=== PATIENT | female | born 1945 | race Caucasian/White ===

== ENCOUNTER → 2017-09-09 09:14 | Outpatient (CLI) | payer MEDICARE, SELFPAY ==
[2017-09-09 10:50] LABS: Anion Gap 8 (5-15); BUN 13 mg/dL (7-18); BUN/Creat Ratio 17.2 RATIO (10-20); Calcium,Total 8.7 mg/dL (8.5-10.1); Chloride 99 mmol/L (98-107); Cholesterol 142 mg/dL (200); Creatinine, Serum 0.76 mg/dL (0.55-1.02); EST Glomerular Filtration Rate 80 mL/min (>60); Est Glom Filt Rate - Afr Amer 97 mL/min (>60); Glucose 97 mg/dL (74-106); High Density Lipoprotein 44 mg/dL; Potassium 4.1 mmol/L (3.5-5.1); Sodium Level 132 mmol/L (136-145); Triglycerides 171 mg/dL; Very Low Density Lipoprotein 34 mg/dL (5-40)
== END ==
PROVIDERS: Family Provider Family Medicine; PCP Family Medicine; Visit Provider Family Medicine
DX: I10 Essential (primary) hypertension (principal)
CPT/HCPCS: 36415; 80048; 80061

== ENCOUNTER → 2018-03-09 11:55 | Outpatient (CLI) | payer MEDICARE, SELFPAY ==
[2018-03-09 14:07] LABS: Anion Gap 10 (5-15); BUN 9 mg/dL (7-18); BUN/Creat Ratio 12.8 RATIO (10-20); Chloride 101 mmol/L (98-107); EST Glomerular Filtration Rate 87 mL/min (>60); Est Glom Filt Rate - Afr Amer 105 mL/min (>60); Glucose 72 mg/dL (74-106); Potassium 3.7 mmol/L (3.5-5.1); Sodium Level 138 mmol/L (136-145)
== END ==
PROVIDERS: Family Provider Family Medicine; PCP Family Medicine; Visit Provider Family Medicine
DX: I10 Essential (primary) hypertension (principal)
CPT/HCPCS: 36415; 80048

== ENCOUNTER 2018-09-12 19:26 | Inpatient (IN) | payer MEDICARE, SELFPAY ==
[2018-09-12 19:28] VITALS: BP 129/47; PULSE 91; RESP 19; TEMP 36.8; O2SAT 92; BMI 31.8
--- NOTE | 2018-09-12 19:37 | CT_ITS ---
STUDY: CT BRAIN WITHOUT CONTRAST REASON FOR EXAM: Female, 72 years old. Fall, hit head RADIATION DOSAGE (If Supplied By Facility): CTDIvol = ( 44.99 ) mGy, DLP = ( 779.24 ) mGycm TECHNIQUE: Transaxial CT imaging of the brain was performed without administration of intravenous contrast material. Individualized dose optimization techniques were used for this CT. COMPARISON: CT brain 10/26/2013. FINDINGS: Normal soft tissue structures. Normal calvarium. There is mild cerebral atrophy with widening of the extra-axial spaces and ventricular dilatation. Normal white matter tracts of the cerebral hemispheres. Normal basal ganglia and thalami. Normal brainstem. Normal cerebellum. There is no intracranial hemorrhage. There are no findings of an acute ischemic infarction. There is mild mucosal thickening in the ethmoid and sphenoid sinuses bilaterally. CT/Brain/Head without Contrast IMPRESSION: 1. No acute findings. 2. Mild involutional changes of the brain. 3. Trace chronic sinusitis. Electronically Signed: Rosalina Huang MD at 22:11 EDT Tel , Service support ,
--- NOTE | 2018-09-12 19:37 | RAD_ITS ---
STUDY: X-RAY CHEST REASON FOR EXAM: Female, 72 years old. Fall. TECHNIQUE: Portable chest. COMPARISON: 02/12/2017. FINDINGS: There is a mild hazy opacity in the right upper lobe partially superimposed over the right posterior sixth rib. The lung morris are otherwise clear. There is no demonstrated pleural abnormality. Normal size heart. Normal mediastinum and erwin. Normal visualized pulmonary arteries. Normal visualized aortic arch and descending thoracic aorta. Normal visualized thoracic spine. Normal visualized ribs, clavicles, and shoulders. There is no demonstrated abnormality of the visualized soft tissue structures of the upper abdomen. RAD/Chest 1 View (Portable) IMPRESSION: Right upper lobe opacity, suspicious for pneumonia. Follow-up to resolution is advised to exclude underlying malignancy. Electronically Signed: Rosalina Huang MD at 22:04 EDT Tel , Service support ,
--- NOTE | 2018-09-12 19:38 | RAD_ITS ---
STUDY: X-RAY - RIGHT KNEE REASON FOR EXAM: Female, 72 years old. Trauma TECHNIQUE: 3 view(s) of the knee. COMPARISON: None. FINDINGS: Normal visualized distal femur. Normal visualized proximal tibia and fibula. Normal proximal tibiofibular articulation. Normal medial femorotibial compartment. Normal lateral femorotibial compartment. Normal patellofemoral articulation. The soft tissue structures are unremarkable. RAD/Knee 3 Views IMPRESSION: Normal x-ray examination of the knee. Electronically Signed: Owen Marrero MD at 22:13 EDT , Service support ,
--- NOTE | 2018-09-12 19:38 | RAD_ITS ---
STUDY: X-RAY - LEFT TIBIA AND FIBULA REASON FOR EXAM: Female, 72 years old. Trauma TECHNIQUE: 3 view(s) of the tibia and fibula were obtained. COMPARISON: None. FINDINGS: Normal visualized tibia. There is a comminuted fracture of the proximal left fibular shaft with fracture apex directed laterally. The soft tissue structures are unremarkable. RAD/Tibia & Fibula 2 Views IMPRESSION: Comminuted fracture the proximal left fibular shaft with fracture apex directed laterally. Electronically Signed: Owen Marrero MD at 22:15 EDT , Service support ,
--- NOTE | 2018-09-12 19:38 | CT_ITS ---
STUDY: CT CERVICAL SPINE WITHOUT CONTRAST REASON FOR EXAM: Female, 72 years old. Trauma RADIATION DOSAGE (If Supplied By Facility): CTDIvol = ( 31.74 ) mGy, DLP = ( 612.34 ) mGycm TECHNIQUE: High resolution transaxial imaging was performed without contrast material. Sagittal and coronal images were reconstructed. Individualized dose optimization techniques were used for this CT. COMPARISON: Report of prior study of 05/20/2011 FINDINGS: Normal craniovertebral junction. Normal anterior atlantoaxial articulation. Normal odontoid process. There is reversal of the normal cervical lordosis. There is diffuse endplate spondylosis. C2-3: There are bilateral hypertrophic degenerative facet changes. There is no central canal stenosis or foraminal narrowing. Disc spacing is preserved. C3-4: There is moderately severe disc space narrowing. There are bilateral degenerative facet changes. There is mild foraminal narrowing on the left. There is no central canal stenosis. C4-5: There is a 2 mm anterior subluxation of C4 relative to C5. There are bilateral degenerative facet changes left side more severely affected than right. There is severe foraminal narrowing on the left. There is no central canal stenosis. C5-6: There are mild bilateral degenerative facet changes. There is no central canal stenosis or foraminal narrowing. Disc spacing is preserved. C6-7: Normal endplates. Normal disc height and morphology. Normal central canal and intervertebral neuroforamina. C7-T1: Normal endplates. Normal disc height and morphology. Normal central canal and intervertebral neuroforamina. There are bilateral emphysematous changes of the lung apices. There is probable left apical scarring. CT/Spine Cervical without Contras IMPRESSION: Cervical degenerative changes as detailed above. Emphysematous changes of the lung apices. Probable left apical scarring. Nonemergent CT of the chest without contrast is recommended. Electronically Signed: Owen Marrero MD at 22:22 EDT , Service support ,
[2018-09-12] MEDS: 0.9% Normal Saline 1,000 ML 150 ML IV (20:36)
[2018-09-12 20:38] LABS: Absolute Lymphocyte Count 0.97 X10^3/ul (0.83-4.51); Absolute Neutrophil Count 4.9 X10^3/uL (2.0-7.7); Basophil# 0.03 X10^3/uL; Basophil% 0.4 % (0-1); Hemoglobin 12.9 g/dl (12.0-15.0); Lymphocyte # 0.97 X10^3/ul (4.0); Lymphocyte % 14.5 % (19-41); Mean Corp Hgb Conc 34.9 g/gl (32-36); Mean Corpuscular Hgb 30.8 pg (27.0-32.0); Mean Corpuscular Volume 88.3 fL (81-99); Mean Platelet Vol. 10.1 fl (6.2-12.0); Monocyte# 0.77 X10^3/uL; Monocyte% 11.5 % (0-10); Neutrophil # 4.91 X10^3/uL (2.7-7.7); Neutrophil % 73.2 % (47-70); POSITIVE COUNT NO; POSITIVE DIFFERENTIAL NO; POSITIVE MORPHOLOGY NO; Platelet Count 178 K/mm3 (150-450); RBC Distribution Width CV 12.5 % (11.6-14.6); RBC Distribution Width SD 39.7 fl (35.1-43.9); Red Blood Count 4.19 M/mm3 (4.2-5.4); White Blood Count 6.7 K/mm3 (4.4-11.0)
[2018-09-12 20:51] LABS: Mucous, Urine 0 SEEN /hpf (<or=2+)
[2018-09-12 20:55] LABS: Color, Urine Yellow (Yellow); Glucose, Dipstick Normal (Normal); Ketone-Dipstick Negative (Negative); Leukocyte Esterase-Dipstick 500 /ul (Negative); Nitrite-Dipstick Positive (Negative); Occult Blood-Urine 50 /ul (Negative); Protein-Dipstick 30 mg/dl (Negative); Specific Gravity, Urine 1.015 (1.002-1.030); Urine Bilirubin Dipstick Negative (Negative); Urine Clarity Sl. Cloudy (Clear); Urine Urobilinogen Normal (Normal)
[2018-09-12 21:02] LABS: Anion Gap 8 (5-15); BUN 31 mg/dL (7-18); BUN/Creat Ratio 24.4 RATIO (10-20); Calcium,Total 8.4 mg/dL (8.5-10.1); Chloride 92 mmol/L (98-107); Creatinine, Serum 1.27 mg/dL (0.55-1.02); EST Glomerular Filtration Rate 44 mL/min (>60); Est Glom Filt Rate - Afr Amer 53 mL/min (>60); Estimated Creatinine Clearance 33.12 ml/min; Glucose 108 mg/dL (74-106); Potassium 3.1 mmol/L (3.5-5.1); Sodium Level 127 mmol/L (136-145)
[2018-09-12 21:03] LABS: CPK Total, Creatine Kinase 634 U/L (26-192)
[2018-09-12 21:08] LABS: White Blood Cells 10-25 SEEN /hpf (0-5)
[2018-09-12 21:09] LABS: Bacteria 3+ /hpf (None Seen); Red Blood Cells-Urine 0-5 SEEN /hpf (0-5); Squamous Epithelial Cells - UA 0-5 SEEN /hpf (5-10)
[2018-09-12 21:11] LABS: Lactic Acid 3.4 mmol/L (0.4-2.0)
[2018-09-12 21:27] VITALS: BP 133/76; PULSE 78; RESP 18; RESP 22; TEMP 36.8; O2SAT 92; O2SAT 93
--- NOTE | 2018-09-12 21:30 | ED.VISSUMM ---
- ER Visit Summary Date of Service: 09/12/18 Chief Complaint: [Fall] History of Present Illness: The patient is a 72 F [presents to the emergency department with several falls in the last 24 hours. Patient fell about 11:30 PM last night while going to the kitchen. Patient is unsure if she is lost her balance. She did hit her head and is not sure if she lost consciousness but she thinks she may have. Patient eventually was able to get up and sit in a chair. Patient apparently had a second fall this evening. The daughter states that the patient seems somewhat confused yesterday and would not answer her phone for 6 hours which is unusual. The daughter sent someone to do a welfare check on her mother and found the mother had fallen and was on the floor. Patient does have a history of hypertension, COPD, frequent falls, hypothyroidism, and bipolar disorder. Patient complains of pain in both knees and states she can bear weight on her left leg. She complains of a headache and some neck pain. She denies any chest pain. Patient has had a cough for several days and thought maybe she had the flu. She has had a fever at home up to 102. Patient has had some sweats.] Physical Examination: [HEENT-PERRLA, EOMI. Cranial nerves II through XII grossly intact. TMs clear. Mucous membranes moist. No adenopathy. Cardiovascular-regular rate and rhythm without murmur or ectopy Lungs-clear to auscultation, chest wall stable without crepitus or subcu emphysema Abdomen-normoactive bowel sounds, soft, nontender, no rebound or rigidity, no peritoneal signs. Extremities-intact ?4, normal range of motion, normal pulses. Right knee-patient has some superficial abrasions to the anterior aspect of the knee with some mild diffuse bony tenderness. There is no acute deformity. She has normal range of motion in flexion of the knee. Ligamentously stable. Left knee-patient has again superficial abrasion noted and tenderness over the proximal fibula. Neurovascular intact distally. Test Results: [CT scan of the brain without contrast was obtained on my interpretation I do not appreciate any hemorrhage. CT of the C-spine also on my interpretation I do not appreciate any fractures only degenerative changes. CBC with differential showed a white count 6.7, hemoglobin 12.4, hematocrit 37, platelets 178. Chemistry showed a sodium of 127, potassium 3.1, chloride 92, CO2 27, glucose 108, BUN 31 and creatinine 1.27. Urinalysis was positive for nitrites as well as 10-25 WBCs and +3 bacteria. CPK was 634. Lactate was elevated 3.4. X-rays of the left tib-fib obtained showed a proximal fibula fracture. X-rays of the right knee showed no fractures. Chest x-ray showed chronic changes.] Emergency Department Course and Treatment: [Patient was placed in a knee immobilizer. Patient had blood cultures and urine cultures ordered. Patient was started on Rocephin 1 g IV. She refused pain medication.] Treatment Plan: [Admit] Disposition: [Admit] Impression: [Falls Left fibula fracture UTI Rhabdomyolysis] This note was generated with [employer] dictation software. It may contain incorrect words, spelling, and punctuation that were not noted in review of the chart prior to signing ED Disposition - Plan for ED Patient: Referrals: Florecita Lange MD [Primary Care Provider] -
--- NOTE | 2018-09-12 21:34 | ED.DCSUM_ITS ---
- ER Visit Summary Date of Service: 09/12/18 Chief Complaint: [Fall] History of Present Illness: The patient is a 72 F [presents to the emergency department with several falls in the last 24 hours. Patient fell about 11:30 PM last night while going to the kitchen. Patient is unsure if she is lost her balance. She did hit her head and is not sure if she lost consciousness but she thinks she may have. Patient eventually was able to get up and sit in a chair. Patient apparently had a second fall this evening. The daughter states that the patient seems somewhat confused yesterday and would not answer her phone for 6 hours which is unusual. The daughter sent someone to do a welfare check on her mother and found the mother had fallen and was on the floor. Patient does have a history of hypertension, COPD, frequent falls, hypothyroidism, and bipolar disorder. Patient complains of pain in both knees and states she can bear weight on her left leg. She complains of a headache and some neck pain. She denies any chest pain. Patient has had a cough for several days and thought maybe she had the flu. She has had a fever at home up to 102. Patient has had some sweats.] Physical Examination: [HEENT-PERRLA, EOMI. Cranial nerves II through XII grossly intact. TMs clear. Mucous membranes moist. No adenopathy. Cardiovascular-regular rate and rhythm without murmur or ectopy Lungs-clear to auscultation, chest wall stable without crepitus or subcu emphysema Abdomen-normoactive bowel sounds, soft, nontender, no rebound or rigidity, no peritoneal signs. Extremities-intact ?4, normal range of motion, normal pulses. Right knee- patient has some superficial abrasions to the anterior aspect of the knee with some mild diffuse bony tenderness. There is no acute deformity. She has normal range of motion in flexion of the knee. Ligamentously stable. Left knee-p atient has again superficial abrasion noted and tenderness over the proximal fibula. Neurovascular intact distally. Test Results: [CT scan of the brain without contrast was obtained on my interpretation I do not appreciate any hemorrhage. CT of the C-spine also on my interpretation I do not appreciate any fractures only degenerative changes. CBC with differential showed a white count 6.7, hemoglobin 12.4, hematocrit 37, platelets 178. Chemistry showed a sodium of 127, potassium 3.1, chloride 92, CO2 27, glucose 108, BUN 31 and creatinine 1.27. Urinalysis was positive for nitrites as well as 10-25 WBCs and +3 bacteria. CPK was 634. Lactate was elevated 3.4. X-rays of the left tib-fib obtained showed a proximal fibula fracture. X-rays of the right knee showed no fractures. Chest x-ray showed chronic changes.] Emergency Department Course and Treatment: [Patient was placed in a knee immobilizer. Patient had blood cultures and urine cultures ordered. Patient was started on Rocephin 1 g IV. She refused pain medication.] Treatment Plan: [Admit] Disposition: [Admit] Impression: [Falls Left fibula fracture UTI Rhabdomyolysis] This note was generated with [employer] dictation software. It may contain incorrect words, spelling, and punctuation that were not noted in review of the chart prior to signing ED Disposition - Plan for ED Patient: Referrals: Florecita Lange MD [Primary Care Provider] -
[2018-09-12] MEDS: 0.9% Normal Saline 1,000 ML 999 ML IV (21:36)
[2018-09-12] MEDS: Ceftriaxone 1 GM/50 ML BAG IV (21:54)
[2018-09-12 22:00] VITALS: BP 158/76; PULSE 76; TEMP 36.7; O2SAT 93
--- NOTE | 2018-09-12 22:25 | HP.PCM_ITS ---
Problem List (1) Pneumonia Status: Acute Qualifiers: Pneumonia type: due to unspecified organism Laterality: right Lung location: upper lobe of lung Qualified Code(s): J18.1 - Lobar pneumonia, unspecified organism (2) COPD exacerbation Status: Acute (3) UTI (urinary tract infection) Status: Acute Qualifiers: Urinary tract infection type: acute cystitis Hematuria presence: without hematuria Qualified Code(s): N30.00 - Acute cystitis without hematuria (4) Rhabdomyolysis Status: Acute Qualifiers: Rhabdomyolysis type: traumatic Encounter type: initial encounter Qualified Code(s): T79.6XXA - Traumatic ischemia of muscle, initial encounter (5) Closed left fibular fracture Status: Acute Qualifiers: Encounter type: initial encounter Fibula location: proximal Fracture morphology: unspecified fracture morphology Qualified Code(s): S82.832A - Other fracture of upper and lower end of left fibula, initial encounter for closed fracture (6) Hypokalemia Status: Acute (7) Falls frequently Status: Acute (8) Bipolar disorder Status: Chronic Qualifiers: Active/Remission status: remission status unspecified Qualified Code(s): F31.9 - Bipolar disorder, unspecified (9) Hypertension Status: Chronic Qualifiers: Hypertension type: essential hypertension Qualified Code(s): I10 - Essential (primary) hypertension (10) Hypothyroidism Status: Chronic Qualifiers: Hypothyroidism type: unspecified Qualified Code(s): E03.9 - Hypothyroidism, unspecified (11) Tobacco use disorder Status: Chronic (12) HLD (hyperlipidemia) Status: Chronic Qualifiers: Hyperlipidemia type: pure hypercholesterolemia Qualified Code(s): E78.00 - Pure hypercholesterolemia, unspecified; E78.0 - Pure hypercholesterolemia (13) Obesity (BMI 30.0-34.9) Status: Chronic (14) CVA (cerebral vascular accident) Status: Chronic Qualifiers: CVA mechanism: unspecified Qualified Code(s): I63.9 - Cerebral infarction, unspecified (15) COPD (chronic obstructive pulmonary disease) Status: Chronic Qualifiers: COPD type: unspecified COPD Qualified Code(s): J44.9 - Chronic obstructive pulmonary disease, unspecified History of Present Illness Date of Admission: 09/12/18 Chief Complaint: Fall, LLE pain, Cough, Dysuria, Dyspnea, Wheezing The patient is a 72 y/o F w/ PMHx: Bipolar Disorder/Anxiety and Depression, obesity, HTN, HLD, Former Tobacco use, Hypothyroidism, Hx Hypercoagulable state w/ Hx Recurrent CVA on coumadin, History of Frequent falls, Chronic COPD who presents to the [facility] ED on 09/12/18 with history of inability per family to reach her the day prior, she notes having felt confused with foul smelling urine recently in addition to several day history of increased productive cough, dyspnea worse with any exertional attempts as well as wheezing, fatigue and malaise with fevers, fell 09/11/18 evening at ~ 11:30 pm, eventually was able to reach her chair, dragging herself with abrasions to her toes secondary to being in plastic shoes with no socks; ever, when attempting to get up from her chair the following day she fell again, injuring her LLE on the fall while attempting to get up from her chair, laid on the ground for unclear amount of time until family found her prior to ED presentation (~ 7:30 pm). Work-up in the ED included T 98.3, heart rate 91, BP 129/47, respiratory rate 19, 92% on room air, CBC with WBC 6.7, hemoglobin 12.9, platelet 178 with mild left shift, BMP with sodium 127, potassium 3.1, chloride 92, BUN/creatinine 31/1.27 (baseline Cr 0.7- 8), glucose 108, lactic acid 3.4, calcium 8.4, total creatinine kinase is 634, carbamazepine level 11, urinalysis concerning for acute urinary tract infection, urine culture pending per ED, blood culture x2 pending per ED, rapid influenza negative, chest x-ray with right upper lobe opacity suspicious for pneumonia, CT brain pending, CT cervical spine pending, Plain film knee RLE unremarkable, Plain film tibia/fibula w/ proximal fibula fracture. ED placed patient in knee immobilizer LLE. In the ED patient administered potassium 40 mg p.o. x1, IV Rocephin, normal saline 2 L x1. Past Medical History Past Medical History (Chronic Problems): Chronic Problems HLD (hyperlipidemia) (Chronic) CVA (cerebral vascular accident) (Chronic) Obesity (BMI 30.0-34.9) (Chronic) COPD (chronic obstructive pulmonary disease) (Chronic) Hypothyroidism (Chronic) Bipolar disorder (Chronic) Tobacco use disorder (Chronic) Hypertension (Chronic) Allergies aspirin Allergy (Verified 09/12/18 19:27) Hives diphenhydramine HCl [From Benadryl] Allergy (Verified 09/12/18 19:27) Anaphylaxis latex Allergy (Verified 09/12/18 19:27) Rash meperidine [From Demerol] Allergy (Verified 09/12/18 19:27) Swelling Penicillins Allergy (Verified 09/12/18 19:27) Anaphylaxis Sulfa (Sulfonamide Antibiotics) Allergy (Verified 09/12/18 19:27) Unknown codeine Adverse Reaction (Verified 09/12/18 19:27) Vomiting haloperidol [From Haldol] Adverse Reaction (Verified 09/12/18 19:) HALLUCINATIONS promethazine HCl [From Phenergan] Adverse Reaction (Verified 09/12/18 19:27) Other Home Medications: Ambulatory Orders Medication Instructions Recorded Amlodipine [Norvasc] 10 mg PO DAILY 10/26/13 Baclofen [Lioresal] 10 mg PO BID 10/26/13 Bisoprolol Fumarate/Hctz [ZIAC 1 each PO DAILY 10/26/13 2.5-6.25 mg (Beta Jc)] Carbamazepine [Tegretol] 100 mg PO DAILY 10/26/13 Carbamazepine [Tegretol] 200 mg PO QHS 10/26/13 Duloxetine Hcl [Cymbalta] 60 mg PO DAILY 10/26/13 Lisinopril [Zestril] 20 mg PO BID 10/26/13 Quetiapine Fumarate [Seroquel] 200 mg PO QHS 10/26/13 Rosuvastatin Calcium [Crestor] 10 mg PO QHS 10/26/13 Warfarin [Coumadin] 5 mg PO DAILY@1700 #30 tablet 10/28/13 Pregabalin [Lyrica] 50 mg PO BID 10/06/16 Albuterol Inhaler [Ventolin Hfa] 2 puff INHALATION TID 02/12/17 Duloxetine Hcl [Cymbalta] 30 mg PO BID 02/12/17 Oxybutynin Chloride [Ditropan Xl] 30 mg PO DAILY 02/12/17 Enoxaparin [Lovenox] 40 mg SC DAILY@0600 #2 syringe 02/24/17 Hydrocodone Bitart/Apap 5-325 1 - 2 tablet PO Q6H PRN PRN #60 02/24/17 [[place] 5/325] tablet Oxycodone CR [Oxycontin] 10 mg PO BID #30 tablet 02/24/17 Senna/Docusate Sodium [Senokot-S] 2 tablet PO BID #30 tablet 02/24/17 Surgical History: - - Appendectomy, cholecystectomy, hysterectomy with bilateral salpingo-oophorectomy, left total hip replacement. Psychiatric History: Anxiety, Bipolar, Depression DISC RECORDIST History: spontaneous , - - She had DEREJE with BSO for dysfunctional uterine bleeding Lives: Alone Smoking Status: Former smoker - Patient quit approximately 4 weeks prior to cu rrent ED presentation, cigarette tobacco usage. Tobacco Use: Non-smoker Alcohol: None Drugs: None - *Family History Maternal History Items: Heart Disease Paternal History Items: Heart Disease Review of Systems Constitutional: Reports: Anorexia, Fever, Malaise, Weakness, Fatigue. Denies: Chills, Weight Change HEENT: Denies: Head Aches, Sinus Congestion, Sinus Drainage Cardiovascular: Denies: Chest Pain, Palpitations Respiratory: Reports: Cough, Shortness of Breath, Shortness of breath at rest, Shortness of breath upon exertion, Sputum production, Wheezing Gastrointestinal: Denies: Abdominal Pain, Nausea, Vomiting Genitourinary: Reports: Dysuria Musculoskeletal: Reports: Joint Pain, Joint stiffness, Joint swelling, Joint Tenderness, Leg Pain Skin: Reports: Skin Changes. Denies: Rash, Wounds Neurological: Denies: Numbness, Tingling, Focal weakness Psychiatric: Reports: Anxiety, Depression. Denies: Homicidal Ideations, Suicidal Ideations Hematologic/ Lymphatic: Denies: Easy Bruising, Easy Bleeding VTE Information - Inpt Only VTE Present on Admission: No VTE Mechan Device Prophylaxis: SCD's VTE Pharm Prophylaxis ordered?: Yes Patient Problems: Active and Suspected Problems COPD exacerbation (Acute) Pneumonia (Acute) UTI (urinary tract infection) (Acute) Rhabdomyolysis (Acute) Hypokalemia (Acute) Closed left fibular fracture (Acute) Subjective: Seated upright in ED bed, mildly anxious, pursed lip breathing, audible wheeze noted, notes ongoing discomfort to the left lower extremity. Objective: Physical Examination: General: awake, alert, oriented x 3 and cooperative, seated upright in the ED bed, fatigued, mildly anxious and notes ongoing discomfort. Skin: normal color, turgor, no icterus, cyanosis except abrasions to the feet suspected from dragging herself on the floor and plastic shoes with no socks as well as abrasions to bilateral knees following a fall. HEENT: AT/NC, EOMI, PERRLA, dry MM, no carotid bruits or JVD noted. Lungs: Diminished breath sounds throughout, mildly rhonchorous, coarse, productive cough notable during examination, audible expiratory wheezing, purse lipped breathing. Heart: Regular rate and rhythm; no gallop, rub audible. Abdomen: soft, obese, suprapubic discomfort with palpation otherwise NTTP, ND, normal BS, no HSM. Extremities: no cyanosis, clubbing, status post fall with left lower extremity fibula fracture proximally, see skin. Neurological: patient awake, alert, oriented x 3; cognitive function intact; pupils equally reactive to light and accomodation; cranial nerves II-XII grossly normal, moving all 4 extremities however limited left lower extremity movement secondary to fall with fibula fracture, strength accordingly severely globally decreased. Psychiatric: affect appears mildly anxious, fatigued, no acute evidence of depressive feelings. - Physical Exam Vital Signs Temp Pulse Resp BP Pulse Ox 98.3 F 78 18 133/76 H 92 09/12/18 21:27 09/12/18 21:27 09/12/18 21:27 09/12/18 21:27 09/12/18 21:27 Oxygen Flow Rate (L/min) 3 Oxygen Delivery Method Nasal Cannula Weight: 180 lb Body Mass Index (BMI) 31.8 Microbiology Past 72 Hours 09/12/18 20:05 Influenza Types A,B Direct FA ([id number]) - Final Mucosa - Nasopharyngeal Laboratory Tests Past 24 Hrs 09/12/18 09/12/18 09/12/18 20:00 20:00 20:00 WBC 6.7 RBC 4.19 L Hgb 12.9 Hct 37.0 MCV 88.3 MCH 30.8 MCHC 34.9 RDW 12.5 RDW Differential 39.7 Plt Count 178 MPV 10.1 Immature Gran % (Auto) 0.400 Neut % (Auto) 73.2 H Lymph % (Auto) 14.5 L [place] % (Auto) 11.5 H Eos % (Auto) 0.0 Baso % (Auto) 0.4 Absolute Neuts (auto) 4.9 Absolute Lymphs (auto) 0.97 Total Counted Not Reportable Sodium 127 L Potassium 3.1 L Chloride 92 L Carbon Dioxide 27.0 Anion Gap 8 BUN 31 H Creatinine 1.27 H Estim Creat Clear Calc 33.12 Est GFR (MDRD) Af Amer 53 L Est GFR (MDRD) Non-Af 44 L BUN/Creatinine Ratio 24.4 H Glucose 108 H Lactic Acid 3.4 H Calcium 8.4 L Total Creatine Kinase Urine Color Urine Clarity Urine pH Ur Specific [place] Urine Protein Urine Glucose (UA) Urine Ketones Urine Occult Blood Urine Nitrite Urine Bilirubin Urine Urobilinogen Ur Leukocyte Esterase Urine RBC Urine WBC Ur Squamous Epith Cells Urine Bacteria Urine Mucus Carbamazepine 09/12/18 09/12/18 09/12/18 20:00 20:00 20:45 WBC RBC Hgb Hct MCV MCH MCHC RDW RDW Differential Plt Count MPV Immature Gran % (Auto) Neut % (Auto) Lymph % (Auto) [place] % (Auto) Eos % (Auto) Baso % (Auto) Absolute Neuts (auto) Absolute Lymphs (auto) Total Counted Sodium Potassium Chloride Carbon Dioxide Anion Gap BUN Creatinine Estim Creat Clear Calc Est GFR (MDRD) Af Amer Est GFR (MDRD) Non-Af BUN/Creatinine Ratio Glucose Lactic Acid Calcium Total Creatine Kinase 634 H Urine Color Yellow Urine Clarity Sl. Cloudy Urine pH 6.0 Ur Specific [place] 1.015 Urine Protein 30 H Urine Glucose (UA) Normal Urine Ketones Negative Urine Occult Blood 50 H Urine Nitrite Positive H Urine Bilirubin Negative Urine Urobilinogen Normal Ur Leukocyte Esterase 500 H Urine RBC 0-5 SEEN Urine WBC 10-25 SEEN Ur Squamous Epith Cells 0-5 SEEN Urine Bacteria 3+ Urine Mucus 0 SEEN Carbamazepine 11.0 Assessment/Plan All Active Problems COPD exacerbation (Acute) Pneumonia (Acute) UTI (urinary tract infection) (Acute) Rhabdomyolysis (Acute) Hypokalemia (Acute) Closed left fibular fracture (Acute) Falls frequently (Acute) Monoplegia (Acute) Acute facial pain (Acute) Subtherapeutic international normalized ratio (INR) (Acute) Pulmonary emboli (Resolved) The patient is a 72 y/o F w/ PMHx: Bipolar Disorder/Anxiety and Depression, obesity, HTN, HLD, Former Tobacco use, Hypothyroidism, Hx Hypercoagulable state w/ Hx Recurrent CVA on coumadin, History of Frequent falls, Chronic COPD who presents to the [facility] ED on 09/12/18 with history of inability per family to reach her the day prior, she notes having felt confused with foul smelling urine recently in addition to several day history of increased productive cough, dyspnea worse with any exertional attempts as well as wheezing, fatigue and malaise with fevers, fell 09/11/18 evening at ~ 11:30 pm, eventually was able to reach her chair, dragging herself with abrasions to her toes secondary to being in plastic shoes with no socks; ever, when attempting to get up from her chair the following day she fell again, injuring her LLE on the fall while attempting to get up from her chair, laid on the ground for unclear amount of time until family found her prior to ED presentation (~ 7:30 pm). (1) Community Acquired Pneumonia: Work-up in the ED included T 98.3, heart rate 91, BP 129/47, respiratory rate 19, 92% on room air, CBC with WBC 6.7, hemoglobin 12.9, platelet 178 with mild left shift, BMP with sodium 127, potassium 3.1, chloride 92, BUN/creatinine 31/1.27 (baseline Cr 0.7-8), glucose 108, lactic acid 3.4, calcium 8.4, total creatinine kinase is 634, carbamazepine level 11, urinalysis concerning for acute urinary tract infection, urine culture pending per ED, blood culture x2 pending per ED, rapid influenza negative, chest x-ray with right upper lobe opacity suspicious for pneumonia. Will admit to [facility] w/ telemetry, maintain on oxygen with wean as tolerated to room air, continue ATC duonebs, PRN albuterol, maintain on solumedrol, maintain on IV Rocephin and Azithromycin, HOB, IS parameters w/ pending sputum cultures, respiratory viral panel and urine antigens. Bld cx x 2 obtained in the ED. Will obtain AM oxygenation trial for discharge planning daily. (1) Acute Urinary Tract Infection: UA upon ED evaluation remarkable, pending UCx, continue IVFs, monitor I/Os, continue IV Rocephin w/ transition as able pending sensitivities and speciation. Bld cx x 2 obtained in the ED. (2) Mild rhabdomyolysis with recent fall, immobility, dehydration w/ mild hyponatremia, mild renal insufficiency with lactic acidosis: Work-up in the ED included BMP with sodium 127, chloride 92, BUN/creatinine 31/1.27 (baseline Cr 0.7-8), lactic acid 3.4, total creatinine kinase is 634, continue aggressive hydration, repeat BMP and TCK in AM. (3) Fall w/ Left Fibula Fracture: CT brain pending, CT cervical spine pending, Plain film knee RLE unremarkable, Plain film tibia/fibula w/ proximal fibula fracture. Likely non-operative, immobilizer placed in the ED, NWB status, pain regimen, fall precautions, PT, OT, CM consultations for discharge planning. Request Orthopedic input to assure non-operative option. (4) Hypokalemia: Admission K+ 3.1, supplementation given, repeat level in AM. (5) ? Hx Hypercoagulable state: History of spontaneous abortions, DVT and PEs, has been maintained on Coumadin since the ; her, she notes unremarkable workup outpatient and that she was discontinued on chronic anticoagulation approximate 2 years ago. (6) ? Hypothyroidism: Noted in prior history, not on supplementation, TSH pending. (7) Bipolar disorder: Continue home Tegretol, Cymbalta, Seroquel regimen, Carbamazepine level 11. (8) Hypertension: Continue home regimen including Norvasc, lisinopril, bisoprolol, hydrochlorothiazide however will begin doses the following day given mild dehydration with need for aggressive hydration with #3, PRN hydralazine. (9) Hyperlipidemia: Continue home statin regimen. (10) History CVA: Maintain on addition of plavix given ASA reaction hives as long as no operative intent, hypertensive regimen, statin therapy. (11) Chronic COPD: ATC duonebs, PRN albuterol, HOB, IS parameters. (12) History of Tobacco Abuse: She only quit approximately 4 weeks prior to current presentation. Encouraged to need cessation, inpatient consultation per RT, declined NR. (13) DVT Prophylaxis: SCDs, lovenox. (14) CODE status: Patient's daughter present is her healthcare power of immigration attorney, living will is in place. Discussed CODE status at length including difference between FULL code, DNR-CCA and DNR-CC status. Following discussions about the differences in these status patient is unsure which status she prefers. Discussed options and at this time will maintain full CODE STATUS and recommended that she and her daughter discussed these items. Advanced Care Planning Face to Face Time: 16 minutes. Code Visit Inpatient E&M: 71419 Init Hosp L3 Procedures: 66038 Advncd Care Plan 30 Min
[2018-09-12] MEDS: MethylPREDNISolone 125 MG/2 ML Vial IV (23:18)
[2018-09-12 23:46] LABS: International Normalized Ratio 1.2; Prothrombin Time (Protime)PT. 14.8 SECONDS (11.7-14.9)
[2018-09-12 23:57] LABS: Magnesium 1.8 mg/dL (1.6-2.6); T4 Free Direct 0.73 ng/dL (0.76-1.46)
[2018-09-13] VITALS (15 sets, daily range): BP systolic 91–155; BP diastolic 42–70; PULSE 63–91; RESP 16–24; TEMP 36.2–36.6; O2SAT 96–100; BMI 31.8; BMI 31.9
[2018-09-13 00:11] LABS: Reflex Lactate? Y
[2018-09-13] MEDS: Enoxaparin 40 MG/0.4 ML Syringe SC (01:11)
[2018-09-13] MEDS: DULoxetine Hcl 30 MG Capsule PO (01:12)
[2018-09-13] MEDS: Pregabalin 50 MG Capsule PO (01:12)
[2018-09-13] MEDS: 0.9% Normal Saline 1,000 ML 999 ML IV ×2 (01:12→05:40)
[2018-09-13] MEDS: Baclofen 10 MG Tablet PO (01:14)
[2018-09-13] MEDS: Lisinopril 20 MG Tablet PO (01:14)
[2018-09-13] MEDS: carBAMazepine 200 MG Tablet PO ×2 (01:15→21:02)
[2018-09-13] MEDS: QUEtiapine 100 MG Tablet 200 MG PO (01:30)
[2018-09-13] MEDS: Atorvastatin Calcium 20 MG Tablet PO ×2 (01:30→21:01)
[2018-09-13] MEDS: Ipratropium/Albuterol Sulfate 3 ML AMPUL.NEB INHALATION ×3 (01:37→14:39)
[2018-09-13] MEDS: 0.9% Normal Saline 1,000 ML 150 ML IV (02:26)
[2018-09-13 06:14] LABS: Absolute Lymphocyte Count 0.78 X10^3/ul (0.83-4.51); Absolute Neutrophil Count 3.7 X10^3/uL (2.0-7.7); Basophil# 0.02 X10^3/uL; Basophil% 0.4 % (0-1); Hematocrit 31.9 % (37-47); Lymphocyte # 0.78 X10^3/ul (4.0); Lymphocyte % 16.4 % (19-41); Mean Corp Hgb Conc 34.5 g/gl (32-36); Mean Corpuscular Hgb 30.8 pg (27.0-32.0); Mean Corpuscular Volume 89.4 fL (81-99); Monocyte# 0.26 X10^3/uL; Monocyte% 5.5 % (0-10); Neutrophil # 3.67 X10^3/uL (2.7-7.7); Neutrophil % 77.3 % (47-70); Platelet Count 158 K/mm3 (150-450); RBC Distribution Width CV 12.5 % (11.6-14.6); RBC Distribution Width SD 39.6 fl (35.1-43.9); Red Blood Count 3.57 M/mm3 (4.2-5.4); White Blood Count 4.8 K/mm3 (4.4-11.0)
[2018-09-13 06:15] LABS: International Normalized Ratio 1.2; Prothrombin Time (Protime)PT. 15.2 SECONDS (11.7-14.9)
[2018-09-13 06:27] LABS: POSITIVE COUNT NO; POSITIVE DIFFERENTIAL NO; POSITIVE MORPHOLOGY NO
[2018-09-13 06:38] LABS: Anion Gap 7 (5-15); BUN 19 mg/dL (7-18); BUN/Creat Ratio 19.9 RATIO (10-20); CPK Total, Creatine Kinase 517 U/L (26-192); Calcium,Total 7.6 mg/dL (8.5-10.1); Chloride 103 mmol/L (98-107); Creatinine, Serum 0.96 mg/dL (0.55-1.02); EST Glomerular Filtration Rate 61 mL/min (>60); Est Glom Filt Rate - Afr Amer 74 mL/min (>60); Estimated Creatinine Clearance 43.82 ml/min; Glucose 165 mg/dL (74-106); Potassium 3.3 mmol/L (3.5-5.1); Sodium Level 135 mmol/L (136-145)
--- NOTE | 2018-09-13 09:28 | CASEMGMT ---
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 RAFAEL Gutiérrez, RN NAVIGATOR
--- NOTE | 2018-09-13 09:44 | PCM.PN.HOSP ---
Patient Problems: Active and Suspected Problems COPD exacerbation (Acute) Pneumonia (Acute) UTI (urinary tract infection) (Acute) Rhabdomyolysis (Acute) Hypokalemia (Acute) Closed left fibular fracture (Acute) Subjective: Tremulous since yesterday. Never had this before. Per her daughter, was very somnolent this AM. Vitals/I&O's: Vital Signs Temp Pulse Resp BP Pulse Ox 36.6 C 72 20 H 109/52 L 96 09/13/18 07:53 09/13/18 07:53 09/13/18 07:53 09/13/18 07:53 09/13/18 07:53 Oxygen Flow Rate (L/min) 2 Oxygen Delivery Method Nasal Cannula Weight: 81.647 kg Body Mass Index (BMI) 31.8 Intake and Output for Last 24 Hours 09/11/18 09/12/18 09/13/18 23:59 23:59 23:59 Intake Total 4053 / 4053 Output Total 750 / 750 Balance 3303 / 3303 General: Alert, No apparent distress, - - eating breakfast. HEENT: Atraumatic, Normocephalic Oral: Moist Mucosa, No Gingival or Mucosal Lesions/ Ulcerations Neck: No Nodes, Thyroid Normal Size and Texture Lungs: Diminished, - - crackles Cardiovascular: Regular rate, Regular Rhythm, Normal S1, Normal S2 Abdomen: Bowel Sounds Present, Soft, Non Tender, Non-Distended, No Hepato-splenomegaly Extremities: No edema, No Calf Tenderness Skin: No rashes, No breakdown Musculoskeletal: No Tenderness to Palpation of Joints or Extremities, No Muscle Wasting Psych/Mental Status: Normal Affect, Appropriate Microbiology Past 72 Hours 09/12/18 20:45 Urine, Clean Catch Streptococcus pneumoniae Antigen (M - Final Streptococcus pneumonia Ag 09/12/18 20:45 Urine, Clean Catch Legionella Antigen - Final 09/12/18 20:05 Mucosa - Nasopharyngeal Influenza Types A,B Direct FA (KWABENA) - Final Laboratory Results 09/12/18 11:30: PT 14.8, INR 1.2 09/12/18 20:00: WBC 6.7, RBC 4.19 L, Hgb 12.9, Hct 37.0, MCV 88.3, MCH 30.8, MCHC 34.9, RDW 12.5, RDW Differential 39.7, Plt Count 178, MPV 10.1, Immature Gran % (Auto) 0.400, Neut % (Auto) 73.2 H, Lymph % (Auto) 14.5 L, [place] % (Auto) 11.5 H, Eos % (Auto) 0.0, Baso % (Auto) 0.4, Absolute Neuts (auto) 4.9, Absolute Lymphs (auto) 0.97, Total Counted Not Reportable 09/12/18 20:00: Sodium 127 L, Potassium 3.1 L, Chloride 92 L, Carbon Dioxide 27.0, Anion Gap 8, BUN 31 H, Creatinine 1.27 H, Estim Creat Clear Calc 33.12, Est GFR (MDRD) Af Amer 53 L, Est GFR (MDRD) Non-Af 44 L, BUN/Creatinine Ratio 24.4 H, Glucose 108 H, Calcium 8.4 L 09/12/18 20:00: Lactic Acid 3.4 H 09/12/18 20:00: Carbamazepine 11.0 09/12/18 20:00: Total Creatine Kinase 634 H 09/12/18 20:00: Magnesium 1.8, TSH 0.70, Free T4 0.73 L 09/12/18 20:45: Urine Color Yellow, Urine Clarity Sl. Cloudy, Urine pH 6.0, Ur Specific [place] 1.015, Urine Protein 30 H, Urine Glucose (UA) Normal, Urine Ketones Negative, Urine Occult Blood 50 H, Urine Nitrite Positive H, Urine Bilirubin Negative, Urine Urobilinogen Normal, Ur Leukocyte Esterase 500 H, Urine RBC 0-5 SEEN, Urine WBC 10-25 SEEN, Ur Squamous Epith Cells 0-5 SEEN, Urine Bacteria 3+, Urine Mucus 0 SEEN 09/13/18 00:26: Lactic Acid 2.0 09/13/18 05:30: WBC 4.8, RBC 3.57 L, Hgb 11.0 L, Hct 31.9 L, MCV 89.4, MCH 30.8, MCHC 34.5, RDW 12.5, RDW Differential 39.6, Plt Count 158, MPV 10.0, Immature Gran % (Auto) 0.400, Neut % (Auto) 77.3 H, Lymph % (Auto) 16.4 L, [place] % (Auto) 5.5, Eos % (Auto) 0.0, Baso % (Auto) 0.4, Absolute Neuts (auto) 3.7, Absolute Lymphs (auto) 0.78 L, Total Counted Not Reportable 09/13/18 05:30: PT 15.2 H, INR 1.2 09/13/18 05:30: Sodium 135 L, Potassium 3.3 L, Chloride 103, Carbon Dioxide 25.0, Anion Gap 7, BUN 19 H, Creatinine 0.96, Estim Creat Clear Calc 43.82, Est GFR (MDRD) Af Amer 74, Est GFR (MDRD) Non-Af 61, BUN/Creatinine Ratio 19.9, Glucose 165 H, Calcium 7.6 L, Total Creatine Kinase 517 H Current Medications Acetaminophen (Tylenol) 650 mg PO Q4H PRN PRN PRN Reason: FEVER Acetaminophen (Tylenol) 650 mg PO Q6H PRN PRN PRN Reason: Mild Pain (scale 0-3)/T>100.7 Al Hydroxide/Mg Hydroxide (Mylanta Ii) 30 ml PO Q6H PRN PRN PRN Reason: Gastric burning Albuterol Sulfate (Ventolin Aerosols) 2.5 mg INHALATION Q2H PRN PRN PRN Reason: SHORTNESS OF BREATH Albuterol/Ipratropium (Duoneb) 3 ml INHALATION Q4HWA.RT [facility] Last Admin: 09/13/18 07:52 Dose: 3 ml Amlodipine Besylate (Norvasc) 10 mg PO DAILY [facility] Atorvastatin Calcium (Lipitor) 20 mg PO QHS [facility] Last Admin: 09/13/18 01:30 Dose: 20 mg Bisoprolol Fumarate (Zebeta) 2.5 mg PO DAILY [facility] Carbamazepine (Tegretol) 100 mg PO DAILY [facility] Carbamazepine (Tegretol) 200 mg PO QHS [facility] Last Admin: 09/13/18 01:15 Dose: 200 mg Clopidogrel Bisulfate (Plavix) 75 mg PO DAILY [facility] Duloxetine HCl (Cymbalta) 60 mg PO DAILY [facility] Enoxaparin Sodium (Lovenox) 40 mg SC DAILY@0600 [facility] Last Admin: 09/13/18 05:24 Dose: Not Given Guaifenesin (Mucinex) 1,200 mg PO BID [facility] Hydrochlorothiazide (Hctz) 6.25 mg PO DAILY [facility] Azithromycin 500 mg/ Dextrose 255 mls @ 250 mls/hr IV Q24 [facility] Stop: 03/20/19 11:02 Ceftriaxone Sodium (Rocephin) 1 gm in 50 mls @ 100 mls/hr IV Q24H [facility] Lisinopril (Zestril) 10 mg PO DAILY [facility] Magnesium Hydroxide (Milk Of Magnesia) 30 ml PO DAILY PRN PRN PRN Reason: Constipation Methylprednisolone (Solu-Medrol) 40 mg IV Q8 [facility] Last Admin: 09/13/18 05:23 Dose: 40 mg Morphine Sulfate () 2 - 4 mg IV Q3H PRN PRN PRN Reason: Severe Pain (pain scale 6-10) Morphine Sulfate () 1 - 2 mg IV Q4H PRN PRN PRN Reason: Moderate Pain (pain scale 4-5) Ondansetron HCl (Zofran) 4 mg IV Q8H PRN PRN PRN Reason: NAUSEA Promethazine HCl (Phenergan) 6.25 mg IV Q4H PRN PRN PRN Reason: NAUSEA/VOMITING Quetiapine Fumarate (Seroquel) 300 mg PO QHS [facility] Sodium Chloride () 5 - 15 ml IV UD PRN PRN Reason: SALINE FLUSH Tolterodine Tartrate (Detrol La) 2 mg PO DAILY [facility] Medical Necessity - Tobacco Use Smoking Status: Former smoker Tobacco Use: Non-smoker Assessment/Plan All Active Problems COPD exacerbation (Acute) Pneumonia (Acute) UTI (urinary tract infection) (Acute) Rhabdomyolysis (Acute) Hypokalemia (Acute) Closed left fibular fracture (Acute) Falls frequently (Acute) Monoplegia (Acute) Acute facial pain (Acute) Subtherapeutic international normalized ratio (INR) (Acute) Pulmonary emboli (Resolved) 1. Pneumococcal pneumonia: Urinary antigen. Continue with ceftriaxone and azithromycin for now. Continue pulmonary toilet. 2. Pyuria: Positive leuk esterase but only 10-25 white blood cells. 3+ bacteria but not really convinced that this is an actual urinary tract infection. Await final urine culture results and patient is on Rocephin anyways for the pneumonia. 3. Mild rhabdomyolysis: Secondary to being down for period of time. Improving with IV fluids. 4. Left fibular shaft fracture: Continue with the conservative management for now. Orthopedics on consultation for further recommendations. Nonweightbearing left lower extremity until further instructions by orthopedics. 5. Tremulousness: Patient's daughter was concerned about tardive dyskinesia. Reviewed medications with him, patient is not on any order anti-X nor is she on Reglan or Phenergan. I think is prime more metabolic and but did make recommendations to discontinue baclofen, Lyrica and oxycodone, the latter which she has not received. And just monitor for now. I do not feel that this is tardive dyskinesia. 6. Hyponatremia: Improved. Monitor. 7. hyPokalemia: Improved but still low. Continue to replace. 8. DVT prophylaxis with Lovenox: 9. Debility: Physical and occupational therapy evaluate and treat. Patient may require custodial facility upon discharge. Code Visit Inpatient E&M: 81005 Subs Hosp L2
--- NOTE | 2018-09-13 09:49 | PN_ITS ---
Patient Problems: Active and Suspected Problems COPD exacerbation (Acute) Pneumonia (Acute) UTI (urinary tract infection) (Acute) Rhabdomyolysis (Acute) Hypokalemia (Acute) Closed left fibular fracture (Acute) Subjective: Tremulous since yesterday. Never had this before. Per her daughter, was very somnolent this AM. Vitals/I&O's: Vital Signs Temp Pulse Resp BP Pulse Ox 36.6 C 72 20 H 109/52 L 96 09/13/18 07:53 09/13/18 07:53 09/13/18 07:53 09/13/18 07:53 09/13/18 07:53 Oxygen Flow Rate (L/min) 2 Oxygen Delivery Method Nasal Cannula Weight: 81.647 kg Body Mass Index (BMI) 31.8 Intake and Output for Last 24 Hours 09/11/18 09/12/18 09/13/18 23:59 23:59 23:59 Intake Total 4053 / 4053 Output Total 750 / 750 Balance 3303 / 3303 General: Alert, No apparent distress, - - eating breakfast. HEENT: Atraumatic, Normocephalic Oral: Moist Mucosa, No Gingival or Mucosal Lesions/ Ulcerations Neck: No Nodes, Thyroid Normal Size and Texture Lungs: Diminished, - - crackles Cardiovascular: Regular rate, Regular Rhythm, Normal S1, Normal S2 Abdomen: Bowel Sounds Present, Soft, Non Tender, Non-Distended, No Hepato- splenomegaly Extremities: No edema, No Calf Tenderness Skin: No rashes, No breakdown Musculoskeletal: No Tenderness to Palpation of Joints or Extremities, No Muscle Wasting Psych/Mental Status: Normal Affect, Appropriate Microbiology Past 72 Hours 09/12/18 20:45 Urine, Clean Catch Streptococcus pneumoniae Antigen (M - Final Streptococcus pneumonia Ag 09/12/18 20:45 Urine, Clean Catch Legionella Antigen - Final 09/12/18 20:05 Mucosa - Nasopharyngeal Influenza Types A,B Direct FA (KWABENA) - Final Laboratory Results 09/12/18 11:30: PT 14.8, INR 1.2 09/12/18 20:00: WBC 6.7, RBC 4.19 L, Hgb 12.9, Hct 37.0, MCV 88.3, MCH 30.8, MCHC 34.9, RDW 12.5, RDW Differential 39.7, Plt Count 178, MPV 10.1, Immature Gran % (Auto) 0.400, Neut % (Auto) 73.2 H, Lymph % (Auto) 14.5 L, [place] % (Auto) 11.5 H, Eos % (Auto) 0.0, Baso % (Auto) 0.4, Absolute Neuts (auto) 4.9, Absolute Lymphs (auto) 0.97, Total Counted Not Reportable 09/12/18 20:00: Sodium 127 L, Potassium 3.1 L, Chloride 92 L, Carbon Dioxide 27.0, Anion Gap 8, BUN 31 H, Creatinine 1.27 H, Estim Creat Clear Calc 33.12, Est GFR (MDRD) Af Amer 53 L, Est GFR (MDRD) Non-Af 44 L, BUN/Creatinine Ratio 24.4 H, Glucose 108 H, Calcium 8.4 L 09/12/18 20:00: Lactic Acid 3.4 H 09/12/18 20:00: Carbamazepine 11.0 09/12/18 20:00: Total Creatine Kinase 634 H 09/12/18 20:00: Magnesium 1.8, TSH 0.70, Free T4 0.73 L 09/12/18 20:45: Urine Color Yellow, Urine Clarity Sl. Cloudy, Urine pH 6.0, Ur Specific [place] 1.015, Urine Protein 30 H, Urine Glucose (UA) Normal, Urine Ket ones Negative, Urine Occult Blood 50 H, Urine Nitrite Positive H, Urine Bilirubin Negative, Urine Urobilinogen Normal, Ur Leukocyte Esterase 500 H, Urine RBC 0-5 SEEN, Urine WBC 10-25 SEEN, Ur Squamous Epith Cells 0-5 SEEN, Urine Bacteria 3+, Urine Mucus 0 SEEN 09/13/18 00:26: Lactic Acid 2.0 09/13/18 05:30: WBC 4.8, RBC 3.57 L, Hgb 11.0 L, Hct 31.9 L, MCV 89.4, MCH 30.8, MCHC 34.5, RDW 12.5, RDW Differential 39.6, Plt Count 158, MPV 10.0, Immature Gran % (Auto) 0.400, Neut % (Auto) 77.3 H, Lymph % (Auto) 16.4 L, [place] % (Auto) 5.5, Eos % (Auto) 0.0, Baso % (Auto) 0.4, Absolute Neuts (auto) 3.7, Absolute Lymphs (auto) 0.78 L, Total Counted Not Reportable 09/13/18 05:30: PT 15.2 H, INR 1.2 09/13/18 05:30: Sodium 135 L, Potassium 3.3 L, Chloride 103, Carbon Dioxide 25.0, Anion Gap 7, BUN 19 H, Creatinine 0.96, Estim Creat Clear Calc 43.82, Est GFR (MDRD) Af Amer 74, Est GFR (MDRD) Non-Af 61, BUN/Creatinine Ratio 19.9, Glucose 165 H, Calcium 7.6 L, Total Creatine Kinase 517 H Current Medications Acetaminophen (Tylenol) 650 mg PO Q4H PRN PRN PRN Reason: FEVER Acetaminophen (Tylenol) 650 mg PO Q6H PRN PRN PRN Reason: Mild Pain (scale 0-3)/T>100.7 Al Hydroxide/Mg Hydroxide (Mylanta Ii) 30 ml PO Q6H PRN PRN PRN Reason: Gastric burning Albuterol Sulfate (Ventolin Aerosols) 2.5 mg INHALATION Q2H PRN PRN PRN Reason: SHORTNESS OF BREATH Albuterol/Ipratropium (Duoneb) 3 ml INHALATION Q4HWA.RT [facility] Last Admin: 09/13/18 07:52 Dose: 3 ml Amlodipine Besylate (Norvasc) 10 mg PO DAILY [facility] Atorvastatin Calcium (Lipitor) 20 mg PO QHS [facility] Last Admin: 09/13/18 01:30 Dose: 20 mg Bisoprolol Fumarate (Zebeta) 2.5 mg PO DAILY [facility] Carbamazepine (Tegretol) 100 mg PO DAILY [facility] Carbamazepine (Tegretol) 200 mg PO QHS [facility] Last Admin: 09/13/18 01:15 Dose: 200 mg Clopidogrel Bisulfate (Plavix) 75 mg PO DAILY [facility] Duloxetine HCl (Cymbalta) 60 mg PO DAILY [facility] Enoxaparin Sodium (Lovenox) 40 mg SC DAILY@0600 [facility] Last Admin: 09/13/18 05:24 Dose: Not Given Guaifenesin (Mucinex) 1,200 mg PO BID [facility] Hydrochlorothiazide (Hctz) 6.25 mg PO DAILY [facility] Azithromycin 500 mg/ Dextrose 255 mls @ 250 mls/hr IV Q24 [facility] Stop: 03/20/19 11:02 Ceftriaxone Sodium (Rocephin) 1 gm in 50 mls @ 100 mls/hr IV Q24H [facility] Lisinopril (Zestril) 10 mg PO DAILY [facility] Magnesium Hydroxide (Milk Of Magnesia) 30 ml PO DAILY PRN PRN PRN Reason: Constipation Methylprednisolone (Solu-Medrol) 40 mg IV Q8 [facility] Last Admin: 09/13/18 05:23 Dose: 40 mg Morphine Sulfate () 2 - 4 mg IV Q3H PRN PRN PRN Reason: Severe Pain (pain scale 6-10) Morphine Sulfate () 1 - 2 mg IV Q4H PRN PRN PRN Reason: Moderate Pain (pain scale 4-5) Ondansetron HCl (Zofran) 4 mg IV Q8H PRN PRN PRN Reason: NAUSEA Promethazine HCl (Phenergan) 6.25 mg IV Q4H PRN PRN PRN Reason: NAUSEA/VOMITING Quetiapine Fumarate (Seroquel) 300 mg PO QHS [facility] Sodium Chloride () 5 - 15 ml IV UD PRN PRN Reason: SALINE FLUSH Tolterodine Tartrate (Detrol La) 2 mg PO DAILY [facility] Medical Necessity - Tobacco Use Smoking Status: Former smoker Tobacco Use: Non-smoker Assessment/Plan All Active Problems COPD exacerbation (Acute) Pneumonia (Acute) UTI (urinary tract infection) (Acute) Rhabdomyolysis (Acute) Hypokalemia (Acute) Closed left fibular fracture (Acute) Falls frequently (Acute) Monoplegia (Acute) Acute facial pain (Acute) Subtherapeutic international normalized ratio (INR) (Acute) Pulmonary emboli (Resolved) 1. Pneumococcal pneumonia: Urinary antigen. Continue with ceftriaxone and azithromycin for now. Continue pulmonary toilet. 2. Pyuria: Positive leuk esterase but only 10-25 white blood cells. 3+ bacteria but not really convinced that this is an actual urinary tract infection. Await final urine culture results and patient is on Rocephin anyways for the pneumonia. 3. Mild rhabdomyolysis: Secondary to being down for period of time. Improving with IV fluids. 4. Left fibular shaft fracture: Continue with the conservative management for now. Orthopedics on consultation for further recommendations. Nonweightbearing left lower extremity until further instructions by orthopedics. 5. Tremulousness: Patient's daughter was concerned about tardive dyskinesia. Reviewed medications with him, patient is not on any order anti-X nor is she on Reglan or Phenergan. I think is prime more metabolic and but did make recommendations to discontinue baclofen, Lyrica and oxycodone, the latter which she has not received. And just monitor for now. I do not feel that this is tardive dyskinesia. 6. Hyponatremia: Improved. Monitor. 7. hyPokalemia: Improved but still low. Continue to replace. 8. DVT prophylaxis with Lovenox: 9. Debility: Physical and occupational therapy evaluate and treat. Patient may require penitentiary facility upon discharge. Code Visit Inpatient E&M: 75265 Subs Hosp L2
--- NOTE | 2018-09-13 10:16 | CASEMGMT ---
Addendum entered by Barbara García 09/13/18 10:42: SW called [facility], spoke w/pt's dependency case manager Marlena Valdes. SW did tell Marlena about the pull cord not working in pt's apartment. Marlena confirms pt has aide services daily, Thursday through Thursday. Marlena states that the aide helps pt around the house and occasionally into the shower, but otherwise pt is normally fairly independent with personal ADL's. SW will let Marlena know where pt goes for rehab. RAFAEL Gutiérrez, ONLINE EDUCATION MANAGER Original Note: SW met w/pt and daughter Cary in room, spoke about prior level of care and discharge plan. Pt alert, slightly confused. Daughter assisted pt in answering questions. PCP: Dr. Florecita Lange Specialists: Sees Dr. Higuera for psychiatry at [facility] and a grief counselor, Emperatriz, every Thursday. Pt sees no other specialists. Preferred Pharmacy: Prepackaged through [facility] Insurance/Prescription Benefit: [facility] Living Will/POA: Daughter is POA, asked her to bring in papers if she has them. LNOK: Pt has a daughter, grandson. Daughter in [place], grandson in [place]. Living arrangements: Pt lives home alone in a one story apartment. DME/HHC: Pt has a cane, walker and shower chair but states is not currently using these. Daughter states had a hip replacement last year and used these. Pt has a Life Alert button but does not wear it. Pt also has pull cords, though pt and daughter state pt pulled it when fell and no one responded. HHC: Pt has [employer] services, had an aide from [facility] coming daily, but states her aide's last day was Thursday and they had not found a replacement. Pt does not remember the name of her dependency case manager at [facility]. SW called [facility] but the nobody is answering, will try again shortly. After pt's hip replacement, daughter reports pt went home and not to a prison. SW discussed w/pt and daughter discharge plan from here. Both in agreement for SNF at discharge. Daughter asked about [facility] in [place] as this is close to her home. SW explained will call to see if in network. SW called, [facility] in [place] is not in network w/pt's insurance. SW printed lists for both the [place] and [place] area of facilities that take pt's insurance. SW explained to pt and daughter that [facility] in [place] is not in network, gave daughter the lists of facilities that are in network and asked her to let SW know what facilities they would like to consider. Plan: senior care at discharge, pt and daughter to let SW know where they would like referral sent. RAFAEL Gutiérrez, ONLINE EDUCATION MANAGER
[2018-09-13] MEDS: Lisinopril 10 MG Tablet PO (10:45)
[2018-09-13] MEDS: Tolterodine Tartrate 2 MG CAP.SA PO (10:46)
[2018-09-13] MEDS: DULoxetine Hcl 60 MG Capsule PO (10:46)
[2018-09-13] MEDS: amLODIPine 10 MG Tablet PO (10:46)
[2018-09-13] MEDS: Ceftriaxone 1 GM/50 ML BAG IV (10:46)
[2018-09-13] MEDS: guaiFENesin 1,200 MG Tablet 1200 MG PO ×2 (10:46→21:01)
[2018-09-13] MEDS: hydroCHLOROthiazide 25 MG Tablet 6.25 MG PO (10:48)
[2018-09-13] MEDS: Bisoprolol Fumarate 5 MG Tablet 2.5 MG PO (10:48)
[2018-09-13] MEDS: predniSONE 20 MG Tablet 40 MG PO (10:52)
[2018-09-13] MEDS: carBAMazepine 200 MG Tablet 100 MG PO (10:58)
--- NOTE | 2018-09-13 11:37 | CASEMGMT ---
Addendum entered by Barbara García 09/13/18 14:59: SW called [facility], Geeta in admissions is still not available. SW spoke w/daughter, she asked about [facility]. SW looked at the website, it does not appear they are in network. SW called [facility] and left a message. SW spoke w/daughter and pt, let them know that SW left a message for both [facility] and [facility], but SW is concerned that neither is in network. SW advised daughter to review lists SW gave her, and can go online to the Medicare website to see how the nursing homes did when the WENDIE visited. SW encouraged daughter to come up with a couple of other options. Daughter asked about taking FMLA and caring for pt, if that would be an option. SW explained it may be better for pt to have at least a couple of weeks in a rehab facility before going home. Daughter states understanding. SW explained will let her know if we hear back from [facility] or [facility]. Otherwise, SW will follow up tomorrow. RAFAEL Gutiérrez, BREASTFEEDING PEER COUNSELOR Original Note: SW spoke w/daughter [place], offered support as she spoke about pt having a decline recently. She explained they lost pt's son(her brother) in March, and daughter is wondering if pt overmedicated. She explained w/pt's bipolar, pt gets scared if daughter is not there. She also states pt is so confused, and she is normally not so. Daughter asked about [facility]. SW explained is not certain about if they take pt's insurance, will find out. SW called [facility], message left for Geeta in admissions. SW will continue to follow. RAFAEL Gutiérrez, BREASTFEEDING PEER COUNSELOR
[2018-09-13] MEDS: Acetaminophen 325 MG Tablet 650 MG PO ×2 (12:28→19:56)
--- NOTE | 2018-09-13 16:30 | NURSING ---
called [facility] office to verify that consult was passed on. office verbalized that Dr Barriga discussed case with Dr Cr and if she does not come in to see pt this evening, she will be in tomorrow morning. primary RN aware
--- NOTE | 2018-09-13 18:32 | CON.PCM_ITS ---
Problem List (1) Closed left fibular fracture Status: Acute Qualifiers: Encounter type: initial encounter Fibula location: proximal Fracture morphology: unspecified fracture morphology Qualified Code(s): S82.832A - Other fracture of upper and lower end of left fibula, initial encounter for closed fracture (2) Sprain of left distal tibiofibular ligament Status: Acute Qualifiers: Encounter type: initial encounter Qualified Code(s): S93.432A - Sprain of tibiofibular ligament of left ankle, initial encounter Reason for Consult Date of Consultation: 09/13/18 Reason for Consultation: L proximal fibular fracture History of Present Illness: The patient is a 72 year old F who fell in her home over the weekend, was admitted for UTI and PNA. L tib fib radiographs revealed an oblique, comminuted, displaced fracture of the proximal fibula. No ankle films or stress films obtained. Pt was placed in a knee immobilizer. [] Past Medical History Past Medical History (Chronic Problems): Chronic Problems HLD (hyperlipidemia) (Chronic) CVA (cerebral vascular accident) (Chronic) Obesity (BMI 30.0-34.9) (Chronic) COPD (chronic obstructive pulmonary disease) (Chronic) Hypothyroidism (Chronic) Bipolar disorder (Chronic) Tobacco use disorder (Chronic) Hypertension (Chronic) Allergies aspirin Allergy (Verified 09/12/18 19:27) Hives diphenhydramine HCl [From Benadryl] Allergy (Verified 09/12/18 19:27) Anaphylaxis latex Allergy (Verified 09/12/18 19:27) Rash meperidine [From Demerol] Allergy (Verified 09/12/18 19:27) Swelling Penicillins Allergy (Verified 09/12/18 19:27) Anaphylaxis Sulfa (Sulfonamide Antibiotics) Allergy (Verified 09/12/18 19:27) Unknown codeine Adverse Reaction (Verified 09/12/18 19:27) Vomiting haloperidol [From Haldol] Adverse Reaction (Verified 09/12/18 19:27) HALLUCINATIONS promethazine HCl [From Phenergan] Adverse Reaction (Verified 09/12/18 19:27) Other Home Medications: Ambulatory Orders Medication Instructions Recorded Amlodipine [Norvasc] 10 mg PO DAILY 10/26/13 Baclofen [Lioresal] 10 mg PO BID 10/26/13 Bisoprolol Fumarate/Hctz [ZIAC 1 each PO DAILY 10/26/13 2.5-6.25 mg (Beta Jc)] Carbamazepine [Tegretol] 100 mg PO DAILY 10/26/13 Carbamazepine [Tegretol] 200 mg PO QHS 10/26/13 Duloxetine Hcl [Cymbalta] 60 mg PO DAILY 10/26/13 Lisinopril [Zestril] 10 mg PO BID 10/26/13 Quetiapine Fumarate [Seroquel] 300 mg PO QHS 10/26/13 Rosuvastatin Calcium [Crestor] 10 mg PO QHS 10/26/13 Pregabalin [Lyrica] 50 mg PO BID 10/06/16 Albuterol Inhaler [Ventolin Hfa] 2 puff INHALATION TID 02/12/17 Oxybutynin Chloride [Ditropan Xl] 10 mg PO DAILY 02/12/17 Surgical History: - - Appendectomy, cholecystectomy, hysterectomy with bilateral salpingo-oophorectomy, left total hip replacement. Psychiatric History: Anxiety, Bipolar, Depression [employer]TER History: spontaneous , - - She had DEREJE with BSO for dysfunctional uterine bleeding Lives: Alone Smoking Status: Former smoker Tobacco Use: Non-smoker Alcohol: None Drugs: None - *Family History Maternal History Items: Heart Disease Paternal History Items: Heart Disease Review of Systems Comment: per Medicine note Patient Problems: Active and Suspected Problems COPD exacerbation (Acute) Pneumonia (Acute) UTI (urinary tract infection) (Acute) Rhabdomyolysis (Acute) Hypokalemia (Acute) Closed left fibular fracture (Acute) Sprain of left distal tibiofibular ligament (Acute) Subjective: Pt resting comfortably in bed, eating dinner. Knee immbolizer in place to the LLE Objective: LLE: Vasc: warm to warm, crf < 3 seconds, mild edema to the left ankle Derm: no lacerations noted, no ecchymosis about the ankle MS: nontender to the medial gutter and deltoid, pain with midcalf compression and DF of the ankle Neuro: light touch sensation intact Rads: 3 views of the left ankle obtained: tibiotalar joint appear even, on MO there is reduced tibiofibular overlap and increased syndesmotic gapping, no new fractures seen, patient unable to tolerate stress gravity; L tib fib views obtained: displaced, comminuted, oblique fracture of the proximal fibula - Physical Exam General: Alert, Cooperative Vital Signs Temp Pulse Resp BP Pulse Ox 97.8 F 90 20 H 137/62 H 96 09/13/18 14:22 09/13/18 14:22 09/13/18 14:22 09/13/18 14:22 09/13/18 14:22 Oxygen Flow Rate (L/min) 2 Oxygen Delivery Method Nasal Cannula Weight: 180 lb Body Mass Index (BMI) 31.8 Intake and Output for Last 24 Hours 09/11/18 09/12/18 09/13/18 23:59 23:59 23:59 Intake Total 5173 / 5173 Output Total 2250 / 2250 Balance 2923 / 2923 Microbiology Past 72 Hours 09/12/18 23:31 Respiratory Panel (PCR) - Final Mucosa - Nasopharyngeal 09/12/18 20:45 Urine Culture - Preliminary Urine, Midstream Presumptive E. coli 09/12/18 20:45 Streptococcus pneumoniae Antigen (M - Final Urine, Clean Catch Streptococcus pneumonia Ag 09/12/18 20:45 Legionella Antigen - Final Urine, Clean Catch 09/12/18 20:05 Influenza Types A,B Direct FA (KWABENA) - Final Mucosa - Nasopharyngeal Laboratory Tests Past 24 Hrs 09/12/18 09/12/18 09/12/18 11:30 20:00 20:00 WBC 6.7 RBC 4.19 L Hgb 12.9 Hct 37.0 MCV 88.3 MCH 30.8 MCHC 34.9 RDW 12.5 RDW Differential 39.7 Plt Count 178 MPV 10.1 Immature Gran % (Auto) 0.400 Neut % (Auto) 73.2 H Lymph % (Auto) 14.5 L [place] % (Auto) 11.5 H Eos % (Auto) 0.0 Baso % (Auto) 0.4 Absolute Neuts (auto) 4.9 Absolute Lymphs (auto) 0.97 Total Counted Not Reportable PT 14.8 INR 1.2 Sodium 127 L Potassium 3.1 L Chloride 92 L Carbon Dioxide 27.0 Anion Gap 8 BUN 31 H Creatinine 1.27 H Estim Creat Clear Calc 33.12 Est GFR (MDRD) Af Amer 53 L Est GFR (MDRD) Non-Af 44 L BUN/Creatinine Ratio 24.4 H Glucose 108 H Lactic Acid Calcium 8.4 L Magnesium Total Creatine Kinase TSH Free T4 Urine Color Urine Clarity Urine pH Ur Specific [place] Urine Protein Urine Glucose (UA) Urine Ketones Urine Occult Blood Urine Nitrite Urine Bilirubin Urine Urobilinogen Ur Leukocyte Esterase Urine RBC Urine WBC Ur Squamous Epith Cells Urine Bacteria Urine Mucus Carbamazepine 09/12/18 09/12/18 09/12/18 20:00 20:00 20:00 WBC RBC Hgb Hct MCV MCH MCHC RDW RDW Differential Plt Count MPV Immature Gran % (Auto) Neut % (Auto) Lymph % (Auto) [place] % (Auto) Eos % (Auto) Baso % (Auto) Absolute Neuts (auto) Absolute Lymphs (auto) Total Counted PT INR Sodium Potassium Chloride Carbon Dioxide Anion Gap BUN Creatinine Estim Creat Clear Calc Est GFR (MDRD) Af Amer Est GFR (MDRD) Non-Af BUN/Creatinine Ratio Glucose Lactic Acid 3.4 H Calcium Magnesium Total Creatine Kinase 634 H TSH Free T4 Urine Color Urine Clarity Urine pH Ur Specific [place] Urine Protein Urine Glucose (UA) Urine Ketones Urine Occult Blood Urine Nitrite Urine Bilirubin Urine Urobilinogen Ur Leukocyte Esterase Urine RBC Urine WBC Ur Squamous Epith Cells Urine Bacteria Urine Mucus Carbamazepine 11.0 09/12/18 09/12/18 09/13/18 20:00 20:45 00:26 WBC RBC Hgb Hct MCV MCH MCHC RDW RDW Differential Plt Count MPV Immature Gran % (Auto) Neut % (Auto) Lymph % (Auto) [place] % (Auto) Eos % (Auto) Baso % (Auto) Absolute Neuts (auto) Absolute Lymphs (auto) Total Counted PT INR Sodium Potassium Chloride Carbon Dioxide Anion Gap BUN Creatinine Estim Creat Clear Calc Est GFR (MDRD) Af Amer Est GFR (MDRD) Non-Af BUN/Creatinine Ratio Glucose Lactic Acid 2.0 Calcium Magnesium 1.8 Total Creatine Kinase TSH 0.70 Free T4 0.73 L Urine Color Yellow Urine Clarity Sl. Cloudy Urine pH 6.0 Ur Specific [place] 1.015 Urine Protein 30 H Urine Glucose (UA) Normal Urine Ketones Negative Urine Occult Blood 50 H Urine Nitrite Positive H Urine Bilirubin Negative Urine Urobilinogen Normal Ur Leukocyte Esterase 500 H Urine RBC 0-5 SEEN Urine WBC 10-25 SEEN Ur Squamous Epith Cells 0-5 SEEN Urine Bacteria 3+ Urine Mucus 0 SEEN Carbamazepine 09/13/18 09/13/18 09/13/18 05:30 05:30 05:30 WBC 4.8 RBC 3.57 L Hgb 11.0 L Hct 31.9 L MCV 89.4 MCH 30.8 MCHC 34.5 RDW 12.5 RDW Differential 39.6 Plt Count 158 MPV 10.0 Immature Gran % (Auto) 0.400 Neut % (Auto) 77.3 H Lymph % (Auto) 16.4 L [place] % (Auto) 5.5 Eos % (Auto) 0.0 Baso % (Auto) 0.4 Absolute Neuts (auto) 3.7 Absolute Lymphs (auto) 0.78 L Total Counted Not Reportable PT 15.2 H INR 1.2 Sodium 135 L Potassium 3.3 L Chloride 103 Carbon Dioxide 25.0 Anion Gap 7 BUN 19 H Creatinine 0.96 Estim Creat Clear Calc 43.82 Est GFR (MDRD) Af Amer 74 Est GFR (MDRD) Non-Af 61 BUN/Creatinine Ratio 19.9 Glucose 165 H Lactic Acid Calcium 7.6 L Magnesium Total Creatine Kinase 517 H TSH Free T4 Urine Color Urine Clarity Urine pH Ur Specific [place] Urine Protein Urine Glucose (UA) Urine Ketones Urine Occult Blood Urine Nitrite Urine Bilirubin Urine Urobilinogen Ur Leukocyte Esterase Urine RBC Urine WBC Ur Squamous Epith Cells Urine Bacteria Urine Mucus Carbamazepine Assessment/Plan All Active Problems COPD exacerbation (Acute) Pneumonia (Acute) UTI (urinary tract infection) (Acute) Rhabdomyolysis (Acute) Hypokalemia (Acute) Closed left fibular fracture (Acute) Sprain of left distal tibiofibular ligament (Acute) Falls frequently (Acute) Monoplegia (Acute) Acute facial pain (Acute) Subtherapeutic international normalized ratio (INR) (Acute) Pulmonary emboli (Resolved) 72 yo F w L proximal fibular fx, unclear etiology of direct impact vs pronation- external rotation of the ankle with possible syndesmotic and/or deltoid injury. -Pt evaluated at bedside -Notes, labs and studies reviewed -RICE therapy, PT/OT for NWB LLE -Will obtain L ankle films, if possible L ankle gravity stress films out of knee immobilizer, to determine etiology of proximal fibular fx. I suspect PER3 Lauge Baxter fracture. If unstable fracture, will need surgery once medically cleared and optimized. Will also need tall pneumatic cam walker instead of knee immobilizer. -home medications, pain medications, dvt prophylaxis per medicine. -Pt unable to tolerate gravity stress view of the L ankle, however, given the increased syndesmotic gapping on the MO and reduced tibiofibular overlap, will treat as Maissonueve fracture of PER 3 ankle fracture. Will need pneumatic cam walker and dc knee immobilizer. -Please call with questions or concerns. Will need follow up at [facility] 7- 10 days from day of discharge.
--- NOTE | 2018-09-13 19:10 | RAD_ITS ---
STUDY: X-RAY - LEFT ANKLE REASON FOR EXAM: Female, 72 years old. Left ankle pain. TECHNIQUE: 3 view(s) of the ankle. COMPARISON: Left tibia and fibula, September 12, 2018. FINDINGS: Normal visualized distal tibia and fibula. Normal medial and lateral malleoli. Normal tibiotalar articulation and ankle mortise. Normal visualized talus and calcaneus. The visualized subtalar, talonavicular, calcaneocuboid and tarsal articulations are normal. There is generalized soft tissues wire about the ankle most marked medially. RAD/Ankle min 3 Views IMPRESSION: Soft tissues lying above the ankle without visualized fracture or dislocation. Electronically Signed: Harris Roa DO at 19:40 EDT Tel [phone], Service support ,
[2018-09-14] VITALS (17 sets, daily range): BP systolic 151–176; BP diastolic 56–85; PULSE 79–107; RESP 18–20; TEMP 36.6–37.2; O2SAT 91–97
[2018-09-14] MEDS: Enoxaparin 40 MG/0.4 ML Syringe SC (05:06)
[2018-09-14 06:50] LABS: Absolute Lymphocyte Count 2.75 X10^3/ul (0.83-4.51); Absolute Neutrophil Count 5.5 X10^3/uL (2.0-7.7); Basophil# 0.06 X10^3/uL; Basophil% 0.7 % (0-1); Eosinophil# 0.01 X10^3/uL; Eosinophils% 0.1 % (0-5); Hematocrit 34.7 % (37-47); Hemoglobin 11.6 g/dl (12.0-15.0); Lymphocyte # 2.75 X10^3/ul (4.0); Lymphocyte % 30.4 % (19-41); Mean Corp Hgb Conc 33.4 g/gl (32-36); Mean Corpuscular Hgb 29.9 pg (27.0-32.0); Mean Corpuscular Volume 89.4 fL (81-99); Mean Platelet Vol. 9.8 fl (6.2-12.0); Monocyte# 0.69 X10^3/uL; Monocyte% 7.6 % (0-10); Neutrophil # 5.51 X10^3/uL (2.7-7.7); Neutrophil % 60.9 % (47-70); Platelet Count 199 K/mm3 (150-450); RBC Distribution Width CV 12.8 % (11.6-14.6); RBC Distribution Width SD 41.2 fl (35.1-43.9); Red Blood Count 3.88 M/mm3 (4.2-5.4); White Blood Count 9.1 K/mm3 (4.4-11.0)
[2018-09-14 07:00] LABS: Anion Gap 9 (5-15); BUN 14 mg/dL (7-18); CPK Total, Creatine Kinase 176 U/L (26-192); Calcium,Total 8.2 mg/dL (8.5-10.1); Chloride 107 mmol/L (98-107); Creatinine, Serum 0.74 mg/dL (0.55-1.02); EST Glomerular Filtration Rate 82 mL/min (>60); Est Glom Filt Rate - Afr Amer 100 mL/min (>60); Estimated Creatinine Clearance 42.07 ml/min; Glucose 100 mg/dL (74-106); Potassium 3.5 mmol/L (3.5-5.1); Sodium Level 137 mmol/L (136-145)
[2018-09-14 07:04] LABS: Differential Indicated SCAN CRITERIA MET; POSITIVE COUNT NO; POSITIVE DIFFERENTIAL NO; POSITIVE MORPHOLOGY YES
[2018-09-14] MEDS: Ipratropium/Albuterol Sulfate 3 ML AMPUL.NEB INHALATION ×5 (07:56→22:40)
--- NOTE | 2018-09-14 09:14 | PCM.PN.HOSP ---
Patient Problems: Active and Suspected Problems COPD exacerbation (Acute) Pneumonia (Acute) UTI (urinary tract infection) (Acute) Rhabdomyolysis (Acute) Hypokalemia (Acute) Closed left fibular fracture (Acute) Sprain of left distal tibiofibular ligament (Acute) Subjective: Feeling much better. Breathing well without oxygen. Vitals/I&O's: Vital Signs Temp Pulse Resp BP Pulse Ox 36.6 C 88 20 H 151/56 H 91 09/14/18 03:23 09/14/18 07:56 09/14/18 07:56 09/14/18 03:23 09/14/18 07:56 Oxygen Flow Rate (L/min) 2 Oxygen Delivery Method Nasal Cannula Weight: 81.647 kg Body Mass Index (BMI) 31.8 Intake and Output for Last 24 Hours 09/12/18 09/13/18 09/14/18 23:59 23:59 23:59 Intake Total 5173 / 5173 300 / 300 Output Total 2250 / 2250 400 / 400 Balance 2923 / 2923 -100 / -100 General: Alert, Cooperative, No apparent distress HEENT: Atraumatic, Normocephalic Oral: Moist Mucosa, No Gingival or Mucosal Lesions/ Ulcerations Neck: No Nodes, Thyroid Normal Size and Texture Lungs: Diminished, - - few scattered crackles. Cardiovascular: Regular rate, Regular Rhythm, Normal S1, Normal S2, No murmurs Abdomen: Bowel Sounds Present, Soft, Non Tender, Non-Distended, No Hepato-splenomegaly Extremities: - - LLE in walking boot. Skin: No rashes, No breakdown Psych/Mental Status: Normal Affect, Appropriate Microbiology Past 72 Hours 09/12/18 20:45 Urine, Midstream Urine Culture - Final Presumptive E. coli 09/12/18 23:31 Mucosa - Nasopharyngeal Respiratory Panel (PCR) - Final 09/12/18 20:45 Urine, Clean Catch Streptococcus pneumoniae Antigen (M - Final Streptococcus pneumonia Ag 09/12/18 20:45 Urine, Clean Catch Legionella Antigen - Final 09/12/18 20:05 Mucosa - Nasopharyngeal Influenza Types A,B Direct FA (KWABENA) - Final Laboratory Results 09/14/18 06:04: WBC 9.1, RBC 3.88 L, Hgb 11.6 L, Hct 34.7 L, MCV 89.4, MCH 29.9, MCHC 33.4, RDW 12.8, RDW Differential 41.2, Plt Count 199, MPV 9.8, Immature Gran % (Auto) 0.300, Neut % (Auto) 60.9, Lymph % (Auto) 30.4, [place] % (Auto) 7.6, Eos % (Auto) 0.1, Baso % (Auto) 0.7, Absolute Neuts (auto) 5.5, Absolute Lymphs (auto) 2.75, Total Counted Not Reportable, Diff Path Review October09/14/18 06:04: Sodium 137, Potassium 3.5, Chloride 107, Carbon Dioxide 21.0, Anion Gap 9, BUN 14, Creatinine 0.74, Estim Creat Clear Calc 42.07, Est GFR (MDRD) Af Amer 100, Est GFR (MDRD) Non-Af 82, BUN/Creatinine Ratio 19.0, Glucose 100, Calcium 8.2 L, Total Creatine Kinase 176 Current Medications Acetaminophen (Tylenol) 650 mg PO Q4H PRN PRN PRN Reason: FEVER Last Admin: 09/13/18 19:56 Dose: 650 mg Acetaminophen (Tylenol) 650 mg PO Q6H PRN PRN PRN Reason: Mild Pain (scale 0-3)/T>100.7 Al Hydroxide/Mg Hydroxide (Mylanta Ii) 30 ml PO Q6H PRN PRN PRN Reason: Gastric burning Albuterol Sulfate (Ventolin Aerosols) 2.5 mg INHALATION Q2H PRN PRN PRN Reason: SHORTNESS OF BREATH Albuterol/Ipratropium (Duoneb) 3 ml INHALATION Q4HWA.RT [facility] Last Admin: 09/14/18 07:56 Dose: 3 ml Amlodipine Besylate (Norvasc) 10 mg PO DAILY [facility] Last Admin: 09/13/18 10:46 Dose: 10 mg Atorvastatin Calcium (Lipitor) 20 mg PO QHS [facility] Last Admin: 09/13/18 21:01 Dose: 20 mg Bisoprolol Fumarate (Zebeta) 2.5 mg PO DAILY [facility] Last Admin: 09/13/18 10:48 Dose: 2.5 mg Carbamazepine (Tegretol) 100 mg PO DAILY [facility] Last Admin: 09/13/18 10:58 Dose: 100 mg Carbamazepine (Tegretol) 200 mg PO QHS [facility] Last Admin: 09/13/18 21:02 Dose: 200 mg Clopidogrel Bisulfate (Plavix) 75 mg PO DAILY [facility] Last Admin: 09/13/18 17:11 Dose: Not Given Duloxetine HCl (Cymbalta) 60 mg PO DAILY [facility] Last Admin: 09/13/18 10:46 Dose: 60 mg Enoxaparin Sodium (Lovenox) 40 mg SC DAILY@0600 [facility] Last Admin: 09/14/18 05:06 Dose: 40 mg Guaifenesin (Mucinex) 1,200 mg PO BID [facility] Last Admin: 09/13/18 21:01 Dose: 1,200 mg Hydrochlorothiazide (Hctz) 6.25 mg PO DAILY [facility] Last Admin: 09/13/18 10:48 Dose: 6.25 mg Azithromycin 500 mg/ Dextrose 255 mls @ 250 mls/hr IV Q24 [facility] Stop: 09/15/18 11:02 Last Admin: 09/13/18 12:29 Dose: 250 mls/hr Ceftriaxone Sodium (Rocephin) 1 gm in 50 mls @ 100 mls/hr IV Q24H [facility] Last Admin: 09/13/18 10:46 Dose: 100 mls/hr Lisinopril (Zestril) 10 mg PO DAILY [facility] Last Admin: 09/13/18 10:45 Dose: 10 mg Magnesium Hydroxide (Milk Of Magnesia) 30 ml PO DAILY PRN PRN PRN Reason: Constipation Ondansetron HCl (Zofran) 4 mg IV Q8H PRN PRN PRN Reason: NAUSEA Promethazine HCl (Phenergan) 6.25 mg IV Q4H PRN PRN PRN Reason: NAUSEA/VOMITING Quetiapine Fumarate (Seroquel) 300 mg PO QHS [facility] Last Admin: 09/13/18 21:02 Dose: Not Given Sodium Chloride () 5 - 15 ml IV UD PRN PRN Reason: SALINE FLUSH Tolterodine Tartrate (Detrol La) 2 mg PO DAILY [facility] Last Admin: 09/13/18 10:46 Dose: 2 mg Medical Necessity - Tobacco Use Smoking Status: Former smoker Tobacco Use: Non-smoker Assessment/Plan All Active Problems COPD exacerbation (Acute) Pneumonia (Acute) UTI (urinary tract infection) (Acute) Rhabdomyolysis (Acute) Hypokalemia (Acute) Closed left fibular fracture (Acute) Sprain of left distal tibiofibular ligament (Acute) Falls frequently (Acute) Monoplegia (Acute) Acute facial pain (Acute) Subtherapeutic international normalized ratio (INR) (Acute) Pulmonary emboli (Resolved) 1. Pneumococcal pneumonia: Improving. + Urinary antigen. On ceftriaxone and azithromycin. Change to Levaquin to cover both PNA and UTI. Continue pulmonary toilet. 2. Pyuria: Positive leuk esterase but only 10-25 white blood cells. 3+ bacteria but not really convinced that this is an actual urinary tract infection. UCx + for E. coli. 3. Mild rhabdomyolysis: Resolved. Secondary to being down for period of time. Improving with IV fluids. 4. Left fibular shaft fracture: Continue with the conservative management for now. Walking boot. Nonweightbearing left lower extremity until further instructions by orthopedics. Follow up with orthopaedics. 5. Tremulousness: Resolved. Patient's daughter was concerned about tardive dyskinesia. Reviewed medications with him, patient is not on any order anti-X nor is she on Reglan or Phenergan. I think is prime more metabolic and but did make recommendations to discontinue baclofen, Lyrica and oxycodone, the latter which she has not received. And just monitor for now. I do not feel that this is tardive dyskinesia. 6. Hyponatremia: Resolved. Monitor. 7. hyPokalemia: Improved but still low. Continue to replace. 8. DVT prophylaxis with Lovenox 9. Debility: Physical and occupational therapy evaluate and treat. Patient may require halfway facility upon discharge. Code Visit Inpatient E&M: 04040 Subs Hosp L2
--- NOTE | 2018-09-14 09:20 | PN_ITS ---
Patient Problems: Active and Suspected Problems COPD exacerbation (Acute) Pneumonia (Acute) UTI (urinary tract infection) (Acute) Rhabdomyolysis (Acute) Hypokalemia (Acute) Closed left fibular fracture (Acute) Sprain of left distal tibiofibular ligament (Acute) Subjective: Feeling much better. Breathing well without oxygen. Vitals/I&O's: Vital Signs Temp Pulse Resp BP Pulse Ox 36.6 C 88 20 H 151/56 H 91 09/14/18 03:23 09/14/18 07:56 09/14/18 07:56 09/14/18 03:23 09/14/18 07:56 Oxygen Flow Rate (L/min) 2 Oxygen Delivery Method Nasal Cannula Weight: 81.647 kg Body Mass Index (BMI) 31.8 Intake and Output for Last 24 Hours 09/12/18 09/13/18 09/14/18 23:59 23:59 23:59 Intake Total 5173 / 5173 300 / 300 Output Total 2250 / 2250 400 / 400 Balance 2923 / 2923 -100 / -100 General: Alert, Cooperative, No apparent distress HEENT: Atraumatic, Normocephalic Oral: Moist Mucosa, No Gingival or Mucosal Lesions/ Ulcerations Neck: No Nodes, Thyroid Normal Size and Texture Lungs: Diminished, - - few scattered crackles. Cardiovascular: Regular rate, Regular Rhythm, Normal S1, Normal S2, No murmurs Abdomen: Bowel Sounds Present, Soft, Non Tender, Non-Distended, No Hepato- splenomegaly Extremities: - - LLE in walking boot. Skin: No rashes, No breakdown Psych/Mental Status: Normal Affect, Appropriate Microbiology Past 72 Hours 09/12/18 20:45 Urine, Midstream Urine Culture - Final Presumptive E. coli 09/12/18 23:31 Mucosa - Nasopharyngeal Respiratory Panel (PCR) - Final 09/12/18 20:45 Urine, Clean Catch Streptococcus pneumoniae Antigen (M - Final Streptococcus pneumonia Ag 09/12/18 20:45 Urine, Clean Catch Legionella Antigen - Final 09/12/18 20:05 Mucosa - Nasopharyngeal Influenza Types A,B Direct FA (KWABENA) - Final Laboratory Results 09/14/18 06:04: WBC 9.1, RBC 3.88 L, Hgb 11.6 L, Hct 34.7 L, MCV 89.4, MCH 29.9, MCHC 33.4, RDW 12.8, RDW Differential 41.2, Plt Count 199, MPV 9.8, Immature Gran % (Auto) 0.300, Neut % (Auto) 60.9, Lymph % (Auto) 30.4, [place] % (Auto) 7.6, Eos % (Auto) 0.1, Baso % (Auto) 0.7, Absolute Neuts (auto) 5.5, Absolute Lymphs (auto) 2.75, Total Counted Not Reportable, Diff Path Review October09/14/18 06:04: Sodium 137, Potassium 3.5, Chloride 107, Carbon Dioxide 21.0, Anion Gap 9, BUN 14, Creatinine 0.74, Estim Creat Clear Calc 42.07, Est GFR (MDRD) Af Amer 100, Est GFR (MDRD) Non-Af 82, BUN/Creatinine Ratio 19.0, Glucose 100, Calcium 8.2 L, Total Creatine Kinase 176 Current Medications Acetaminophen (Tylenol) 650 mg PO Q4H PRN PRN PRN Reason: FEVER Last Admin: 09/13/18 19:56 Dose: 650 mg Acetaminophen (Tylenol) 650 mg PO Q6H PRN PRN PRN Reason: Mild Pain (scale 0-3)/T>100.7 Al Hydroxide/Mg Hydroxide (Mylanta Ii) 30 ml PO Q6H PRN PRN PRN Reason: Gastric burning Albuterol Sulfate (Ventolin Aerosols) 2.5 mg INHALATION Q2H PRN PRN PRN Reason: SHORTNESS OF BREATH Albuterol/Ipratropium (Duoneb) 3 ml INHALATION Q4HWA.RT [facility] Last Admin: 09/14/18 07:56 Dose: 3 ml Amlodipine Besylate (Norvasc) 10 mg PO DAILY [facility] Last Admin: 09/13/18 10:46 Dose: 10 mg Atorvastatin Calcium (Lipitor) 20 mg PO QHS [facility] Last Admin: 09/13/18 21:01 Dose: 20 mg Bisoprolol Fumarate (Zebeta) 2.5 mg PO DAILY [facility] Last Admin: 09/13/18 10:48 Dose: 2.5 mg Carbamazepine (Tegretol) 100 mg PO DAILY [facility] Last Admin: 09/13/18 10:58 Dose: 100 mg Carbamazepine (Tegretol) 200 mg PO QHS [facility] Last Admin: 09/13/18 21:02 Dose: 200 mg Clopidogrel Bisulfate (Plavix) 75 mg PO DAILY [facility] Last Admin: 09/13/18 17:11 Dose: Not Given Duloxetine HCl (Cymbalta) 60 mg PO DAILY [facility] Last Admin: 09/13/18 10:46 Dose: 60 mg Enoxaparin Sodium (Lovenox) 40 mg SC DAILY@0600 [facility] Last Admin: 09/14/18 05:06 Dose: 40 mg Guaifenesin (Mucinex) 1,200 mg PO BID [facility] Last Admin: 09/13/18 21:01 Dose: 1,200 mg Hydrochlorothiazide (Hctz) 6.25 mg PO DAILY [facility] Last Admin: 09/13/18 10:48 Dose: 6.25 mg Azithromycin 500 mg/ Dextrose 255 mls @ 250 mls/hr IV Q24 [facility] Stop: 09/15/18 11:02 Last Admin: 09/13/18 12:29 Dose: 250 mls/hr Ceftriaxone Sodium (Rocephin) 1 gm in 50 mls @ 100 mls/hr IV Q24H [facility] Last Admin: 09/13/18 10:46 Dose: 100 mls/hr Lisinopril (Zestril) 10 mg PO DAILY [facility] Last Admin: 09/13/18 10:45 Dose: 10 mg Magnesium Hydroxide (Milk Of Magnesia) 30 ml PO DAILY PRN PRN PRN Reason: Constipation Ondansetron HCl (Zofran) 4 mg IV Q8H PRN PRN PRN Reason: NAUSEA Promethazine HCl (Phenergan) 6.25 mg IV Q4H PRN PRN PRN Reason: NAUSEA/VOMITING Quetiapine Fumarate (Seroquel) 300 mg PO QHS [facility] Last Admin: 09/13/18 21:02 Dose: Not Given Sodium Chloride () 5 - 15 ml IV UD PRN PRN Reason: SALINE FLUSH Tolterodine Tartrate (Detrol La) 2 mg PO DAILY [facility] Last Admin: 09/13/18 10:46 Dose: 2 mg Medical Necessity - Tobacco Use Smoking Status: Former smoker Tobacco Use: Non-smoker Assessment/Plan All Active Problems COPD exacerbation (Acute) Pneumonia (Acute) UTI (urinary tract infection) (Acute) Rhabdomyolysis (Acute) Hypokalemia (Acute) Closed left fibular fracture (Acute) Sprain of left distal tibiofibular ligament (Acute) Falls frequently (Acute) Monoplegia (Acute) Acute facial pain (Acute) Subtherapeutic international normalized ratio (INR) (Acute) Pulmonary emboli (Resolved) 1. Pneumococcal pneumonia: Improving. + Urinary antigen. On ceftriaxone and azithromycin. Change to Levaquin to cover both PNA and UTI. Continue pulmonary toilet. 2. Pyuria: Positive leuk esterase but only 10-25 white blood cells. 3+ b acteria but not really convinced that this is an actual urinary tract infection. UCx + for E. coli. 3. Mild rhabdomyolysis: Resolved. Secondary to being down for period of time. Improving with IV fluids. 4. Left fibular shaft fracture: Continue with the conservative management for now. Walking boot. Nonweightbearing left lower extremity until further instructions by orthopedics. Follow up with orthopaedics. 5. Tremulousness: Resolved. Patient's daughter was concerned about tardive dyskinesia. Reviewed medications with him, patient is not on any order anti-X nor is she on Reglan or Phenergan. I think is prime more metabolic and but did make recommendations to discontinue baclofen, Lyrica and oxycodone, the latter which she has not received. And just monitor for now. I do not feel that this is tardive dyskinesia. 6. Hyponatremia: Resolved. Monitor. 7. hyPokalemia: Improved but still low. Continue to replace. 8. DVT prophylaxis with Lovenox 9. Debility: Physical and occupational therapy evaluate and treat. Patient may require alf facility upon discharge. Code Visit Inpatient E&M: 44848 Subs Hosp L2
[2018-09-14] MEDS: levoFLOXacin 500 MG Tablet PO (11:01)
[2018-09-14] MEDS: hydroCHLOROthiazide 25 MG Tablet 6.25 MG PO (11:01)
[2018-09-14] MEDS: guaiFENesin 1,200 MG Tablet 1200 MG PO ×2 (11:02→21:30)
[2018-09-14] MEDS: Lisinopril 10 MG Tablet PO (11:02)
[2018-09-14] MEDS: Clopidogrel Bisulfate 75 MG Tablet PO (11:02)
[2018-09-14] MEDS: Tolterodine Tartrate 2 MG CAP.SA PO (11:03)
[2018-09-14] MEDS: DULoxetine Hcl 60 MG Capsule PO (11:03)
[2018-09-14] MEDS: Bisoprolol Fumarate 5 MG Tablet 2.5 MG PO (11:03)
[2018-09-14] MEDS: amLODIPine 10 MG Tablet PO (11:03)
[2018-09-14] MEDS: carBAMazepine 200 MG Tablet 100 MG PO (11:04)
[2018-09-14] MEDS: Acetaminophen 325 MG Tablet 650 MG PO (11:09)
--- NOTE | 2018-09-14 11:40 | CASEMGMT ---
Social Work Note LILIANE placed a call to pt's daughter Cary. Cary asked this worker about phone calls that were made yesterday to [facility] and [facility]. LILIANE informed Cary that this worker will follow up with [facility] and [facility] to confirm if they accept pt's insurance. Cary states understanding and that she will be at [facility] soon to visit pt. LILIANE placed a call to Larissa Salas's in admissions at [facility] who confirms they are in network with pt's insurance. LILIANE received call from Geeta at [facility] who confirms they are in network with pt's insurance. LILIANE informed Larissa and Geeta that this worker will be meeting with pt's daughter this afternoon and a potential referral may be coming. Both Larissa and Geeta state understanding. SW to meet with pt's daughter Cary once she arrives at [facility]. 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
[2018-09-14 14:05] LABS: Pathologist Review Reviewed
--- NOTE | 2018-09-14 14:37 | CASEMGMT ---
Social Work Note LILIANE met with pt and pt's daughter Cary present in room. Cary asked this worker about taking pt home with DME and HHC. 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 Cary asked for HHC to be arranged through and agency in [facility] [place] as [place] Cary lives and also asked DME to be arranged through an agency in [facility] [place] too. LILIANE explained that this worker will make referral to RN SUSAN in regards to HHC and DME who will follow up with pt and Cary. Cary asked this worker about FMLA paperwork. SW informed Cary that this worker will ask about FMLA paperwork but that she may need to have pt's PCP complete FMLA paperwork. Pt states that she would prefer to go home with daughter. LILIANE updated GRACE Lim on referral for HHC and DME. 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
--- NOTE | 2018-09-14 14:57 | CASEMGMT ---
GRACE DAVIS Note. Per SW: pt's daughter is now requesting to take pt home. GRACE DAVIS intro role of CM to patient and her daughter. Daughter is concerned that she is unfamiliar with [facility] facilities in [place] (closer to her home). GRACE DAVIS suggested she visit when she goes home today and evaluate the SNF. Daughter states that she can't tell by walking in whether it is good or not, and I want her to come home. Daughter states she would like to have a hospital bed. GRACE DAVIS let her know we can call DME and ask requirements for the hospital bed to be covered under insurance or what rental cost would be. GRACE DAVIS let daughter know that hospital bed may not be delivered immediately on discharge. -Referral was faxed by Mike EDWARDS CM to [facility] and we are awaiting acceptance. - Will need script for BSC and Hospital bed. Mike EDWARDS CM working on this. Kalpesh KAISERN [facility]
--- NOTE | 2018-09-14 14:58 | CASEMGMT ---
Addendum entered by Chaparro Lim 09/14/18 16:10: RN SUSAN Note: Called received from [facility] and they can review referral and do take [facility]. Referral faxed to [facility] @ . They will review and contact CM re: acceptance. Anticipate dc 09/15/18. Kalpesh GARCIA RN [facility] Original Note: Addendum entered by Chaparro Lim 09/14/18 15:51: Call received from [facility] and was now informed that they are unable to take [facility]. Call placed to [facility] and spoke with Rainacarolina Robin @ . Awaiting return call re: if they are able to take pt with [facility]. Original Note: RN SUSAN NOTE: Call placed to [facility] by GRACE Delvalle CM, and they are in-network with [facility]. Referral faxed to them for snf, PT/OT. Awaiting acceptance. They were made aware anticipated discharge tomorrow 09/15/18. [facility]: PH: Fax: . Cherelle GARCIA RN, CM
[2018-09-14] MEDS: Atorvastatin Calcium 20 MG Tablet PO (21:30)
[2018-09-14] MEDS: carBAMazepine 200 MG Tablet PO (21:31)
[2018-09-14] MEDS: QUEtiapine 100 MG Tablet 300 MG PO (21:31)
[2018-09-15] VITALS (11 sets, daily range): BP systolic 147–167; BP diastolic 76–77; PULSE 96–108; RESP 18; TEMP 36.7–37.6; O2SAT 92–95
[2018-09-15] MEDS: Ketorolac 15 MG/ML Vial IV (00:31)
[2018-09-15] MEDS: Enoxaparin 40 MG/0.4 ML Syringe SC (05:35)
[2018-09-15] MEDS: levoFLOXacin 500 MG Tablet PO (05:38)
[2018-09-15 06:36] LABS: Anion Gap 8 (5-15); BUN 8 mg/dL (7-18); BUN/Creat Ratio 10.6 RATIO (10-20); Calcium,Total 8.1 mg/dL (8.5-10.1); Chloride 98 mmol/L (98-107); Creatinine, Serum 0.75 mg/dL (0.55-1.02); EST Glomerular Filtration Rate 80 mL/min (>60); Est Glom Filt Rate - Afr Amer 97 mL/min (>60); Estimated Creatinine Clearance 42.07 ml/min; Glucose 111 mg/dL (74-106); Magnesium 1.7 mg/dL (1.6-2.6); Potassium 3.5 mmol/L (3.5-5.1); Sodium Level 134 mmol/L (136-145)
[2018-09-15] MEDS: Ipratropium/Albuterol Sulfate 3 ML AMPUL.NEB INHALATION ×3 (07:08→15:51)
--- NOTE | 2018-09-15 08:44 | PCM.PN.HOSP ---
Patient Problems: Active and Suspected Problems COPD exacerbation (Acute) Pneumonia (Acute) UTI (urinary tract infection) (Acute) Rhabdomyolysis (Acute) Hypokalemia (Acute) Closed left fibular fracture (Acute) Sprain of left distal tibiofibular ligament (Acute) Subjective: Breathing well. Confused overnight. Was awoken frequently through the night. Vitals/I&O's: Vital Signs Temp Pulse Resp BP Pulse Ox 37.6 C H 108 H 18 158/76 H 92 09/15/18 08:24 09/15/18 08:24 09/15/18 08:24 09/15/18 08:24 09/15/18 08:24 Oxygen Flow Rate (L/min) 1 Oxygen Delivery Method Nasal Cannula Weight: 81.647 kg Body Mass Index (BMI) 31.8 Intake and Output for Last 24 Hours 09/13/18 09/14/18 09/15/18 23:59 23:59 23:59 Intake Total 5173 / 5173 1550 / 1550 240 / 240 Output Total 2250 / 2250 400 / 400 300 / 300 Balance 2923 / 2923 1150 / 1150 -60 / -60 General: Alert, No apparent distress HEENT: Atraumatic, Normocephalic Oral: Moist Mucosa, No Gingival or Mucosal Lesions/ Ulcerations Neck: No Nodes, Thyroid Normal Size and Texture Lungs: Diminished, - - coarse breath sounds bilaterally. Cardiovascular: Regular rate, Regular Rhythm, Normal S1, Normal S2, No murmurs Abdomen: Bowel Sounds Present, Soft, Non Tender, Non-Distended, No Hepato-splenomegaly Extremities: No edema, - - left leg in boot--did not remove. Psych/Mental Status: Normal Affect, Appropriate Microbiology Past 72 Hours 09/12/18 20:45 Urine, Midstream Urine Culture - Final Presumptive E. coli 09/12/18 23:31 Mucosa - Nasopharyngeal Respiratory Panel (PCR) - Final 09/12/18 20:45 Urine, Clean Catch Streptococcus pneumoniae Antigen (M - Final Streptococcus pneumonia Ag 09/12/18 20:45 Urine, Clean Catch Legionella Antigen - Final 09/12/18 20:05 Mucosa - Nasopharyngeal Influenza Types A,B Direct FA (KWABENA) - Final Laboratory Results 09/14/18 06:04: Diff Path Review Reviewed 09/15/18 05:20: Sodium 134 L, Potassium 3.5, Chloride 98, Carbon Dioxide 28.0, Anion Gap 8, BUN 8, Creatinine 0.75, Estim Creat Clear Calc 42.07, Est GFR (MDRD) Af Amer 97, Est GFR (MDRD) Non-Af 80, BUN/Creatinine Ratio 10.6, Glucose 111 H, Calcium 8.1 L, Magnesium 1.7 Current Medications Acetaminophen (Tylenol) 650 mg PO Q4H PRN PRN PRN Reason: FEVER Last Admin: 09/14/18 11:09 Dose: 650 mg Acetaminophen (Tylenol) 650 mg PO Q6H PRN PRN PRN Reason: Mild Pain (scale 0-3)/T>100.7 Al Hydroxide/Mg Hydroxide (Mylanta Ii) 30 ml PO Q6H PRN PRN PRN Reason: Gastric burning Albuterol Sulfate (Ventolin Aerosols) 2.5 mg INHALATION Q2H PRN PRN PRN Reason: SHORTNESS OF BREATH Albuterol/Ipratropium (Duoneb) 3 ml INHALATION Q4HWA.RT [facility] Last Admin: 09/15/18 07:08 Dose: 3 ml Amlodipine Besylate (Norvasc) 10 mg PO DAILY [facility] Last Admin: 09/14/18 11:03 Dose: 10 mg Atorvastatin Calcium (Lipitor) 20 mg PO QHS [facility] Last Admin: 09/14/18 21:30 Dose: 20 mg Bisoprolol Fumarate (Zebeta) 2.5 mg PO DAILY [facility] Last Admin: 09/14/18 11:03 Dose: 2.5 mg Carbamazepine (Tegretol) 100 mg PO DAILY [facility] Last Admin: 09/14/18 11:04 Dose: 100 mg Carbamazepine (Tegretol) 200 mg PO QHS [facility] Last Admin: 09/14/18 21:31 Dose: 200 mg Clopidogrel Bisulfate (Plavix) 75 mg PO DAILY [facility] Last Admin: 09/14/18 11:02 Dose: 75 mg Duloxetine HCl (Cymbalta) 60 mg PO DAILY [facility] Last Admin: 09/14/18 11:03 Dose: 60 mg Enoxaparin Sodium (Lovenox) 40 mg SC DAILY@0600 [facility] Last Admin: 09/15/18 05:35 Dose: 40 mg Guaifenesin (Mucinex) 1,200 mg PO BID [facility] Last Admin: 09/14/18 21:30 Dose: 1,200 mg Hydrochlorothiazide (Hctz) 6.25 mg PO DAILY [facility] Last Admin: 09/14/18 11:01 Dose: 6.25 mg Ketorolac Tromethamine (Toradol) 15 mg IV Q6H PRN PRN PRN Reason: pain Stop: 09/20/18 00:11 Last Admin: 09/15/18 00:31 Dose: 15 mg Levofloxacin (Levaquin Tablet) 500 mg PO DAILY@0600 [facility] Last Admin: 09/15/18 05:38 Dose: 500 mg Lisinopril (Zestril) 10 mg PO DAILY [facility] Last Admin: 09/14/18 11:02 Dose: 10 mg Magnesium Hydroxide (Milk Of Magnesia) 30 ml PO DAILY PRN PRN PRN Reason: Constipation Ondansetron HCl (Zofran) 4 mg IV Q8H PRN PRN PRN Reason: NAUSEA Promethazine HCl (Phenergan) 6.25 mg IV Q4H PRN PRN PRN Reason: NAUSEA/VOMITING Quetiapine Fumarate (Seroquel) 300 mg PO QHS [facility] Last Admin: 09/14/18 21:31 Dose: 300 mg Sodium Chloride () 5 - 15 ml IV UD PRN PRN Reason: SALINE FLUSH Tolterodine Tartrate (Detrol La) 2 mg PO DAILY [facility] Last Admin: 09/14/18 11:03 Dose: 2 mg Medical Necessity - Tobacco Use Smoking Status: Former smoker Tobacco Use: Non-smoker Assessment/Plan All Active Problems COPD exacerbation (Acute) Pneumonia (Acute) UTI (urinary tract infection) (Acute) Rhabdomyolysis (Acute) Hypokalemia (Acute) Closed left fibular fracture (Acute) Sprain of left distal tibiofibular ligament (Acute) Falls frequently (Acute) Monoplegia (Acute) Acute facial pain (Acute) Subtherapeutic international normalized ratio (INR) (Acute) Pulmonary emboli (Resolved) 1. Pneumococcal pneumonia: Improving. + Urinary antigen. On ceftriaxone and azithromycin. Change to Levaquin to cover both PNA and UTI. Continue pulmonary toilet. 2. Pyuria: Positive leuk esterase but only 10-25 white blood cells. 3+ bacteria but not really convinced that this is an actual urinary tract infection. UCx + for E. coli. 3. Mild rhabdomyolysis: Resolved. Secondary to being down for period of time. Resolved. 4. Left fibular shaft fracture: Traumatic. Continue with the conservative management for now. Walking boot. Nonweightbearing left lower extremity until further instructions by orthopedics. Follow up with orthopaedics in 7-10 days. 5. Tremulousness: Resolved. Patient's daughter was concerned about tardive dyskinesia. Reviewed medications with him, patient is not on any order anti-X nor is she on Reglan or Phenergan. I think is prime more metabolic and but did make recommendations to discontinue baclofen, Lyrica and oxycodone, the latter which she has not received. And just monitor for now. I do not feel that this is tardive dyskinesia. 6. Hyponatremia: Resolved. Monitor. 7. hyPokalemia: Improved but still low. Replace again plus replace magnesium. 8. DVT prophylaxis with Lovenox 9. Debility: Physical and occupational therapy evaluate and treat. [facility]. Patient to go to [facility]. Patient in need of hospital bed with ability to raise head of bed. 4 history of COPD and a closed left fibular fracture. Patient required bedside commode as patient is nonweightbearing in the left lower extremity due to a left fibular fracture. Patient will need a walker as well as bearing in the left lower extremity and has overall debility. 10. COPD: not in exacerbation. PRN albuterol. Follow up with pulm as outpt in the coming months for PFTs to grade the severity of her COPD. Code Visit Inpatient E&M: 89656 Subs Hosp L2 - If discharged today, then use the discharge code instead.
--- NOTE | 2018-09-15 08:50 | PN_ITS ---
Patient Problems: Active and Suspected Problems COPD exacerbation (Acute) Pneumonia (Acute) UTI (urinary tract infection) (Acute) Rhabdomyolysis (Acute) Hypokalemia (Acute) Closed left fibular fracture (Acute) Sprain of left distal tibiofibular ligament (Acute) Subjective: Breathing well. Confused overnight. Was awoken frequently through the night. Vitals/I&O's: Vital Signs Temp Pulse Resp BP Pulse Ox 37.6 C H 108 H 18 158/76 H 92 09/15/18 08:24 09/15/18 08:24 09/15/18 08:24 09/15/18 08:24 09/15/18 08:24 Oxygen Flow Rate (L/min) 1 Oxygen Delivery Method Nasal Cannula Weight: 81.647 kg Body Mass Index (BMI) 31.8 Intake and Output for Last 24 Hours 09/13/18 09/14/18 09/15/18 23:59 23:59 23:59 Intake Total 5173 / 5173 1550 / 1550 240 / 240 Output Total 2250 / 2250 400 / 400 300 / 300 Balance 2923 / 2923 1150 / 1150 -60 / -60 General: Alert, No apparent distress HEENT: Atraumatic, Normocephalic Oral: Moist Mucosa, No Gingival or Mucosal Lesions/ Ulcerations Neck: No Nodes, Thyroid Normal Size and Texture Lungs: Diminished, - - coarse breath sounds bilaterally. Cardiovascular: Regular rate, Regular Rhythm, Normal S1, Normal S2, No murmurs Abdomen: Bowel Sounds Present, Soft, Non Tender, Non-Distended, No Hepato- splenomegaly Extremities: No edema, - - left leg in boot--did not remove. Psych/Mental Status: Normal Affect, Appropriate Microbiology Past 72 Hours 09/12/18 20:45 Urine, Midstream Urine Culture - Final Presumptive E. coli 09/12/18 23:31 Mucosa - Nasopharyngeal Respiratory Panel (PCR) - Final 09/12/18 20:45 Urine, Clean Catch Streptococcus pneumoniae Antigen (M - Final Streptococcus pneumonia Ag 09/12/18 20:45 Urine, Clean Catch Legionella Antigen - Final 09/12/18 20:05 Mucosa - Nasopharyngeal Influenza Types A,B Direct FA (KWABENA) - Final Laboratory Results 09/14/18 06:04: Diff Path Review Reviewed 09/15/18 05:20: Sodium 134 L, Potassium 3.5, Chloride 98, Carbon Dioxide 28.0, Anion Gap 8, BUN 8, Creatinine 0.75, Estim Creat Clear Calc 42.07, Est GFR (MDRD) Af Amer 97, Est GFR (MDRD) Non-Af 80, BUN/Creatinine Ratio 10.6, Glucose 111 H, Calcium 8.1 L, Magnesium 1.7 Current Medications Acetaminophen (Tylenol) 650 mg PO Q4H PRN PRN PRN Reason: FEVER Last Admin: 09/14/18 11:09 Dose: 650 mg Acetaminophen (Tylenol) 650 mg PO Q6H PRN PRN PRN Reason: Mild Pain (scale 0-3)/T>100.7 Al Hydroxide/Mg Hydroxide (Mylanta Ii) 30 ml PO Q6H PRN PRN PRN Reason: Gastric burning Albuterol Sulfate (Ventolin Aerosols) 2.5 mg INHALATION Q2H PRN PRN PRN Reason: SHORTNESS OF BREATH Albuterol/Ipratropium (Duoneb) 3 ml INHALATION Q4HWA.RT [facility] Last Admin: 09/15/18 07:08 Dose: 3 ml Amlodipine Besylate (Norvasc) 10 mg PO DAILY [facility] Last Admin: 09/14/18 11:03 Dose: 10 mg Atorvastatin Calcium (Lipitor) 20 mg PO QHS [facility] Last Admin: 09/14/18 21:30 Dose: 20 mg Bisoprolol Fumarate (Zebeta) 2.5 mg PO DAILY [facility] Last Admin: 09/14/18 11:03 Dose: 2.5 mg Carbamazepine (Tegretol) 100 mg PO DAILY [facility] Last Admin: 09/14/18 11:04 Dose: 100 mg Carbamazepine (Tegretol) 200 mg PO QHS [facility] Last Admin: 09/14/18 21:31 Dose: 200 mg Clopidogrel Bisulfate (Plavix) 75 mg PO DAILY [facility] Last Admin: 09/14/18 11:02 Dose: 75 mg Duloxetine HCl (Cymbalta) 60 mg PO DAILY [facility] Last Admin: 09/14/18 11:03 Dose: 60 mg Enoxaparin Sodium (Lovenox) 40 mg SC DAILY@0600 [facility] Last Admin: 09/15/18 05:35 Dose: 40 mg Guaifenesin (Mucinex) 1,200 mg PO BID [facility] Last Admin: 09/14/18 21:30 Dose: 1,200 mg Hydrochlorothiazide (Hctz) 6.25 mg PO DAILY [facility] Last Admin: 09/14/18 11:01 Dose: 6.25 mg Ketorolac Tromethamine (Toradol) 15 mg IV Q6H PRN PRN PRN Reason: pain Stop: 09/20/18 00:11 Last Admin: 09/15/18 00:31 Dose: 15 mg Levofloxacin (Levaquin Tablet) 500 mg PO DAILY@0600 [facility] Last Admin: 09/15/18 05:38 Dose: 500 mg Lisinopril (Zestril) 10 mg PO DAILY [facility] Last Admin: 09/14/18 11:02 Dose: 10 mg Magnesium Hydroxide (Milk Of Magnesia) 30 ml PO DAILY PRN PRN PRN Reason: Constipation Ondansetron HCl (Zofran) 4 mg IV Q8H PRN PRN PRN Reason: NAUSEA Promethazine HCl (Phenergan) 6.25 mg IV Q4H PRN PRN PRN Reason: NAUSEA/VOMITING Quetiapine Fumarate (Seroquel) 300 mg PO QHS [facility] Last Admin: 09/14/18 21:31 Dose: 300 mg Sodium Chloride () 5 - 15 ml IV UD PRN PRN Reason: SALINE FLUSH Tolterodine Tartrate (Detrol La) 2 mg PO DAILY [facility] Last Admin: 09/14/18 11:03 Dose: 2 mg Medical Necessity - Tobacco Use Smoking Status: Former smoker Tobacco Use: Non-smoker Assessment/Plan All Active Problems COPD exacerbation (Acute) Pneumonia (Acute) UTI (urinary tract infection) (Acute) Rhabdomyolysis (Acute) Hypokalemia (Acute) Closed left fibular fracture (Acute) Sprain of left distal tibiofibular ligament (Acute) Falls frequently (Acute) Monoplegia (Acute) Acute facial pain (Acute) Subtherapeutic international normalized ratio (INR) (Acute) Pulmonary emboli (Resolved) 1. Pneumococcal pneumonia: Improving. + Urinary antigen. On ceftriaxone and azithromycin. Change to Levaquin to cover both PNA and UTI. Continue pulmonary toilet. 2. Pyuria: Positive leuk esterase but only 10-25 white blood cells. 3+ bacteri a but not really convinced that this is an actual urinary tract infection. UCx + for E. coli. 3. Mild rhabdomyolysis: Resolved. Secondary to being down for period of time. Resolved. 4. Left fibular shaft fracture: Traumatic. Continue with the conservative management for now. Walking boot. Nonweightbearing left lower extremity until further instructions by orthopedics. Follow up with orthopaedics in 7-10 days. 5. Tremulousness: Resolved. Patient's daughter was concerned about tardive dyskinesia. Reviewed medications with him, patient is not on any order anti-X nor is she on Reglan or Phenergan. I think is prime more metabolic and but did make recommendations to discontinue baclofen, Lyrica and oxycodone, the latter which she has not received. And just monitor for now. I do not feel that this is tardive dyskinesia. 6. Hyponatremia: Resolved. Monitor. 7. hyPokalemia: Improved but still low. Replace again plus replace magnesium. 8. DVT prophylaxis with Lovenox 9. Debility: Physical and occupational therapy evaluate and treat. [facility]. Patient to go to [facility]. Patient in need of hospital bed with ability to raise head of bed. 4 history of COPD and a closed left fibular fracture. Patient required bedside commode as patient is nonweightbearing in the left lower extremity due to a left fibular fracture. Patient will need a walker as well as bearing in the left lower extremity and has overall debility. 10. COPD: not in exacerbation. PRN albuterol. Follow up with pulm as outpt in the coming months for PFTs to grade the severity of her COPD. Code Visit Inpatient E&M: 18947 Subs Hosp L2 - If discharged today, then use the discharge code instead.
--- NOTE | 2018-09-15 09:19 | DCINST_ITS ---
- Discharge Diagnoses Current Active Problems: Current Active and Chronic Problems HLD (hyperlipidemia) (Chronic) CVA (cerebral vascular accident) (Chronic) Obesity (BMI 30.0-34.9) (Chronic) COPD (chronic obstructive pulmonary disease) (Chronic) COPD exacerbation (Acute) Pneumonia (Acute) UTI (urinary tract infection) (Acute) Rhabdomyolysis (Acute) Hypokalemia (Acute) Closed left fibular fracture (Acute) Sprain of left distal tibiofibular ligament (Acute) You will use the following diet at home:: Cardiac Your food should be the consistency of: Regular Your liquids should be the consistency of: Regular/Thin Weight Bearing Status: No weight bearing Keep extremity elevated above heart level: Left Leg Additional Activity Instructions:: Walking boot. Call your doctor if your incision/area has: Increased Pain/ Swelling Call your doctor if you observe: Fever of 101 or Higher, Shortness of breath Allergies/Adverse Reactions: Allergies aspirin Allergy (Verified 09/12/18 19:27) Hives diphenhydramine HCl [From Benadryl] Allergy (Verified 09/12/18 19:27) Anaphylaxis latex Allergy (Verified 09/12/18 19:27) Rash meperidine [From Demerol] Allergy (Verified 09/12/18 19:27) Swelling Penicillins Allergy (Verified 09/12/18 19:27) Anaphylaxis Sulfa (Sulfonamide Antibiotics) Allergy (Verified 09/12/18 19:27) Unknown codeine Adverse Reaction (Verified 09/12/18 19:27) Vomiting haloperidol [From Haldol] Adverse Reaction (Verified 09/12/18 19:27) HALLUCINATIONS promethazine HCl [From Phenergan] Adverse Reaction (Verified 09/12/18 19:27) Other Medications to take at Discharge Amlodipine [Norvasc] 10 mg PO DAILY 10/26/13 Bisoprolol Fumarate/Hctz [ZIAC 2.5-6.25 mg (Beta Jc)] 1 each PO DAILY 10/26/13 Carbamazepine [Tegretol] 100 mg PO DAILY 10/26/13 Carbamazepine [Tegretol] 200 mg PO QHS 10/26/13 Duloxetine Hcl [Cymbalta] 60 mg PO DAILY 10/26/13 Lisinopril [Zestril] 10 mg PO BID 10/26/13 Quetiapine Fumarate [Seroquel] 300 mg PO QHS 10/26/13 Rosuvastatin Calcium [Crestor] 10 mg PO QHS 10/26/13 Albuterol Inhaler [Ventolin Hfa] 2 puff INHALATION TID 02/12/17 Oxybutynin Chloride [Ditropan Xl] 10 mg PO DAILY 02/12/17 Acetaminophen [Tylenol Tablet] 500 mg PO Q4H PRN PRN tablet 09/15/18 Albuterol Aerosols [Ventolin Aerosols] 2.5 mg INHALATION Q4H PRN #30 vial.neb. 09/15/18 Clopidogrel Bisulfate [Plavix] 75 mg PO DAILY #30 tablet 09/15/18 Guaifenesin [Mucinex] 1,200 mg PO BID #20 tablet 09/15/18 Hydrocodone Bitart/Apap 5-325 [Velarde 5MG-325MG] 1 tablet PO Q6H PRN PRN 3 Days #12 tablet 09/15/18 Ibuprofen 2 - 3 tab PO Q6H PRN #1 tablet 09/15/18 Nebulizer [Compact Compressor Nebulizer] 1 each MC Q4H PRN #1 each 09/15/18 levoFLOXacin tablet [Levaquin tablet] 500 mg PO DAILY@0600 #5 tablet 09/15/18 The following prescriptions were given: Hydrocodone Bitart/Apap 5-325 [Velarde 5MG-325MG] 1 tablet PO Q6H PRN PRN 3 Days #12 tablet PRN Reason: Severe Pain (6-10/10) Albuterol Aerosols [Ventolin Aerosols] 2.5 mg INHALATION Q4H PRN #30 vial.neb. PRN Reason: SHORTNESS OF BREATH Clopidogrel Bisulfate [Plavix] 75 mg PO DAILY #30 tablet levoFLOXacin tablet [Levaquin tablet] 500 mg PO DAILY@0600 #5 tablet Nebulizer [Compact Compressor Nebulizer] 1 each MC Q4H PRN #1 each PRN Reason: Shortness Of Breath Guaifenesin [Mucinex] 1,200 mg PO BID #20 tablet Ibuprofen 2 - 3 tab PO Q6H PRN #1 tablet PRN Reason: Pain Primary Care Physician: Florecita Lange MD [Primary Care Provider] - Within 2 Weeks Test Results: Test results from this visit will be discussed in further detail at your follow- up appointment, if applicable. Please Follow Up With: Yusef Thomas MD When: 7-10 days Please Follow Up With: Srinivasan Buckley MD - Pulmonology for COPD When: 6-8 weeks Proposed Discharge Date: 09/15/18
--- NOTE | 2018-09-15 09:19 | PCM.DC.SUM ---
Discharge Date and Diagnosis - Problem List Patient Problems: Active and Suspected Problems COPD exacerbation (Acute) Pneumonia (Acute) UTI (urinary tract infection) (Acute) Rhabdomyolysis (Acute) Hypokalemia (Acute) Closed left fibular fracture (Acute) Sprain of left distal tibiofibular ligament (Acute) Date of Admission: 09/12/18 Date of Discharge: 09/15/18 - Primary Discharge Diagnosis Active and Suspected Problems COPD exacerbation (Acute) Pneumonia (Acute) UTI (urinary tract infection) (Acute) Rhabdomyolysis (Acute) Hypokalemia (Acute) Closed left fibular fracture (Acute) Sprain of left distal tibiofibular ligament (Acute) 1. Pneumococcal pneumonia: Improving. + Urinary antigen. On ceftriaxone and azithromycin. Change to Levaquin to cover both PNA and UTI. Continue pulmonary toilet. 2. Pyuria: Positive leuk esterase but only 10-25 white blood cells. 3+ bacteria but not really convinced that this is an actual urinary tract infection. UCx + for E. coli. 3. Mild rhabdomyolysis: Resolved. Secondary to being down for period of time. Resolved. 4. Left fibular shaft fracture: Traumatic. Continue with the conservative management for now. Walking boot. Nonweightbearing left lower extremity until further instructions by orthopedics. Follow up with orthopaedics in 7-10 days. 5. Tremulousness: Resolved. Patient's daughter was concerned about tardive dyskinesia. Reviewed medications with him, patient is not on any order anti-X nor is she on Reglan or Phenergan. I think is prime more metabolic and but did make recommendations to discontinue baclofen, Lyrica and oxycodone, the latter which she has not received. And just monitor for now. I do not feel that this is tardive dyskinesia. 6. Hyponatremia: Resolved. Monitor. 7. hyPokalemia: Improved but still low. Replace again plus replace magnesium. 8. DVT prophylaxis none despite immobilization and non-weight bearing status. 9. Debility: Physical and occupational therapy evaluate and treat. [facility]. Patient to go to [facility]. Patient in need of hospital bed with ability to raise head of bed. 4 history of COPD and a closed left fibular fracture. Patient required bedside commode as patient is nonweightbearing in the left lower extremity due to a left fibular fracture. Patient will need a walker as well as bearing in the left lower extremity and has overall debility. 10. COPD: not in exacerbation. PRN albuterol. Follow up with pulm as outpt in the coming months for PFTs to grade the severity of her COPD. - Secondary Discharge Diagnosis Chronic Problems HLD (hyperlipidemia) (Chronic) CVA (cerebral vascular accident) (Chronic) Obesity (BMI 30.0-34.9) (Chronic) COPD (chronic obstructive pulmonary disease) (Chronic) Hypothyroidism (Chronic) Bipolar disorder (Chronic) Tobacco use disorder (Chronic) Hypertension (Chronic) Hospital Course and Treatment Imaging Results: Clinical Impression(s) from Imaging Studies Brain CT 09/12/18 19:37 IMPRESSION: 1. No acute findings. 2. Mild involutional changes of the brain. 3. Trace chronic sinusitis. Electronically Signed: Rosalina Huang MD at 22:11 EDT Tel , Service support , Chest X-Ray 09/12/18 19:37 IMPRESSION: Right upper lobe opacity, suspicious for pneumonia. Follow-up to resolution is advised to exclude underlying malignancy. Electronically Signed: Rosalina Huang MD at 22:04 EDT Tel , Service support , Cervical Spine CT 09/12/18 19:38 IMPRESSION: Cervical degenerative changes as detailed above. Emphysematous changes of the lung apices. Probable left apical scarring. Nonemergent CT of the chest without contrast is recommended. Electronically Signed: Owen Marrero MD at 22:22 EDT , Service support , Knee X-Ray 09/12/18 19:38 IMPRESSION: Normal x-ray examination of the knee. Electronically Signed: Owen Marrero MD at 22:13 EDT , Service support , Tibia/Fibula X-Ray 09/12/18 19:38 IMPRESSION: Comminuted fracture the proximal left fibular shaft with fracture apex directed laterally. Electronically Signed: Owen Marrero MD at 22:15 EDT , Service support , Ankle X-Ray 09/13/18 19:10 IMPRESSION: Soft tissues lying above the ankle without visualized fracture or dislocation. Electronically Signed: Harris Roa DO at 19:40 EDT Tel [phone], Service support , Chelly Cr: Podiatry. Operations: None Procedures: None Summary of Care Provided: The patient is a 72 year old F is with a fall. Patient was found to have a proximal left fibular fracture. Patient was seen in consultation by podiatry recommended a walking boot. Conservative management for now. Additionally, patient had pneumonia which was antigen positive for Streptococcus. Patient was on ceftriaxone and azithromycin. Changed over to Levaquin 500 mg on the . Has done well from that perspective and will continue with the Levaquin for 5 more days. Patient has some issues in regards to some tremulousness. Is my feeling is prime more metabolic from her illness but did stop her baclofen and Lyrica. Those medications could be resumed at a later point but would hold off for right now. Patient did have some confusion overnight but seems to be otherwise intact today. But that may be more metabolic as well. Plan is for the patient to go home with home care. Patient's daughter, whom she is can live with for now, has reservations about putting her into a nursing home facility given prior bad experiences. Patient will be nonweightbearing to the left lower extremity. DVT prophylaxis not indicated at home. Patient be discharged in stable condition. I completed FMLA forms for the daughter. [] Patient Problems: Active and Suspected Problems COPD exacerbation (Acute) Pneumonia (Acute) UTI (urinary tract infection) (Acute) Rhabdomyolysis (Acute) Hypokalemia (Acute) Closed left fibular fracture (Acute) Sprain of left distal tibiofibular ligament (Acute) - Physical Exam Vital Signs Temp Pulse Resp BP Pulse Ox 37.6 C H 108 H 18 158/76 H 92 09/15/18 08:24 09/15/18 08:24 09/15/18 08:24 09/15/18 08:24 09/15/18 08:24 Oxygen Flow Rate (L/min) 1 Oxygen Delivery Method Nasal Cannula Weight: 81.647 kg Body Mass Index (BMI) 31.8 Intake and Output for Last 24 Hours 09/13/18 09/14/18 09/15/18 23:59 23:59 23:59 Intake Total 5173 / 5173 1550 / 1550 240 / 240 Output Total 2250 / 2250 400 / 400 300 / 300 Balance 2923 / 2923 1150 / 1150 -60 / -60 Microbiology Past 72 Hours 09/12/18 20:45 Urine Culture - Final Urine, Midstream Presumptive E. coli 09/12/18 23:31 Respiratory Panel (PCR) - Final Mucosa - Nasopharyngeal 09/12/18 20:45 Streptococcus pneumoniae Antigen (M - Final Urine, Clean Catch Streptococcus pneumonia Ag 09/12/18 20:45 Legionella Antigen - Final Urine, Clean Catch 09/12/18 20:05 Influenza Types A,B Direct FA (KWABENA) - Final Mucosa - Nasopharyngeal Laboratory Tests Past 24 Hrs 09/14/18 09/15/18 06:04 05:20 Diff Path Review Reviewed Sodium 134 L Potassium 3.5 Chloride 98 Carbon Dioxide 28.0 Anion Gap 8 BUN 8 Creatinine 0.75 Estim Creat Clear Calc 42.07 Est GFR (MDRD) Af Amer 97 Est GFR (MDRD) Non-Af 80 BUN/Creatinine Ratio 10.6 Glucose 111 H Calcium 8.1 L Magnesium 1.7 Discharge Diet: Low fat/ Low Cholesterol Weight Bearing Status: No weight bearing Keep extremity elevated above heart level: Left Leg Additional Activity Instructions:: Walking boot. Call your doctor if your incision/area has: Increased Pain/ Swelling Call your doctor if you observe: Fever of 101 or Higher, Shortness of breath Home Medications: Medications to take at Discharge Amlodipine [Norvasc] 10 mg PO DAILY 10/26/13 Bisoprolol Fumarate/Hctz [ZIAC 2.5-6.25 mg (Beta Jc)] 1 each PO DAILY 10/26/13 Carbamazepine [Tegretol] 100 mg PO DAILY 10/26/13 Carbamazepine [Tegretol] 200 mg PO QHS 10/26/13 Duloxetine Hcl [Cymbalta] 60 mg PO DAILY 10/26/13 Lisinopril [Zestril] 10 mg PO BID 10/26/13 Quetiapine Fumarate [Seroquel] 300 mg PO QHS 10/26/13 Rosuvastatin Calcium [Crestor] 10 mg PO QHS 10/26/13 Albuterol Inhaler [Ventolin Hfa] 2 puff INHALATION TID 02/12/17 Oxybutynin Chloride [Ditropan Xl] 10 mg PO DAILY 02/12/17 Acetaminophen [Tylenol Tablet] 500 mg PO Q4H PRN PRN tablet 09/15/18 Albuterol Aerosols [Ventolin Aerosols] 2.5 mg INHALATION Q4H PRN #30 vial.neb. 09/15/18 Clopidogrel Bisulfate [Plavix] 75 mg PO DAILY #30 tablet 09/15/18 Guaifenesin [Mucinex] 1,200 mg PO BID #20 tablet 09/15/18 Hydrocodone Bitart/Apap 5-325 [Greer 5MG-325MG] 1 tablet PO Q6H PRN PRN 3 Days #12 tablet 09/15/18 Ibuprofen 2 - 3 tab PO Q6H PRN #1 tablet 09/15/18 Nebulizer [Compact Compressor Nebulizer] 1 each MC Q4H PRN #1 each 09/15/18 levoFLOXacin tablet [Levaquin tablet] 500 mg PO DAILY@0600 #5 tablet 09/15/18 Following Prescrptions Were Given to Patient: Hydrocodone Bitart/Apap 5-325 [Greer 5MG-325MG] 1 tablet PO Q6H PRN PRN 3 Days #12 tablet PRN Reason: Severe Pain (6-04/07) Albuterol Aerosols [Ventolin Aerosols] 2.5 mg INHALATION Q4H PRN #30 vial.neb. PRN Reason: SHORTNESS OF BREATH Clopidogrel Bisulfate [Plavix] 75 mg PO DAILY #30 tablet levoFLOXacin tablet [Levaquin tablet] 500 mg PO DAILY@0600 #5 tablet Nebulizer [Compact Compressor Nebulizer] 1 each MC Q4H PRN #1 each PRN Reason: Shortness Of Breath Guaifenesin [Mucinex] 1,200 mg PO BID #20 tablet Ibuprofen 2 - 3 tab PO Q6H PRN #1 tablet PRN Reason: Pain Primary Care Physician: Florecita Lange MD [Primary Care Provider] - Within 2 Weeks Please Follow Up With: Yusef Thomas MD When: 7-10 days Please Follow Up With: Srinivasan Buckley MD - Pulmonology for COPD When: 6-8 weeks Disposition: Home with Home Health Minutes spent on discharge:: 50 Patient Condition:: Fair Medical Necessity - Tobacco Use Smoking Status: Former smoker Tobacco Use: Non-smoker Meaningful Use Info Meaningful Use Diagnoses (Choose all that apply): None applicable Code Visit Inpatient E&M: 74006 Disch Hosp
--- NOTE | 2018-09-15 09:23 | DS.PCM_ITS ---
Discharge Date and Diagnosis - Problem List Patient Problems: Active and Suspected Problems COPD exacerbation (Acute) Pneumonia (Acute) UTI (urinary tract infection) (Acute) Rhabdomyolysis (Acute) Hypokalemia (Acute) Closed left fibular fracture (Acute) Sprain of left distal tibiofibular ligament (Acute) Date of Admission: 09/12/18 Date of Discharge: 09/15/18 - Primary Discharge Diagnosis Active and Suspected Problems COPD exacerbation (Acute) Pneumonia (Acute) UTI (urinary tract infection) (Acute) Rhabdomyolysis (Acute) Hypokalemia (Acute) Closed left fibular fracture (Acute) Sprain of left distal tibiofibular ligament (Acute) 1. Pneumococcal pneumonia: Improving. + Urinary antigen. On ceftriaxone and azithromycin. Change to Levaquin to cover both PNA and UTI. Continue pulmonary toilet. 2. Pyuria: Positive leuk esterase but only 10-25 white blood cells. 3+ bacteria but not really convinced that this is an actual urinary tract infection. UCx + for E. coli. 3. Mild rhabdomyolysis: Resolved. Secondary to being down for period of time. Resolved. 4. Left fibular shaft fracture: Traumatic. Continue with the conservative management for now. Walking boot. Nonweightbearing left lower extremity until further instructions by orthopedics. Follow up with orthopaedics in 7-10 days. 5. Tremulousness: Resolved. Patient's daughter was concerned about tardive dyskinesia. Reviewed medications with him, patient is not on any order anti-X nor is she on Reglan or Phenergan. I think is prime more metabolic and but did make recommendations to discontinue baclofen, Lyrica and oxycodone, the latter which she has not received. And just monitor for now. I do not feel that this is tardive dyskinesia. 6. Hyponatremia: Resolved. Monitor. 7. hyPokalemia: Improved but still low. Replace again plus replace magnesium. 8. DVT prophylaxis none despite immobilization and non-weight bearing status. 9. Debility: Physical and occupational therapy evaluate and treat. [facility]. Patient to go to [facility]. Patient in need of hospital bed with ability to raise head of bed. 4 history of COPD and a closed left fibular fracture. Patient required bedside commode as patient is nonweightbearing in the left lo wer extremity due to a left fibular fracture. Patient will need a walker as well as bearing in the left lower extremity and has overall debility. 10. COPD: not in exacerbation. PRN albuterol. Follow up with pulm as outpt in the coming months for PFTs to grade the severity of her COPD. - Secondary Discharge Diagnosis Chronic Problems HLD (hyperlipidemia) (Chronic) CVA (cerebral vascular accident) (Chronic) Obesity (BMI 30.0-34.9) (Chronic) COPD (chronic obstructive pulmonary disease) (Chronic) Hypothyroidism (Chronic) Bipolar disorder (Chronic) Tobacco use disorder (Chronic) Hypertension (Chronic) Hospital Course and Treatment Imaging Results: Clinical Impression(s) from Imaging Studies Brain CT 09/12/18 19:37 IMPRESSION: 1. No acute findings. 2. Mild involutional changes of the brain. 3. Trace chronic sinusitis. Electronically Signed: Rosalina Huang MD at 22:11 EDT Tel , Service support , Chest X-Ray 09/12/18 19:37 IMPRESSION: Right upper lobe opacity, suspicious for pneumonia. Follow-up to resolution is advised to exclude underlying malignancy. Electronically Signed: Rosalina Huang MD at 22:04 EDT Tel , Service support , Cervical Spine CT 09/12/18 19:38 IMPRESSION: Cervical degenerative changes as detailed above. Emphysematous changes of the lung apices. Probable left apical scarring. Nonemergent CT of the chest without contrast is recommended. Electronically Signed: Owen Marrero MD at 22:22 EDT , Service support , Knee X-Ray 09/12/18 19:38 IMPRESSION: Normal x-ray examination of the knee. Electronically Signed: Owen Marrero MD at 22:13 EDT , Service support , Tibia/Fibula X-Ray 09/12/18 19:38 IMPRESSION: Comminuted fracture the proximal left fibular shaft with fracture apex directed laterally. Electronically Signed: Owen Marrero MD at 22:15 EDT , Service support , Ankle X-Ray 09/13/18 19:10 IMPRESSION: Soft tissues lying above the ankle without visualized fracture or dislocation. Electronically Signed: Harris Roa DO at 19:40 EDT Tel [phone], Service support , Chelly Cr: Podiatry. Operations: None Procedures: None Summary of Care Provided: The patient is a 72 year old F is with a fall. Patient was found to have a proximal left fibular fracture. Patient was seen in consultation by podiatry recommended a walking boot. Conservative management for now. Additionally, patient had pneumonia which was antigen positive for Streptococcus. Patient was on ceftriaxone and azithromycin. Changed over to Levaquin 500 mg on the . Has done well from that perspective and will continue with the Levaquin for 5 more days. Patient has some issues in regards to some tremulousness. Is my feeling is prime more metabolic from her illness but did stop her baclofen and Lyrica. Those medications could be resumed at a later point but would hold off for right now. Patient did have some confusion overnight but seems to be otherwise intact today. But that may be more metabolic as well. Plan is for the patient to go home with home care. Patient's daughter, whom she is can live with for now, has reservations about putting her into a [facility] facility given prior bad experiences. Patient will be nonweightbearing to the left lower extremity. DVT prophylaxis not indicated at home. Patient be discharged in stable condition. I completed FMLA forms for the daughter. [] Patient Problems: Active and Suspected Problems COPD exacerbation (Acute) Pneumonia (Acute) UTI (urinary tract infection) (Acute) Rhabdomyolysis (Acute) Hypokalemia (Acute) Closed left fibular fracture (Acute) Sprain of left distal tibiofibular ligament (Acute) - Physical Exam Vital Signs Temp Pulse Resp BP Pulse Ox 37.6 C H 108 H 18 158/76 H 92 03/20/19 08:24 09/15/18 08:24 09/15/18 08:24 09/15/18 08:24 09/15/18 08:24 Oxygen Flow Rate (L/min) 1 Oxygen Delivery Method Nasal Cannula Weight: 81.647 kg Body Mass Index (BMI) 31.8 Intake and Output for Last 24 Hours 09/13/18 09/14/18 09/15/18 23:59 23:59 23:59 Intake Total 5173 / 5173 1550 / 1550 240 / 240 Output Total 2250 / 2250 400 / 400 300 / 300 Balance 2923 / 2923 1150 / 1150 -60 / -60 Microbiology Past 72 Hours 09/12/18 20:45 Urine Culture - Final Urine, Midstream Presumptive E. coli 09/12/18 23:31 Respiratory Panel (PCR) - Final Mucosa - Nasopharyngeal 09/12/18 20:45 Streptococcus pneumoniae Antigen (M - Final Urine, Clean Catch Streptococcus pneumonia Ag 09/12/18 20:45 Legionella Antigen - Final Urine, Clean Catch 09/12/18 20:05 Influenza Types A,B Direct FA (KWABENA) - Final Mucosa - Nasopharyngeal Laboratory Tests Past 24 Hrs 09/14/18 09/15/18 06:04 05:20 Diff Path Review Reviewed Sodium 134 L Potassium 3.5 Chloride 98 Carbon Dioxide 28.0 Anion Gap 8 BUN 8 Creatinine 0.75 Estim Creat Clear Calc 42.07 Est GFR (MDRD) Af Amer 97 Est GFR (MDRD) Non-Af 80 BUN/Creatinine Ratio 10.6 Glucose 111 H Calcium 8.1 L Magnesium 1.7 Discharge Diet: Low fat/ Low Cholesterol Weight Bearing Status: No weight bearing Keep extremity elevated above heart level: Left Leg Additional Activity Instructions:: Walking boot. Call your doctor if your incision/area has: Increased Pain/ Swelling Call your doctor if you observe: Fever of 101 or Higher, Shortness of breath Home Medications: Medications to take at Discharge Amlodipine [Norvasc] 10 mg PO DAILY 10/26/13 Bisoprolol Fumarate/Hctz [ZIAC 2.5-6.25 mg (Beta Jc)] 1 each PO DAILY 10/26/13 Carbamazepine [Tegretol] 100 mg PO DAILY 10/26/13 Carbamazepine [Tegretol] 200 mg PO QHS 10/26/13 Duloxetine Hcl [Cymbalta] 60 mg PO DAILY 10/26/13 Lisinopril [Zestril] 10 mg PO BID 10/26/13 Quetiapine Fumarate [Seroquel] 300 mg PO QHS 10/26/13 Rosuvastatin Calcium [Crestor] 10 mg PO QHS 10/26/13 Albuterol Inhaler [Ventolin Hfa] 2 puff INHALATION TID 02/12/17 Oxybutynin Chloride [Ditropan Xl] 10 mg PO DAILY 02/12/17 Acetaminophen [Tylenol Tablet] 500 mg PO Q4H PRN PRN tablet 09/15/18 Albuterol Aerosols [Ventolin Aerosols] 2.5 mg INHALATION Q4H PRN #30 vial.neb. 09/15/18 Clopidogrel Bisulfate [Plavix] 75 mg PO DAILY #30 tablet 09/15/18 Guaifenesin [Mucinex] 1,200 mg PO BID #20 tablet 09/15/18 Hydrocodone Bitart/Apap 5-325 [Morris 5MG-325MG] 1 tablet PO Q6H PRN PRN 3 Days #12 tablet 09/15/18 Ibuprofen 2 - 3 tab PO Q6H PRN #1 tablet 09/15/18 Nebulizer [Compact Compressor Nebulizer] 1 each MC Q4H PRN #1 each 09/15/18 levoFLOXacin tablet [Levaquin tablet] 500 mg PO DAILY@0600 #5 tablet 09/15/18 Following Prescrptions Were Given to Patient: Hydrocodone Bitart/Apap 5-325 [Morris 5MG-325MG] 1 tablet PO Q6H PRN PRN 3 Days #12 tablet PRN Reason: Severe Pain (6-04/07) Albuterol Aerosols [Ventolin Aerosols] 2.5 mg INHALATION Q4H PRN #30 vial.neb. PRN Reason: SHORTNESS OF BREATH Clopidogrel Bisulfate [Plavix] 75 mg PO DAILY #30 tablet levoFLOXacin tablet [Levaquin tablet] 500 mg PO DAILY@0600 #5 tablet Nebulizer [Compact Compressor Nebulizer] 1 each MC Q4H PRN #1 each PRN Reason: Shortness Of Breath Guaifenesin [Mucinex] 1,200 mg PO BID #20 tablet Ibuprofen 2 - 3 tab PO Q6H PRN #1 tablet PRN Reason: Pain Primary Care Physician: Florecita Lange MD [Primary Care Provider] - Within 2 Weeks Please Follow Up With: Yusef Thomas MD When: 7-10 days Please Follow Up With: Srinivasan Buckley MD - Pulmonology for COPD When: 6-8 weeks Disposition: Home with Home Health Minutes spent on discharge:: 50 Patient Condition:: Fair Medical Necessity - Tobacco Use Smoking Status: Former smoker Tobacco Use: Non-smoker Meaningful Use Info Meaningful Use Diagnoses (Choose all that apply): None applicable Code Visit Inpatient E&M: 40093 Disch Hosp
[2018-09-15] MEDS: Lisinopril 10 MG Tablet PO (10:06)
[2018-09-15] MEDS: Bisoprolol Fumarate 5 MG Tablet 2.5 MG PO (10:06)
[2018-09-15] MEDS: hydroCHLOROthiazide 25 MG Tablet 6.25 MG PO (10:07)
[2018-09-15] MEDS: carBAMazepine 200 MG Tablet 100 MG PO (10:08)
[2018-09-15] MEDS: amLODIPine 10 MG Tablet PO (10:09)
[2018-09-15] MEDS: guaiFENesin 1,200 MG Tablet 1200 MG PO (10:09)
[2018-09-15] MEDS: DULoxetine Hcl 60 MG Capsule PO (10:09)
[2018-09-15] MEDS: Clopidogrel Bisulfate 75 MG Tablet PO (10:09)
[2018-09-15] MEDS: Tolterodine Tartrate 2 MG CAP.SA PO (10:09)
--- NOTE | 2018-09-15 10:13 | CASEMGMT ---
Addendum entered by Gisela Hoskins 09/15/18 12:48: Daughter states pt does have a shower chair at home. Original Note: Addendum entered by Gisela Hoskins 09/15/18 12:44: RA pulse ox has been re-checked while pt OOB and up with PT. RA pulse ox 89%. Pt still does not qualify for home O2. Original Note: Addendum entered by Gisela Hoskins 09/15/18 11:45: Call placed to [employer] They confirmed that they received the Quick Script and all DME ordered has been approved by insurance. Cary and pt made aware and informed that [employer] would be in contact with them to make arrangements for delivery to Cary's home. Original Note: Addendum entered by Gisela Hoskins 09/15/18 11:38: [facility], Cary[facility]. They were also made aware cost for W/C if not covered by insurance is $23.11/month. Cary provided with tab [employer]ker phone number and [employer] phone number. Original Note: GRACE DAVIS NOTE: To room to talk with pt. Daughter present @ bedside. They are aware of discharge today. Discussed DME with pt and daughter. Daughter states that if insurance does not cover for cost of DME needed, that she will rent/pay [id number] and states the cost is not an issue. I just want to get what is needed for my mom. Daughter confirms pt will be discharging to her (daughters) home and she will be helping to take care of her mom. Daughter confirms pt will need BSC, Hospital bed, nebulizer. Also requesting W/C. Dr East made aware. Call placed to [employer] @ and spoke with Kenia. Kenia made aware of DME needs for pt and that pt is discharging today. [employer]ia states they would be able to deliver all the DME equipment needed today, including the hospital bed. Per Kenia, cost of W/C to rent if not approved/covered by insurance would be: $23.11/month for the 1st 12 months. Orders for hospital bed, bsc, W/C, and nebulizer obtained from Dr East. Quick Script faxed to [employer] @ for semi-electric hospital bed, BSC, nebulizer, and W/C w/elevating leg rests along with Discharge summary [id number] documentation for DME equipment. RA testing completed for pt and pt is 92% RA. Pt does not qualify for Home O2. Call placed to [facility] and message left on [facility]'s VM to inquire if pt has been accepted for [facility]. Return call from [facility] received and she confirms they are able to accept pt. She is aware pt is discharging today 09/15/18. Faxed discharge instructions and summary to [facility] @ . Confirmation received that fax was successfully delivered. Cherelle BSN RN CM
--- NOTE | 2018-09-15 10:19 | NURSING ---
NWB LLE, ROOM AIR PULSE OX CHECKED WHILE RESTING IN BED - 92%.
[2018-09-15] MEDS: Acetaminophen 325 MG Tablet 650 MG PO (10:24)
--- NOTE | 2018-09-15 11:51 | CASEMGMT ---
LILIANE faxed discharge instructions to Marlena Valdes with [facility] for this pt, left her a message letting her know pt is going home to her daughter's home and skilled home care was set up for [place], and that DME was also ordered for this pt. RAFAEL Gutiérrez, [employer]
--- NOTE | 2018-09-17 16:37 | CASEMGMT ---
GRACE DAVIS Discharge Follow-Up Phone Call. Lace: 11 Strata: 3 Discharge Date: 09/15/18 Adm Dx: PNA, UTI, Fall w/LLE Fib Fx, Rhabdo. Call to pt to inquire about how she has been doing since being discharged from the hospital. No answer. Message left on . Call placed to pt's daughter/POA, Cary. Cary states her mother has been doing pretty good, she's adjusting. She states [facility] was out to see pt today and also Karla DAVIS was there today. She states all of the medical equipment arrived as well. Pt has appt with her PCP on Thursday and Cary states will be making appt w/Dr Buckley once she starts feeling better. Cary states she was informed that Dr Yusef Thomas was not in network with [facility] and she was inquiring about him following up with pt. Advised Cary to call Dr Thomas's office on Thursday to discuss this with them. Cary voices understanding. Cary states she did picker / packer all of her mom's prescriptions except for the Mucinex d/t the cost was higher than she can get at another drug store. Informed Cary once she decides what drug store she wants to get it from, to have that pharmacy call [facility] Retail pharmacy to have prescription transferred to them. She voices understanding. Cary denies having any other questions or concerns. Cherelle GARCIA RN, CM
== END 2018-09-15 17:20 | disposition home or self-care (01) | DRG 194 ==
LOC: ED 19:44 → MS2 22:57
PROVIDERS: Admitting Provider Family Medicine; Emergency Provider Emergency Medicine; Family Provider Family Medicine; PCP Family Medicine; Referring Provider Family Medicine
DX: J13 Pneumonia due to Streptococcus pneumoniae (principal); N39.0 Urinary tract infection, site not specified; M62.82 Rhabdomyolysis; E87.1 Hypo-osmolality and hyponatremia; S82.402A Unspecified fracture of shaft of left fibula, initial encounter for closed fracture; W19.XXXA Unspecified fall, initial encounter; Y92.039 Unspecified place in apartment as the place of occurrence of the external cause; E86.0 Dehydration; E87.6 Hypokalemia; F31.9 Bipolar disorder, unspecified; I10 Essential (primary) hypertension; E78.5 Hyperlipidemia, unspecified; J44.9 Chronic obstructive pulmonary disease, unspecified; Z87.891 Personal history of nicotine dependence; Z86.73 Personal history of transient ischemic attack (TIA), and cerebral infarction without residual deficits; E66.9 Obesity, unspecified; Z68.31 Body mass index [BMI] 31.0-31.9, adult; E03.9 Hypothyroidism, unspecified; R53.81 Other malaise
CPT/HCPCS: 36415; 70450; 71045; 72125; 73562; 73590; 73610; 80048; 80156; 81001; 82550; 83605; 83735; 84439; 84443; 85025; 85610; 87040; 87086; 87088; 87186; 87449; 87633; 87804; 94640; 94667; 94668; 97110; 97162; 97166; 97530; 97535; 99285; 99406; J7030; A4216

== ENCOUNTER → 2018-09-21 14:42 | Outpatient (CLI) | payer MEDICARE, SELFPAY ==
[2018-09-13 00:26] VITALS: BMI 31.8
--- NOTE | 2018-09-21 14:43 | RAD_ITS ---
STUDY: X-RAY - LEFT TIBIA AND FIBULA REASON FOR EXAM: Pain, proximal fracture. TECHNIQUE: 2 view(s) of the tibia and fibula were obtained. COMPARISON: Radiographs 09/12/2018. FINDINGS: Normal visualized tibia. There is a mildly comminuted fracture of the proximal fibular diaphysis without interval change. There is mild soft tissue swelling. RAD/Tibia & Fibula 2 Views IMPRESSION: No interval change of the proximal fibular fracture. Electronically Signed: Agustín Harris MD at 15:18 EDT Tel , Service support ,
[2018-09-21 15:08] VITALS: BMI 31.8
== END ==
PROVIDERS: Family Provider Family Medicine; PCP Family Medicine; Referring Provider Physician Assistant; Visit Provider Physician Assistant
DX: M79.605 Pain in left leg (principal)
CPT/HCPCS: 73590; 73600

== ENCOUNTER → 2018-10-14 14:09 | Outpatient (CLI) | payer MEDICARE, SELFPAY ==
[2018-09-21 15:08] VITALS: BMI 31.8
--- NOTE | 2018-10-14 14:11 | RAD_ITS ---
STUDY: X-RAY - LEFT TIBIA AND FIBULA REASON FOR EXAM: Female, 72 years old. Left leg pain TECHNIQUE: 2 view(s) of the tibia and fibula were obtained. COMPARISON: 09/21/2018 FINDINGS: Normal visualized tibia. Redemonstration of proximal fibular fracture with interval development of moderate callus. The soft tissue structures are unremarkable. RAD/Tibia & Fibula 2 Views IMPRESSION: 1. Partial healing of proximal fibular fracture. Electronically Signed: Al Verma MD at 13:56 EDT , Service support ,
== END ==
PROVIDERS: Family Provider Family Medicine; PCP Family Medicine; Referring Provider Physician Assistant; Visit Provider Physician Assistant
DX: R52 Pain, unspecified (principal)
CPT/HCPCS: 73590

== ENCOUNTER → 2019-12-07 08:51 | Outpatient (CLI) | payer MEDICARE, MEDICAID, SELFPAY ==
[2018-10-14 14:17] VITALS: BMI 31.8
[2019-12-07 09:01] LABS: Mucous, Urine 0 SEEN /hpf (<or=2+); Red Blood Cells-Urine 0 SEEN /hpf (0-5)
[2019-12-07 10:25] LABS: Hematocrit 39.1 % (37-47); Hemoglobin 12.7 g/dL (12.0-15.0); Mean Corp Hgb Conc 32.5 g/dL (32-36); Mean Corpuscular Hgb 31.4 pg (27.0-32.0); Mean Corpuscular Volume 96.5 fL (81-99); Platelet Count 252 K/mm3 (150-450); RBC Distribution Width CV 12.3 % (11.6-14.6); RBC Distribution Width SD 43.2 fl (35.1-43.9); Red Blood Count 4.05 M/mm3 (4.2-5.4); White Blood Count 6.9 K/mm3 (4.4-11.0)
[2019-12-07 10:31] LABS: Color, Urine Yellow (Yellow); Glucose, Dipstick Normal (Normal); Ketone-Dipstick 5 mg/dl (Negative); Leukocyte Esterase-Dipstick 100 /ul (Negative); Nitrite-Dipstick Positive (Negative); Occult Blood-Urine 10 /ul (Negative); Protein-Dipstick 15 mg/dl (Negative); Specific Gravity, Urine 1.025 (1.002-1.030); Urine Bilirubin Dipstick Negative (Negative); Urine Clarity Sl. Cloudy (Clear); Urine Urobilinogen Normal (Normal)
[2019-12-07 10:43] LABS: Bacteria 4+ /hpf (None Seen); Squamous Epithelial Cells - UA 5-10 SEEN /hpf (5-10); White Blood Cells 25-50 SEEN /hpf (0-5)
[2019-12-07 10:44] LABS: Calcium Oxalate Crystals Ur 1+ /hpf (<or=2+)
[2019-12-07 11:04] LABS: ALB/GLOB Ratio 1.2 RATIO (0.9-2.4); AST(SGOT) 22 U/L (15-37); Alanine Aminotransfer ALT/SGPT 28 U/L (13-56); Albumin, Serum 3.6 g/dL (3.2-5.0); Alkaline Phosphatase 98 U/L (45-117); Anion Gap 6 (5-15); BUN 16 mg/dL (7-18); BUN/Creat Ratio 20.4 RATIO (10-20); Calcium,Total 9.1 mg/dL (8.5-10.1); Chloride 107 mmol/L (98-107); Creatinine, Serum 0.78 mg/dL (0.55-1.02); EST Glomerular Filtration Rate 76 mL/min (>60); Est Glom Filt Rate - Afr Amer 92 mL/min (>60); Globulin 3.1 g/dL (2.2-4.2); Glucose 116 mg/dL (74-106); Potassium 4.4 mmol/L (3.5-5.1); Protein, Total 6.7 g/dL (6.4-8.2); Sodium Level 141 mmol/L (136-145)
[2019-12-07 11:07] LABS: Carbamazepine (Tegretol) 9.6 ug/mL (4.0-12.0)
--- OUTSIDE RECORDS SUMMARY | 2020-04-15 10:49 | XMS RPT_ITS | CCD ---
:1945 External Reference #:[id number] Author Organization [facility] Care Team Providers Name Role Phone FLORECITA LANGE Attending Unavailable VIVIEN LANGE Primary Care Unavailable Cm Callaway Primary Care Provider Allergies Reported Allergen Reaction(s) Severity Date of Onset [id number]) Codeine 06-11-2009 - [facility] ([id number]) diphenhydrAMINE 06-11-2009 - [facility] (06590) Latex 06-11-2009 - [facility] (47911) meloxicam GI Upset 01-27-2014 - [facility] (30285) Meperidine 06-11-2009 - [facility] (13259) Penicillins Shortness [facility] Bre[facility] (28033) Pentazocine 06-11-2009 - [facility] (39384) Promethazine 06-11-2009 - [facility] (25276) Sal[facility]lic [facility] (49656[facility]95030[facility] Medications Medication Name Sig Date Prescriber Location Acetaminophen / oxyCODONE-acetaminop 12-26-2016 Rafy Callaway [facility] oxyCODONE hen (PERCOCET) 5-325 - Rafy Callaway ([id number] [phone]) mg tablet 03-08-2020 Indications: Unilateral primary osteoarthritis, left hip Take 1 tablet by mouth every 6 hours as needed for Pain (pain). 30 tablet 0 12/26/2016 03/08/2020 Discontinued Comment: Take 1 tablet by mouth every 6 hours as needed for Pain (pain). Albuterol VENTOLIN HFA 90 09-18-2017 Rafy beatty [facility] mcg/actuation inhaler Rafy Callaway ([id number]) INHALE 2 PUFFS EVERY FOUR HOURS NEEDED FOR WHEEZING AND SHORTNESS OF BREATH 54 g 0 09/18/2017 Active Comment: INHALE 2 PUFFS EVERY FOUR HO URS NEEDED FOR WHEEZING AND SHORTNESS OF BREATH amLODIPine amLODIPine (NORVASC) 10 09-11-2016 Rafy Callaway [facility] mg tablet TAKE 1 TABLET Rafy Callaway ([id number]) BY MOUTH ONCE DAILY. 90 tablet 3 09/11/2016 Active Comment: TAKE 1 TABLET BY MOUTH ONCE DAILY. Baclofen baclofen (LIORESAL) 10 02-03-2018 - Rafy Callaway [facility] mg tablet TAKE 1 03-08-2020 Rafy Callaway ([id number]) TABLET TWICE A DAY 56 tablet 2 02/03/2018 03/08/2020 Discontinued Comment: TAKE 1 TABLET TWICE A DAY Bisoprolol / bisoprolol-hydrochlorothiazide [facility]-08-[facility]CHL[facility] (ZIAC) 2.5-6.25 mg per tablet [facility] Take 1 tablet by mouth once (23878) daily. 0 03/08/2020 Active bisoprolol-hydrochlorothiazide (ZIAC) 03-05-2017 - [facility] 10-6.25 mg per tablet TAKE 1 TABLET 03-08-2020 [facility] (10857) DAILY 90 tablet 3 03/05/2017 03/08/2020 Discontinued Comment: Take 1 tablet by mouth once daily. TAKE 1 TABLET DAILY carBAMazepine [facility]-08-[facility] 200 mg (07622) tablet Take 1 tablet by mouth every evening. Dr. Diaz. 0 03/08/2020 Active carBAMazepine XR 08-31-2014 Rafy Callaway [facility] (TEGRETOL XR) 100 mg 12 (03008) hr tablet Take 1 tablet by mouth once daily. Dr. Diaz 0 08/31/2014 Active carBAMazepine (TEGRETOL) 08-31-2014 - Rafy Callaway [facility] 200 mg tablet Take 100 mg 03-08-2020 ([id number] ) by mouth daily at bedtime. Dr. Diaz 0 08/31/2014 03/08/2020 Discontinued (Duplicate Entry) Comment: Take 1 tablet by mouth once daily. Dr. Diaz Take 1 tablet by mouth every evening. Dr. Diaz. Take 100 mg by mouth daily a t bedtime. Dr. Diaz Diaper,Brief, Diaper,Brief, 2013 Rafy Pabon [place] Adult,Disposable Adult,Disposable [facility] ([id number]) (UNDERGARMENT SMALL) (UNDERGARMENT SMALL) Rafy Pabon [facility] Indications: Mixed [place] incontinence Use as directed 100 Each 11 2013 Active Comment: Use as directed DULoxetine DULoxetine (CYMBALTA) 60 09-15-2013 Rafy Callaway [facility] mg capsule Take 1 (88876) capsule by mouth once daily. 0 09/15/2013 Active DULoxetine (CYMBALTA) 30 mg capsule 03-08-2020 [facility] ([id number]) Take 30 mg by mouth twice daily. 0 03/08/2020 Discontinued Comment: Take 1 capsule by mouth once daily. Take 30 mg by mouth twice da javier. Lisinopril lisinopril (ZESTRIL, 03-08-2020 Wilver Barrios [facility] PRINIVIL) 10 mg tablet (4419 5) Take 1 tablet by mouth once daily. 0 03/08/2020 Active lisinopril (ZESTRIL, 12-16-2016 - Rafy Callaway [facility] PRINIVIL) 20 mg tablet 03-08-2020 (59775) Take 1 tablet by mouth once daily. 90 tablet 3 12/16/2016 03/08/2020 Discontinued Comment: Take 1 tablet by mouth once daily. oxybutynin oxybutynin ER (DITROPAN 12-26-2016 Rafy Callaway [facility] XL) 10 mg 24 hr tablet Rafy Callaway ( 21622) Take 1 tablet by mouth once daily. 30 tablet 11 12/26/2016 Active Comment: Take 1 tablet by mouth once daily. pregabalin pregabalin (LYRICA) 11-04-2016 - Rafy Callaway [facility] 50 mg capsule Take 1 03-08-2020 Rafy Callaway (44 [id number]) capsule by mouth twice daily. 60 capsule 2 11/04/2016 03/08/2020 Discontinued Comment: Take 1 capsule by mouth twic e daily. QUEtiapine QUEtiapine (SEROQUEL) 03-08-2020 Wilver Morillo Calvo [facility] 400 mg tablet Take 1 (82982) tablet by mouth daily at bedtime. Dr. Diaz 0 03/08/2020 Active quetiapine fumarate(SEROQUEL 06-11-2009 - Oni Brown (Hist) [facility] 100 MG TAB) two tablets at 03-08-2020 [facility] (4419 [id number]) bedtime 60 0 06/11/2009 03/08/2020 Discontinued Comment: Take 1 tablet by mouth daily at bedtime. Dr. Diaz two tablets at bedtime rosuvastatin rosuvastatin (CRESTOR) 10-23-2016 Rafy Barrios [facility] 10 mg tablet Take 1 Rafy Callaway ([id number]) tablet by mouth daily at bedtime. 90 tablet 3 10/23/2016 Active Comment: Take 1 tablet by mouth daily at bedtime. TENS Units TENS Units jamshid 1 04-22-2016 - Jose Antonio Ramos [facility] jamshid Device as needed. 1 03-08-2020 Jose Antonio Ramos ([id number]) Device 0 04/22/2016 03/08/2020 Discontinued Comment: 1 Device as needed. 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 Take 7.5 mg Thursday and , 5 mg remaining days. 40 tablet 2 12/26/2016 03/08/2020 Discontinued Comment: Take by mouth. Take 7.5 mg S and , 5 mg remaining days. Problems Active Problems Category Problem Name Status Date Location Acute cerebrovascular Cerebral infarction Active 07-19-2012 - [facility] disease (61235) Chronic obstructive Chronic obstructive Active [facility] pulmonary disease and lung disease (69449 ) bronchiectasis Disorders of lipid Mixed hyperlipidemia Active 07-19-2012 - [facility] metabolism (70133) Essential hypertension Essential hypertension Active [facility] (92562) Genitourinary symptoms Increased frequency of Active 01-04-20 14 - [facility] and ill-defined urination (68352) conditions Heart valve disorders Aortic valve sclerosis Active 6 - [facility] (57110) Mood disorders Bipolar I disorder Active [facility] (16822) Osteoarthritis Osteoarthritis of left Active 04-29-2016 - [facility] hip joint (94916) Other connective tissue Pain in left arm Active [facility] disease (73795) Other non-traumatic joint Arthropathy of multiple Active 12-0 - [facility] disorders joints (38006) Other skin disorders Swelling of left upper Active [facility] limb (76886) Phlebitis; Deep venous thrombosis Active [facility] thrombophlebitis and (10918) thromboembolism Spondylosis; Chronic low back pain Active 05-07-2012 - [facility] intervertebral disc (86512) disorders; other back problems Unclassified Polypharmacy Active 01-03-2014 - [facility] (12293) Urinary tract infections Urinary tract Active 09-26-2018 - [facility] infection, site not (89032) specified Past or Other Problems Category Problem Name Status Date Location Other connective Triggering of digit Completed 12-13-2015 - [facility] tissue disease (70493) Other injuries and Injury of shoulder Completed 02-06-2014 - [facility] conditions due to and upper arm (74429) external causes Other non-traumatic Hip pain Completed 04-22-2016 - [facility] joint disorders (95519) Other skin disorders Mass of upper limb Completed 05-19-2012 - [facility] (60835) Results Result Name Value Range Unit Interpretation Flag Date Location [facility]) Normal 03-30-2020 [facility] YUE REYNAGA ([id number]) 1945 [facility] Time Provider Department ([id number]) 03/30/20 RAFY CALLAWAY INTMWS During your visit today, we recorded the following informati on about you: Brooke Fink [facility] 03/30/2020 2:56 PM Signed ----- Message from Wilver Calvo sent at 03/30/2020 2:25 PM EDT ----- Negative for right arm phlebitis. Follow up with her PCP. Change PCP to Dr. Lange. Brooke Fink [facility] 03/30/2020 3:01 PM Signed Patient is notified of all information and verbalizes unders tanding Patient wants to transfer to [facility] I transferred to rehabilitation aide/scheduler to set up appointment to [facility]. Allergies As of Date: 03/30/2020 Noted Allergy Reaction ASA (SALICYLATES) 06/11/2009 BENADRYL (DIPHENHYDRAMINE HCL) 06/11/2009 CODEINE 06/11/2009 DEMEROL (MEPERIDINE (PF)) 06/11/2009 LATEX 06/11/2009 MELOXICAM 01/27/2014 8 - GI Upset Comments: abdominal cramping PENICILLINS 07/30/2011 12 - Shortness of Breath PHENERGAN (PROMETHAZINE HCL) 06/11/2009 SULFA (SULFONAMIDE ANTIBIOTICS) 06/11/2009 TALWIN (PENTAZOCINE LACTATE) 06/11/2009 THORAZINE (CHLORPROMAZINE) 06/11/2009 Date Reviewed: 03/08/2020 Reviewed by: Sammie Rivera LPN - Fully Assessed Reason for Visit: Results [95] Prescriptions as of 03/30/2020 Sig: BISOPROLOL 2.5 MG-HYDROCHLORO* Take 1 tablet by mouth once d * LISINOPRIL 10 MG TABLET Take 1 tablet by mouth once d* CARBAMAZEPINE 200 MG TABLET Take 1 tablet by mouth every * QUETIAPINE 400 MG TABLET Take 1 tablet by mouth daily * VENTOLIN HFA 90 MCG/ACTUATION* INHALE 2 PUFFS EVERY FOUR SANGEETA * OXYBUTYNIN CHLORIDE ER 10 MG * Take 1 tablet by mouth once d * ROSUVASTATIN 10 MG TABLET Take 1 tablet by mouth daily * AMLODIPINE 10 MG TABLET TAKE 1 TABLET BY MOUTH ONCE D* CARBAMAZEPINE ER 100 MG TABLE* Take 1 tablet by mouth once d * DIAPER,BRIEF,ADULT,DISPOSABLE Use as directed DULOXETINE 60 MG CAPSULE,MILI* Take 1 capsule by mouth once * Problem List As Of Date 03/30/2020 Noted Resolved Bipolar 1 disorder [F31.9] COPD (chronic obstructive pulmonary disease) (H* Essential hypertension [I10] DVT (deep venous thrombosis) [I82.409] More... DDD (degenerative disc disease), lumbar [M51.36]05/07/2012 Mass of arm [R22.30] 05/19/2012 Cerebral infarction, unspecified (HCC) [I63.9] 07/19/2012 More... 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 ([id number]) Author Type: Physician Type: Progress Notes Filed: 03/08/2020 3:38 PM Note Text: This note was created using NoteWriter. Subjective Patient presents with: ED Follow-up: PCP Dr. Florecita Lange Arm Pain: Left arm pain x 6 weeks. Yue Reynaga is a 74 year old female. She had blood draw from the left arm about 6 weeks ago. She developed pain, tenderness, and dysesthesias of the left arm and hand. It appears she went t o the ED 01/27 and had a negative LUE venous duplex. She returned to the ED 02/02 and was diagnosed with left hand spasm. Her PCP ordered an MRI but t his was not done. No xrays were ordered. Her symptoms continued. Her lef t arm, left hand were sore and stiff. There was no history of fall or tr auma. Review of Systems Constitutional: Negative. Respiratory: Negative. Cardiovascular: Negative. Musculoskeletal: See HPI. Neurological: Positive for weakness and numbness. ACTIVE PROBLEM LIST Bipolar 1 Disorder ([facility]) Copd (Chronic Obstructive Pulmonary Disease) ([facility]) Essential Hypertension Dvt (Deep Venous Thrombosis) ([facility]) Ddd (Degenerative Disc Disease), Lumbar Mass of Arm Cerebral Infarction, Unspecified ([facility]) Mixed Hyperlipidemia Urgency of Urination Frequency of Urination Nocturia Mixed Incontinence Polypharmacy Injury, Other and Unspecified, Shoulder and Upper Arm Arthritis, Multiple Joint Involvement Trigger Ring Finger of Right Hand Mild Aortic Sclerosis Pain in Left Hip 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 - rosuvastatin (CRESTOR) 10 mg tablet Take 1 tablet by mouth daily at bedtime. - amLODIPine (NORVASC) 10 mg tablet TAKE 1 TABLET BY MOUTH O NCE DAILY. - carBAMazepine XR (TEGRETOL XR) 100 mg 12 hr tablet Take 1 tablet by mouth once daily. Dr. Diaz - Diaper,Brief, Adult,Disposable (UNDERGARMENT SMALL) misc U se as directed - DULoxetine (CYMBALTA) 60 mg capsule Take 1 capsule by mout h once daily. - bisoprolol-hydrochlorothiazide (ZIAC) 2.5-6.25 mg per tabl et Take 1 tablet by mouth once daily. - lisinopril (ZESTRIL, PRINIVIL) 10 mg tablet Take 1 tablet by mouth once daily. - carBAMazepine (TEGRETOL) 200 mg tablet Take 1 tablet by mo uth every evening. Dr. Diaz. - QUEtiapine (SEROQUEL) 400 mg tablet Take 1 tablet by mouth daily at bedtime. Dr. Diaz No current facility-administered medications for this visit. Objective BP (P) 124/68 (BP Site: Right Arm, BP Position: Sitting, BP Cuff Size: Large Adult) Pulse (P) 80 Temp (!) (P) 35.7 ?C (96.3 ?F) (Temporal Artery) Resp (P) 20 Wt (P) 83.9 kg (185 lb) BMI (P) 33 .30 kg/m? Physical Exam Constitutional: General: She is not in acute distress. Appearance: She is not ill-appearing. Cardiovascular: Rate and Rhythm: Regular rhythm. Pulmonary: Breath sounds: Normal breath sounds. Musculoskeletal: Left shoulder: Normal. Left elbow: Normal. Left wrist: Normal. Left forearm: She exhibits tenderness and swelling. She exhi bits no deformity. Right lower leg: No edema. Left lower leg: No edema. Comments: Left forearm induration and tenderness. Induration of upper arm. Neurological: Mental Status: She is alert. Sensory: No sensory deficit. Motor: No weakness. Assessment and Plan ASSESSMENT/PLAN: 1. Left arm pain - ICD9: 729.5, ICD10: M79.602 (primary diag nosis) - US ARM VEIN DVT UNL VAS LAB 2. Left arm swelling - ICD9: 729.81, ICD10: M79.89 - US ARM VEIN DVT UNL VAS LAB Still concerning for DVT, phlebitis. Repeat US. Wilver Calvo MD cnov on 2020-03-08 CNOV Office Visit (INTMWS) Normal 03-08-[address] [place] [address] [facility] YUE REYNAGA ([id number]) 1945 [facility] Date Time Provider Department ([id number]) 03/08/20 1:20 PM WILVER CALVO INTMWS During your visit today, we recorded the following informati on about you: Wilver Calvo MD 03/08/2020 3:38 PM Signed This note was created using NoteWriter. Subjective Patient presents with: ED Follow-up: PCP Dr. Florecita Lange Arm Pain: Left arm pain x 6 weeks. Yue Reynaga is a 74 year old female . She had blood draw from the left arm about 6 weeks ago. She developed pain, tenderness, and dyses thesias of the left arm and hand. It appears she went to the ED 01/27 and h ad a negative LUE venous duplex. She returned to the ED 02/02 and was diagnosed with left hand spasm. Her PCP ordered an MRI but this was not done. No xr ays were ordered. Her symptoms continued. Her left arm, le ft hand were sore and stiff. There was no history of fall or trauma. Review of Systems Constitutional: Negative. Respiratory: Negative. Cardiovascular: Negative. Musculoskeletal: See HPI. Neurological: Positive for weakness and numbness. ACTIVE PROBLEM LIST Bipolar 1 Disorder ([facility]) Copd (Chronic Obstructive Pulmonary Disease) ([facility]) Essential Hypertension Dvt (Deep Venous Thrombosis) ([facility]) Ddd (Degenerative Disc Disease), Lumbar Mass of Arm Cerebral Infarction, Unspecified ([facility]) Mixed Hyperlipidemia Urgency of Urination Frequency of Urination Nocturia Mixed Incontinence Polypharmacy Injury, Other and Unspecified, Shoulder and Upper Arm Arthritis, Multiple Joint Involvement Trigger Ring Finger of Right Hand Mild Aortic Sclerosis Pain in Left Hip 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 - rosuvastatin (CRESTOR) 10 mg tablet Ta ke 1 tablet by mouth daily at bedtime. - amLODIPine (NORVASC) 10 mg tablet TAKE 1 TABLET BY MOUTH O NCE DAILY. - carBAMazepine XR (TEGRETOL XR) 100 mg 12 hr tablet Take 1 tablet by mouth once daily. Dr. Diaz - Diaper,Brief, Adult,Disposable (UNDERGARMENT SMALL) misc U se as directed - DULoxetine (CYMBALTA) 60 mg capsule Take 1 capsule by mout h once daily. - bisoprolol-hydrochlorothia zide (ZIAC) 2.5-6.25 mg per tablet Take 1 tablet by mouth once daily. - lisinopril (ZESTRIL, PRINIVIL) 10 mg tablet Take 1 tablet by mouth once daily. - carBAMazepine (TEGRETOL) 200 mg tablet Take 1 tablet by mouth every evening. Dr. Diaz. - QUEtiapine (SEROQUEL) 400 mg tablet Ta ke 1 tablet by mouth daily at bedtime. Dr. Diaz No current facility-administered medications for this visit. Objective BP (P) 124/68 (BP Site: Right Arm, BP Position: Sittin g, BP Cuff Size: Large Adult) Pulse (P) 80 Temp (!) (P) 35.7 ?C (96.3 ?F) (Temp oral Artery) Resp (P) 20 Wt (P) 83.9 kg (185 lb) BMI (P) 33.30 kg/m? Physical Exam Constitutional: General: She is not in acute distress. Appearance: She is not ill-appearing. Cardiovascular: Rate and Rhythm: Regular rhythm. Pulmonary: Breath sounds: Normal breath sounds. Musculoskeletal: Left shoulder: Normal. Left elbow: Normal. Left wrist: Normal. Left forearm: She exhibits tenderness and swelling. She exhi bits no deformity. Right lower leg: No edema. Left lower leg: No edema. Comments: Left forearm induration and tenderness. Induration of upper arm. Neurological: Mental Status: She is alert. Sensory: No sensory deficit. Motor: No weakness. Assessment and Plan ASSESSMENT/PLAN: 1. Left arm pain - ICD9: 729.5, ICD10: M79.602 (primary diag nosis) - US ARM VEIN DVT UNL VAS LAB 2. Left arm swelling - ICD9: 729.81, ICD10: M79.89 - US ARM VEIN DVT UNL VAS LAB Still concerning for DVT, phlebitis. Repeat US. Wilver Calvo MD Referring Provider: SELF [200] Allergies As of Date: 03/08/2020 Noted Allergy Reaction ASA (SALICYLATES) 06/11/2009 BENADRYL (DIPHENHYDRAMINE HCL) 06/11/2009 CODEINE 06/11/2009 DEMEROL (MEPERIDINE (PF)) 06/11/2009 LATEX 06/11/2009 MELOXICAM 01/27/2014 8 - GI Upset Comments: abdominal cramping PENICILLINS 07/30/2011 12 - Shortness of Breath PHENERGAN (PROMETHAZINE HCL) 06/11/2009 SULFA (SULFONAMIDE ANTIBIOTICS) 06/11/2009 TALWIN (PENTAZOCINE LACTATE) 06/11/2009 THORAZINE (CHLORPROMAZINE) 06/11/2009 Date Reviewed: 03/08/2020 Reviewed by: Sammie Rivera LPN - Fully Assessed Reason for Visit: ED Follow-up [821] Cmt: PCP Dr. Florecita Lange Arm Pain [137] Cmt: Left arm pain x 6 weeks. Reason For Visit History Recorded Primary Visit Diagnosis:Left arm pain [M79.602] Other Visit Diagnosis:Left arm swelling [M79.89] Order(s):US ARM VEIN DVT UNL VAS LAB [[id number]] Orde r #: [id number] FUTURE Prescriptions as of 03/08/2020 Sig: VENTOLIN HFA 90 MCG/ACTUATION* INHALE 2 PUFFS EVERY FOUR SANGEETA * OXYBUTYNIN CHLORIDE ER 10 MG * Take 1 tablet by mouth once d * ROSUVASTATIN 10 MG TABLET Take 1 tablet by mouth daily * AMLODIPINE 10 MG TABLET TAKE 1 TABLET BY MOUTH ONCE D* CARBAMAZEPINE ER 100 MG TABLE* Take 1 tablet by mouth once d * DIAPER,BRIEF,ADULT,DISPOSABLE Use as directed DULOXETINE 60 MG CAPSULE,MILI* Take 1 capsule by mouth once * BISOPROLOL 2.5 MG-HYDROCHLORO* Take 1 tablet by mouth once d * LISINOPRIL 10 MG TABLET Take 1 tablet by mouth once d* CARBAMAZEPINE 200 MG TABLET Take 1 tablet by mouth every * QUETIAPINE 400 MG TABLET Take 1 tablet by mouth daily * Problem List As Of Date 03/08/2020 Noted Resolved Bipolar 1 disorder [F31.9] COPD (chronic obstructive pulmonary disease) (H* Essential hypertension [I10] DVT (deep venous thrombosis) [I82.409] More... DDD (degenerative disc disease), lumbar [M51.36]05/07/2012 Mass of arm [R22.30] 05/19/2012 Cerebral infarction, unspecified (HCC) [I63.9] 07/19/2012 More... 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 - bisoprolol-hydrochlorothiazide (ZIAC) 10-6.25 mg per tablet (Discontinued) Patient taking 5-6.25mg once daily. - TENS Units jamshid (Discontinued) 1 Device as needed. - quetiapine fumarate(SEROQUEL 100 MG TAB) (Discontinued) Take 400 mg by mouth. - pregabalin (LYRICA) 50 mg capsule (Discontinued) Reported on 03/08/2020 - DULoxetine (CYMBALTA) 30 mg capsule (Discontinued) Take 30 mg by mouth twice daily. - carBAMazepine (TEGRETOL) 200 mg tablet (Discontinued) Take 100 mg by mouth daily at bedtime. Dr. Diaz Disposition: Return if symptoms worsen or fail to improve. Follow-up and Disposition History Recorded Encounter Status:Closed by WILVER CALVO MD on 03/08/20 Encounters Date Type Reason Provider Location 03-08-2020 - Patient encounter Pain in left arm Wilver Calvo [facility] 03-08-2020 procedure [place] Comment: Left arm pain (Primary Dx); Left arm swelling 09-26-2018 - Patient encounter Urinary tract FLORECITA [facility]IVIEN [facility] 09-26-2018 procedure infection, site JOLLCOLE RANDOLPH ([id number]) not specified VIVIEN LANGE Procedures Procedure Name Date Provider Location Mammography 12-21-2014 [facility] ([id number]) Colonoscopy 02-27-2009 [facility] ([id number]) Plan of Treatment Plan Description Date Location LIPID SCREEN LIPID SCREEN 09-25-2021 [facility] ([id number]) ANNUAL PCP TEAM CHRONIC ANNUAL PCP TEAM CHRONIC 03-08-2021 [facility] DISEASE VISIT DISEASE VISIT ([id number]) BP CONTROLLED (<130/80) BP CONTROLLED (<130/80) 03-08-2021 [facility] ([id number]) INFLUENZA (#1) INFLUENZA (#1) 2020 [facility] ([id number]) DIABETES SCREEN DIABETES SCREEN 09-26-2019 [facility] ([id number]) COLONOSCOPY COLONOSCOPY 02-27-2019 [facility] ([id number]) MAMMOGRAM MAMMOGRAM 12-22-2015 [facility] ([id number]) ADVANCE DIRECTIVE ADVANCE DIRECTIVE [address] [facility] inic DISCUSSION DISCUSSION ([id number]) SHINGRIX VACCINE (1 of 2) SHINGRIX VACCINE (1 of 2) 12-20-1995 [facility] ([id number]) DTAP,TDAP,TD (1 - Tdap) DTAP,TDAP,TD (1 - Tdap) 1964 [facility] ([id number]) SPIROMETRY SPIROMETRY 12-20-1963 [facility] ([id number]) US ARM VEIN DVT UNL VAS US ARM VEIN DVT UNL VAS 06-07-2020 [facility] LAB LAB Vascular Lab Routine ([id number]) Left arm pain Left arm swelling 1 Occurrences starting 03/08/2020 until 06/07/2020 Comment: 1 Occurrences starting 03/08 until 06/07/2020 no information [facility] ([id number]) no information [facility] (45432) Immunizations Vaccine Notes Status Date Location Pneumococcal-13 Vac pneumococcal conjugate (completed) 08-14-2016 [facility] Conjugate vaccine, 13 valent ([id number]) Payers Payer Name Policy Number Location [facility] MEDICAID [id number] [facility] ([id number]) [employer], [facility] MEDICAID [id number] [facility] ([id number]) [id number] [facility] ([id number] 00) The following information is from the original human readable contentNo Payer Records Found Social History Type Social History Date Location Description Tobacco smoking status Former smoker 03-08-2020 [facility] ([id number]) History of tobacco use Current smoker 07-13-2014 [facility] ([id number]) History of tobacco use Cigarette Smoker 07-13-2014 [facility] ([id number]) Cigarettes smoked 03-08-2020 - [facility] ic current (pack per day) 03-08-2020 (79203) - Reported Tobacco use and Never used 03-08-2020 [facility] exposure (45528) Alcohol intake Current non-drinker of 03-08-2020 [facility] alcohol (finding) (51894) Sex Assigned At Not on file [facility] (14577) Exposure to SARS-CoV-2 Not sure [facility] (event) (80585) The following information is from the original human readable contentNo Social History Records FoundNo Social History Records FoundNo Social History Records Found Summary Purpose Family History No Family History Records FoundNo Family History Records Found Advance Directives No Advanced Directives Records FoundNo Advanced Directives Records Found History of Present Illness Wilver Calvo - 03/08/2020 2:11 PM EDT This note was created using [employer]. Subjective Patient presents with: ED Follow-up: PCP Dr. Florecita Lange Arm Pain: Left arm pain x 6 weeks. Yue Reynaga is a 74 year old female. She had blood draw from the left arm about 6 weeks ago. She developed pain, tenderness, and dysesthesias of the left arm and hand. It appears she went to the ED 01/27 and had a negative LUE venous duplex. She returned to the ED 02/02 and was diagnosed with left hand spasm. Her PCP ordered an MRI but this was not done. No xrays were ordered. Her symptoms continued. Her left arm, left hand were sore and stiff. There was no history of fall or trauma. Review of Systems Constitutional: Negative. Respiratory: Negative. Cardiovascular: Negative. Musculoskeletal: See HPI. Neurological: Positive for weakness and numbness. 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 VENTOLIN HFA 90 mcg/actuation inhaler INHALE 2 PUFFS EVERY FOUR HOURS NEEDED FOR WHEEZING AND SHORTNESS OF BREATH ? oxybutynin ER (DITROPAN XL) 10 mg 24 hr tablet Take 1 tablet by mouth once daily. ? rosuvastatin (CRESTOR) 10 mg tablet Take 1 tablet by mouth daily at bedtime. ? amLODIPine (NORVASC) 10 mg tablet TAKE 1 TABLET BY MOUTH ONCE DAILY. ? carBAMazepine XR (TEGRETOL XR) 100 mg 12 hr tablet Take 1 tablet by mouth once daily. Dr. Diaz ? Diaper,Brief, Adult,Disposable (UNDERGARMENT SMALL) misc Use as directed ? DULoxetine (CYMBALTA) 60 mg capsule Take 1 capsule by mouth once daily. ? bisoprolol-hydrochlorothiazide (ZIAC) 2.5-6.25 mg per tablet Take 1 tablet by mouth once daily. ? lisinopril (ZESTRIL, PRINIVIL) 10 mg tablet Take 1 tablet by mouth once daily. ? carBAMazepine (TEGRETOL) 200 mg tablet Take 1 tablet by mouth every evening. Dr. Diaz. ? QUEtiapine (SEROQUEL) 400 mg tablet Take 1 tablet by mouth daily at bedtime. Dr. Diaz No current facility-administered medications for this visit. Objective BP (P) 124/68 (BP Site: Right Arm, BP Position: Sitting, BP Cuff Size: Large Adult) Pulse (P) 80 Temp (!) (P) 35.7 ?C (96.3 ?F) (Temporal Artery) Resp (P) 20 Wt (P) 83.9 kg (185 lb) BMI (P) 33.30 kg/m? Physical Exam Constitutional: General: She is not in acute distress. Appearance: She is not ill-appearing. Cardiovascular: Rate and Rhythm: Regular rhythm. Pulmonary: Breath sounds: Normal breath sounds. Musculoskeletal: Left shoulder: Normal. Left elbow: Normal. Left wrist: Normal. Left forearm: She exhibits tenderness and swelling. She exhibits no deformity. Right lower leg: No edema. Left lower leg: No edema. Comments: Left forearm induration and tenderness. Induration of upper arm. Neurological: Mental Status: She is alert. Sensory: No sensory deficit. Motor: No weakness. Assessment and Plan ASSESSMENT/PLAN: 1. Left arm pain - ICD9: 729.5, ICD10: M79.602 (primary diagnosis) - US ARM VEIN DVT UNL VAS LAB 2. Left arm swelling - ICD9: 729.81, ICD10: M79.89 - US ARM VEIN DVT UNL VAS LAB Still concerning for DVT, phlebitis. Repeat US. Wilver Calvo MD documented in this encounter Assessments Diagnosis Left arm pain - Primary Pain in limb Left arm swelling Swelling of limb Additional Source Comments FOR RECORDS PERTAINING TO PATIENTS WHO ARE OR HAVE BEEN ENROLLED IN A CHEMICAL DEPENDENCY/SUBSTANCE ABUSE PROGRAM, SOME INFORMATION MAY BE OMITTED. This clinical summary was aggregated from multiple sources. Caution should be exercised in using it in the provision of clinical care. This summary normalizes information from multiple sources, and as a consequence, information in this document may materially changethe coding, format and clinical context of patient data. In addition, data may be omittedin some cases. CLINICAL DECISIONS SHOULD BE BASED ON THE PRIMARY CLINICAL RECORDS. [facility] provides no warranty or guarantee of the accuracy or completeness of information in this document. UNRECOGNIZED CONTENT PROVIDED BELOW FOR UNRECOGNIZED SECTION INFORMATION SOURCE DATE CREATED AUTHOR AUTHOR'S ORGANIZATIO N 10/23/2018 [facility] DATE CREATED AUTHOR AUTHOR'S ORGANIZATIO N 03/31/2020 [facility] UNRECOGNIZED CONTENT PROVIDED BELOW FOR UNRECOGNIZED SECTION Source Comments In the event this information is protected by the Federal Confidentiality of Alcohol and Drug Abuse Patient Records regulations: The Federal rules restrict any use of the information to criminally investigate or prosecute any alcohol or drug abuse patient.[facility] UNRECOGNIZED CONTENT PROVIDED BELOW FOR UNRECOGNIZED SECTION Reason for Visit Reason Comments ED Follow-up PCP Dr. Florecita Lange Arm Pain Left arm pain x 6 weeks.
== END ==
PROVIDERS: PCP Family Medicine; Referring Provider Psychiatry & Neurology Psychiatry; Visit Provider Psychiatry & Neurology Psychiatry
DX: R82.90 Unspecified abnormal findings in urine (principal); F19.10 Other psychoactive substance abuse, uncomplicated; R53.83 Other fatigue; R44.3 Hallucinations, unspecified; Z79.899 Other long term (current) drug therapy
CPT/HCPCS: 36415; 80053; 80156; 81001; 82140; 85027; 87086; 87088; 87186

== ENCOUNTER 2020-01-27 18:16 | Emergency (ER) | payer MEDICARE, MEDICAID, SELFPAY ==
[2018-10-14 14:17] VITALS: BMI 31.8
[2020-01-27 18:18] VITALS: BP 158/74; PULSE 91; RESP 16; TEMP 36.4; O2SAT 97; BMI 31.4
--- NOTE | 2020-01-27 18:37 | ED.DCSUM_ITS ---
History of Present Illness Chief Complaint: Upper Extremity Injury Informant: Patient Onset: Weeks Context: Sudden Onset Timing: Continuous Quality: Pain Location: Anterior left arm Current Severity: Mild Maximum Severity: Moderate Worsened by: Flexion and extension elbow and palpation Relieved by: Nothing Associated Symptoms: Reluctant to move left upper extremity at the elbow and fever Narrative: Patient is a 74-year-old woman who presents with 2-week history of pain and now swelling left arm status post IV site. She was fearful of the COVID-19 infection and reason she did not present earlier. She has had temperature documented to 101.0 ?F over the past 4 days. She denies respiratory symptoms. She denies GI symptoms. She denies urologic symptoms. She does have a remote history of DVT left lower extremity. She denies history of PE. She denies headache, visual, ocular auditory symptoms. She denies neck pain or neck stiffness. She denies chest pain or shortness of breath. Prior similar symptoms: No Recent Illness/Hospitalization: No - Past Medical History (1) History of DVT of lower extremity Status: Acute (2) COPD exacerbation Status: Acute (3) Monoplegia Status: Acute (4) Pneumonia Status: Acute (5) Rhabdomyolysis Status: Acute (6) Bipolar disorder Status: Chronic (7) CVA (cerebral vascular accident) Status: Chronic (8) HLD (hyperlipidemia) Status: Chronic (9) Hypertension Status: Chronic (10) Hypothyroidism Status: Chronic (11) Obesity (BMI 30.0-34.9) Status: Chronic (12) Tobacco use disorder Status: Chronic (13) Hypercoagulable state Status: Suspected Past Medical History - Allergies and Home Meds Allergies/Adverse Reactions: Allergies aspirin Allergy (Verified 01/27/20 18:18) Hives diphenhydramine HCl [From Benadryl] Allergy (Verified 01/27/20 18:18) Anaphylaxis latex Allergy (Verified 01/27/20 18:18) Rash meperidine [From Demerol] Allergy (Verified 01/27/20 18:18) Swelling Penicillins Allergy (Verified 01/27/20 18:18) Anaphylaxis Sulfa (Sulfonamide Antibiotics) Allergy (Verified 01/27/20 18:18) Unknown codeine Adverse Reaction (Verified 01/27/20 18:18) Vomiting haloperidol [From Haldol] Adverse Reaction (Verified 01/27/20 18:18) HALLUCINATIONS promethazine HCl [From Phenergan] Adverse Reaction (Verified 01/27/20 18:18) Other Primary Care Physician: Florecita Lange MD [Primary Care Provider] - Prior records reviewed: Yes Surgical History: noncontributory, - - Appendectomy, cholecystectomy, hysterectomy with bilateral salpingo-oophorectomy, left total hip replacement. Lives: Alone Alcohol: None Drugs: None - Family History Maternal Family History: Family History (Last Reviewed 07/15/19 @ 15:48 by Joycelyn Hilliard) Mother CAD (coronary artery disease) Kidney disease Grandmother CAD (coronary artery disease) Liver disease Father CVA (cerebral vascular accident) Family History: Reports: COPD, - - Her mother of heart disease. Paternal Family History: Family History (Last Reviewed 07/15/19 @ 15:48 by Joycelyn Hilliard) Mother CAD (coronary artery disease) Kidney disease Grandmother CAD (coronary artery disease) Liver disease Father CVA (cerebral vascular accident) Family History: Reports: COPD, Heart Disease Review of Systems General: Reports: Chills, Fever. Denies: Malaise, Subjective, Sweats Eyes: Denies: Visual changes - bilaterally, Blurred Vision - bilaterally ENT: Denies: Rhinorrhea, Sore throat Cardiovascular: Denies: Chest pain, Palpitations Respiratory: Denies: Dyspnea, Cough, Dyspnea on exertion Gastrointestinal: Denies: Abdominal pain, Nausea, Vomiting, Diarrhea Genitourinary: Denies: Dysuria, Hematuria, Frequency Musculoskeletal: Reports: Swelling, Extremity Pain. Denies: Myalgias, Arthralgias, Neck pain, Back pain Skin: Denies: Rash, Wounds Neurological: Denies: Weakness, Parasthesia Endocrine: Denies: Polyuria, Polydipsia Hematologic: Denies: Easy bruising, Easy bleeding Physical Exam Vital Signs/Narrative: Vital Signs Temp Pulse Resp BP Pulse Ox 01/27/20 18:18 97.6 F L 91 16 158/74 H 97 General: Well nourished, Well developed, Obese, - - Patient appears uncomfortable. Head: Normocephalic, Atraumatic Eyes: Perrl, EOMI. Negative for: Pale conjunctiva, Scleral icterus ENT: Negative for: No rhinorrhea Neck: Supple, Nontender, No lymphadenopathy, No JVD Cardiovascular: Regular rate, Regular rhythm, No murmurs, Normal S1, Normal S2 Respiratory: No distress, CTA bilaterally Back: Nontender, Normal Inspection. Negative for: CVA tenderness Extremities: Tenderness, Edema, - - Tenderness with fullness and firmness distal anterior left arm. There is no obvious palpable cord. She complains of axillary tenderness. There is no appreciable axillary lymphadenopathy. There is no lymphangitis.. Negative for: Nontender, No edema Skin: Normal color, No rash Neurological: Alert, Oriented x3, Cranial nerves II-XII grossly intact, Normal Strength, Normal Sensation Psychological: Normal affect, Normal Mood Diagnostic/Tx/Re-eval Laboratory Results 01/27/20 01/27/20 01/27/20 18:55 18:55 18:55 WBC 7.6 RBC 3.90 L Hgb 12.4 Hct 36.9 L MCV 94.6 MCH 31.8 MCHC 33.6 RDW Std Deviation 42.0 RDW Coeff of Umair 12.1 Plt Count 260 MPV 9.8 Immature Gran % (Auto) 0.300 Neut % (Auto) 50.4 Lymph % (Auto) 36.2 Grundy % (Auto) 9.1 Eos % (Auto) 3.6 Baso % (Auto) 0.4 Absolute Neuts (auto) 3.8 Absolute Lymphs (auto) 2.75 Nucleated RBC % 0 Sodium 141 Potassium 4.2 Chloride 109 H Carbon Dioxide 28.0 Anion Gap 4 L BUN 18 Creatinine 0.97 Estim Creat Clear Calc 40.24 Est GFR (MDRD) Af Amer 72 Est GFR (MDRD) Non-Af 60 BUN/Creatinine Ratio 18.6 Glucose 120 H Lactic Acid 2.0 Calcium 9.2 Patient's white count is normal. Lactate is not elevated. Basic metabolic panel is unremarkable. Blood sugar is slightly about 120. Plan is outpatient venous duplex study through the vascular lab tomorrow morning and a dose of Eliquis tonight. - Medical Decision Making Differential diagnosis includes superficial versus deep thrombus that may be infected. Blood work was obtained. She was medicated with Zofran and morphine. She reports hives with aspirin and reason not given. She will require a venous duplex study. If there is no significant elevated white count will treat with d ose of Eliquis and set up outpatient venous duplex study of the left arm. If the white count is elevated will treat with IV antibiotics and have venous duplex study done as an inpatient. ED Disposition - Plan for ED Patient: Disposition: Home or Assisted Living Diagnosis: Arm pain, left, Venous thrombosis left arm Instructions: ED Acute Pain [facility], Understanding Deep Vein Thrombosis Referrals: Florecita Lange MD [Primary Care Provider] - 3-5 Days if not improving Additional Instructions: You will need to contact the vascular lab tomorrow morning for appointment time
[2020-01-27] MEDS: Ondansetron 4 MG/2 ML Vial IV (19:07)
[2020-01-27] MEDS: Morphine 4 MG/ML Syringe IV (19:07)
[2020-01-27 19:11] VITALS: BP 152/71; PULSE 88; RESP 15; O2SAT 97
[2020-01-27 19:13] LABS: Absolute Lymphocyte Count 2.75 X10^3/uL (0.83-4.51); Absolute Neutrophil Count 3.8 X10^3/uL (2.0-7.7); Basophil# 0.03 X10^3/uL; Basophil% 0.4 % (0-1); Eosinophil# 0.27 X10^3/uL; Eosinophils% 3.6 % (0-5); Hematocrit 36.9 % (37-47); Hemoglobin 12.4 g/dL (12.0-15.0); Lymphocyte # 2.75 X10^3/ul (4.0); Lymphocyte % 36.2 % (19-41); Mean Corp Hgb Conc 33.6 g/dL (32-36); Mean Corpuscular Hgb 31.8 pg (27.0-32.0); Mean Corpuscular Volume 94.6 fL (81-99); Mean Platelet Vol. 9.8 fl (6.2-12.0); Monocyte# 0.69 X10^3/uL; Monocyte% 9.1 % (0-10); NRBC Flagged by Analyzer 0 % (0-5); Neutrophil # 3.84 X10^3/uL (2.7-7.7); Neutrophil % 50.4 % (47-70); Platelet Count 260 K/mm3 (150-450); RBC Distribution Width CV 12.1 % (11.6-14.6); White Blood Count 7.6 K/mm3 (4.4-11.0)
[2020-01-27 19:26] LABS: Anion Gap 4 (5-15); BUN 18 mg/dL (7-18); BUN/Creat Ratio 18.6 RATIO (10-20); Calcium,Total 9.2 mg/dL (8.5-10.1); Chloride 109 mmol/L (98-107); Creatinine, Serum 0.97 mg/dL (0.55-1.02); EST Glomerular Filtration Rate 60 mL/min (>60); Est Glom Filt Rate - Afr Amer 72 mL/min (>60); Estimated Creatinine Clearance 40.24 ml/min; Glucose 120 mg/dL (74-106); Potassium 4.2 mmol/L (3.5-5.1); Sodium Level 141 mmol/L (136-145)
[2020-01-27 20:28] VITALS: BP 118/71; PULSE 78; RESP 16; O2SAT 96
[2020-01-27] MEDS: APIXABAN 5 MG TABLET 10 MG PO (20:36)
== END 2020-01-27 20:51 | disposition home or self-care (01) ==
PROVIDERS: Emergency Provider Emergency Medicine; PCP Family Medicine
DX: I82.602 Acute embolism and thrombosis of unspecified veins of left upper extremity (principal); M79.602 Pain in left arm; E03.9 Hypothyroidism, unspecified; E78.5 Hyperlipidemia, unspecified; I10 Essential (primary) hypertension; F31.9 Bipolar disorder, unspecified; Z82.3 Family history of stroke; Z82.49 Family history of ischemic heart disease and other diseases of the circulatory system; Z86.718 Personal history of other venous thrombosis and embolism; Z86.73 Personal history of transient ischemic attack (TIA), and cerebral infarction without residual deficits; Z88.0 Allergy status to penicillin; Z88.2 Allergy status to sulfonamides; Z88.5 Allergy status to narcotic agent; Z88.8 Allergy status to other drugs, medicaments and biological substances; Z90.710 Acquired absence of both cervix and uterus; Z91.040 Latex allergy status; E66.9 Obesity, unspecified; Z68.30 Body mass index [BMI] 30.0-30.9, adult
CPT/HCPCS: 80048; 83605; 85025; 96374; 96375; 99285; A4216; J2405

== ENCOUNTER → 2020-01-28 11:09 | Outpatient (CLI) | payer MEDICARE, MEDICAID, SELFPAY ==
[2020-01-27 18:18] VITALS: BMI 31.4
--- NOTE | 2020-01-28 11:21 | VDUE_ITS ---
Reason For Study: pain Left Proximal Left jugular vein is spontaneous, widely patent, phasic, with no intraluminal echogenicity noted. Left subclavian vein is spontaneous, widely patent, phasic, with no intraluminal echogenicity noted. Left Arm Left axillary vein is spontaneous, patent, phasic, competent, compressible and demonstrates augmentation. Left brachial vein is compressible. Left cephalic vein is compressible. Left basilic vein is compressible. Left Lower Arm Left radial vein is compressible. Left ulnar vein is compressible. Interpretation Summary Deep veins of the left upper extremity are patent and compressible segmentally. There is no evidence of deep vein thrombosis. The superficial veins of the left upper extremity, the basilic and cephalic veins, are patent and compressible. There is no evidence of left upper extremity superficial thrombophlebitis involving the veins imaged. Ordering Physician: Reddy Durbin Referring Physician: Florecita Lange M.D. Performed By: Real Mathew RVT ?
== END ==
PROVIDERS: PCP Family Medicine; Referring Provider Emergency Medicine; Visit Provider Emergency Medicine
DX: M79.89 Other specified soft tissue disorders (principal); M79.602 Pain in left arm
CPT/HCPCS: 93971

== ENCOUNTER 2020-02-03 17:01 | Emergency (ER) | payer MEDICARE, MEDICAID, SELFPAY ==
[2020-02-03 17:02] VITALS: BP 186/87; PULSE 87; RESP 20; TEMP 36.4; O2SAT 96; BMI 31.2
--- NOTE | 2020-02-03 17:52 | ED.DCSUM_ITS ---
- ER Visit Summary Date of Service: 02/03/20 Chief Complaint: Left hand pain and decreased range of motion History of Present Illness: The patient is a 74 F history of bipolar disorder, COPD and hypertension. Prior breast cancer with lobectomy. Patient states she had IV blood draw about 2 weeks ago since that time she had discomfort in her left forearm and states she had trouble moving her left ring long and small fingers that hand. She was seen in the emergency department about a week ago had rule out of an upper extremity DVT. States she still having pain in her hand went to see her primary care physician today who sent her in the emergency department. Physical Examination: Well-appearing older female no acute distress vital signs stable afebrile. H EENT exam unremarkable. Neck nontender. Lungs clear to auscultation bilaterally. Heart regular rhythm no murmur. Abdomen soft nontender. Extremities right upper and both lower extremities are unremarkable. Her left shoulder and upper arm are nontender. No swelling. She has normal range of motion to the elbow with no swelling or redness. Her forearm she complains of tenderness but there is no swelling, edema or hematoma. She has a normal radial pulse in her left forearm and wrist. She has normal flexion- extension of left wrist. She has her left ring small and long finger held in flexion. However if I forcibly open it up it is obvious that she is doing this on purpose or had a muscle spasm.. Once I pried her fingers back open to extended position she now has normal range of motion flexion-extension all digits of the left hand. Test Results: None Emergency Department Course and Treatment: Patient does not need any further testing. I think a lot of this is psychosomatic secondary to the IV blood draw. I do not think there is a hematoma at this time. I do not think there is a compressive lesion on her nerve or a flexor muscle. Treatment Plan: Tylenol for pain. Ice to reform as needed. Follow-up with primary care physician. Disposition: Discharge Impression: Left hand muscle spasm History of bipolar disorder This note was generated with [employer] dictation software. It may contain incorrect words, spelling, and punctuation that were not noted in review of the chart prior to signing ED Disposition - Plan for ED Patient: Referrals: Florecita Lange MD [Primary Care Provider] -
--- NOTE | 2020-02-03 17:57 | ED.DEP ---
ED Disposition - Plan for ED Patient: Disposition: Home or Assisted Living Instructions: Muscle Spasm Referrals: Florecita Lange MD [Primary Care Provider] - As Needed Additional Instructions: Elevate left forearm. Tylenol for pain.
[2020-02-03] MEDS: HYDROcodone Bitartrate/Apap 5/325 Tablet PO (18:02)
== END 2020-02-03 18:05 | disposition home or self-care (01) ==
PROVIDERS: Emergency Provider Emergency Medicine; PCP Family Medicine
DX: M62.838 Other muscle spasm (principal); F31.9 Bipolar disorder, unspecified; I10 Essential (primary) hypertension; J44.9 Chronic obstructive pulmonary disease, unspecified; Z85.3 Personal history of malignant neoplasm of breast; Z72.0 Tobacco use
CPT/HCPCS: 99283

== ENCOUNTER 2021-01-25 13:39 | Observation (INO) | payer MEDICARE, MEDICAID, SELFPAY ==
[2021-01-25] VITALS (16 sets, daily range): BP systolic 148–172; BP diastolic 66–90; PULSE 79–110; RESP 12–24; TEMP 36.6–37.3; O2SAT 91–100; BMI 35.0; BMI 32.7
--- NOTE | 2021-01-25 14:01 | EKG12_ITS ---
Test Reason : SOB Blood Pressure : / mmHG Vent. Rate : 080 BPM Atrial Rate : 080 BPM P-R Int : 170 ms QRS Dur : 074 ms QT Int : 370 ms P-R-T Axes : 062 029 061 degrees QTc Int : 426 ms Normal sinus rhythm Low voltage QRS Borderline ECG Confirmed by KAMALA FARLEY, ALESSANDRA ([id number]), school photograph editor JING CHAUHAN ([id number]) on 01/31/2021 1:10:48 PM Referred By: KATY Confirmed By:ALESSANDRA WRAY MD
--- NOTE | 2021-01-25 14:16 | RAD_ITS ---
STUDY: X-RAY CHEST REASON FOR EXAM: Female, 75 years old. Worsening shortness of breath TECHNIQUE: Single AP portable view of the chest. COMPARISON: 09/12/2018 FINDINGS: EKG leads overlie the chest The lungs are clear and expanded. There is no demonstrated pleural abnormality. Normal size heart. Normal mediastinum and erwin. Normal visualized pulmonary arteries. Normal visualized aortic arch and descending thoracic aorta. Normal visualized thoracic spine. Normal visualized ribs, clavicles, and shoulders. There is no demonstrated abnormality of the visualized soft tissue structures of the upper abdomen. RAD/Chest 1 View (Portable) IMPRESSION: Normal x-ray examination of the chest. Electronically Signed: Oneil Stoll MD at 14:40 EDT , Service support ,
[2021-01-25 14:23] LABS: Absolute Neutrophil Count 4.6 X10^3/uL (2.0-7.7); Basophil# 0.03 X10^3/uL; Basophil% 0.4 % (0-1); Eosinophil# 0.48 X10^3/uL; Eosinophils% 5.6 % (0-5); Hematocrit 38.7 % (37-47); Hemoglobin 12.9 g/dL (12.0-15.0); Lymphocyte % 32.9 % (19-41); Mean Corp Hgb Conc 33.3 g/dL (32-36); Mean Corpuscular Hgb 31.3 pg (27.0-32.0); Mean Corpuscular Volume 93.9 fL (81-99); Mean Platelet Vol. 9.4 fl (6.2-12.0); Monocyte# 0.61 X10^3/uL; Monocyte% 7.2 % (0-10); NRBC Flagged by Analyzer 0 % (0-5); Neutrophil # 4.56 X10^3/uL (2.7-7.7); Neutrophil % 53.5 % (47-70); Platelet Count 327 K/mm3 (150-450); RBC Distribution Width CV 12.4 % (11.6-14.6); RBC Distribution Width SD 42.5 fl (35.1-43.9); Red Blood Count 4.12 M/mm3 (4.2-5.4); White Blood Count 8.5 K/mm3 (4.4-11.0)
[2021-01-25] MEDS: Albuterol 2.5 MG/3 ML VIAL.NEB. INHALATION ×5 (14:23→16:30)
[2021-01-25] MEDS: Ipratropium/Albuterol Sulfate 3 ML AMPUL.NEB INHALATION ×4 (14:23→23:11)
[2021-01-25] MEDS: MethylPREDNISolone 125 MG/2 ML Vial IV (14:43)
[2021-01-25 14:56] LABS: Anion Gap 5 (5-15); BUN 20 mg/dL (7-18); BUN/Creat Ratio 27.8 RATIO (10-20); Calcium,Total 9.9 mg/dL (8.5-10.1); Chloride 107 mmol/L (98-107); Creatinine, Serum 0.72 mg/dL (0.55-1.02); EST Glomerular Filtration Rate 84 mL/min (>60); Est Glom Filt Rate - Afr Amer 102 mL/min (>60); Estimated Creatinine Clearance 38.44 ml/min; Glucose 117 mg/dL (74-106); Potassium 4.4 mmol/L (3.5-5.1); Sodium Level 138 mmol/L (136-145)
--- NOTE | 2021-01-25 16:19 | EX.ED.DYSGE1 ---
HPI History of Present Illness Chief Complaint: Shortness of Breath Informant: patient Onset/Context/Timing Onset: Yesterday Current Severity: Moderate Maximum Severity: Moderate Narrative Narrative: Patient presents secondary to shortness of breath. Patient noted symptom onset yesterday. She does report a rare cough and when she does bring sputum up it is yellow in color. She denies fever. She did not receive the Covid vaccine. She does have a history of COPD. She states when she uses her inhalers at home they do not seem to be helping. She has not been on steroids for his breathing in approximately 1 year. [facility] Medical History COPD (chronic obstructive pulmonary disease) DVT (deep venous thrombosis) HTN (hypertension) Leg fracture, left Home Medications amlodipine 10 mg PO DAILY 10/26/13 [History Last Taken 02/23/17 08:45] carbamazepine 100 mg PO DAILY 10/26/13 [History Last Taken 02/23/17 08:45] carbamazepine 200 mg PO QHS 10/26/13 [History Last Taken 10/25/13 21:00] duloxetine 60 mg PO BID 10/26/13 [History Last Taken 10/25/13 21:00] quetiapine [Seroquel] 400 mg PO QHS 10/26/13 [History Last Taken 10/25/13 21:00] rosuvastatin 10 mg PO QHS 10/26/13 [History Last Taken 10/25/13 20:00] oxybutynin chloride 10 mg PO DAILY 02/12/17 [History Last Taken Unknown] acetaminophen 500 mg PO Q4H PRN PRN tab 09/15/18 [Rx Last Taken Unknown] albuterol sulfate 2.5 mg INHALATION Q4H PRN #30 vial.neb. 09/15/18 [Rx Last Taken Unknown] ibuprofen 2 - 3 tab PO Q6H PRN #1 tab 09/15/18 [Rx Last Taken Unknown] albuterol sulfate 90 mcg/actuation aerosol inhaler 2 puff INHALATION .four times daily PRN g 07/15/19 [History Last Taken Unknown] lisinopril 20 mg tablet 10 mg PO DAILY tab 07/15/19 [History Last Taken Unknown] quetiapine 100 mg PO DAILY 01/27/20 [History Last Taken Unknown] Allergy/AdvReac Type Severity Reaction Status Date / Time aspirin Allergy Hives Verified 01/25/21 13:40 diphenhydramine HCl Allergy Anaphylaxis Verified 01/25/21 13:40 [From Benadryl] latex Allergy Rash Verified 01/25/21 13:40 meperidine [From Demerol] Allergy Swelling Verified 01/25/21 13:40 Penicillins Allergy Anaphylaxis Verified 01/25/21 13:40 Sulfa (Sulfonamide Allergy Unknown Verified 01/25/21 13:40 Antibiotics) codeine AdvReac Vomiting Verified 01/25/21 13:40 haloperidol [From Haldol] AdvReac HALLUCINATI Verified 01/25/21 13:40 ONS promethazine HCl AdvReac Other Verified 01/25/21 13:40 [From Phenergan] Family History Mother CAD (coronary artery disease) Kidney disease Grandmother CAD (coronary artery disease) Liver disease Father CVA (cerebral vascular accident) Surgical History History of hysterectomy Social History Smoking Status: Current some day smoker tobacco type: cigarettes ROS ROS ED Constitutional Constitutional ED: Denies chills or fever(s) Eyes Eyes: Denies change in vision ENT ENT ED: Denies sore throat Cardiovascular Cardiovascular: Denies chest pain Respiratory/Chest Respiratory/Chest: Reports cough, dyspnea and sputum Gastrointestinal Gastrointestinal: Denies abdominal pain, diarrhea, nausea or vomiting Genitourinary Genitourinary ED: Denies dysuria Musculoskeletal Musculoskeletal: Denies back pain Integumentary Denies rash Neurologic Neurologic: Denies headache(s) or weakness Psychiatric Psychiatric: Denies anxiety or depression Endocrine Endocrinology: Denies polydipsia or polyuria Allergic/Immunologic Allergic/Immunologic ED: Denies urticaria EXAM Physical Exam Const Vital Signs: 01/25/21 13:40 01/25/21 13:43 01/25/21 13:55 Temperature 98.3 F 98.3 F Temperature Source Oral Oral Pulse Rate 84 84 Respiratory Rate 24 H 20 H Respiratory Effort Short of Breath Labored Respiratory Depth Normal Respiratory Pattern Tachypnea Blood Pressure 163/72 H 163/72 H Blood Pressure Mean 102 102 Pulse Ox 96 94 Oxygen Delivery Method Room Air Room Air Room Air 01/25/21 14:17 01/25/21 14:25 01/25/21 16:19 Temperature Temperature Source Pulse Rate 79 87 Respiratory Rate 24 H 16 12 Respiratory Effort Respiratory Depth Respiratory Pattern Normal Normal Blood Pressure Blood Pressure Mean Pulse Ox 94 Oxygen Delivery Method Room Air 01/25/21 16:48 01/25/21 17:15 Temperature 97.8 F Temperature Source Temporal Pulse Rate 94 101 H Respiratory Rate 18 23 H Respiratory Effort Respiratory Depth Respiratory Pattern Blood Pressure 159/79 H 148/74 H Blood Pressure Mean 105 98 Pulse Ox 93 98 Oxygen Delivery Method Room Air Room Air Positive well nourished and well developed General Appearance ED: well developed HEENT Reports normocephalic and head/scalp atraumatic Eyes PERRL and EOMs intact bilaterally Neck supple Chest Wall inspection of chest normal and palpation of chest normal Resp Auscultation: rales and wheezes expiratory wheezes and throughout Cardio regular rate and regular rhythm GI normal to inspection, nondistended, normoactive bowel sounds Palpation: soft Extremity normal to inspection Neuro oriented x3 and no sensory deficits noted Sensorium / Orientation: alert Motor Exam: strength 5/5 throughout Psych mental status grossly normal Skin no rashes or lesions noted MDM MDM MDM Narrative Medical decision making narrative: Patient is given aerosol treatments and Solu-Medrol. Labs, chest x-ray, EKG, Covid test obtained. Lab Data Attestation: I reviewed the patient's lab results. Labs: Laboratory Results - last 24 hr 01/25/21 01/25/21 14:03 14:03 WBC 8.5 RBC 4.12 L Hgb 12.9 Hct 38.7 MCV 93.9 MCH 31.3 MCHC 33.3 RDW Std Deviation 42.5 RDW Coeff of Umair 12.4 Plt Count 327 MPV 9.4 Immature Gran % (Auto) 0.400 Neut % (Auto) 53.5 Lymph % (Auto) 32.9 Christian % (Auto) 7.2 Eos % (Auto) 5.6 H Baso % (Auto) 0.4 Absolute Neuts (auto) 4.6 Absolute Lymphs (auto) 2.80 Nucleated RBC % 0 Sodium 138 Potassium 4.4 Chloride 107 Carbon Dioxide 26.0 Anion Gap 5 BUN 20 H Creatinine 0.72 Estim Creat Clear Calc 38.44 Est GFR (MDRD) Af Amer 102 Est GFR (MDRD) Non-Af 84 BUN/Creatinine Ratio 27.8 H Glucose 117 H Calcium 9.9 Radiography Chest X-Ray - ED: 1 View, Read by ED Physician, Normal, Heart, Lungs and Mediastinum Diagnostic Testing: Radiology Impression Chest X-Ray 01/25/21 14:16 IMPRESSION: Normal x-ray examination of the chest. Electronically Signed: Oneil Stoll MD at 14:40 EDT , Service support , EKG Initial EKG: Attestation: I personally reviewed and interpreted this EKG as follows: Interpretation: Sinus Rhythm (Sinus at 80 with no acute ischemia.) Treatment and Re-Evaluation Comments:: On repeat evaluation patient continues to have significant wheezes bilaterally. She is given Tylenol for headache and repeat cycle of aerosols. Following this treatment patient is reevaluated. She had ambulated to the restroom and dropped her O2 sats to 87%. Patient is currently on oxygen. She continues to have wheezes on auscultation. I did recommend hospitalization for treatment of her COPD exacerbation. She will be given a dose of Zithromax at this time. Discharge Plan Triage Chief Complaint: Shortness of Breath ED Provider: Starr Hemphill Dx/Rx/DC Orders Clinical Impression: Acute exacerbation of chronic obstructive pulmonary disease Prescriptions: No Action quetiapine [Seroquel] 200 MG tablet 400 mg PO QHS RF: 0 carbamazepine 200 MG tablet 100 mg PO DAILY RF: 0 carbamazepine 200 MG tablet 200 mg PO QHS RF: 0 amlodipine 10 MG tablet 10 mg PO DAILY RF: 0 rosuvastatin 10 MG tablet 10 mg PO QHS RF: 0 duloxetine 60 MG capsule 60 mg PO BID RF: 0 lisinopril 20 mg tablet 10 mg PO DAILY RF: 0 oxybutynin chloride 15 MG tablet extended release 24hr 10 mg PO DAILY RF: 0 albuterol sulfate 90 mcg/actuation HFA aerosol inhaler 2 puff inhalation .four times daily PRN (Reason: COPD) RF: 0 acetaminophen 325 MG tablet 500 mg PO Q4H PRN PRN (Reason: Pain) RF: 0 albuterol sulfate 2.5 MG/3 ML solution for nebulization 2.5 mg inhalation Q4H PRN (Reason: SHORTNESS OF BREATH) Qty: 30 RF: 0 ibuprofen 200 MG tablet 2 - 3 tab PO Q6H PRN (Reason: Pain) Qty: 1 RF: 0 quetiapine 100 MG tablet 100 mg PO DAILY RF: 0 Primary Care Provider: Wilver Browning Referrals: Wilver Browning MD [Primary Care Provider] - Disposition Disposition: Acute Care Hospital [facility]
[2021-01-25] MEDS: Acetaminophen 325 MG Tablet 650 MG PO (16:53)
--- NOTE | 2021-01-25 17:33 | NURSING ---
MEDS SURG OBS KITTOE COPD EXAC
[2021-01-25] MEDS: Azithromycin 250 MG Tablet 500 MG PO (17:43)
--- NOTE | 2021-01-25 17:45 | HP.PCM.HOS_ITS ---
HPI - General General Date of Admission: 01/25/21 Date of Service: 01/25/21 Chief Complaint: Shortness of breath HPI Narrative DEON REYNAGA, is a 75 F who presents with multiple comorbidities including COPD, hypertension, bipolar disorder who presents with shortness of breath. Patient symptoms started 2 days prior to her admission. Shortness of breath is brought on with minimal activity.. Patient also reports persistent cough. She denied any subjective fever no chills. Patient denied being in contact with anyone diagnosed with Covid. She has had a minor receive the vaccination. Presented to the emergency department patient was given aerosol treatment and ambulated. Patient desaturated with oxygen saturation dropping to the 70s. Admitted to regular nursing floor for subsequent management [facility] Medical History COPD (chronic obstructive pulmonary disease) DVT (deep venous thrombosis) HTN (hypertension) Leg fracture, left Home Medications amlodipine 10 mg PO DAILY 10/26/13 [History Last Taken 02/23/17 08:45] carbamazepine 200 mg PO QHS 10/26/13 [History Last Taken 10/25/13 21:00] duloxetine 60 mg PO BID 10/26/13 [History Last Taken 10/25/13 21:00] quetiapine [Seroquel] 400 mg PO QHS 10/26/13 [History Last Taken 10/25/13 21:00] rosuvastatin 10 mg PO QHS 10/26/13 [History Last Taken 10/25/13 20:00] oxybutynin chloride 10 mg PO DAILY 02/12/17 [History Last Taken Unknown] albuterol sulfate 2.5 mg INHALATION Q4H PRN #30 vial.neb. 09/15/18 [Rx Last Taken Unknown] lisinopril 20 mg tablet 10 mg PO DAILY tab 07/15/19 [History Last Taken Unknown] quetiapine 100 mg PO DAILY 01/27/20 [History Last Taken Unknown] acetaminophen [Tylenol Arthritis] 650 mg PO Q8H PRN 01/25/21 [History Last Taken Unknown] bisoprolol-hydrochlorothiazide 1 tab PO DAILY 01/25/21 [History Last Taken Unknown] carbamazepine 100 mg PO DAILY 01/25/21 [History Last Taken 01/25/21] cholecalciferol (vitamin D3) [Vitamin D3] 50 mcg PO DAILY 01/25/21 [History Last Taken 01/25/21] ibuprofen 800 mg PO DAILY 01/25/21 [History Last Taken 01/25/21] multivitamin 1 tab PO DAILY 01/25/21 [History Last Taken 01/25/21] Allergy/AdvReac Type Severity Reaction Status Date / Time aspirin Allergy Hives Verified 01/25/21 13:40 diphenhydramine HCl Allergy Anaphylaxis Verified 01/25/21 13:40 [From Benadryl] latex Allergy Rash Verified 01/25/21 13:40 meperidine [From Demerol] Allergy Swelling Verified 01/25/21 17:42 facial Penicillins Allergy Anaphylaxis Verified 01/25/21 13:40 Sulfa (Sulfonamide Allergy Rash Verified 01/25/21 17:42 Antibiotics) chlorpromazine AdvReac mental Verified 01/25/21 17:48 status change codeine AdvReac Vomiting Verified 01/25/21 13:40 haloperidol [From Haldol] AdvReac HALLUCINATI Verified 01/25/21 13:40 ONS meloxicam AdvReac Upset Verified 01/25/21 17:48 Stomach pentazocine AdvReac Vomiting Verified 01/25/21 17:48 promethazine HCl AdvReac hallucinati Verified 01/25/21 17:42 [From Phenergan] ons Family History Mother CAD (coronary artery disease) Kidney disease Grandmother CAD (coronary artery disease) Liver disease Father CVA (cerebral vascular accident) Surgical History History of hysterectomy Social History Smoking Status: Current some day smoker tobacco type: cigarettes ROS ROS Narrative GENERAL: denies fever, chills, night sweats, HEENT: denies headache, sinus congestion, RESPIRATORY: shortness of breath, dyspnea on exertion CARDIAC: denies chest pain, palpitations, orthopnea, GASTROINTESTINAL: denies abdominal pain, nausea, GENITOURINARY: denies dysuria, urgency, frequency, EXTREMITY: denies swelling MUSCULOSKELETAL: denies current joint pain or tenderness NEUROLOGIC: denies focal numbness, weakness, tingling HEMATOLOGIC: denies easy bruising and/or hemorrhage INTEGUMENT: denies rashes PSYCHIATRIC: denies suicidal or homicidal ideation Vital Signs Vital Signs Vital Signs: 01/25/21 13:40 01/25/21 13:43 01/25/21 13:55 Temperature 98.3 F 98.3 F Temperature Source Oral Oral Pulse Rate 84 84 Respiratory Rate 24 H 20 H Respiratory Effort Short of Breath Labored Respiratory Depth Normal Respiratory Pattern Tachypnea Blood Pressure 163/72 H 163/72 H Blood Pressure Mean 102 102 Pulse Ox 96 94 Oxygen Delivery Method Room Air Room Air Room Air Oxygen Flow Rate (L/min) 01/25/21 14:17 01/25/21 14:25 01/25/21 16:19 Temperature Temperature Source Pulse Rate 79 87 Respiratory Rate 24 H 16 12 Respiratory Effort Respiratory Depth Respiratory Pattern Normal Normal Blood Pressure Blood Pressure Mean Pulse Ox 94 Oxygen Delivery Method Room Air Oxygen Flow Rate (L/min) 01/25/21 16:48 01/25/21 17:15 01/25/21 17:44 Temperature 97.8 F 97.8 F Temperature Source Temporal Temporal Pulse Rate 94 101 H 110 H Respiratory Rate 18 23 H 17 Respiratory Effort Respiratory Depth Respiratory Pattern Blood Pressure 159/79 H 148/74 H 148/74 H Blood Pressure Mean 105 98 98 Pulse Ox 93 98 97 Oxygen Delivery Method Room Air Room Air Nasal Cannula Oxygen Flow Rate (L/min) 2 Weight Weight: 87 kg Body Mass Index (BMI) 35.0 Physical Exam Narrative GENERAL: cooperative HEENT: Atraumatic; EYES; Anicteric, Normal Conjunctiva NECK; supple, normal thyroid, RESPIRATORY: Diminished to auscultation with bilateral wheezes CARDIOVASCULAR: Regular S1 S2, GI: soft, normoactive bowel sounds, : No Renal angle tenderness; EXTREMITIES: No edema, no clubbing, MUSCULOSKELETAL: no muscle waisting NEURO: Awake; no lateralizing signs. SKIN: No Rash PSYCH; Flat affect Results Lab / Micro Data Result Diagrams: 01/25/21 14:03 01/25/21 14:03 Labs: Laboratory Results - last 24 hr 01/25/21 14:03: WBC 8.5, RBC 4.12 L, Hgb 12.9, Hct 38.7, MCV 93.9, MCH 31.3, MCHC 33.3, RDW Std Deviation 42.5, RDW Coeff of Umair 12.4, Plt Count 327, MPV 9.4, Immature Gran % (Auto) 0.400, Neut % (Auto) 53.5, Lymph % (Auto) 32.9, [place] % (Auto) 7.2, Eos % (Auto) 5.6 H, Baso % (Auto) 0.4, Absolute Neuts (auto) 4.6, Absolute Lymphs (auto) 2.80, Nucleated RBC % 0 01/25/21 14:03: Sodium 138, Potassium 4.4, Chloride 107, Carbon Dioxide 26.0, Anion Gap 5, BUN 20 H, Creatinine 0.72, Estim Creat Clear Calc 38.44, Est GFR (MDRD) Af Amer 102, Est GFR (MDRD) Non-Af 84, BUN/Creatinine Ratio 27.8 H, Glucose 117 H, Calcium 9.9 Micro: Microbiology 01/25/21 14:00 Mucosa - Nose SARS-CoV-2 Antigen (Rapid) - Final Radiology Impression Chest X-Ray 01/25/21 14:16 IMPRESSION: Normal x-ray examination of the chest. Electronically Signed: Oneil Stoll MD at 14:40 EDT , Service support , Assessment & Plan Assessment/Plan (1) Hypertension: QUALIFIERS: Hypertension type: essential hypertension Qualified Code(s): I10 - Essential (primary) hypertension (2) COPD exacerbation: (3) Bipolar disorder: QUALIFIERS: Active/Remission status: remission status unspecified Qualified Code(s): F31.9 - Bipolar disorder, unspecified PLAN: Patient is a 75-year-old lady presented with progressive shortness of breath with dyspnea on exertion 1. Acute dyspnea ?Suspected to be secondary to infectious bronchitis. Patient has been admitted to regular nursing floor managed with aerosol treatment in addition to systemic steroids and antibiotics. Was placed on supplemental oxygen titrated to keep oxygen saturation greater than 90. As part of her evaluation requested for Covid assay as well as D-dimer. With patient also reporting dyspnea with minimal exertion 2D echo was ordered to assess for EF 2. Acute infectious bronchitis ?Management as discussed above 3. Essential hypertension ?Discontinue patient home meds with plans to adjust doses if blood pressure is not controlled 4. Bipolar disorder ?Discontinue patient home regimen 5. Previous history of lower extremity DVT ?Patient was treated with systemic anticoagulation currently of 6. DVT prophylaxis ?Lovenox SC Charges/Coding Visit Charges OBSV E&M: 57426 Initial observation care L3
[2021-01-25 21:01] LABS: Probe Check PASS; Specimen Processing Control PASS
[2021-01-25] MEDS: carBAMazepine 200 MG Tablet PO (21:36)
[2021-01-25] MEDS: Atorvastatin Calcium 20 MG Tablet PO (21:36)
[2021-01-25] MEDS: QUEtiapine 100 MG Tablet 400 MG PO (21:36)
[2021-01-25] MEDS: DULoxetine Hcl 60 MG Capsule PO (21:36)
[2021-01-25] MEDS: 0.9% Saline Lock 10 ML Syringe IV (21:37)
[2021-01-26] VITALS (13 sets, daily range): BP systolic 129–172; BP diastolic 65–94; PULSE 78–106; RESP 12–20; TEMP 35.9–36.7; O2SAT 90–98
[2021-01-26] MEDS: Ipratropium/Albuterol Sulfate 3 ML AMPUL.NEB INHALATION ×6 (02:33→22:38)
[2021-01-26] MEDS: 0.9% Saline Lock 10 ML Syringe IV ×3 (06:15→21:18)
[2021-01-26] MEDS: hydroCHLOROthiazide 6.25mg TAB 6.25 MG PO (07:38)
[2021-01-26] MEDS: Lisinopril 10 MG Tablet PO (07:38)
[2021-01-26] MEDS: QUEtiapine 100 MG Tablet PO (07:38)
[2021-01-26] MEDS: Bisoprolol Fumarate 5 MG Tablet 2.5 MG PO (07:39)
[2021-01-26] MEDS: DULoxetine Hcl 60 MG Capsule PO ×2 (07:39→21:17)
[2021-01-26] MEDS: amLODIPine 10 MG Tablet PO (07:39)
[2021-01-26] MEDS: Tolterodine Tartrate 4 MG CAP.SA PO (07:40)
[2021-01-26] MEDS: carBAMazepine 200 MG Tablet 100 MG PO (07:40)
[2021-01-26] MEDS: Enoxaparin 40 MG/0.4 ML Syringe SC (07:41)
[2021-01-26] MEDS: Azithromycin 250 MG Tablet 500 MG PO (07:44)
--- NOTE | 2021-01-26 07:45 | PN.HOSP_ITS ---
Subjective Subjective Patient reports significant shortness of breath with minimal activity. Also still has persistent cough. Objective Data Objective Data Vital Signs: Vital Signs Temp Pulse Resp BP Pulse Ox 97.7 F L 97 20 H 143/83 H 95 01/26/21 06:07 01/26/21 07:18 01/26/21 07:18 01/26/21 06:07 01/26/21 07:18 Oxygen Flow Rate (L/min) 2 Oxygen Delivery Method Nasal Cannula Weight: 83.3 kg Body Mass Index (BMI) 32.7 Intake & Output: Intake and Output for Last 24 Hours 01/24/21 01/25/21 01/26/21 23:59 23:59 23:59 Intake Total 200 / 200 Balance 200 / 200 Lab / Micro Data Result Diagrams: 01/26/21 07:52 01/26/21 07:52 Labs: Laboratory Results - last 24 hr 01/25/21 14:03: WBC 8.5, RBC 4.12 L, Hgb 12.9, Hct 38.7, MCV 93.9, MCH 31.3, MCHC 33.3, RDW Std Deviation 42.5, RDW Coeff of Umair 12.4, Plt Count 327, MPV 9.4, Immature Gran % (Auto) 0.400, Neut % (Auto) 53.5, Lymph % (Auto) 32.9, [place] % (Auto) 7.2, Eos % (Auto) 5.6 H, Baso % (Auto) 0.4, Absolute Neuts (auto) 4.6, Absolute Lymphs (auto) 2.80, Nucleated RBC % 0 01/25/21 14:03: Sodium 138, Potassium 4.4, Chloride 107, Carbon Dioxide 26.0, Anion Gap 5, BUN 20 H, Creatinine 0.72, Estim Creat Clear Calc 38.44, Est GFR (MDRD) Af Amer 102, Est GFR (MDRD) Non-Af 84, BUN/Creatinine Ratio 27.8 H, Glucose 117 H, Calcium 9.9 01/25/21 18:25: D-Dimer Quant (PE/DVT) 0.30 01/25/21 18:55: COVID-19 ([facility]ARAI) Negative Micro: Microbiology 01/25/21 14:00 Mucosa - Nose SARS-CoV-2 Antigen (Rapid) - Final Radiography Diagnostic Testing: Radiology Impression Chest X-Ray 01/25/21 14:16 IMPRESSION: Normal x-ray examination of the chest. Electronically Signed: Oneil Stoll MD at 14:40 EDT , Service support , Physical Exam Narrative GENERAL: cooperative HEENT: Atraumatic; EYES; Anicteric, Normal Conjunctiva NECK; supple, normal thyroid, RESPIRATORY: Diminished to auscultation with bilateral wheezes CARDIOVASCULAR: Regular S1 S2, GI: soft, normoactive bowel sounds, : No Renal angle tenderness; EXTREMITIES: No edema, no clubbing, MUSCULOSKELETAL: no muscle waisting NEURO: Awake; no lateralizing signs. SKIN: No Rash PSYCH; Flat affect Assessment & Plan Assessment/Plan (1) Hypertension: QUALIFIERS: Hypertension type: essential hypertension Qualified Code(s): I10 - Essential (primary) hypertension (2) COPD exacerbation: (3) Bipolar disorder: QUALIFIERS: Active/Remission status: remission status unspecified Qualified Code(s): F31.9 - Bipolar disorder, unspecified PLAN: Patient is a 75-year-old lady presented with progressive shortness of breath with dyspnea on exertion 1. Acute dyspnea ?Suspected to be secondary to infectious bronchitis. Patient has been admitted to regular nursing floor managed with aerosol treatment in addition to systemic steroids and antibiotics. Was placed on supplemental oxygen titrated to keep oxygen saturation greater than 90. As part of her evaluation requested for Covid assay as well as D-dimer. With patient also reporting dyspnea with minimal exertion 2D echo was ordered to assess for EF -01/26/2021; 2. Acute infectious bronchitis ?Management as discussed above 3. Essential hypertension ?Discontinue patient home meds with plans to adjust doses if blood pressure is not controlled -01/26/2021; patient blood pressure remains uncontrolled with systolic as high as 172 adjusted antihypertensive regimen 4. Bipolar disorder ?Discontinue patient home regimen 5. Previous history of lower extremity DVT ?Patient was treated with systemic anticoagulation previously 6. DVT prophylaxis ?Lovenox SC Charges/Coding Visit Charges OBSV E&M: 55425 Subsequent observation care L3
[2021-01-26 08:04] LABS: Absolute Lymphocyte Count 2.12 X10^3/uL (0.83-4.51); Basophil# 0.02 X10^3/uL; Basophil% 0.2 % (0-1); Hematocrit 36.3 % (37-47); Hemoglobin 12.1 g/dL (12.0-15.0); Lymphocyte # 2.12 X10^3/ul (0.83-4.51); Lymphocyte % 17.9 % (19-41); Mean Corp Hgb Conc 33.3 g/dL (32-36); Mean Corpuscular Hgb 31.2 pg (27.0-32.0); Mean Corpuscular Volume 93.6 fL (81-99); Mean Platelet Vol. 9.4 fl (6.2-12.0); Monocyte# 0.63 X10^3/uL; Monocyte% 5.3 % (0-10); NRBC Flagged by Analyzer 0 % (0-5); Neutrophil # 8.95 X10^3/uL (2.7-7.7); Neutrophil % 75.5 % (47-70); Platelet Count 303 K/mm3 (150-450); RBC Distribution Width CV 12.3 % (11.6-14.6); RBC Distribution Width SD 42.3 fl (35.1-43.9); Red Blood Count 3.88 M/mm3 (4.2-5.4); White Blood Count 11.9 K/mm3 (4.4-11.0)
[2021-01-26 08:16] LABS: Anion Gap 10 (5-15); BUN 27 mg/dL (7-18); BUN/Creat Ratio 27.9 RATIO (10-20); Calcium,Total 9.7 mg/dL (8.5-10.1); Chloride 104 mmol/L (98-107); Creatinine, Serum 0.97 mg/dL (0.55-1.02); EST Glomerular Filtration Rate 60 mL/min (>60); Est Glom Filt Rate - Afr Amer 72 mL/min (>60); Estimated Creatinine Clearance 39.63 ml/min; Glucose 153 mg/dL (74-106); Magnesium 1.8 mg/dL (1.6-2.6); Phosphorus 3.6 mg/dL (2.5-4.9); Sodium Level 137 mmol/L (136-145)
--- NOTE | 2021-01-26 12:15 | CASEMGMT ---
This RN SUSAN to room with HICKEY form, explanation done-pt voices understanding, and signs HICKEY form. Original to chart and copy to pt. Pt voices no further questions/concerns/needs. SStaten GRACE CM
[2021-01-26] MEDS: Acetaminophen 325 MG Tablet 650 MG PO (21:16)
[2021-01-26] MEDS: QUEtiapine 100 MG Tablet 400 MG PO (21:17)
[2021-01-26] MEDS: guaiFENesin 1,200 MG Tablet 1200 MG PO (21:17)
[2021-01-26] MEDS: Atorvastatin Calcium 20 MG Tablet PO (21:17)
[2021-01-26] MEDS: carBAMazepine 200 MG Tablet PO (21:17)
[2021-01-26] MEDS: MELATONIN 10 MG TABLET PO (22:39)
[2021-01-27] VITALS (15 sets, daily range): BP systolic 141–156; BP diastolic 59–75; PULSE 93–102; RESP 16–22; TEMP 36.5–36.7; O2SAT 89–97
[2021-01-27] MEDS: Albuterol 2.5 MG/3 ML VIAL.NEB. INHALATION (05:31)
[2021-01-27 06:48] LABS: Anion Gap 9 (5-15); BUN 27 mg/dL (7-18); BUN/Creat Ratio 29.6 RATIO (10-20); Calcium,Total 9.8 mg/dL (8.5-10.1); Chloride 105 mmol/L (98-107); Creatinine, Serum 0.91 mg/dL (0.55-1.02); EST Glomerular Filtration Rate 64 mL/min (>60); Est Glom Filt Rate - Afr Amer 77 mL/min (>60); Estimated Creatinine Clearance 42.25 ml/min; Glucose 155 mg/dL (74-106); Potassium 4.4 mmol/L (3.5-5.1); Sodium Level 137 mmol/L (136-145)
[2021-01-27 06:58] LABS: Absolute Lymphocyte Count 3.29 X10^3/uL (0.83-4.51); Absolute Neutrophil Count 10.4 X10^3/uL (2.0-7.7); Basophil# 0.04 X10^3/uL; Basophil% 0.3 % (0-1); Eosinophil# 0.01 X10^3/uL; Eosinophils% 0.1 % (0-5); Hematocrit 37.3 % (37-47); Hemoglobin 12.2 g/dL (12.0-15.0); Lymphocyte # 3.29 X10^3/ul (0.83-4.51); Lymphocyte % 22.3 % (19-41); Mean Corp Hgb Conc 32.7 g/dL (32-36); Mean Corpuscular Hgb 31.2 pg (27.0-32.0); Mean Corpuscular Volume 95.4 fL (81-99); Mean Platelet Vol. 9.7 fl (6.2-12.0); Monocyte# 0.72 X10^3/uL; Monocyte% 4.9 % (0-10); NRBC Flagged by Analyzer 0 % (0-5); Neutrophil # 10.44 X10^3/uL (2.7-7.7); Neutrophil % 70.7 % (47-70); Platelet Count 336 K/mm3 (150-450); RBC Distribution Width CV 12.5 % (11.6-14.6); RBC Distribution Width SD 43.6 fl (35.1-43.9); Red Blood Count 3.91 M/mm3 (4.2-5.4); White Blood Count 14.8 K/mm3 (4.4-11.0)
[2021-01-27] MEDS: Ipratropium/Albuterol Sulfate 3 ML AMPUL.NEB INHALATION ×5 (07:27→22:54)
[2021-01-27] MEDS: Acetaminophen 325 MG Tablet 650 MG PO ×2 (07:29→22:24)
[2021-01-27] MEDS: Tolterodine Tartrate 4 MG CAP.SA PO (07:29)
[2021-01-27] MEDS: Azithromycin 250 MG Tablet 500 MG PO (07:30)
[2021-01-27] MEDS: Lisinopril 10 MG Tablet PO (07:30)
[2021-01-27] MEDS: Bisoprolol Fumarate 5 MG Tablet 2.5 MG PO (07:30)
[2021-01-27] MEDS: amLODIPine 10 MG Tablet PO (07:32)
[2021-01-27] MEDS: Enoxaparin 40 MG/0.4 ML Syringe SC (07:32)
[2021-01-27] MEDS: QUEtiapine 100 MG Tablet PO (07:32)
[2021-01-27] MEDS: hydroCHLOROthiazide 6.25mg TAB 6.25 MG PO (07:32)
[2021-01-27] MEDS: guaiFENesin 1,200 MG Tablet 1200 MG PO ×2 (07:33→22:23)
[2021-01-27] MEDS: predniSONE 20 MG Tablet 40 MG PO (07:33)
[2021-01-27] MEDS: DULoxetine Hcl 60 MG Capsule PO ×2 (07:33→22:23)
[2021-01-27] MEDS: carBAMazepine 200 MG Tablet 100 MG PO (07:34)
--- NOTE | 2021-01-27 08:23 | PN.HOSP_ITS ---
Subjective Subjective Patient seen still complains of significant shortness of breath and cough which she is unable to get out. Requested for chest vest therapy patient respiratory viral assay came back positive for rhinovirus Objective Data Objective Data Vital Signs: Vital Signs Temp Pulse Resp BP Pulse Ox 98.1 F 98 16 152/72 H 95 01/27/21 05:23 01/27/21 07:27 01/27/21 07:27 01/27/21 05:23 01/27/21 07:27 Oxygen Flow Rate (L/min) 1 Oxygen Delivery Method Nasal Cannula Weight: 83.7 kg Body Mass Index (BMI) 32.7 Intake & Output: Intake and Output for Last 24 Hours 01/25/21 01/26/21 01/27/21 23:59 23:59 23:59 Intake Total 200 / 200 1200 / 1950 990 / 990 Balance 200 / 200 1200 / 1950 990 / 990 Lab / Micro Data Result Diagrams: 01/27/21 05:45 01/27/21 05:45 Labs: Laboratory Results - last 24 hr 01/27/21 05:45: WBC 14.8 H, RBC 3.91 L, Hgb 12.2, Hct 37.3, MCV 95.4, MCH 31.2, MCHC 32.7, RDW Std Deviation 43.6, RDW Coeff of Umair 12.5, Plt Count 336, MPV 9.7, Immature Gran % (Auto) 1.700 H, Neut % (Auto) 70.7 H, Lymph % (Auto) 22.3, [place] % (Auto) 4.9, Eos % (Auto) 0.1, Baso % (Auto) 0.3, Absolute Neuts (auto) 10.4 H, Absolute Lymphs (auto) 3.29, Nucleated RBC % 0 01/27/21 05:45: Sodium 137, Potassium 4.4, Chloride 105, Carbon Dioxide 23.0, Anion Gap 9, BUN 27 H, Creatinine 0.91, Estim Creat Clear Calc 42.25, Est GFR (MDRD) Af Amer 77, Est GFR (MDRD) Non-Af 64, BUN/Creatinine Ratio 29.6 H, Glucose 155 H, Calcium 9.8 Micro: Microbiology 01/25/21 14:00 Mucosa - Nose SARS-CoV-2 Antigen (Rapid) - Final Physical Exam Narrative GENERAL: cooperative HEENT: Atraumatic; EYES; Anicteric, Normal Conjunctiva NECK; supple, normal thyroid, RESPIRATORY: Diminished to auscultation with bilateral wheezes CARDIOVASCULAR: Regular S1 S2, GI: soft, normoactive bowel sounds, : No Renal angle tenderness; EXTREMITIES: No edema, no clubbing, MUSCULOSKELETAL: no muscle waisting NEURO: Awake; no lateralizing signs. SKIN: No Rash PSYCH; Flat affect Assessment & Plan Assessment/Plan (1) Hypertension: QUALIFIERS: Hypertension type: essential hypertension Qualified Code(s): I10 - Essential (primary) hypertension (2) COPD exacerbation: (3) Bipolar disorder: QUALIFIERS: Active/Remission status: remission status unspecified Qualified Code(s): F31.9 - Bipolar disorder, unspecified PLAN: Patient is a 75-year-old lady presented with progressive shortness of breath with dyspnea on exertion 1. Acute dyspnea ?Suspected to be secondary to infectious bronchitis. Patient has been admitted to regular nursing floor managed with aerosol treatment in addition to systemic steroids and antibiotics. Was placed on supplemental oxygen titrated to keep oxygen saturation greater than 90. As part of her evaluation requested for Covid assay as well as D-dimer. With patient also reporting dyspnea with minimal exertion 2D echo was ordered to assess for EF -01/26/2021. 2D echo obtained demonstrated EF of 60% with RVSP of 32 mmHg 01/27/2021; Patient seen still complains of significant shortness of breath and cough which she is unable to get out. Requested for chest vest therapy patient respiratory viral assay came back positive for rhinovirus 2. Acute infectious bronchitis secondary to rhinovirus infection ?Management as discussed above 3. Essential hypertension ?Discontinue patient home meds with plans to adjust doses if blood pressure is not controlled -01/26/2021; patient blood pressure remains uncontrolled with systolic as high as 172 adjusted antihypertensive regimen 4. Bipolar disorder ?Discontinue patient home regimen 5. Previous history of lower extremity DVT ?Patient was treated with systemic anticoagulation previously 6. DVT prophylaxis ?Lovenox SC Charges/Coding Visit Charges OBSV E&M: 79052 Initial observation care L2
[2021-01-27] MEDS: Atorvastatin Calcium 20 MG Tablet PO (22:22)
[2021-01-27] MEDS: QUEtiapine 100 MG Tablet 400 MG PO (22:22)
[2021-01-27] MEDS: carBAMazepine 200 MG Tablet PO (22:23)
[2021-01-27] MEDS: MELATONIN 10 MG TABLET PO (22:23)
[2021-01-27] MEDS: 0.9% Saline Lock 10 ML Syringe IV (22:27)
[2021-01-28] VITALS (13 sets, daily range): BP systolic 113–147; BP diastolic 47–68; PULSE 79–97; RESP 18–24; TEMP 36.4–36.9; O2SAT 80–96
[2021-01-28 06:34] LABS: Absolute Lymphocyte Count 4.78 X10^3/uL (0.83-4.51); Absolute Neutrophil Count 5.9 X10^3/uL (2.0-7.7); Basophil# 0.04 X10^3/uL; Basophil% 0.3 % (0-1); Eosinophil# 0.03 X10^3/uL; Eosinophils% 0.3 % (0-5); Hemoglobin 11.7 g/dL (12.0-15.0); Lymphocyte # 4.78 X10^3/ul (0.83-4.51); Lymphocyte % 40.8 % (19-41); Mean Corp Hgb Conc 32.5 g/dL (32-36); Mean Corpuscular Volume 95.5 fL (81-99); Mean Platelet Vol. 9.4 fl (6.2-12.0); Monocyte# 0.81 X10^3/uL; Monocyte% 6.9 % (0-10); NRBC Flagged by Analyzer 0 % (0-5); Neutrophil # 5.85 X10^3/uL (2.7-7.7); Platelet Count 286 K/mm3 (150-450); RBC Distribution Width CV 12.6 % (11.6-14.6); Red Blood Count 3.77 M/mm3 (4.2-5.4); White Blood Count 11.7 K/mm3 (4.4-11.0)
[2021-01-28 06:55] LABS: Anion Gap 5 (5-15); BUN 26 mg/dL (7-18); BUN/Creat Ratio 33.8 RATIO (10-20); Calcium,Total 9.4 mg/dL (8.5-10.1); Chloride 106 mmol/L (98-107); Creatinine, Serum 0.77 mg/dL (0.55-1.02); EST Glomerular Filtration Rate 78 mL/min (>60); Est Glom Filt Rate - Afr Amer 94 mL/min (>60); Estimated Creatinine Clearance 38.44 ml/min; Glucose 93 mg/dL (74-106); Potassium 3.9 mmol/L (3.5-5.1); Sodium Level 136 mmol/L (136-145)
[2021-01-28] MEDS: Ipratropium/Albuterol Sulfate 3 ML AMPUL.NEB INHALATION ×5 (07:05→23:12)
[2021-01-28] MEDS: predniSONE 20 MG Tablet 40 MG PO (08:37)
[2021-01-28] MEDS: Acetaminophen 325 MG Tablet 650 MG PO ×3 (08:37→22:41)
[2021-01-28] MEDS: Tolterodine Tartrate 4 MG CAP.SA PO (08:38)
[2021-01-28] MEDS: hydroCHLOROthiazide 6.25mg TAB 6.25 MG PO (08:38)
[2021-01-28] MEDS: amLODIPine 10 MG Tablet PO (08:38)
[2021-01-28] MEDS: DULoxetine Hcl 60 MG Capsule PO ×2 (08:38→20:22)
[2021-01-28] MEDS: guaiFENesin 1,200 MG Tablet 1200 MG PO ×2 (08:38→20:22)
[2021-01-28] MEDS: carBAMazepine 200 MG Tablet 100 MG PO (08:39)
[2021-01-28] MEDS: QUEtiapine 100 MG Tablet PO (08:39)
[2021-01-28] MEDS: Azithromycin 250 MG Tablet 500 MG PO (08:41)
[2021-01-28] MEDS: Bisoprolol Fumarate 5 MG Tablet 2.5 MG PO (08:41)
[2021-01-28] MEDS: Lisinopril 10 MG Tablet PO (08:41)
[2021-01-28] MEDS: Enoxaparin 40 MG/0.4 ML Syringe SC (09:34)
--- NOTE | 2021-01-28 10:30 | NURSING ---
80% ON 2L NC AFTER AMBULATING TO [facility] & THEN TO CHAIR @ [facility]
--- NOTE | 2021-01-28 11:47 | NURSING ---
PT C/O BACK PAIN, PRN TYLENOL INEFFECTIVE. DR RAMIREZ MADE AWARE, NO NEW ORDER @ THIS TIME.
--- NOTE | 2021-01-28 14:32 | CPS ---
Pt declined Vest Therapy @2434 and 6081 saying it makes her back hurt, so only Pep Therapy was done.
--- NOTE | 2021-01-28 14:44 | PN.HOSP_ITS ---
Subjective Subjective Still short of breath. Not coughing up phlegm. Objective Data Objective Data Vital Signs: Vital Signs Temp Pulse Resp BP Pulse Ox 36.7 C 90 20 H 147/68 H 94 01/28/21 07:59 01/28/21 14:29 01/28/21 14:29 01/28/21 07:59 01/28/21 14:29 Oxygen Flow Rate (L/min) 2 Oxygen Delivery Method Nasal Cannula Weight: 83.6 kg Body Mass Index (BMI) 32.7 Intake & Output: Intake and Output for Last 24 Hours 01/26/21 01/27/21 01/28/21 23:59 23:59 23:59 Intake Total 1200 / 1950 2290 / 2290 220 / 220 Balance 1200 / 1950 2290 / 2290 220 / 220 Lab / Micro Data Result Diagrams: 01/28/21 06:14 01/28/21 06:14 Labs: Laboratory Results - last 24 hr 01/28/21 06:14: WBC 11.7 H, RBC 3.77 L, Hgb 11.7 L, Hct 36.0 L, MCV 95.5, MCH 31.0, MCHC 32.5, RDW Std Deviation 44.0 H, RDW Coeff of Umair 12.6, Plt Count 286, MPV 9.4, Immature Gran % (Auto) 1.700 H, Neut % (Auto) 50.0, Lymph % (Auto) 40.8, [place] % (Auto) 6.9, Eos % (Auto) 0.3, Baso % (Auto) 0.3, Absolute Neuts (auto) 5.9, Absolute Lymphs (auto) 4.78 H, Nucleated RBC % 0 01/28/21 06:14: Sodium 136, Potassium 3.9, Chloride 106, Carbon Dioxide 25.0, Anion Gap 5, BUN 26 H, Creatinine 0.77, Estim Creat Clear Calc 38.44, Est GFR (MDRD) Af Amer 94, Est GFR (MDRD) Non-Af 78, BUN/Creatinine Ratio 33.8 H, Glucose 93, Calcium 9.4 Micro: Microbiology 01/27/21 05:50 Mucosa - Nasopharyngeal Respiratory Panel (PCR) - Final Rhinovirus 01/25/21 14:00 Mucosa - Nose SARS-CoV-2 Antigen (Rapid) - Final Physical Exam Const alert, oriented x3 and no apparent distress HEENT head/scalp atraumatic, moist oral mucous membranes and oropharynx normal Head and Scalp: normocephalic Eyes PERRL Resp normal respiratory effort, no retractions, no use of accessory muscles and clear to auscultation bilaterally Cardio regular rate, regular rhythm, S1 normal heart sound and S2 normal heart sound GI normal to inspection, nondistended, normoactive bowel sounds, non-tender and non-distended Extremity normal to inspection Assessment & Plan Assessment/Plan (1) Bronchitis: PLAN: 1. acute bronchitis 2/2 rhinovirus on prednisone wean oxygen as tolerated strongly advised COVID 19 vaccination upon discharge. Pt worried about being sick with the vaccine. Emphasized to patient that she is admitted with the common cold and she would likely fare worse if she were to contract COVID-19. 2. VTE prophylaxis: LMWH 3. Discharge in 1-2 days. Charges/Coding Visit Charges OBSV E&M: 54026 Subsequent observation care L2
[2021-01-28] MEDS: carBAMazepine 200 MG Tablet PO (20:20)
[2021-01-28] MEDS: QUEtiapine 100 MG Tablet 400 MG PO (20:21)
[2021-01-28] MEDS: Atorvastatin Calcium 20 MG Tablet PO (20:21)
[2021-01-28] MEDS: MELATONIN 10 MG TABLET PO (20:22)
[2021-01-28] MEDS: 0.9% Saline Lock 10 ML Syringe IV ×2 (20:23→22:42)
[2021-01-29] VITALS (8 sets, daily range): BP systolic 104–155; BP diastolic 64–67; PULSE 85–99; RESP 18–20; TEMP 36.3–36.6; O2SAT 91–99
[2021-01-29] MEDS: Ipratropium/Albuterol Sulfate 3 ML AMPUL.NEB INHALATION ×3 (07:24→15:13)
--- NOTE | 2021-01-29 09:07 | PCM.DC ---
Discharge Instructions Diet Discharge Diet: Low fat / Low cholesterol Activity Discharge Activity: Return to Normal Activity Dressing / Incision Call your doctor if you observe: Fever of 101 or Higher and Shortness of breath Follow Up Care Test Results: Test results from this visit will be discussed in further detail at your follow-up appointment, if applicable. Discharge Plan Admission Admit Date/Time: 01/25/21 17:36 Attending Provider: Kemal East Primary Care Provider: Wilver Browning Discharge Orders/Prescriptions Prescriptions: New Mucus Relief ER 1,200 mg Tablet Extended Release 12hr 1,200 mg PO BID Qty: 10 RF: 0 prednisone 20 mg Tablet 40 mg PO DAILY@0800 3 Days Qty: 6 RF: 0 Continued quetiapine [Seroquel] 200 MG tablet 400 mg PO QHS RF: 0 carbamazepine 200 MG tablet 200 mg PO QHS RF: 0 amlodipine 10 MG tablet 10 mg PO DAILY RF: 0 rosuvastatin 10 MG tablet 10 mg PO QHS RF: 0 duloxetine 60 MG capsule 60 mg PO BID RF: 0 lisinopril 20 mg tablet 10 mg PO DAILY RF: 0 oxybutynin chloride 15 MG tablet extended release 24hr 10 mg PO DAILY RF: 0 albuterol sulfate 2.5 MG/3 ML solution for nebulization 2.5 mg inhalation Q4H PRN (Reason: SHORTNESS OF BREATH) Qty: 30 RF: 0 bisoprolol-hydrochlorothiazide 2.5-6.25 mg tablet 1 tab PO DAILY RF: 0 ibuprofen 200 mg Tablet 800 mg PO DAILY RF: 0 multivitamin Tablet 1 tab PO DAILY RF: 0 acetaminophen 650 mg Tablet Extended Release 650 mg PO Q8H PRN (Reason: Pain) RF: 0 carbamazepine 100 mg tablet,chewable 100 mg PO DAILY RF: 0 cholecalciferol (vitamin D3) [Vitamin D3] 50 mcg (2,000 unit) Capsule 50 mcg PO DAILY RF: 0 Referrals / Follow Up: Wilver Browning MD [Primary Care Provider] - In 1 Week Disposition Disposition (needs filled in before D/C Order can be placed): Home, Self Care
--- NOTE | 2021-01-29 09:30 | DS.PCM_ITS ---
Providers Date of Admission: 01/25/21 Primary Care Physician: Dr. Wilver Browning MD Reason For Visit: BRONCHITIS Diagnosis Discharge Diagnosis (1) Bronchitis: Status: Acute Code(s): J40 - Bronchitis, not specified as acute or chronic Medications at Discharge Home Medications amlodipine 10 mg PO DAILY 10/26/13 carbamazepine 200 mg PO QHS 10/26/13 duloxetine 60 mg PO BID 10/26/13 quetiapine [Seroquel] 400 mg PO QHS 10/26/13 rosuvastatin 10 mg PO QHS 10/26/13 oxybutynin chloride 10 mg PO DAILY 02/12/17 albuterol sulfate 2.5 mg INHALATION Q4H PRN #30 vial.neb. 09/15/18 lisinopril 20 mg tablet 10 mg PO DAILY tab 07/15/19 acetaminophen 650 mg PO Q8H PRN 01/25/21 bisoprolol-hydrochlorothiazide 1 tab PO DAILY 01/25/21 carbamazepine 100 mg PO DAILY 01/25/21 cholecalciferol (vitamin D3) [Vitamin D3] 50 mcg PO DAILY 01/25/21 ibuprofen 800 mg PO DAILY 01/25/21 multivitamin 1 tab PO DAILY 01/25/21 guaifenesin [Mucus Relief ER] 1,200 mg PO BID #10 tab 01/29/21 prednisone 40 mg PO DAILY@0800 3 Days #6 tab 01/29/21 Hospital Course Operations None Procedures None Summary of Care Provided Minutes Spent on Discharge: 32 Hospital Course: 35-year-old female presents with shortness of breath. Patient was found to have an acute exacerbation of COPD due to bronchitis from rhinovirus. Patient was started on steroids as well as azithromycin. Patient has done well. Patient amatory pulse ox today states she will require oxygen upon discharge. Patient did not receive the vaccination for COVID-19. I strongly encourage patient to get it because she is admitted with the rhinovirus and if she were to contract Covid she can be far sicker. I did speak with pharmacy and they would be able to administer the [email or web address] had COVID-19 vaccine prior to her being discharged. Physical Exam Const alert General Appearance: cooperative HEENT normocephalic Resp normal respiratory effort, no use of accessory muscles and clear to auscultation bilaterally Cardio regular rate, regular rhythm, S1 normal heart sound and S2 normal heart sound GI normal to inspection, nondistended, normoactive bowel sounds, non-tender and non-distended Weight / BMI Weight Weight: 83.3 kg Body Mass Index (BMI) 32.7 ABG / Lab / Microbiology Data Result Diagrams: 01/28/21 06:14 01/28/21 06:14 Microbiology: Microbiology 01/27/21 05:50 Mucosa - Nasopharyngeal Respiratory Panel (PCR) - Final Rhinovirus 01/25/21 14:00 Mucosa - Nose SARS-CoV-2 Antigen (Rapid) - Final D/C Instructions Discharge Diet: Low fat / Low cholesterol Call your doctor if you observe: Fever of 101 or Higher and Shortness of breath Meaningful Use Info Meaningful Use Diagnoses (Choose all that apply): None applicable Discharge Plan Admission Admit Date/Time: 01/25/21 17:36 Attending Provider: Kemal East Primary Care Provider: Wilver Browning Discharge Orders/Prescriptions Prescriptions: New Mucus Relief ER 1,200 mg Tablet Extended Release 12hr 1,200 mg PO BID Qty: 10 RF: 0 prednisone 20 mg Tablet 40 mg PO DAILY@0800 3 Days Qty: 6 RF: 0 Continued quetiapine [Seroquel] 200 MG tablet 400 mg PO QHS RF: 0 carbamazepine 200 MG tablet 200 mg PO QHS RF: 0 amlodipine 10 MG tablet 10 mg PO DAILY RF: 0 rosuvastatin 10 MG tablet 10 mg PO QHS RF: 0 duloxetine 60 MG capsule 60 mg PO BID RF: 0 lisinopril 20 mg tablet 10 mg PO DAILY RF: 0 oxybutynin chloride 15 MG tablet extended release 24hr 10 mg PO DAILY RF: 0 albuterol sulfate 2.5 MG/3 ML solution for nebulization 2.5 mg inhalation Q4H PRN (Reason: SHORTNESS OF BREATH) Qty: 30 RF: 0 bisoprolol-hydrochlorothiazide 2.5-6.25 mg tablet 1 tab PO DAILY RF: 0 ibuprofen 200 mg Tablet 800 mg PO DAILY RF: 0 multivitamin Tablet 1 tab PO DAILY RF: 0 acetaminophen 650 mg Tablet Extended Release 650 mg PO Q8H PRN (Reason: Pain) RF: 0 carbamazepine 100 mg tablet,chewable 100 mg PO DAILY RF: 0 cholecalciferol (vitamin D3) [Vitamin D3] 50 mcg (2,000 unit) Capsule 50 mcg PO DAILY RF: 0 Referrals / Follow Up: Wilver Browning MD [Primary Care Provider] - In 1 Week Disposition Disposition (needs filled in before D/C Order can be placed): Home, Self Care Charges/Coding Visit Charges Inpatient E&M: 34190 Disch Hosp
[2021-01-29] MEDS: predniSONE 20 MG Tablet 40 MG PO (09:46)
[2021-01-29] MEDS: amLODIPine 10 MG Tablet PO (09:47)
[2021-01-29] MEDS: Enoxaparin 40 MG/0.4 ML Syringe SC (09:47)
[2021-01-29] MEDS: Tolterodine Tartrate 4 MG CAP.SA PO (09:47)
[2021-01-29] MEDS: DULoxetine Hcl 60 MG Capsule PO (09:47)
[2021-01-29] MEDS: guaiFENesin 1,200 MG Tablet 1200 MG PO (09:47)
[2021-01-29] MEDS: hydroCHLOROthiazide 6.25mg TAB 6.25 MG PO (09:47)
[2021-01-29] MEDS: QUEtiapine 100 MG Tablet PO (09:48)
[2021-01-29] MEDS: carBAMazepine 200 MG Tablet 100 MG PO (09:48)
[2021-01-29] MEDS: Bisoprolol Fumarate 5 MG Tablet 2.5 MG PO (09:49)
[2021-01-29] MEDS: Azithromycin 250 MG Tablet 500 MG PO (09:50)
[2021-01-29] MEDS: Lisinopril 10 MG Tablet PO (09:50)
--- NOTE | 2021-01-29 11:47 | PHA.DC.MC ---
Pharmacy Service has performed discharge medication reconciliation and counseling for this patient. 1. GUAIFENESIN 1200MG PO BID X 5 DAYS 2. PREDNISONE 40MG PO DAILY X 3 DAYS The patient's discharge medication list was reviewed for discrepancies and discrepancies were resolved. Home Medications amlodipine 10 mg PO DAILY 10/26/13 carbamazepine 200 mg PO QHS 10/26/13 duloxetine 60 mg PO BID 10/26/13 quetiapine [Seroquel] 400 mg PO QHS 10/26/13 rosuvastatin 10 mg PO QHS 10/26/13 oxybutynin chloride 10 mg PO DAILY 02/12/17 albuterol sulfate 2.5 mg INHALATION Q4H PRN #30 vial.neb. 09/15/18 lisinopril 20 mg tablet 10 mg PO DAILY tab 07/15/19 acetaminophen 650 mg PO Q8H PRN 01/25/21 bisoprolol-hydrochlorothiazide 1 tab PO DAILY 01/25/21 carbamazepine 100 mg PO DAILY 01/25/21 cholecalciferol (vitamin D3) [Vitamin D3] 50 mcg PO DAILY 01/25/21 ibuprofen 800 mg PO DAILY 01/25/21 multivitamin 1 tab PO DAILY 01/25/21 guaifenesin [Mucus Relief ER] 1,200 mg PO BID #10 tab 01/29/21 prednisone 40 mg PO DAILY@0800 3 Days #6 tab 01/29/21 The patient was counseled on the following discharge medications and changes in medications for homegoing were reviewed. The Reason for Use, instructions for use, and potential side effects were reviewed for all new medications. The patient's questions regarding all of their medications were answered. The patient was able to verbally demonstrate an understanding of their discharge medications.
[2021-01-29] MEDS: Acetaminophen 325 MG Tablet 650 MG PO (13:18)
== END 2021-01-29 17:33 | disposition home or self-care (01) ==
LOC: ED 17:30 → MS3 17:47
PROVIDERS: Admitting Provider Internal Medicine; Emergency Provider Emergency Medicine; PCP Internal Medicine
DX: J44.1 Chronic obstructive pulmonary disease with (acute) exacerbation (principal); J44.0 Chronic obstructive pulmonary disease with (acute) lower respiratory infection; I10 Essential (primary) hypertension; F17.210 Nicotine dependence, cigarettes, uncomplicated; F31.9 Bipolar disorder, unspecified; Z86.718 Personal history of other venous thrombosis and embolism; Z79.899 Other long term (current) drug therapy; J20.6 Acute bronchitis due to rhinovirus
CPT/HCPCS: 36415; 71045; 80048; 83735; 84100; 85025; 85379; 87070; 87205; 87426; 87633; 87635; 93005; 94640; 94667; 94668; 94760; 94762; 96372; 96374; 96376; 99218; 99251; 99285; 99406; U0005; A4216; G0378; G0463; U0003

== ENCOUNTER 2022-06-19 15:52 | Emergency (ER) | payer MEDICARE, MEDICAID, SELFPAY ==
[2022-06-19 15:54] VITALS: BP 125/82; PULSE 82; RESP 18; TEMP 36.7; O2SAT 97; BMI 32.3
--- NOTE | 2022-06-19 17:12 | EDS_ITS ---
HPI History of Present Illness Chief Complaint: Chest Pain Informant: patient Onset/Context/Timing Onset: Days (3) Activity at onset: gradual and onset Timing: Continuous Quality: Positive for Aching Location: Right Chest (Radiating around toward the back on the right) Current Severity: Moderate Maximum Severity: Moderate Worsened By: Breathing Relieved By: Nothing Associated Symptoms: Positive for Dyspnea (Because it hurts); Negative for Nausea, Vomiting, Diaphoresis, Cough, Fever, Lightheadedness or Palpitations Narrative Narrative: Patient with gradual onset of progressively worsening pleuritic pain in her right hemithorax. She has a history of a DVT but it was a long time ago and she has been off of blood thinners for 1-2 years. No recent long travel, immobilization, hospitalization, surgery. No recent fall or injury. No history of heart attack or other cardiac abnormalities that she knows of. This being the case, she has congestive heart failure in her EMR, but her last ec hocardiogram did not appear to show congestive heart failure, this was in 2013. She does have COPD and has not felt flared up lately. She denies any recent illness. Does not feel like she has a cold or pneumonia. PE Risk Factors: Positive for Prior DVT or PE; Negative for Recent Travel/Surgery, Recent Immobilization, Cancer or OCP + Smoking + >/=35 PFSH PFSH Medical History Bipolar disorder Congestive heart failure (CHF) COPD (chronic obstructive pulmonary disease) DVT (deep venous thrombosis) Former smoker HTN (hypertension) Hypertension Kidney stones Leg fracture, left Rheumatoid arthritis Stroke/cerebrovascular accident Home Medications amlodipine 10 mg tablet 10 mg PO DAILY Hypertension 10/26/13 [History Last Taken 01/25/21] carbamazepine 200 mg tablet 200 mg PO QHS depression 10/26/13 [History Last Taken 01/24/21] duloxetine 60 mg capsule,delayed release 60 mg PO BID depression 10/26/13 [History Last Taken 01/25/21] quetiapine 200 mg tablet (Seroquel) 400 mg PO QHS sleep 10/26/13 [History Last Taken 01/24/21] rosuvastatin 10 mg tablet 10 mg PO QHS cholesterol 10/26/13 [History Last Taken 01/24/21] oxybutynin chloride 15 mg tablet,extended release 24 hr 10 mg PO DAILY Over active bladder 02/12/17 [History Last Taken 01/25/21] albuterol sulfate 2.5 mg/3 mL (0.083 %) solution for nebulization 2.5 mg (3 mL) inhalation Q4H PRN SHORTNESS OF BREATH ##30 09/15/18 [Rx Last Taken Unknown] lisinopril 20 mg tablet 10 mg PO DAILY hypertension 07/15/19 [History Last Taken 01/25/21] acetaminophen 650 mg tablet,extended release 650 mg PO Q8H PRN Pain 01/25/21 [History Last Taken Unknown] bisoprolol 2.5 mg-hydrochlorothiazide 6.25 mg tablet 1 tab PO DAILY 01/25/21 [History Last Taken Unknown] carbamazepine 100 mg chewable tablet 100 mg PO DAILY mental health 01/25/21 [H istory Last Taken 01/25/21] cholecalciferol (vitamin D3) 50 mcg (2,000 unit) capsule (Vitamin D3) 50 mcg PO DAILY supplement 01/25/21 [History Last Taken 01/25/21] ibuprofen 200 mg tablet 800 mg PO DAILY pain 01/25/21 [History Last Taken 01/25/21] multivitamin 1 tab PO DAILY supplement 01/25/21 [History Last Taken 01/25/21] guaifenesin 1,200 mg tablet, extended release 12 hr (Mucus Relief ER) 1,200 mg PO BID #10 tabs 01/29/21 [Rx Last Taken Unknown] prednisone 20 mg tablet 40 mg PO DAILY@0800 3 days #6 tabs 01/29/21 [Rx Last Taken Unknown] tramadol 50 mg tablet 50 mg PO Q6H PRN pain 3 days #12 tabs 06/19/22 [Rx Last Taken Unknown] Allergy/AdvReac Type Severity Reaction Status Date / Time aspirin Allergy Hives Verified 01/25/21 13:40 diphenhydramine HCl Allergy Anaphylaxis Verified 01/25/21 13:40 [From Benadryl] latex Allergy Rash Verified 01/25/21 13:40 meperidine [From Demerol] Allergy Swelling Verified 01/25/21 17:42 facial Penicillins Allergy Anaphylaxis Verified 01/25/21 13:40 Sulfa (Sulfonamide Allergy Rash Verified 01/25/21 17:42 Antibiotics) chlorpromazine AdvReac mental Verified 01/25/21 17:48 status change codeine AdvReac Vomiting Verified 01/25/21 13:40 haloperidol [From Haldol] AdvReac HALLUCINATI Verified 01/25/21 13:40 ONS meloxicam AdvReac Upset Verified 01/25/21 17:48 Stomach pentazocine AdvReac Vomiting Verified 01/25/21 17:48 promethazine HCl AdvReac hallucinati Verified 01/25/21 17:42 [From Phenergan] ons Family History Mother CAD (coronary artery disease) Kidney disease Grandmother CAD (coronary artery disease) Liver disease Father CVA (cerebral vascular accident) Surgical History History of cholecystectomy History of hysterectomy Social History Smoking Status: Current some day smoker tobacco type: cigarettes ROS ROS ED Constitutional Constitutional ED: Denies chills or fever(s) Eyes Eyes: Denies change in vision or diplopia ENT ENT ED: Denies rhinorrhea or sore throat Cardiovascular Cardiovascular: Reports chest pain; Denies palpitations Respiratory/Chest Respiratory/Chest: Reports dyspnea; Denies cough Gastrointestinal Gastrointestinal: Denies abdominal pain, diarrhea, nausea or vomiting Genitourinary Genitourinary ED: Denies dysuria or hematuria Musculoskeletal Musculoskeletal: Denies back pain or neck pain Integumentary Denies abscess or rash Neurologic Neurologic: Denies headache(s), paresthesias or weakness Psychiatric Psychiatric: Denies anxiety or suicidal thoughts EXAM Physical Exam Const Vital Signs: 06/19/22 15:54 06/19/22 16:01 06/19/22 18:07 Temperature 98.1 F Temperature Source Oral Pulse Rate 82 75 Respiratory Rate 18 16 Respiratory Effort Normal Blood Pressure 125/82 H 147/62 H Blood Pressure Mean 96 90 Pulse Ox 97 96 Oxygen Delivery Method Room Air Positive well nourished and well developed General Appearance ED: well developed and NAD HEENT Reports moist mucous membranes normocephalic and atraumatic Eyes PERRL and EOMs intact bilaterally Neck full ROM and supple Resp normal respiratory effort and clear to auscultation bilaterally Cardio regular rate, regular rhythm and no murmurs Rate: Negative for tachycardic GI non-tender and non-distended Auscultation: normoactive bowel sounds Palpation: soft Back/Spine no CVA tenderness General Back: other FROM Extremity normal to inspection Extremity Narrative: No calf tenderness. No palpable cords. General Extremety ED: Negative for edema, pulses abnormal or tenderness General Extremity: Negative for edema or pulses abnormal Neuro oriented x3, CN's II-XII intact bilaterally and no sensory deficits noted Sensorium / Orientation: awake and alert Motor Exam: strength 5/5 throughout Psych mental status grossly normal Skin no rashes or lesions noted and no wounds Heart Score History: Slightly/Non-Suspicious ECG: Normal Age: >/= 65 years Risk Factors: 1 or 2 Risk Factors Troponin: </= Normal Limit Score: 3 MDM MDM MDM Narrative Medical decision making narrative: This pain is very atypical for cardiac, but I did work her up for that in addition to pulmonary embolus since she has a history of a DVT and has not been anticoagulated for some time, and an x-ray 2 views were obtained and considering infectious etiologies, pneumothorax, other unanticipated abnormality such as mass or unusual infection. Her x-ray my interpretation is normal 2 views. Her EKG is normal. Her troponin is normal, her D-dimer is normal and the rest of her labs are unremarkable I gave her a small dose of Toradol she says it did not help a lot may be a little. She is comfortable and hemodynamically stable with unremarkable vital signs and no hypoxemia. My suspicion is this is pleurisy which I discussed with her. If it does not self-resolve or significantly improve within the next 5 days or so, I recommend close outpatient follow-up. She is comfortable with that plan, and states she has done well with tramadol in the past and has not been confused so she was given a dose of that here after we discussed options and she chose it, as well as a prescription. Lab Data Attestation: I reviewed the patient's lab results. Labs: Laboratory Results - last 24 hr 06/19/22 06/19/22 06/19/22 16:35 16:35 16:35 WBC 7.1 RBC 3.76 L Hgb 11.9 L Hct 36.0 L MCV 95.7 MCH 31.6 MCHC 33.1 RDW Std Deviation 41.3 RDW Coeff of Umair 11.8 Plt Count 298 MPV 10.1 Immature Gran % (Auto) 0.400 Neut % (Auto) 45.9 L Lymph % (Auto) 38.7 [place] % (Auto) 7.6 Eos % (Auto) 6.8 H Baso % (Auto) 0.6 Absolute Neuts (auto) 3.3 Absolute Lymphs (auto) 2.75 Nucleated RBC % 0 D-Dimer Quant (PE/DVT) Cancelled Sodium 140 Potassium 4.1 Chloride 108 H Carbon Dioxide 29.0 Anion Gap 3 L BUN 20 H Creatinine 0.87 Estim Creat Clear Calc 45.51 Est GFR (MDRD) Af Amer 82 Est GFR (MDRD) Non-Af 68 BUN/Creatinine Ratio 23.1 H Glucose 121 H Calcium 9.1 Troponin I High Sens 06/19/22 06/19/22 16:35 17:55 WBC RBC Hgb Hct MCV MCH MCHC RDW Std Deviation RDW Coeff of Umair Plt Count MPV Immature Gran % (Auto) Neut % (Auto) Lymph % (Auto) [place] % (Auto) Eos % (Auto) Baso % (Auto) Absolute Neuts (auto) Absolute Lymphs (auto) Nucleated RBC % D-Dimer Quant (PE/DVT) < 0.27 L Sodium Potassium Chloride Carbon Dioxide Anion Gap BUN Creatinine Estim Creat Clear Calc Est GFR (MDRD) Af Amer Est GFR (MDRD) Non-Af BUN/Creatinine Ratio Glucose Calcium Troponin I High Sens 5 Radiography Diagnostic Testing: Clinical Impression(s) from Imaging Studies Chest X-Ray 06/19/22 17:15 IMPRESSION: Normal x-ray examination of the chest. Electronically Signed: Silverio Santana MD at 17:29 EST , Rhythm Strip Rhythm Strip: Sinus Rhythm Rate: 75 Ectopy: None EKG Initial EKG: Attestation: I personally reviewed and interpreted this EKG as follows: Interpretation: Sinus Rhythm and No Acute Injury Pattern Comments: Normal EKG Prior EKG tracings: available for review Prior: Unchanged Discharge Plan Triage Chief Complaint: Chest Pain ED Provider: Sung Colmenares Dx/Rx/DC Orders Clinical Impression: Pleurisy, Painful respiration, Right-sided chest pain Instructions: ED Pleurisy Prescriptions: New tramadol 50 mg tablet 50 mg PO Q6H PRN (Reason: pain) 3 Days Qty: 12 0RF No Action quetiapine [Seroquel] 200 MG tablet 400 mg PO QHS Label Comments: MENTAL HEALTH carbamazepine 200 MG tablet 200 mg PO QHS Label Comments: MENTAL HEALTH amlodipine 10 MG tablet 10 mg PO DAILY Label Comments: BP rosuvastatin 10 MG tablet 10 mg PO QHS Label Comments: CHOLESTEROL duloxetine 60 MG capsule 60 mg PO BID Label Comments: MENTAL HEALTH lisinopril 20 mg tablet 10 mg PO DAILY Label Comments: BP oxybutynin chloride 15 MG tablet extended release 24hr 10 mg PO DAILY Label Comments: BLADDER albuterol sulfate 2.5 MG/3 ML solution for nebulization 2.5 mg inhalation Q4H PRN (Reason: SHORTNESS OF BREATH) Qty: 30 0RF bisoprolol-hydrochlorothiazide 2.5-6.25 mg tablet 1 tab PO DAILY ibuprofen 200 mg Tablet 800 mg PO DAILY multivitamin Tablet 1 tab PO DAILY acetaminophen 650 mg Tablet Extended Release 650 mg PO Q8H PRN (Reason: Pain) carbamazepine 100 mg tablet,chewable 100 mg PO DAILY cholecalciferol (vitamin D3) [Vitamin D3] 50 mcg (2,000 unit) Capsule 50 mcg PO DAILY Mucus Relief ER 1,200 mg Tablet Extended Release 12hr 1,200 mg PO BID Qty: 10 0RF prednisone 20 mg Tablet 40 mg PO DAILY@0800 3 Days Qty: 6 0RF Primary Care Provider: Wilver Browning Referrals: Wilver Browning MD [Primary Care Provider] - 1 Week if not improving Disposition Disposition: Home, Self Care
--- NOTE | 2022-06-19 17:15 | RAD_ITS ---
STUDY: X-RAY CHEST REASON FOR EXAM: Female, 76 years old. chest pain TECHNIQUE: Single AP portable view of the chest. COMPARISON: 01/25/2021 FINDINGS: The lungs are clear and expanded. There is no demonstrated pleural abnormality. Normal size heart. Normal mediastinum and erwin. Normal visualized pulmonary arteries. Normal visualized aortic arch and descending thoracic aorta. Normal visualized thoracic spine. Normal visualized ribs, clavicles, and shoulders. There is no demonstrated abnormality of the visualized soft tissue structures of the upper abdomen. RAD/Chest 1 View (Portable) IMPRESSION: Normal x-ray examination of the chest. Electronically Signed: Silverio Santana MD at 17:29 EST ,
[2022-06-19 17:46] LABS: Absolute Lymphocyte Count 2.75 X10^3/uL (0.83-4.51); Absolute Neutrophil Count 3.3 X10^3/uL (2.0-7.7); Basophil# 0.04 X10^3/uL; Basophil% 0.6 % (0-1); Eosinophil# 0.48 X10^3/uL; Eosinophils% 6.8 % (0-5); Hemoglobin 11.9 g/dL (12.0-15.0); Lymphocyte # 2.75 X10^3/ul (0.83-4.51); Lymphocyte % 38.7 % (19-41); Mean Corp Hgb Conc 33.1 g/dL (32-36); Mean Corpuscular Hgb 31.6 pg (27.0-32.0); Mean Corpuscular Volume 95.7 fL (81-99); Mean Platelet Vol. 10.1 fl (6.2-12.0); Monocyte# 0.54 X10^3/uL; Monocyte% 7.6 % (0-10); NRBC Flagged by Analyzer 0 % (0-5); Neutrophil # 3.27 X10^3/uL (2.7-7.7); Neutrophil % 45.9 % (47-70); Platelet Count 298 K/mm3 (150-450); RBC Distribution Width CV 11.8 % (11.6-14.6); RBC Distribution Width SD 41.3 fl (35.1-43.9); Red Blood Count 3.76 M/mm3 (4.2-5.4); White Blood Count 7.1 K/mm3 (4.4-11.0)
[2022-06-19] MEDS: Ketorolac 15 MG/ML Vial IV (17:48)
[2022-06-19 17:59] LABS: BUN 20 mg/dL (7-18); Creatinine, Serum 0.87 mg/dL (0.55-1.02); Estimated Creatinine Clearance 45.51 ml/min; Glucose 121 mg/dL (74-106)
[2022-06-19 18:00] LABS: Anion Gap 3 (5-15); BUN/Creat Ratio 23.1 RATIO (10-20); Calcium,Total 9.1 mg/dL (8.5-10.1); Chloride 108 mmol/L (98-107); EST Glomerular Filtration Rate 68 mL/min (>60); Est Glom Filt Rate - Afr Amer 82 mL/min (>60); Potassium 4.1 mmol/L (3.5-5.1); Sodium Level 140 mmol/L (136-145)
[2022-06-19 18:07] VITALS: BP 147/62; PULSE 75; RESP 16; O2SAT 96
[2022-06-19 18:34] LABS: D-Dimer Quantitative (DVT/PE) < 0.27 FEU/ug/m (0.27-0.49)
[2022-06-19 18:35] LABS: Troponin-I HS 5 pg/mL (3.0-54.0)
[2022-06-19] MEDS: traMADol 50 MG Tablet PO (19:55)
[2022-06-19 19:56] VITALS: BP 137/59; PULSE 75; RESP 18; O2SAT 98
== END 2022-06-19 20:12 | disposition home or self-care (01) ==
PROVIDERS: Emergency Provider Emergency Medicine; PCP Internal Medicine; Visit Provider Emergency Medicine
DX: R09.1 Pleurisy (principal); J44.9 Chronic obstructive pulmonary disease, unspecified; I11.0 Hypertensive heart disease with heart failure; I50.9 Heart failure, unspecified; F31.9 Bipolar disorder, unspecified; R07.81 Pleurodynia; F17.200 Nicotine dependence, unspecified, uncomplicated; Z86.73 Personal history of transient ischemic attack (TIA), and cerebral infarction without residual deficits; Z86.718 Personal history of other venous thrombosis and embolism
CPT/HCPCS: 71045; 80048; 84484; 85025; 85379; 93005; 96374; 99285; A4216

== ENCOUNTER 2022-09-22 17:39 | Emergency (ER) | payer MEDICARE, MEDICAID, SELFPAY ==
[2022-09-22 17:40] VITALS: BP 187/73; PULSE 92; RESP 18; TEMP 36.4; O2SAT 95; BMI 33.8
--- NOTE | 2022-09-22 18:22 | ED.VIS.LOWEX ---
HPI History of Present Illness HPI Narrative: Patient presents with right hip pain that began 1 week ago. Patient states that she fell at that time. Patient states she has been taking Tylenol and ibuprofen for the pain. Patient states her pain is worse with any ambulation or weightbearing. Patient describes the pain as sharp, aching, and stabbing. Patient admits to some tingling in her right hip. Patient denies any weakness. Patient denies any recent fevers or chills. Patient denies any head injury or loss of consciousness. Patient denies any other injuries. Chief Complaint: Lower Extremity Injury Informant: patient Occured/Mechanism Mechanism/Context: Yes fall Onset/Context/Timing Onset: Weeks (1) Context: Sudden Onset Timing: Continuous Quality of Pain: Sharp, Aching and Stabbing Location: Right hip Worsened by: Weightbearing and movement Relieved by: Nothing Associated Symptoms Associated Symptoms: Positive for Parasthesia (Tingling in right hip); Negative for Weakness or Loss of Funtion [facility] Medical History (Updated 09/22/22 @ 21:[address] Kemal Schwarz, ) Bipolar disorder Congestive heart failure (CHF) COPD (chronic obstructive pulmonary disease) DVT (deep venous thrombosis) Former smoker HTN (hypertension) Hypertension Kidney stones Leg fracture, left Rheumatoid arthritis Stroke/cerebrovascular accident Home Medications amlodipine 10 mg tablet 10 mg PO DAILY Hypertension 10/26/13 [History Last Taken 01/25/21] carbamazepine 200 mg tablet 200 mg PO QHS depression 10/26/13 [History Last Taken 01/24/21] duloxetine 60 mg capsule,delayed release 60 mg PO BID depression 10/26/13 [History Last Taken 01/25/21] quetiapine 200 mg tablet (Seroquel) 400 mg PO QHS sleep 10/26/13 [History Last Taken 01/24/21] rosuvastatin 10 mg tablet 10 mg PO QHS cholesterol 10/26/13 [History Last Taken 01/24/21] oxybutynin chloride 15 mg tablet,extended release 24 hr 10 mg PO DAILY Over active bladder 02/12/17 [History Last Taken 01/25/21] albuterol sulfate 2.5 mg/3 mL (0.083 %) solution for nebulization 2.5 mg (3 mL) inhalation Q4H PRN SHORTNESS OF BREATH ##30 09/15/18 [Rx Last Taken Unknown] lisinopril 20 mg tablet 10 mg PO DAILY hypertension 07/15/19 [History Last Taken 01/25/21] acetaminophen 650 mg tablet,extended release 650 mg PO Q8H PRN Pain 01/25/21 [History Last Taken Unknown] bisoprolol 2.5 mg-hydrochlorothiazide 6.25 mg tablet 1 tab PO DAILY 01/25/21 [History Last Taken Unknown] carbamazepine 100 mg chewable tablet 100 mg PO DAILY mental health 01/25/21 [History Last Taken 01/25/21] cholecalciferol (vitamin D3) 50 mcg (2,000 unit) capsule (Vitamin D3) 50 mcg PO DAILY supplement 01/25/21 [History Last Taken 01/25/21] ibuprofen 200 mg tablet 800 mg PO DAILY pain 01/25/21 [History Last Taken 01/25/21] multivitamin 1 tab PO DAILY supplement 01/25/21 [History Last Taken 01/25/21] guaifenesin 1,200 mg tablet, extended release 12 hr (Mucus Relief ER) 1,200 mg PO BID #10 tabs 01/29/21 [Rx Last Taken Unknown] prednisone 20 mg tablet 40 mg PO DAILY@0800 3 days #6 tabs 01/29/21 [Rx Last Taken Unknown] tramadol 50 mg tablet 50 mg PO Q6H PRN pain 3 days #12 tabs 06/19/22 [Rx Last Taken Unknown] tramadol 50 mg tablet 50 mg PO Q4H PRN PRN Pain 3 days #20 tabs 09/22/22 [Rx Last Taken Unknown] Allergy/AdvReac Type Severity Reaction Status Date / Time aspirin Allergy Hives Verified 09/22/22 17:44 diphenhydramine HCl Allergy Anaphylaxis Verified 09/22/22 17:44 [From Benadryl] latex Allergy Rash Verified 09/22/22 17:44 meperidine [From Demerol] Allergy Swelling Verified 09/22/22 17:44 facial Penicillins Allergy Anaphylaxis Verified 09/22/22 17:44 Sulfa (Sulfonamide Allergy Rash Verified 09/22/22 17:44 Antibiotics) chlorpromazine AdvReac mental Verified 09/22/22 17:44 status change codeine AdvReac Vomiting Verified 09/22/22 17:44 haloperidol [From Haldol] AdvReac HALLUCINATI Verified 09/22/22 17:44 ONS meloxicam AdvReac Upset Verified 09/22/22 17:44 Stomach pentazocine AdvReac Vomiting Verified 09/22/22 17:44 promethazine HCl AdvReac hallucinati Verified 09/22/22 17:44 [From Phenergan] ons Family History Mother CAD (coronary artery disease) Kidney disease Grandmother CAD (coronary artery disease) Liver disease Father CVA (cerebral vascular accident) Surgical History (Updated 09/22/22 @ 18:[address] Kemal Schwarz DO) History of cholecystectomy History of hysterectomy History of total left hip replacement Social History Smoking Status: Former smoker ROS ROS ED Constitutional Constitutional ED: Denies chills or fever(s) Eyes Eyes: Denies blurry vision or change in vision ENT ENT ED: Denies rhinorrhea or sore throat Cardiovascular Cardiovascular: Denies chest pain or palpitations Respiratory/Chest Respiratory/Chest: Denies cough or dyspnea Gastrointestinal Gastrointestinal: Denies nausea or vomiting Genitourinary Genitourinary ED: Denies dysuria or hematuria Musculoskeletal Musculoskeletal: Reports back pain; Denies neck pain Integumentary Denies abscess or rash Neurologic Neurologic: Denies headache(s) or weakness Allergic/Immunologic Allergic/Immunologic ED: Denies mouth swelling or urticaria EXAM Physical Exam Const Vital Signs: 09/22/22 17:40 Temperature 97.6 F L Temperature Source Temporal Pulse Rate 92 Respiratory Rate 18 Blood Pressure 187/73 H Blood Pressure Mean 111 Pulse Ox 95 Oxygen Delivery Method Room Air Positive well nourished and well developed General Appearance ED: well developed and NAD HEENT Reports moist mucous membranes Neck supple and no JVD Resp normal respiratory effort and clear to auscultation bilaterally Cardio regular rate, regular rhythm and no murmurs GI normal to inspection, nondistended, normoactive bowel sounds and non-tender Palpation: soft Extremity normal to inspection Extremity Narrative: There is tenderness over the right hip. There is some mild shortening of the right lower extremity. There is pain with internal and external rotation of the right lower extremity. Pedal pulses are equal bilaterally. Sensation was intact to light touch in all digits. Capillary refill was less than 2 seconds in all digits. General Extremety ED: Negative for edema or tenderness General Extremity: Negative for edema Neuro oriented x3, CN's II-XII intact bilaterally and no sensory deficits noted Sensorium / Orientation: alert Motor Exam: strength 5/5 throughout Psych mental status grossly normal Skin no rashes or lesions noted MDM MDM MDM Narrative Medical decision making narrative: Differential diagnosis includes hip fracture, pelvic fracture, contusion, and bursitis. X-rays of the right hip will be obtained to assess for fracture. Radiography Diagnostic Testing: Clinical Impression(s) from Imaging Studies Hip/Pelvis X-Ray 09/22/22 18:52 IMPRESSION: Degenerative findings of the right hip. Electronically Signed: Jose Griffith MD at 19:19 EDT , X-rays of the right hip and pelvis were obtained. There are 3 views. On my independent interpretation, there is no acute fracture noted. There are some degenerative changes noted. Radiologist also interpreted the x-rays and agrees. Treatment and Re-Evaluation Narrative: Patient was given a dose of tramadol here. Patient was advised of her findings. Patient was able to ambulate with a walker however, it was painful. Patient wants to go home. Patient was given a prescription for tramadol. Patient was given a prescription for a walker. Patient was instructed to use ice to the area. Patient was instructed to follow-up with her primary care physician in 3 to 5 days for reevaluation. Patient understood and was agreeable with the plan. All questions were answered. Discharge Plan Triage Chief Complaint: Lower Extremity Injury ED Provider: Kemal Schwarz Dx/Rx/DC Orders Clinical Impression: Contusion of right hip, initial encounter Instructions: ED Hip Contusion Prescriptions: New tramadol 50 mg tablet 50 mg PO Q4H PRN PRN (Reason: Pain) 3 Days Qty: 20 0RF No Action quetiapine [Seroquel] 200 MG tablet 400 mg PO QHS Label Comments: MENTAL HEALTH carbamazepine 200 MG tablet 200 mg PO QHS Label Comments: MENTAL HEALTH amlodipine 10 MG tablet 10 mg PO DAILY Label Comments: BP rosuvastatin 10 MG tablet 10 mg PO QHS Label Comments: CHOLESTEROL duloxetine 60 MG capsule 60 mg PO BID Label Comments: MENTAL HEALTH lisinopril 20 mg tablet 10 mg PO DAILY Label Comments: BP oxybutynin chloride 15 MG tablet extended release 24hr 10 mg PO DAILY Label Comments: BLADDER albuterol sulfate 2.5 MG/3 ML solution for nebulization 2.5 mg inhalation Q4H PRN (Reason: SHORTNESS OF BREATH) Qty: 30 0RF bisoprolol-hydrochlorothiazide 2.5-6.25 mg tablet 1 tab PO DAILY ibuprofen 200 mg Tablet 800 mg PO DAILY multivitamin Tablet 1 tab PO DAILY acetaminophen 650 mg Tablet Extended Release 650 mg PO Q8H PRN (Reason: Pain) carbamazepine 100 mg tablet,chewable 100 mg PO DAILY cholecalciferol (vitamin D3) [Vitamin D3] 50 mcg (2,000 unit) Capsule 50 mcg PO DAILY Mucus Relief ER 1,200 mg Tablet Extended Release 12hr 1,200 mg PO BID Qty: 10 0RF prednisone 20 mg Tablet 40 mg PO DAILY@0800 3 Days Qty: 6 0RF tramadol 50 mg tablet 50 mg PO Q6H PRN (Reason: pain) 3 Days Qty: 12 0RF Other Ambulatory Orders: Walker (Routine) Location: None Selected Ordered By: Dr. Kemal Schwarz Primary Care Provider: Wilver Browning Referrals: Wilver Browning MD [Primary Care Provider] - 3-5 Days Disposition Disposition: Home, Self Care
--- NOTE | 2022-09-22 18:52 | RAD_ITS ---
EXAM: XR RIGHT HIP WITH PELVIS WHEN PERFORMED, 2 OR 3 VIEWS CLINICAL INDICATION: Injury/Pain TECHNIQUE: Two or three views of the right hip with pelvis when performed. This report was created using [employer] report generation technology. COMPARISON: None. FINDINGS: BONES/JOINTS: Total left hip arthroplasty. Degenerative findings of the right hip. Degenerative findings of the lumbar spine. No displaced fracture. No destructive or sclerotic lesions. Note that overlapping bowel shadows may however obscure fine detail. Sacroiliac joint is unremarkable. No widening of the pubic symphysis. SOFT TISSUES: Unremarkable. No soft tissue swelling or gas. VASCULATURE: There are atherosclerotic vascular calcifications. RAD/HIP, UNI W/ Pelvis 2-3 Views IMPRESSION: Degenerative findings of the right hip. Electronically Signed: Jose Griffith MD at 19:19 EDT Reading Location ID and State: [facility] / [place] , Service support ,
[2022-09-22] MEDS: traMADol 50 MG Tablet PO (20:13)
[2022-09-22 23:06] VITALS: BP 145/67; PULSE 76; RESP 18; O2SAT 97
== END 2022-09-22 23:08 | disposition home or self-care (01) ==
PROVIDERS: Emergency Provider Emergency Medicine; PCP Internal Medicine; Visit Provider Emergency Medicine
DX: S70.01XA Contusion of right hip, initial encounter (principal); J44.9 Chronic obstructive pulmonary disease, unspecified; I11.0 Hypertensive heart disease with heart failure; I50.9 Heart failure, unspecified; F31.9 Bipolar disorder, unspecified; Z87.891 Personal history of nicotine dependence; W19.XXXA Unspecified fall, initial encounter; Z79.899 Other long term (current) drug therapy; Z86.73 Personal history of transient ischemic attack (TIA), and cerebral infarction without residual deficits; Z79.1 Long term (current) use of non-steroidal anti-inflammatories (NSAID); Z79.52 Long term (current) use of systemic steroids; Z86.718 Personal history of other venous thrombosis and embolism; Z96.642 Presence of left artificial hip joint
CPT/HCPCS: 73502; 99283

== ENCOUNTER 2023-09-19 13:13 | Inpatient (IN) | payer MEDICARE, MEDICAID, SELFPAY ==
[2023-09-19] VITALS (12 sets, daily range): BP systolic 93–151; BP diastolic 41–85; PULSE 54–112; RESP 16–24; TEMP 36.6–37.3; O2SAT 87–99; BMI 29.2
--- NOTE | 2023-09-19 13:27 | EKG12_ITS ---
Test Reason : SOB Blood Pressure : / mmHG Vent. Rate : 102 BPM Atrial Rate : 102 BPM P-R Int : 156 ms QRS Dur : 078 ms QT Int : 340 ms P-R-T Axes : 079 006 081 degrees QTc Int : 443 ms Sinus tachycardia Low voltage QRS Nonspecific ST abnormality Abnormal ECG Confirmed by Marshal Dailey ([id number]), design editor REYMUNDO OTTO ([id number]) on 09/22/2023 9:04:08 AM Referred By: Confirmed By:Marshal Dailey
--- NOTE | 2023-09-19 13:29 | EDS_ITS ---
HPI <JAMES Moran - Last Filed: 09/19/23 15:30> History of Present Illness Chief Complaint: Shortness of Breath Narrative Narrative: 77-year-old female with PMH of HTN, HLD, COPD states over the last 3 days she has had intermittent fever, sore throat, and productive cough. She has had gradually worsening dyspnea on exertion. Today she felt winded when walking to the bathroom and her daughter encouraged her to call EMS. She does not wear home oxygen. She states her nebulizer machine is broken and she does not have any inhalers. PFSH <JAMES Moran - Last Filed: 09/19/23 15:30> [facility] Medical History (Updated 09/19/23 @ 15:[address] Reddy Durbin MD) Bipolar disorder Congestive heart failure (CHF) COPD (chronic obstructive pulmonary disease) DVT (deep venous thrombosis) Former smoker HTN (hypertension) Hypertension Kidney stones Leg fracture, left Rheumatoid arthritis Stroke/cerebrovascular accident Home Medications amlodipine 10 mg tablet 10 mg PO DAILY Hypertension 10/26/13 [History Last Taken 01/25/21] carbamazepine 200 mg tablet 200 mg PO QHS depression 10/26/13 [History Last Ta lesley 01/24/21] duloxetine 60 mg capsule,delayed release 60 mg PO BID depression 10/26/13 [History Last Taken 01/25/21] quetiapine 200 mg tablet (Seroquel) 400 mg PO QHS sleep 10/26/13 [History Last Taken 01/24/21] rosuvastatin 10 mg tablet 10 mg PO QHS cholesterol 10/26/13 [History Last Taken 01/24/21] oxybutynin chloride 15 mg tablet,extended release 24 hr 10 mg PO DAILY Over active bladder 02/12/17 [History Last Taken 01/25/21] albuterol sulfate 2.5 mg/3 mL (0.083 %) solution for nebulization 2.5 mg (3 mL) inhalation Q4H PRN SHORTNESS OF BREATH ##30 09/15/18 [Rx Last Taken Unknown] lisinopril 20 mg tablet 10 mg PO DAILY hypertension 07/15/19 [History Last Taken 01/25/21] acetaminophen 650 mg tablet,extended release 650 mg PO Q8H PRN Pain 01/25/21 [History Last Taken Unknown] bisoprolol 2.5 mg-hydrochlorothiazide 6.25 mg tablet 1 tab PO DAILY 01/25/21 [History Last Taken Unknown] carbamazepine 100 mg chewable tablet 100 mg PO DAILY mental health 01/25/21 [History Last Taken 01/25/21] cholecalciferol (vitamin D3) 50 mcg (2,000 unit) capsule (Vitamin D3) 50 mcg PO DAILY supplement 01/25/21 [History Last Taken 01/25/21] ibuprofen 200 mg tablet 800 mg PO DAILY pain 01/25/21 [History Last Taken 01/25/21] multivitamin 1 tab PO DAILY supplement 01/25/21 [History Last Taken 01/25/21] guaifenesin 1,200 mg tablet, extended release 12 hr (Mucus Relief ER) 1,200 mg PO BID #10 tabs 01/29/21 [Rx Last Taken Unknown] prednisone 20 mg tablet 40 mg (2 x 20 mg) PO DAILY@0800 3 days #6 tabs 01/29/21 [Rx Last Taken Unknown] tramadol 50 mg tablet 50 mg PO Q6H PRN pain 3 days #12 tabs 06/19/22 [Rx Last Taken Unknown] tramadol 50 mg tablet 50 mg PO Q4H PRN PRN Pain 3 days #20 tabs 09/22/22 [Rx Last Taken Unknown] Allergy/AdvReac Type Severity Reaction Status Date / Time aspirin Allergy Hives Verified 09/19/23 13:21 diphenhydramine HCl Allergy Anaphylaxis Verified 09/19/23 13:21 [From Benadryl] latex Allergy Rash Verified 09/19/23 13:21 meperidine [From Demerol] Allergy Swelling Verified 09/19/23 13:21 facial Penicillins Allergy Anaphylaxis Verified 09/19/23 13:21 Sulfa (Sulfonamide Allergy Rash Verified 09/19/23 13:21 Antibiotics) chlorpromazine AdvReac mental Verified 09/19/23 13:21 status change codeine AdvReac Vomiting Verified 09/19/23 13:21 haloperidol [From Haldol] AdvReac HALLUCINATI Verified 09/19/23 13:21 ONS meloxicam AdvReac Upset Verified 09/19/23 13:21 Stomach pentazocine AdvReac Vomiting Verified 09/19/23 13:21 promethazine HCl AdvReac hallucinati Verified 09/19/23 13:21 [From Phenergan] ons Family History Mother CAD (coronary artery disease) Kidney disease Grandmother CAD (coronary artery disease) Liver disease Father CVA (cerebral vascular accident) Surgical History (Updated 09/22/22 @ 18:[address] Kemal Schwarz, DO) History of cholecystectomy History of hysterectomy History of total left hip replacement Social History Smoking Status: Former smoker ROS <JAMES Moran - Last Filed: 09/19/23 15:30> ROS ED ROS Narrative Constitutional: Positive for fever. CVS: Negative for chest pain. Respiratory: Positive for shortness of breath, cough. EXAM <JAMES Moran - Last Filed: 09/19/23 15:30> Physical Exam Narrative Exam Narrative: CONST: Patient sitting in no acute distress. EYES: Normal inspection. NECK: Normal inspection. RESP: Tachypneic around 24/minute, expiratory wheezing throughout. No retractions or accessory muscle use. CVS: Regular rate and rhythm, no murmur, no gallop. SKIN: Color normal, no rash, warm, dry, intact. EXTREMITIES: Normal appearance, no pedal edema. NEURO: Oriented and answering questions appropriately. PSYCH: Normal affect. Const Vital Signs: 09/19/23 13:14 09/19/23 13:14 09/19/23 13:22 Temperature 99.1 F 99.1 F Temperature Source Oral Oral Pulse Rate 112 H 112 H Respiratory Rate 20 H 18 Respiratory Effort Short of Breath Respiratory Depth Shallow Respiratory Pattern Blood Pressure 147/51 H 147/51 H Blood Pressure Mean 83 83 Pulse Ox 93 93 Oxygen Delivery Method Room Air Room Air Room Air Oxygen Flow Rate (L/min) 09/19/23 13:41 09/19/23 13:41 09/19/23 13:59 Temperature Temperature Source Pulse Rate 106 H Respiratory Rate 22 H Respiratory Effort Respiratory Depth Respiratory Pattern Tachypnea Blood Pressure Blood Pressure Mean Pulse Ox 92 87 Oxygen Delivery Method Nasal Cannula Room Air Oxygen Flow Rate (L/min) 3 09/19/23 13:59 09/19/23 15:14 Temperature 98.9 F Temperature Source Temporal Pulse Rate 109 H Respiratory Rate 16 Respiratory Effort Respiratory Depth Respiratory Pattern Blood Pressure 151/41 H Blood Pressure Mean 77 Pulse Ox 95 96 Oxygen Delivery Method Nasal Cannula Oxygen Flow Rate (L/min) 3 <Dr. Reddy Durbin MD - Last Filed: 09/19/23 15:50> Physical Exam Const Vital Signs: 09/19/23 13:14 09/19/23 13:14 09/19/23 13:22 Temperature 99.1 F 99.1 F Temperature Source Oral Oral Pulse Rate 112 H 112 H Respiratory Rate 20 H 18 Respiratory Effort Short of Breath Respiratory Depth Shallow Respiratory Pattern Blood Pressure 147/51 H 147/51 H Blood Pressure Mean 83 83 Pulse Ox 93 93 Oxygen Delivery Method Room Air Room Air Room Air Oxygen Flow Rate (L/min) 09/19/23 13:41 09/19/23 13:41 09/19/23 13:59 Temperature Temperature Source Pulse Rate 106 H Respiratory Rate 22 H Respiratory Effort Respiratory Depth Respiratory Pattern Tachypnea Blood Pressure Blood Pressure Mean Pulse Ox 92 87 Oxygen Delivery Method Nasal Cannula Room Air Oxygen Flow Rate (L/min) 3 09/19/23 13:59 09/19/23 15:14 Temperature 98.9 F Temperature Source Temporal Pulse Rate 109 H Respiratory Rate 16 Respiratory Effort Respiratory Depth Respiratory Pattern Blood Pressure 151/41 H Blood Pressure Mean 77 Pulse Ox 95 96 Oxygen Delivery Method Nasal Cannula Oxygen Flow Rate (L/min) 3 MDM <JAMES Moran - Last Filed: 09/19/23 15:30> [facility] MDM Narrative Medical decision making narrative: History gathered from: Patient and EMS Differential: COPD exacerbation, viral URI, pneumonia Patient has 3 days of subjective fever, sore throat, productive cough and dyspnea. History of COPD. She does not wear home O2. She is mildly tachycardic and tachypneic and has diffuse expiratory wheezing on exam. She was treated with IV Solu-Medrol and aerosols. Labs show white count of 11.5, chronic anemia at 11.6, potassium of 3.2 and mild elevation of creatinine 1.29 (previously 0.87). She was given IV fluids and p.o. potassium. CXR shows no acute process and COVID/flu/RSV swab is negative. Patient dropped to 79% on room air with ambulation was placed on 3 L nasal cannula. Case will be discussed with hospitalist for admission for COPD exacerbation. Lab Data Attestation: I reviewed the patient's lab results. Labs: Laboratory Results - last 24 hr 09/19/23 13:48 WBC 11.5 H RBC 3.69 L Hgb 11.6 L Hct 34.7 L MCV 94.0 MCH 31.4 MCHC 33.4 RDW Std Deviation 43.1 RDW Coeff of Umair 12.6 Plt Count 224 MPV 10.1 Immature Gran % (Auto) 0.600 Neut % (Auto) 72.9 H Lymph % (Auto) 15.8 L Carolina % (Auto) 9.3 Eos % (Auto) 1.1 Baso % (Auto) 0.3 Absolute Neuts (auto) 8.4 H Absolute Lymphs (auto) 1.82 Nucleated RBC % 0 Sodium 136 Potassium 3.2 L Chloride 106 Carbon Dioxide 21.0 Anion Gap 9 BUN 22 H Creatinine 1.29 H Estim Creat Clear Calc 34.03 Est GFR (MDRD) Af Amer 51 L Est GFR (MDRD) Non-Af 43 L BUN/Creatinine Ratio 17.1 Glucose 141 H Calcium 9.8 Radiography Diagnostic Testing: Clinical Impression(s) from Imaging Studies Chest X-Ray 09/19/23 14:31 IMPRESSION: No radiographic evidence of acute cardiopulmonary disease. Electronically Signed: Krunal Alvarado MD at 14:47 EDT , ED attending interpretation of 2-view chest x-ray shows normal heart size, no acute infiltrate, edema, or effusion. <Dr. Reddy Durbin MD - Last Filed: 09/19/23 15:50> [facility] MDM Narrative Medical decision making narrative: History gathered from: Patient and EMS Differential: COPD exacerbation, viral URI, pneumonia Patient has 3 days of subjective fever, sore throat, productive cough and dyspnea. History of COPD. She does not wear home O2. She is mildly tachycardic and tachypneic and has diffuse expiratory wheezing on exam. She was treated with IV Solu-Medrol and aerosols. Labs show white count of 11.5, chronic anemia at 11.6, potassium of 3.2 and mild elevation of creatinine 1.29 (previously 0.87). She was given IV fluids and p.o. potassium. CXR shows no acute process and COVID/flu/RSV swab is negative. Patient dropped to 79% on room air with ambulation was placed on 3 L nasal cannula. Case will be discussed with hospitalist for admission for COPD exacerbation. I have personally performed a face to face assessment of the patient and have reviewed the ALEN Note. I performed a substantive portion of the visit including all aspects of the following. My de dios findings include: History is remarkable history of COPD. Patient not on oxygen. Patient had increased shortness of breath productive cough without hemoptysis. Patient states she cannot walk across the room without becoming short of breath and gasping for breath. She denies fever or chills. She denies ill contacts to her knowledge. Denies history of PE but does have history of DVT. Denies leg pain, swelling discoloration. Exam is is remarkable for patient being tachycardic tachypneic with use of accessory muscles. She has audible wheezing. Breath sounds are symmetric. Heart is rapid and regular. Abdomen is soft nontender. There is no asymmetry of the lower extremities, discoloration, leg vein distention, palpable cords since on the distribution deep venous system. Medical Decision Making differential diagnosis would include pneumonia, exacerbated COPD, pneumothorax doubt PE. Atypical presentation for CHF. Of note there is no history of CHF. Other additions or changes: Since patient desaturated 79% walking from her room to the restroom hospitalist was called for admission. Lab Data Labs: Laboratory Results - last 24 hr 09/19/23 13:48 WBC 11.5 H RBC 3.69 L Hgb 11.6 L Hct 34.7 L MCV 94.0 MCH 31.4 MCHC 33.4 RDW Std Deviation 43.1 RDW Coeff of Umair 12.6 Plt Count 224 MPV 10.1 Immature Gran % (Auto) 0.600 Neut % (Auto) 72.9 H Lymph % (Auto) 15.8 L Carolina % (Auto) 9.3 Eos % (Auto) 1.1 Baso % (Auto) 0.3 Absolute Neuts (auto) 8.4 H Absolute Lymphs (auto) 1.82 Nucleated RBC % 0 Sodium 136 Potassium 3.2 L Chloride 106 Carbon Dioxide 21.0 Anion Gap 9 BUN 22 H Creatinine 1.29 H Estim Creat Clear Calc 34.03 Est GFR (MDRD) Af Amer 51 L Est GFR (MDRD) Non-Af 43 L BUN/Creatinine Ratio 17.1 Glucose 141 H Calcium 9.8 Radiography Diagnostic Testing: Clinical Impression(s) from Imaging Studies Chest X-Ray 09/19/23 14:31 IMPRESSION: No radiographic evidence of acute cardiopulmonary disease. Electronically Signed: Krunal Alvarado MD at 14:47 EDT , Discharge Plan Triage Chief Complaint: Shortness of Breath ED Midlevel Provider: Katharine Mccormack ED Provider: Reddy Durbin Dx/Rx/DC Orders Clinical Impression: Acute exacerbation of chronic obstructive pulmonary disease, HLD (hyperlipidemia), Hypothyroidism, Acute hypoxic respiratory failure, Acute bronchospasm Primary Care Provider: Wilver Browning Disposition Disposition: Acute Care Hospital [facility]
[2023-09-19] MEDS: Ipratropium/Albuterol Sulfate 3 ML AMPUL.NEB INHALATION (13:41)
[2023-09-19] MEDS: MethylPREDNISolone 125 MG/2 ML Vial IV (13:56)
[2023-09-19 14:05] LABS: Absolute Lymphocyte Count 1.82 X10^3/uL (0.83-4.51); Absolute Neutrophil Count 8.4 X10^3/uL (2.0-7.7); Basophil# 0.04 X10^3/uL; Basophil% 0.3 % (0-1); Eosinophil# 0.13 X10^3/uL; Eosinophils% 1.1 % (0-5); Hematocrit 34.7 % (37-47); Hemoglobin 11.6 g/dL (12.0-15.0); Lymphocyte # 1.82 X10^3/ul (0.83-4.51); Lymphocyte % 15.8 % (19-41); Mean Corp Hgb Conc 33.4 g/dL (32-36); Mean Corpuscular Hgb 31.4 pg (27.0-32.0); Mean Platelet Vol. 10.1 fl (6.2-12.0); Monocyte# 1.07 X10^3/uL; Monocyte% 9.3 % (0-10); NRBC Flagged by Analyzer 0 % (0-5); Neutrophil # 8.38 X10^3/uL (2.7-7.7); Neutrophil % 72.9 % (47-70); Platelet Count 224 K/mm3 (150-450); RBC Distribution Width CV 12.6 % (11.6-14.6); RBC Distribution Width SD 43.1 fl (35.1-43.9); Red Blood Count 3.69 M/mm3 (4.2-5.4); White Blood Count 11.5 K/mm3 (4.4-11.0)
[2023-09-19 14:13] LABS: Anion Gap 9 (5-15); BUN 22 mg/dL (7-18); BUN/Creat Ratio 17.1 RATIO (10-20); Calcium,Total 9.8 mg/dL (8.5-10.1); Chloride 106 mmol/L (98-107); Creatinine, Serum 1.29 mg/dL (0.55-1.02); EST Glomerular Filtration Rate 43 mL/min (>60); Est Glom Filt Rate - Afr Amer 51 mL/min (>60); Estimated Creatinine Clearance 34.03 ml/min; Glucose 141 mg/dL (74-106); Potassium 3.2 mmol/L (3.5-5.1); Sodium Level 136 mmol/L (136-145)
--- NOTE | 2023-09-19 14:31 | RAD_ITS ---
INDICATION: dyspnea EXAMINATION/TECHNIQUE: X-RAY - XR Chest 2 Views COMPARISON: Prior study dated: 06/19/2022 FINDINGS: LINES/DEVICES: None. LUNGS: No consolidation, edema or effusion. No pneumothorax. MEDIASTINUM AND CARDIOVASCULAR STRUCTURES: Cardiac silhouette not enlarged. Central airways and mediastinal contour are unremarkable. BONES AND SOFT TISSUES: Unremarkable. RAD/Chest PA and Lateral IMPRESSION: No radiographic evidence of acute cardiopulmonary disease. Electronically Signed: Krunal Alvarado MD at 14:47 EDT ,
[2023-09-19] MEDS: 0.9% Normal Saline (500mL Bag) 500 ML 999 ML IV (15:07)
[2023-09-19] MEDS: Potassium Chloride Oral Tablet 20 MEQ 40 MEQ PO (15:07)
--- NOTE | 2023-09-19 15:54 | HP.PCM.HOS_ITS ---
HPI - General General Date of Admission: 09/19/23 Date of Service: 09/19/23 Chief Complaint: COPD exacerbation HPI Narrative DEON REYNAGA, is a 77 F with history of hypertension, COPD, depression, insomnia, dyslipidemia, Prior CVA, urinary incontinence secondary to hyperactive bladder,who presents to the ED with concerns of worsening shortness of breath since the last 2 days Around 2 days back she had 1 episode of fever followed by cough with expectoration. The expectorant is mostly yellow/green in color not foul- smelling and not blood-tinged. This is associated with significant shortness of breath, it worsens while laying supine. No other positional variations in her breathing is noted. She had a similar episode many years ago. No history of recent hospitalization or intubation because of her COPD. She is on albuterol nebulization at home but her machine broke down and she does not have a and additional therapy for the last 2 days. At the time of presentation in the ED she was short of breath, and desaturated to 79% while ambulating. She was given IV methylprednisone 120 mg and nebulization therapy, with this she is feeling a bit better now. [facility] Medical History (Updated 09/19/23 @ 15:[address] Reddy Durbin MD) Bipolar disorder Congestive heart failure (CHF) COPD (chronic obstructive pulmonary disease) DVT (deep venous thrombosis) Former smoker HTN (hypertension) Hypertension Kidney stones Leg fracture, left Rheumatoid arthritis Stroke/cerebrovascular accident Home Medications amlodipine 10 mg tablet 10 mg PO DAILY Hypertension 10/26/13 [History Last Taken 01/25/21] carbamazepine 200 mg tablet 200 mg PO QHS depression 10/26/13 [History Last Taken 01/24/21] duloxetine 60 mg capsule,delayed release 60 mg PO BID depression 10/26/13 [History Last Taken 01/25/21] quetiapine 200 mg tablet (Seroquel) 400 mg PO QHS sleep 10/26/13 [History Last Taken 01/24/21] rosuvastatin 10 mg tablet 10 mg PO QHS cholesterol 10/26/13 [History Last Taken 01/24/21] oxybutynin chloride 15 mg tablet,extended release 24 hr 10 mg PO DAILY Over active bladder 02/12/17 [History Last Taken 01/25/21] albuterol sulfate 2.5 mg/3 mL (0.083 %) solution for nebulization 2.5 mg (3 mL) inhalation Q4H PRN SHORTNESS OF BREATH ##30 09/15/18 [Rx Last Taken Unknown] lisinopril 20 mg tablet 10 mg PO DAILY hypertension 07/15/19 [History Last Taken 01/25/21] acetaminophen 650 mg tablet,extended release 650 mg PO Q8H PRN Pain 01/25/21 [History Last Taken Unknown] bisoprolol 2.5 mg-hydrochlorothiazide 6.25 mg tablet 1 tab PO DAILY 01/25/21 [History Last Taken Unknown] carbamazepine 100 mg chewable tablet 100 mg PO DAILY mental health 01/25/21 [History Last Taken 01/25/21] cholecalciferol (vitamin D3) 50 mcg (2,000 unit) capsule (Vitamin D3) 50 mcg PO DAILY supplement 01/25/21 [History Last Taken 01/25/21] ibuprofen 200 mg tablet 800 mg PO DAILY pain 01/25/21 [History Last Taken 01/25/21] multivitamin 1 tab PO DAILY supplement 01/25/21 [History Last Taken 01/25/21] guaifenesin 1,200 mg tablet, extended release 12 hr (Mucus Relief ER) 1,200 mg PO BID #10 tabs 01/29/21 [Rx Last Taken Unknown] prednisone 20 mg tablet 40 mg (2 x 20 mg) PO DAILY@0800 3 days #6 tabs 01/29/21 [Rx Last Taken Unknown] tramadol 50 mg tablet 50 mg PO Q6H PRN pain 3 days #12 tabs 06/19/22 [Rx Last Taken Unknown] tramadol 50 mg tablet 50 mg PO Q4H PRN PRN Pain 3 days #20 tabs 09/22/22 [Rx Last Taken Unknown] Allergy/AdvReac Type Severity Reaction Status Date / Time aspirin Allergy Hives Verified 09/19/23 13:21 diphenhydramine HCl Allergy Anaphylaxis Verified 09/19/23 13:21 [From Benadryl] latex Allergy Rash Verified 09/19/23 13:21 meperidine [From Demerol] Allergy Swelling Verified 09/19/23 13:21 facial Penicillins Allergy Anaphylaxis Verified 09/19/23 13:21 Sulfa (Sulfonamide Allergy Rash Verified 09/19/23 13:21 Antibiotics) chlorpromazine AdvReac mental Verified 09/19/23 13:21 status change codeine AdvReac Vomiting Verified 09/19/23 13:21 haloperidol [From Haldol] AdvReac HALLUCINATI Verified 09/19/23 13:21 ONS meloxicam AdvReac Upset Verified 09/19/23 13:21 Stomach pentazocine AdvReac Vomiting Verified 09/19/23 13:21 promethazine HCl AdvReac hallucinati Verified 09/19/23 13:21 [From Phenergan] ons Family History Mother CAD (coronary artery disease) Kidney disease Grandmother CAD (coronary artery disease) Liver disease Father CVA (cerebral vascular accident) Surgical History (Updated 09/22/22 @ 18:[address] Kemal Schwarz DO) History of cholecystectomy History of hysterectomy History of total left hip replacement Social History Smoking Status: Former smoker ROS Review of Systems ROS Unobtainable: Denies due to encephalopathy, due to endotracheal tube, due to mental condition, due to mental status or other Constitutional Constitutional: Reports fever(s) and malaise Eyes Eyes: Denies blurry vision, change in eye color, change in vision, discharge from eye(s), double vision, erythema, eye pain, loss of vision or other ENT HEENT: Denies abnormal hearing, dysphagia, ear pain, epistaxis, headache(s), hearing loss, nasal congestion, nasal discharge, post nasal drip, sinus pressure, sore throat or other Cardiovascular Cardiovascular: Reports orthopnea; Denies chest pain, claudication, dyspnea on exertion, edema, lightheadedness, palpitations, paroxysmal nocturnal dyspnea, rapid heart rate, syncope or other Respiratory/Chest Respiratory/Chest: Reports cough, dyspnea, excessive phlegm production, productive cough, shortness of breath at rest, shortness of breath with exertion and wheezing Gastrointestinal Gastrointestinal: Reports abdominal pain; Denies coffee ground emesis, constipation, diarrhea, dyspepsia, hematemesis, hematochezia, loose stools, melena, nausea, vomiting or other Genitourinary Genitourinary: Denies burning urination, difficulty urinating, dysuria, hematuria, nocturia, urinary frequency, urinary hesitancy, urinary incontinence, urinary urgency or other Musculoskeletal Musculoskeletal: Denies arthralgias, back pain, joint pain, joint stiffness, joint swelling, myalgias, neck pain or other Neurologic Neurologic: Denies abnormal gait, abnormal speech, confusion, disequilibrium, dizziness, focal weakness, headache(s), numbness, paresthesias, seizure-like activity, seizures, syncope, tingling, tremor(s) or other Psychiatric Psychiatric: Denies anxiety, depression, homicidal ideation, suicidal ideation or other Endocrine Endocrinology: Denies change in body appearance, cold intolerance, excessive sweating, heat intolerance, polydipsia, polyuria or other Hematologic/Lymphatic Hematologic/Lymphatic: Denies anemia, easy bleeding, easy bruising, lymphadenopathy or other Allergic/Immunologic Allergic/Immunologic: Denies rhinitis, hives, eczemia, asthma or other Vital Signs Vital Signs Vital Signs: 09/19/23 13:14 09/19/23 13:14 09/19/23 13:22 Temperature 99.1 F 99.1 F Temperature Source Oral Oral Pulse Rate 112 H 112 H Respiratory Rate 20 H 18 Respiratory Effort Short of Breath Respiratory Depth Shallow Respiratory Pattern Blood Pressure 147/51 H 147/51 H Blood Pressure Mean 83 83 Pulse Ox 93 93 Oxygen Delivery Method Room Air Room Air Room Air Oxygen Flow Rate (L/min) 09/19/23 13:41 09/19/23 13:41 09/19/23 13:59 Temperature Temperature Source Pulse Rate 106 H Respiratory Rate 22 H Respiratory Effort Respiratory Depth Respiratory Pattern Tachypnea Blood Pressure Blood Pressure Mean Pulse Ox 92 87 Oxygen Delivery Method Nasal Cannula Room Air Oxygen Flow Rate (L/min) 3 09/19/23 13:59 09/19/23 15:14 Temperature 98.9 F Temperature Source Temporal Pulse Rate 109 H Respiratory Rate 16 Respiratory Effort Respiratory Depth Respiratory Pattern Blood Pressure 151/41 H Blood Pressure Mean 77 Pulse Ox 95 96 Oxygen Delivery Method Nasal Cannula Oxygen Flow Rate (L/min) 3 Weight Weight: 159 lb 9.835 oz Body Mass Index (BMI) 29.2 Physical Exam Const alert, oriented x3 and no apparent distress HEENT normocephalic and head/scalp atraumatic Eyes PERRL and EOMs intact bilaterally Neck no lymphadenopathy, supple and no JVD Resp Auscultation: rhonchi throughout and wheezes throughout Cardio regular rate and regular rhythm GI normal to inspection, nondistended, normoactive bowel sounds Extremity normal to inspection Neuro oriented x3 Sensorium / Orientation: awake and alert Psych affect normal Results Medical Records Data Attestation: I reviewed the patient's medical records Lab / Micro Data Lab results narrative: Leukocytosis, mild anemia, elevated BUN/creatinine, 09/19/23 13:48 09/19/23 13:48 Labs: Laboratory Results - last 24 hr 09/19/23 13:48: WBC 11.5 H, RBC 3.69 L, Hgb 11.6 L, Hct 34.7 L, MCV 94.0, MCH 31.4, MCHC 33.4, RDW Std Deviation 43.1, RDW Coeff of Umair 12.6, Plt Count 224, MPV 10.1, Immature Gran % (Auto) 0.600, Neut % (Auto) 72.9 H, Lymph % (Auto) 15.8 L, [place] % (Auto) 9.3, Eos % (Auto) 1.1, Baso % (Auto) 0.3, Absolute Neuts (auto) 8.4 H, Absolute Lymphs (auto) 1.82, Nucleated RBC % 0, Sodium 136, Potassium 3.2 L, Chloride 106, Carbon Dioxide 21.0, Anion Gap 9, BUN 22 H, Creatinine 1.29 H, Estim Creat Clear Calc 34.03, Est GFR (MDRD) Af Amer 51 L, Est GFR (MDRD) Non-Af 43 L, BUN/Creatinine Ratio 17.1, Glucose 141 H, Calcium 9.8 Micro: Microbiology 09/19/23 13:48 Mucosa - Nasopharyngeal SARS-CoV-2, Influenza & RSV (PCR) - Final Imaging Radiology Impression Chest X-Ray 09/19/23 14:31 IMPRESSION: No radiographic evidence of acute cardiopulmonary disease. Electronically Signed: Krunal Alvarado MD at 14:47 EDT , Assessment & Plan Assessment/Plan (1) COPD exacerbation: PLAN: Plan 77-year-old female with history of hypertension, COPD, depression presents to the ED with concerns of fever, shortness of breath, cough with expectoration for the last 2 days. Her symptoms are suggestive of COPD exacerbation and a concerning for desaturation with ambulation. She is being admitted for further evaluation and management. 1. COPD exacerbation: -Will start IV methylprednisone for 4 days followed by oral prednisone therapy -Albuterol therapy as needed every 4 hours -Azithromycin 500 mg for 5 days -Respiratory therapy -Bronchopulmonary hygiene -Close monitoring of saturation, target saturation 88 to 92% -Will check BMP just because of history of orthopnea, if elevated will get echocardiogram 2. LILIAM on CKD: BMP and creatinine is elevated, encourage oral hydration for now, given the concerns for orthopnea will hold off fluids for now. 3. Hypertension: Continue lisinopril, amlodipine bisoprolol hydrochlorothiazide therapy, continue to monitor 4. Depression: Continue home based therapy with duloxetine and carbamazepine 5. Insomnia continue home-based Seroquel 6. Urge incontinence: On oxybutynin continue therapy 7. DVT prophylaxis: Given the acute infection, immobilization moderate to high risk, enoxaparin therapy. Charges/Coding Visit Charges Inpatient E&M: 32246 Init Hosp L2
[2023-09-19 17:05] LABS: BNP,B-Type NATRIURETIC PEPTIDE 104.9 pg/mL (0-100)
[2023-09-19] MEDS: Azithromycin 250 MG Tablet 500 MG PO (18:26)
[2023-09-19] MEDS: Albuterol 2.5 MG/3 ML VIAL.NEB. INHALATION ×2 (20:34→23:41)
[2023-09-19] MEDS: guaiFENesin 1,200 MG Tablet 1200 MG PO (21:25)
[2023-09-19] MEDS: QUEtiapine 100 MG Tablet 400 MG PO (21:26)
[2023-09-19] MEDS: DULoxetine Hcl 60 MG Capsule PO (21:26)
[2023-09-19] MEDS: 0.9% Saline Lock 10 ML Syringe IV (21:26)
[2023-09-19] MEDS: carBAMazepine 200 MG Tablet PO (21:26)
[2023-09-19] MEDS: Atorvastatin Calcium 20 MG Tablet PO (21:26)
[2023-09-19] MEDS: Ensure Plus High Protein 120 ML LIQUID PO (21:37)
[2023-09-20] VITALS (10 sets, daily range): BP systolic 146–157; BP diastolic 48–79; PULSE 61–98; RESP 18–22; TEMP 36.4–36.9; O2SAT 95–98
[2023-09-20] MEDS: 0.9% Saline Lock 10 ML Syringe IV ×3 (05:21→21:43)
[2023-09-20 06:51] LABS: Absolute Lymphocyte Count 1.58 X10^3/uL (0.83-4.51); Absolute Neutrophil Count 7.3 X10^3/uL (2.0-7.7); Basophil# 0.02 X10^3/uL; Basophil% 0.2 % (0-1); Hematocrit 33.8 % (37-47); Hemoglobin 11.2 g/dL (12.0-15.0); Lymphocyte # 1.58 X10^3/ul (0.83-4.51); Lymphocyte % 16.6 % (19-41); Mean Corp Hgb Conc 33.1 g/dL (32-36); Mean Corpuscular Hgb 31.5 pg (27.0-32.0); Mean Corpuscular Volume 95.2 fL (81-99); Mean Platelet Vol. 10.2 fl (6.2-12.0); Monocyte# 0.57 X10^3/uL; NRBC Flagged by Analyzer 0 % (0-5); Neutrophil # 7.25 X10^3/uL (2.7-7.7); Neutrophil % 76.5 % (47-70); Platelet Count 224 K/mm3 (150-450); RBC Distribution Width CV 12.3 % (11.6-14.6); RBC Distribution Width SD 43.4 fl (35.1-43.9); Red Blood Count 3.55 M/mm3 (4.2-5.4); White Blood Count 9.5 K/mm3 (4.4-11.0)
[2023-09-20 06:56] LABS: International Normalized Ratio 1.4; Prothrombin Time (Protime)PT. 16.7 SECONDS (11.7-14.9)
[2023-09-20] MEDS: Ipratropium/Albuterol Sulfate 3 ML AMPUL.NEB INHALATION ×5 (07:03→23:14)
[2023-09-20 07:29] LABS: ALB/GLOB Ratio 0.9 RATIO (0.9-2.4); AST(SGOT) 21 U/L (15-37); Alanine Aminotransfer ALT/SGPT 29 U/L (13-56); Albumin, Serum 3.2 g/dL (3.2-5.0); Alkaline Phosphatase 92 U/L (45-117); Anion Gap 7 (5-15); BUN 23 mg/dL (7-18); BUN/Creat Ratio 23.3 RATIO (10-20); Bilirubin, Direct 0.19 mg/dL (0.00-0.30); Calcium,Total 9.7 mg/dL (8.5-10.1); Chloride 112 mmol/L (98-107); Creatinine, Serum 0.99 mg/dL (0.55-1.02); EST Glomerular Filtration Rate 58 mL/min (>60); Est Glom Filt Rate - Afr Amer 70 mL/min (>60); Estimated Creatinine Clearance 44.41 ml/min; Globulin 3.6 g/dL (2.2-4.2); Glucose 168 mg/dL (74-106); Magnesium 2.3 mg/dL (1.6-2.6); Phosphorus 2.6 mg/dL (2.5-4.9); Potassium 3.5 mmol/L (3.5-5.1); Protein, Total 6.8 g/dL (6.4-8.2); Sodium Level 138 mmol/L (136-145); Thyroid Stim Hormone (TSH) 0.64 uIU/mL (0.358-3.74)
[2023-09-20] MEDS: Azithromycin 250 MG Tablet 500 MG PO (10:16)
[2023-09-20] MEDS: Lisinopril 10 MG Tablet PO (10:16)
[2023-09-20] MEDS: Enoxaparin 40 MG/0.4 ML Syringe SC (10:16)
[2023-09-20] MEDS: guaiFENesin 1,200 MG Tablet 1200 MG PO ×2 (10:16→21:42)
[2023-09-20] MEDS: Ensure Plus High Protein 120 ML LIQUID PO ×2 (10:17→12:47)
[2023-09-20] MEDS: DULoxetine Hcl 60 MG Capsule PO ×2 (10:17→21:41)
[2023-09-20] MEDS: amLODIPine 10 MG Tablet PO (10:17)
[2023-09-20] MEDS: Bisoprolol Fumarate 5 MG Tablet 2.5 MG PO (10:17)
[2023-09-20] MEDS: hydroCHLOROthiazide 6.25mg TAB 6.25 MG PO (10:17)
[2023-09-20] MEDS: Tolterodine Tartrate 2 MG CAP.SA PO (10:17)
--- NOTE | 2023-09-20 11:51 | PN_ITS ---
Subjective Subjective Patient seen and examined. She complained of still feeling short of breath and says she had just gotten up and gone to the bathroom and that really wore her out made his shortness of breath worse. She is wheezing and admits to coughing. Review systems otherwise negative. She is tachycardic and on 2 L of oxygen. Objective Data Objective Data Vital Signs: Vital Signs Temp Pulse Resp BP Pulse Ox O2 Del Method O2 Flow Rate 97.8 F 68 22 H 146/79 H 97 Nasal Cannula 2 09/20/23 10:00 09/20/23 10:50 09/20/23 10:50 09/20/23 10:00 09/20/23 10:00 09/20/23 10:00 09/20/23 10:00 Oxygen Flow Rate (L/min) 2 Oxygen Delivery Method Nasal Cannula Weight: 160 lb 2 oz Body Mass Index (BMI) 29.2 Intake & Output: Intake and Output for Last 24 Hours 09/18/23 09/19/23 09/20/23 23:59 23:59 23:59 Intake Total 500 / 500 Balance 500 / 500 Lab / Micro Data 09/20/23 06:04 09/20/23 06:04 Labs: Laboratory Results - last 24 hr 09/19/23 13:48: WBC 11.5 H, RBC 3.69 L, Hgb 11.6 L, Hct 34.7 L, MCV 94.0, MCH 31.4, MCHC 33.4, RDW Std Deviation 43.1, RDW Coeff of Umair 12.6, Plt Count 224, MPV 10.1, Immature Gran % (Auto) 0.600, Neut % (Auto) 72.9 H, Lymph % (Auto) 15.8 L, [place] % (Auto) 9.3, Eos % (Auto) 1.1, Baso % (Auto) 0.3, Absolute Neuts (auto) 8.4 H, Absolute Lymphs (auto) 1.82, Nucleated RBC % 0, Sodium 136, Potassium 3.2 L, Chloride 106, Carbon Dioxide 21.0, Anion Gap 9, BUN 22 H, Creatinine 1.29 H, Estim Creat Clear Calc 34.03, Est GFR (MDRD) Af Amer 51 L, Est GFR (MDRD) Non-Af 43 L, BUN/Creatinine Ratio 17.1, Glucose 141 H, Calcium 9.8, B-Natriuretic Peptide 104.9 H 09/20/23 06:04: WBC 9.5, RBC 3.55 L, Hgb 11.2 L, Hct 33.8 L, MCV 95.2, MCH 31.5, MCHC 33.1, RDW Std Deviation 43.4, RDW Coeff of Umair 12.3, Plt Count 224, MPV 10.2, Immature Gran % (Auto) 0.700, Neut % (Auto) 76.5 H, Lymph % (Auto) 16.6 L, [place] % (Auto) 6.0, Eos % (Auto) 0.0, Baso % (Auto) 0.2, Absolute Neuts (auto) 7.3, Absolute Lymphs (auto) 1.58, Nucleated RBC % 0, PT 16.7 H, INR 1.4, Sodium 138, Potassium 3.5, Chloride 112 H, Carbon Dioxide 19.0 L, Anion Gap 7, BUN 23 H , Creatinine 0.99, Estim Creat Clear Calc 44.41, Est GFR (MDRD) Af Amer 70, Est GFR (MDRD) Non-Af 58 L, BUN/Creatinine Ratio 23.3 H, Glucose 168 H, Calcium 9.7, Phosphorus 2.6, Magnesium 2.3, Total Bilirubin 0.30, Direct Bilirubin 0.19, AST 21, ALT 29, Alkaline Phosphatase 92, Total Protein 6.8, Albumin 3.2, Globulin 3.6, Albumin/Globulin Ratio 0.9, TSH 0.64 Micro: Microbiology 09/19/23 13:48 Mucosa - Nasopharyngeal SARS-CoV-2, Influenza & RSV (PCR) - Final Radiography Diagnostic Testing: Radiology Impression Chest X-Ray 09/19/23 14:31 IMPRESSION: No radiographic evidence of acute cardiopulmonary disease. Electronically Signed: Krunal Alvarado MD at 14:47 EDT , Physical Exam Const alert, oriented x3 and no apparent distress General Appearance: cooperative HEENT head/scalp atraumatic, moist oral mucous membranes and oropharynx normal Eyes EOMs intact bilaterally Neck no lymphadenopathy and supple Lymph Lymphatic: no lymphadenopathy noted and no lymphedema noted Resp Resp Narrative: Moderately diminished breath sounds bibasilally. Bilateral wheezing and few crackles. On 2 L of oxygen. Cardio regular rate, regular rhythm, S1 normal heart sound, S2 normal heart sound and no murmurs GI normal to inspection, nondistended, normoactive bowel sounds, soft to palpation, non-tender and non-distended Extremity normal capillary refill, no clubbing, cyanosis or edema and no calf tenderness General Extremity: no tenderness to palpation of joints or extremities Skin General Skin Exam: no breakdown Neuro CN's II-XII intact bilaterally, no focal motor deficits, no sensory deficits noted and deep tendon reflexes 2+ bilaterally Motor Exam: strength 5/5 throughout and general weakness Psych thought process normal and cooperative Appearance: appropriate Assessment & Plan Assessment/Plan (1) COPD exacerbation: PLAN: Plan #Acute hypoxia due to acute exacerbation of COPD * On IV Solu-Medrol. Breathing treatments bronchodilators. On IV azithromycin. Titrate oxygen to maintain saturation above 90%. * Respiratory culture and Gram stain are pending. COVID and flu as well as RSV test were negative. Will check for full respiratory panel. * #LILIAM: Resolved. Creatinine was 1.29 on admission and is now down to 0.99. #Hypertension: On lisinopril, amlodipine and bisoprolol as well as hydrochloro thiazide. IV hydralazine as needed. #Depression: On duloxetine and carbamazepine. #History of insomnia: On Seroquel #History of urge incontinence: On oxybutynin DVT prophylaxis: Lovenox Charges/Coding Visit Charges Inpatient E&M: 22773 Subs Hosp L2
[2023-09-20] MEDS: QUEtiapine 100 MG Tablet 400 MG PO (21:42)
[2023-09-20] MEDS: carBAMazepine 200 MG Tablet PO (21:43)
[2023-09-20] MEDS: Atorvastatin Calcium 20 MG Tablet PO (21:50)
[2023-09-21] VITALS (9 sets, daily range): BP systolic 123–150; BP diastolic 47–78; PULSE 75–88; RESP 16–18; TEMP 36.1–36.6; O2SAT 95–98
[2023-09-21] MEDS: Ipratropium/Albuterol Sulfate 3 ML AMPUL.NEB INHALATION ×5 (03:45→19:02)
[2023-09-21 04:02] LABS: Absolute Lymphocyte Count 2.11 X10^3/uL (0.83-4.51); Absolute Neutrophil Count 8.7 X10^3/uL (2.0-7.7); Basophil# 0.02 X10^3/uL; Basophil% 0.2 % (0-1); Eosinophil# 0.01 X10^3/uL; Eosinophils% 0.1 % (0-5); Hematocrit 32.5 % (37-47); Lymphocyte # 2.11 X10^3/ul (0.83-4.51); Lymphocyte % 18.1 % (19-41); Mean Corp Hgb Conc 33.8 g/dL (32-36); Mean Corpuscular Hgb 32.5 pg (27.0-32.0); Mean Corpuscular Volume 96.2 fL (81-99); Mean Platelet Vol. 9.8 fl (6.2-12.0); Monocyte# 0.71 X10^3/uL; Monocyte% 6.1 % (0-10); NRBC Flagged by Analyzer 0 % (0-5); Neutrophil # 8.68 X10^3/uL (2.7-7.7); Neutrophil % 74.2 % (47-70); Platelet Count 250 K/mm3 (150-450); RBC Distribution Width CV 12.6 % (11.6-14.6); RBC Distribution Width SD 44.7 fl (35.1-43.9); Red Blood Count 3.38 M/mm3 (4.2-5.4); White Blood Count 11.7 K/mm3 (4.4-11.0)
[2023-09-21 04:21] LABS: Anion Gap 4 (5-15); BUN 28 mg/dL (7-18); BUN/Creat Ratio 35.2 RATIO (10-20); Calcium,Total 9.9 mg/dL (8.5-10.1); Chloride 113 mmol/L (98-107); EST Glomerular Filtration Rate 74 mL/min (>60); Est Glom Filt Rate - Afr Amer 90 mL/min (>60); Estimated Creatinine Clearance 54.96 ml/min; Glucose 164 mg/dL (74-106); Potassium 4.4 mmol/L (3.5-5.1); Sodium Level 139 mmol/L (136-145)
[2023-09-21] MEDS: 0.9% Saline Lock 10 ML Syringe IV ×3 (04:56→21:56)
[2023-09-21] MEDS: Azithromycin 250 MG Tablet 500 MG PO (09:10)
[2023-09-21] MEDS: DULoxetine Hcl 60 MG Capsule PO ×2 (09:10→21:55)
[2023-09-21] MEDS: Lisinopril 10 MG Tablet PO (09:10)
[2023-09-21] MEDS: Tolterodine Tartrate 2 MG CAP.SA PO (09:11)
[2023-09-21] MEDS: guaiFENesin 1,200 MG Tablet 1200 MG PO ×2 (09:11→21:55)
[2023-09-21] MEDS: Bisoprolol Fumarate 5 MG Tablet 2.5 MG PO (09:11)
[2023-09-21] MEDS: amLODIPine 10 MG Tablet PO (09:11)
[2023-09-21] MEDS: Enoxaparin 40 MG/0.4 ML Syringe SC (09:11)
[2023-09-21] MEDS: hydroCHLOROthiazide 6.25mg TAB 6.25 MG PO (09:11)
--- NOTE | 2023-09-21 11:07 | CASEMGMT ---
GRACE DAVIS Assessment: Face to Face with pt for initial transition planning/care coordination assessment. GRACE DAVIS introduced self and role at [facility], pt voices understanding and consents to assessment. Pt is A&O x4 and answers all questions appropriately at this time. Pt lying in bed in no distress with oxygen on. Pt talking to her dtr on the phone and left her on speakerphone for assessment. Care providers, pharmacy, and demographics verified/updated. Admitting Dx: COPD exac PCP:Nam Specialists:Emily, psych; Emperatriz Pierce, counselor Preferred Pharmacy: [facility] Insurance: [facility]; [facility] Prescription Benefit: yes LNOK: Cary Gudino, dtr Living Arrangements: Pt lives alone in a ground level apt with no steps to enter. Pt reports she is I in ADL's and denies concerns at home. Transportation: Pt drives self and denies concerns with transportation. DME:cane, rollator- does not use; raised toilet seat, pox, shower chair, new nebulizer HHC/SNF: Pt is active with [facility] 3x/wk, denies HHC or SNF stays Pt states no concerns with going home at time of dc. Discussed having a SN in the home to monitor resp status, pt agreeable. Pt would like [facility] and denies need for list as she states they are affiliated with her current aides. Pt states her son in law's mother had a new in the box nebulizer that she will not use and this was brought to the patient for her use. She states hers recently broke. Discussed local in network DME companies should pt need oxygen upon dc, pt chooses [employer]. She states she has used them in the past. Pt states no further concerns/needs. CM to follow. Advised pt to ask CM if any further question/concerns/needs arise, voices understanding. Pt Goal: Home with HHC Plan: Home with HHC, follow for oxygen Referral sent to [facility] at this time via [facility], will await acceptance. Leona EDWARDS CM
--- NOTE | 2023-09-21 11:43 | PN.HOSP_ITS ---
Reason for Visit Reason for Visit: Diagnoses Chronic obstructive pulmonary disease with (acute) exacerbation (09/19/23) Subjective Subjective Patient admitted on 09/18 for worsening shortness of breath at rest and with exertion. Has history of COPD not on home O2. She is generally very functional at baseline, lives at home by self and is able to do all things around the house for herself without issue. Had a similar episode treated as a COPD exacerbation a few years ago, no further episodes since then. Noted that her albuterol nebulizer had broken and she was unable to use this for the few days leading up to admission. Infectious workup was negative and chest x-ray was fairly benign, but clinically patient's symptoms were consistent with a COPD exacerbation secondary to either a viral or bacterial etiology so she was started on IV steroids, scheduled DuoNebs and antibiotics. Patient seen at bedside this morning. She was sitting up comfortably bedside chair, conversing normally, in no acute distress. She was breathing comfortably on 2 L nasal cannula at rest. Patient states her shortness of breath on exertion has mildly improved but is significantly worse than her baseline. On exam, patient does have very notable wheezing bilaterally and had a significant cough with any deep breaths. No sputum production noted. She had not had a DuoNeb treatment for about 5 to 6 hours when I saw her. States the DuoNeb treatments have not helpful for her. She otherwise denies any fevers or chills, chest pain, abdominal pain or discomfort. Has had a fairly good appetite. She is planning to go home on discharge with home health care as needed, and her daughter is going to stay with her after discharge. No other acute concerns this morning. Objective Data Objective Data Vital Signs: Vital Signs Temp Pulse Resp BP Pulse Ox O2 Del Method O2 Flow Rate 97.3 F L 88 18 127/59 H 95 Nasal Cannula 2 09/21/23 09:03 09/21/23 09:03 09/21/23 09:03 09/21/23 09:03 09/21/23 09:03 09/21/23 09:06 09/21/23 09:06 Oxygen Flow Rate (L/min) 2 Oxygen Delivery Method Nasal Cannula Weight: 72.631 kg Body Mass Index (BMI) 29.2 Intake & Output: Intake and Output for Last 24 Hours 09/19/23 09/20/23 09/21/23 23:59 23:59 23:59 Intake Total 500 / 500 Balance 500 / 500 Lab / Micro Data 09/21/23 03:38 09/21/23 03:38 Labs: Laboratory Results - last 24 hr 09/21/23 03:38: WBC 11.7 H, RBC 3.38 L, Hgb 11.0 L, Hct 32.5 L, MCV 96.2, MCH 3 2.5 H, MCHC 33.8, RDW Std Deviation 44.7 H, RDW Coeff of Umair 12.6, Plt Count 250, MPV 9.8, Immature Gran % (Auto) 1.300 H, Neut % (Auto) 74.2 H, Lymph % (Auto) 18.1 L, [place] % (Auto) 6.1, Eos % (Auto) 0.1, Baso % (Auto) 0.2, Absolute Neuts (auto) 8.7 H, Absolute Lymphs (auto) 2.11, Nucleated RBC % 0, Sodium 139, Potassium 4.4, Chloride 113 H, Carbon Dioxide 22.0, Anion Gap 4 L, BUN 28 H, Creatinine 0.80, Estim Creat Clear Calc 54.96, Est GFR (MDRD) Af Amer 90, Est GFR (MDRD) Non-Af 74, BUN/Creatinine Ratio 35.2 H, Glucose 164 H, Calcium 9.9 Micro: Microbiology 09/19/23 21:30 Sputum, Expectorated/Coughed Gram Stain - Final 09/19/23 21:30 Sputum, Expectorated/Coughed Respiratory Culture - Final Mixed normal respiratory shereen. No Streptococcus pneumoniae, beta-hemolytic Streptococcus or Staphylococcus aureus isolated. 09/20/23 13:40 Mucosa - Nose Respiratory Panel (PCR) - Final 09/19/23 13:48 Mucosa - Nasopharyngeal SARS-CoV-2, Influenza & RSV (PCR) - Final Physical Exam Const alert, oriented x3, no apparent distress and average body habitus Constitutional Narrative: Pleasant elderly female, sitting comfortably in bedside chair, conversing normally, no acute distress. General Appearance: cooperative and comfortable HEENT normocephalic, head/scalp atraumatic, hearing grossly normal bilaterally, nasal mucous membranes and turbinates normal and moist oral mucous membranes Eyes PERRL, EOMs intact bilaterally and conjunctivae normal Neck full ROM Chest inspection of chest normal Resp normal respiratory effort and no use of accessory muscles Resp Narrative: Moderate wheezing noted bilaterally throughout. Otherwise mildly diminished breath sounds bilaterally, no crackles noted. Breathing comfortably on 2 L nasal cannula with good oxygen saturations. Cardio regular rate, regular rhythm, no murmurs and peripheral pulses 2+ throughout GI normal to inspection, nondistended, normoactive bowel sounds, soft to palpation, non-tender and non-distended Back/Spine normal ROM Extremity normal to inspection, full ROM and no pedal edema Skin no rashes or lesions noted Neuro moves all extremities and no focal motor deficits Speech: speech normal Psych mental status grossly normal Assessment & Plan Assessment/Plan (1) Hypoxia: (2) COPD exacerbation: PLAN: Plan Patient is a 77-year-old female who presented to [facility] ED on 09/20/2023 with worsening shortness of breath. 1. Acute hypoxia secondary to acute exacerbation of COPD History of COPD not on home O2. Presented with significant shortness of breath at rest and on exertion along with nonproductive cough. Chest x-ray on admit nonacute. Infectious workup workup negative to this point. Labs fairly benign. ? Continue treatment with IV Solu-Medrol, scheduled DuoNebs and IV azithromycin. Wean supplemental oxygen as able. Will hopefully be stable for discharge in next 1 to 2 days, will need home O2 ambulatory test prior to discharge. 2. LILIAM, resolved ? Creatinine 1.29 on admission, improved back to baseline of 0.8-0.9 by 09/20. Good urine output. No need to monitor further BMPs. 3. Mild debility ? Secondary to severe dyspnea on exertion. Otherwise has good functional status at baseline. PT/OT/case management following. Planning for home with home health care on discharge. Chronic medical conditions: ? Hypertension: Continue home lisinopril, amlodipine, bisoprolol, hydrochlo rothiazide. ? Depression: Continue home duloxetine and carbamazepine. ? Insomnia: Continue home Seroquel. ? History of urgent incontinence: Continue home oxybutynin. ? Hyperlipidemia: Continue home statin. DVT prophylaxis: Lovenox CODE STATUS: Full code, verified Expected disposition: Home with home health care, 1 to 2 days Total clinical time spent by myself addressing the patient's medical issues, reviewing all the data, and collaborating with patient's care team: 35 minutes. Charges/Coding Visit Charges Inpatient E&M: 29362 Subs Hosp L2
--- NOTE | 2023-09-21 13:06 | CASEMGMT ---
Discharge Planning A list of?HH providers including quality and resource use data and consistent with the patient's preferred geographic region, medical needs, and insurance network was created in [facility].? This list was provided to the RN SW. Tiesha Chacon, Discharge Planning Asst.
--- NOTE | 2023-09-21 13:56 | CASEMGMT ---
Addendum entered by Anna Moore 09/21/23 15:59: GRACE DAVIS into pt room to confirm with her that [facility] can indeed do the SN services. Pt is appreciative of this. Addendum entered by Anna Moore 09/21/23 15:35: Pt states that the nurse from [facility] called and stated they could come see her. She would like their services. TC to [facility], spoke with Rajan, he states for respiratory monitoring and possible oxygen education they could see pt. He requests info be faxed to their office at [phone]. Faxed H&P and order at this time. Original Note: [facility] is unable to accept pt. Provided pt with a list created by scar seo assistant of other options for [facility]. Pt will review and GRACE DAVIS to check back.
--- NOTE | 2023-09-21 14:41 | CHAPLAIN ---
Type of Pastoral Visit _x__ Initial Visit ___ Follow-up Visit ___ On-call Visit ___ General Patient Visit ___ Spiritual Assessment ___ Family Conference ___ Bereavement ___ Rapid Response ___ Code Blue ___ Other (describe below) Pastoral Care Referral From _x__ Patient ___ Family ___ Nurse ___ Physician ___ Signals Collection Technician ___ Digestion Operator ___ Other (describe below) Sacrament/Intervention _x__ Active listening ___ Anointing ___ Latter Day ___ Bereavement ___ Communion _x__ Jesica exploration ___ _x__ Life review _x__ Prayer ___ Reconciliation ___ Sacrament of Sick _x__ Supportive presence ___ Wedding ___ Other (describe below) Pastoral Comments patient is expressive of her health needs; pt is thankful for good improvement thus far; pt is talkative about her life and includes the sad news that 10 of her 11 children have ; pt talks also about how God has supplied her needs through gifts of a car and a nebulizer recently; pt says I don't know how I would have made it through without my Lord; pt has a daughter that is very attentive and present for her; pt is connected to a sikh and a commercial sewing instructor for support; pt is showing optimism about her life and future; pt asks for prayers and also remembering a possible hip surgery in a few months;
--- NOTE | 2023-09-21 16:28 | CASEMGMT ---
Social Work SW called [facility]. Pt's hospice case manager is Marlena Valdes ([phone]), pt has a Life Alert Button, and has aide services through [facility](2 hours on Thursday, 3 hours on Thursday and Thursday). Marlena would like discharge instructions faxed to [phone]. SW will continue to follow. RAFAEL Gutiérrez
[2023-09-21] MEDS: Atorvastatin Calcium 20 MG Tablet PO (21:55)
[2023-09-21] MEDS: QUEtiapine 100 MG Tablet 400 MG PO (21:55)
[2023-09-21] MEDS: carBAMazepine 200 MG Tablet PO (21:56)
[2023-09-22] MEDS: Benzonatate 100 MG Capsule PO (02:14)
[2023-09-22 02:25] VITALS: BP 136/67; PULSE 75; RESP 16; TEMP 36.1; O2SAT 95
[2023-09-22] MEDS: 0.9% Saline Lock 10 ML Syringe IV (04:47)
[2023-09-22] MEDS: Ipratropium/Albuterol Sulfate 3 ML AMPUL.NEB INHALATION ×2 (07:00→11:47)
[2023-09-22 07:01] VITALS: PULSE 79; RESP 18; O2SAT 93
[2023-09-22 07:36] VITALS: O2SAT 87; O2SAT 92; O2SAT 94
[2023-09-22 07:50] VITALS: BP 147/61; PULSE 80; RESP 18; TEMP 36.4; O2SAT 93
[2023-09-22] MEDS: Lisinopril 10 MG Tablet PO (07:56)
[2023-09-22] MEDS: DULoxetine Hcl 60 MG Capsule PO (07:56)
[2023-09-22] MEDS: Bisoprolol Fumarate 5 MG Tablet 2.5 MG PO (07:56)
[2023-09-22] MEDS: Tolterodine Tartrate 2 MG CAP.SA PO (07:56)
[2023-09-22] MEDS: Enoxaparin 40 MG/0.4 ML Syringe SC (07:56)
[2023-09-22] MEDS: Azithromycin 250 MG Tablet 500 MG PO (07:56)
[2023-09-22] MEDS: amLODIPine 10 MG Tablet PO (07:56)
[2023-09-22] MEDS: guaiFENesin 1,200 MG Tablet 1200 MG PO (07:56)
[2023-09-22] MEDS: hydroCHLOROthiazide 6.25mg TAB 6.25 MG PO (07:57)
--- NOTE | 2023-09-22 11:43 | DS.PCM_ITS ---
Providers Date of Admission: 09/19/23 Date of Discharge: 09/22/23 Primary Care Physician: Dr. Wilver Browning MD Reason For Visit: COPD EXACERBATION Diagnosis Discharge Diagnosis (1) Hypoxia: Status: Acute Code(s): R09.02 - Hypoxemia (2) COPD exacerbation: Status: Chronic Code(s): J44.1 - Chronic obstructive pulmonary disease with (acute) exacerbation Medications at Discharge Home Medications amlodipine 10 mg tablet 10 mg PO DAILY Hypertension 10/26/13 carbamazepine 200 mg tablet 200 mg PO QHS depression 10/26/13 duloxetine 60 mg capsule,delayed release 60 mg PO BID depression 10/26/13 rosuvastatin 10 mg tablet 10 mg PO QHS cholesterol 10/26/13 albuterol sulfate 2.5 mg/3 mL (0.083 %) solution for nebulization 2.5 mg (3 mL) inhalation Q4H PRN SHORTNESS OF BREATH ##30 09/15/18 acetaminophen 650 mg tablet,extended release 650 mg PO Q8H PRN Pain 01/25/21 bisoprolol 2.5 mg-hydrochlorothiazide 6.25 mg tablet 1 tab PO DAILY BP 01/25/21 carbamazepine 100 mg chewable tablet 100 mg PO DAILY mental health 01/25/21 cholecalciferol (vitamin D3) 50 mcg (2,000 unit) capsule (Vitamin D3) 50 mcg PO DAILY supplement 01/25/21 multivitamin 1 tab PO DAILY supplement 01/25/21 lisinopril 10 mg tablet 10 mg PO DAILY BP 09/19/23 oxybutynin chloride 10 mg tablet,extended release 24 hr 10 mg PO DAILY OVERACTIVE BLADDER 09/19/23 quetiapine 400 mg tablet 400 mg PO QHS SLEEP/MOOD 09/19/23 azithromycin 500 mg tablet 500 mg PO DAILY 1 day #1 TAB 09/22/23 prednisone 10 mg tablet 10 mg PO DAILY #20 tabs 09/22/23 Hospital Course Operations None Procedures EKG and - (Chest x-ray) Summary of Care Provided Minutes Spent on Discharge: 35 Hospital Course: Patient is a 77-year-old female who presented to [facility] ED on 09/20/2023 with worsening shortness of breath. Short hospital course as noted below. Patient discharged home with home health care in stable condition on 09/21. 1. Acute hypoxia secondary to acute exacerbation of COPD, improving History of COPD not on home O2. Presented with significant shortness of breath at rest and on exertion along with nonproductive cough. Chest x-ray on admit nonacute. Infectious workup workup negative. Labs fairly benign. ? Treated with IV Solu-Medrol, scheduled DuoNebs and IV antibiotics while inpatient with significant improvement. Patient completed home ambulatory test on morning of discharge and did require 2 L nasal cannula with exertion to maintain oxygen saturations greater than 88%. Case management followed, patient qualified for home oxygen with exertion. Patient is ambulatory at home and in the community, and this provider reviewed patient's oxygen testing. Will complete 1 more day of p.o. azithromycin on discharge to complete 5-day antibi otic course. Also sent patient on a prednisone taper with 40 mg x 2 days, 30 mg x 2 days, 20 mg x 2 days, 10 mg x 2 days then off steroids. Continue home inhalers. Recommend outpatient follow-up with PCP and/your outdoor adventure guides in the next few weeks. 2. LILIAM, resolved ? Creatinine 1.29 on admission, improved back to baseline of 0.8-0.9 by 09/20. Good urine output. No need to monitor further BMPs. 3. Mild debility ? Secondary to severe dyspnea on exertion. Otherwise has good functional status at baseline. PT/OT/case management followed. Discharged home with home health care in stable condition. Chronic medical conditions: ? Hypertension: Continue home lisinopril, amlodipine, bisoprolol, hydrochlorothiazide. ? Depression: Continue home duloxetine and carbamazepine. ? Insomnia: Continue home Seroquel. ? History of urgent incontinence: Continue home oxybutynin. ? Hyperlipidemia: Continue home statin. Total clinical time spent by myself addressing the patient's medical issues, re viewing all the data, and collaborating with patient's care team: 35 minutes. Physical Exam Const alert, oriented x3, no apparent distress and average body habitus Constitutional Narrative: Pleasant elderly female, sitting comfortably in bed, conversing normally, no acute distress. General Appearance: cooperative and comfortable HEENT normocephalic, head/scalp atraumatic, hearing grossly normal bilaterally, nasal mucous membranes and turbinates normal and moist oral mucous membranes Eyes PERRL, EOMs intact bilaterally and conjunctivae normal Neck full ROM Chest inspection of chest normal Resp normal respiratory effort and no use of accessory muscles Resp Narrative: Much improved from previous days. No wheezing noted on exam. Breathing comfortably on room air. Mildly decreased breath sounds throughout bilaterally but improved from previous. Cardio regular rate, regular rhythm, no murmurs and peripheral pulses 2+ throughout GI normal to inspection, nondistended, normoactive bowel sounds, soft to palpation, non-tender and non-distended Back/Spine normal ROM Extremity normal to inspection, full ROM and no pedal edema Skin no rashes or lesions noted Neuro moves all extremities and no focal motor deficits Speech: speech normal Psych mental status grossly normal Weight / BMI Weight Weight: 72.631 kg Body Mass Index (BMI) 29.2 ABG / Lab / Microbiology Data 09/21/23 03:38 09/21/23 03:38 Microbiology: Microbiology 09/19/23 21:30 Sputum, Expectorated/Coughed Gram Stain - Final 09/19/23 21:30 Sputum, Expectorated/Coughed Respiratory Culture - Final Mixed normal respiratory shereen. No Streptococcus pneumoniae, beta-hemolytic Streptococcus or Staphylococcus aureus isolated. 09/20/23 13:40 Mucosa - Nose Respiratory Panel (PCR) - Final 09/19/23 13:48 Mucosa - Nasopharyngeal SARS-CoV-2, Influenza & RSV (PCR) - Final Meaningful Use Info Meaningful Use Diagnoses (Choose all that apply): None applicable Discharge Plan Admission Admit Date/Time: 09/19/23 15:43 Primary Reason for Your Visit: Shortness of breath, COPD exacerbation Attending Provider: Renaldo Okeefe Primary Care Provider: Wilver Browning Consulting Providers: Newton Mooney; Enid Gomes Instructions Additional Instructions / Restrictions: Please complete courses of antibiotics steroids as above. Please wear oxygen as needed to keep your oxygen saturations above 88%. Follow-up with your primary care doctor and/or your lung doctor in the next 1 to 2 weeks. Discharge Orders/Prescriptions Prescriptions: New azithromycin 500 mg tablet 500 mg PO DAILY 1 Days Qty: 1 0RF prednisone 10 mg tablet 10 mg PO DAILY Qty: 20 0RF Rx Instructions: Please take 40 mg (4 pills) for 2 days, then 30 mg (3 pills) for 2 days, then 20 mg (2 pills) for 2 days, then 10 mg (1 pill) for 2 days, then off. Continued carbamazepine 200 MG tablet 200 mg PO QHS amlodipine 10 MG tablet 10 mg PO DAILY rosuvastatin 10 MG tablet 10 mg PO QHS duloxetine 60 MG capsule 60 mg PO BID albuterol sulfate 2.5 MG/3 ML solution for nebulization 2.5 mg inhalation Q4H PRN (Reason: SHORTNESS OF BREATH) Qty: 30 0RF bisoprolol-hydrochlorothiazide 2.5-6.25 mg tablet 1 tab PO DAILY multivitamin Tablet 1 tab PO DAILY acetaminophen 650 mg Tablet Extended Release 650 mg PO Q8H PRN (Reason: Pain) carbamazepine 100 mg tablet,chewable 100 mg PO DAILY cholecalciferol (vitamin D3) [Vitamin D3] 50 mcg (2,000 unit) Capsule 50 mcg PO DAILY lisinopril 10 mg tablet 10 mg PO DAILY oxybutynin chloride 10 mg tablet extended release 24hr 10 mg PO DAILY quetiapine 400 mg tablet 400 mg PO QHS Discontinued ibuprofen 200 mg Tablet 800 mg PO BID prednisone 20 mg Tablet 40 mg PO DAILY@0800 3 Days Qty: 6 0RF tramadol 50 mg tablet 50 mg PO Q6H PRN (Reason: pain) 3 Days Qty: 12 0RF Referrals / Follow Up: Wilver Browning MD [Primary Care Provider] - Disposition Disposition (needs filled in before D/C Order can be placed): Home, Self Care Charges/Coding Visit Charges Inpatient E&M: 98294 Disch Hosp >30min
[2023-09-22 11:46] VITALS: PULSE 84; RESP 18
--- NOTE | 2023-09-22 12:46 | CASEMGMT ---
Addendum entered by Anna Moore 09/22/23 13:04: Faxed [facility] instructions as well as noted that pt did qualify for home oxygen. Requested pt nurse to also review homegoing oxygen instructions with pt. Original Note: GRACE CM into pt room, pt made aware that she qualifies for oxygen with activity. Pt states she does not want to have oxygen in the home. She is aware of oxygen homegoing instructions. She is also aware that [facility] will be in touch with her to come out to see her. Pt denies any further homegoing needs. Her family will be transporting her home.
[2023-09-22 13:25] VITALS: BP 97/84; PULSE 76; RESP 18; TEMP 36.4; O2SAT 93
--- NOTE | 2023-09-22 14:20 | PHA.DC.MR.R ---
Pharmacy [place] Med Reconciliation Pharmacy Service has performed discharge medication reconciliation for this patient. Medication education papers prepared, patient discharged before I was able to dependency counselor. Medications reviewed. The patient's discharge medication list was reviewed for discrepancies and discrepancies were resolved. Medications at Discharge Home Medications amlodipine 10 mg tablet 10 mg PO DAILY Hypertension 10/26/13 carbamazepine 200 mg tablet 200 mg PO QHS depression 10/26/13 duloxetine 60 mg capsule,delayed release 60 mg PO BID depression 10/26/13 rosuvastatin 10 mg tablet 10 mg PO QHS cholesterol 10/26/13 albuterol sulfate 2.5 mg/3 mL (0.083 %) solution for nebulization 2.5 mg (3 mL) inhalation Q4H PRN SHORTNESS OF BREATH ##30 09/15/18 acetaminophen 650 mg tablet,extended release 650 mg PO Q8H PRN Pain 01/25/21 bisoprolol 2.5 mg-hydrochlorothiazide 6.25 mg tablet 1 tab PO DAILY BP 01/25/21 carbamazepine 100 mg chewable tablet 100 mg PO DAILY mental health 01/25/21 cholecalciferol (vitamin D3) 50 mcg (2,000 unit) capsule (Vitamin D3) 50 mcg PO DAILY supplement 01/25/21 multivitamin 1 tab PO DAILY supplement 01/25/21 lisinopril 10 mg tablet 10 mg PO DAILY BP 09/19/23 oxybutynin chloride 10 mg tablet,extended release 24 hr 10 mg PO DAILY OVERACTIVE BLADDER 09/19/23 quetiapine 400 mg tablet 400 mg PO QHS SLEEP/MOOD 09/19/23 azithromycin 500 mg tablet 500 mg PO DAILY 1 day #1 TAB 09/22/23 prednisone 10 mg tablet 10 mg PO DAILY #20 tabs 09/22/23
--- NOTE | 2023-09-23 11:15 | CASEMGMT ---
Social Work Discharge information faxed to pt's [facility] nursing manager, [facility]
== END 2023-09-22 14:12 | disposition home or self-care (01) | DRG 191 ==
LOC: ED 15:29 → MS3 15:50
PROVIDERS: Physician Assistant; Student in an Organized Health Care Education/Training Program; Admitting Provider Internal Medicine; Emergency Provider Emergency Medicine; PCP Internal Medicine; Visit Provider Hospitalist
DX: J44.1 Chronic obstructive pulmonary disease with (acute) exacerbation (principal); N17.9 Acute kidney failure, unspecified; I13.0 Hypertensive heart and chronic kidney disease with heart failure and stage 1 through stage 4 chronic kidney disease, or unspecified chronic kidney disease; I50.9 Heart failure, unspecified; E03.9 Hypothyroidism, unspecified; N18.9 Chronic kidney disease, unspecified; F32.A Depression, unspecified; J98.01 Acute bronchospasm; E78.5 Hyperlipidemia, unspecified; Z87.891 Personal history of nicotine dependence; Z79.52 Long term (current) use of systemic steroids; Z79.1 Long term (current) use of non-steroidal anti-inflammatories (NSAID); N39.41 Urge incontinence; R53.81 Other malaise; Z86.73 Personal history of transient ischemic attack (TIA), and cerebral infarction without residual deficits; G47.00 Insomnia, unspecified; Z86.718 Personal history of other venous thrombosis and embolism
CPT/HCPCS: 36415; 71046; 80048; 80053; 80076; 83735; 83880; 84100; 84443; 85025; 85610; 87070; 87205; 87631; 87633; 93005; 94640; 94667; 94668; 97161; 97166; 97802; 99252; 99283; A4216; G0463

== ENCOUNTER 2024-04-05 12:39 | Inpatient (IN) | payer MEDICARE, MEDICAID, SELFPAY ==
[2024-04-05] VITALS (12 sets, daily range): BP systolic 136–189; BP diastolic 48–80; PULSE 45–88; RESP 14–20; TEMP 36.1–36.7; O2SAT 95–100; BMI 33.3; BMI 31.3
--- NOTE | 2024-04-05 13:07 | EKG12_ITS ---
Test Reason : SYNCOPE Blood Pressure : / mmHG Vent. Rate : 038 BPM Atrial Rate : 075 BPM P-R Int : 172 ms QRS Dur : 084 ms QT Int : 490 ms P-R-T Axes : 061 015 046 degrees QTc Int : 389 ms Critical Test Result: Low HR , AV Block Sinus rhythm with 2nd degree A-V block with 2:1 A-V conduction Low voltage QRS Abnormal ECG Confirmed by DOMENIC FARLEY, CHRISTAL ([id number]), technical writer and editor JING CHAUHAN ([id number]) on 04/06/2024 9:26:18 AM Referred By: Confirmed By:CHRISTAL SHETH MD
--- NOTE | 2024-04-05 13:07 | CT_ITS ---
STUDY: CT BRAIN WITHOUT CONTRAST REASON FOR EXAM: Female, 78 years old. Head injury w/ loc. scalp lac posteriorly RADIATION DOSAGE (If Supplied By Facility): CTDIvol = ( 47.06 ) mGy, DLP = ( 855.03 ) mGycm TECHNIQUE: Transaxial CT imaging of the brain was performed without administration of intravenous contrast material. Individualized dose optimization techniques were used for this CT. COMPARISON: Comparison is made with prior study September 12, 2018. FINDINGS: Small scalp hematoma overlying the posterior occipital bone in the midline. Normal calvarium. There is mild cerebral atrophy with widening of the extra-axial spaces and ventricular dilatation. There are areas of decreased attenuation within the white matter tracts of the supratentorial brain, consistent with microvascular disease changes. There are small punctate calcifications of the basal ganglia which are seen in the aging brain as a normal variant. Normal brainstem. Normal cerebellum. There is no intracranial hemorrhage. There are no findings of an acute ischemic infarction. Air-fluid level in the left maxillary sinus. Opacification of the ethmoid sinuses as well as the frontal and sphenoid sinus. CT/Brain/Head without Contrast IMPRESSION: Chronic involutional changes of the brain. Pansinusitis. Scalp hematoma overlying the posterior occipital bone in the midline. Electronically Signed: Jerrell Monteiro MD at 14:30 EDT ,
--- NOTE | 2024-04-05 13:13 | EDS_ITS ---
HPI History of Present Illness Chief Complaint: Syncope Informant: patient and family Onset/Context/Timing Onset: Today Context: Sudden Onset Current Severity: Gone Maximum Severity: Mild Narrative Narrative: 78-year-old female history of bipolar disorder, anemia, DVT and COPD. Says she just got out of the counseling center she goes there for her bipolar disorder. She was waiting in the parking lot for her daughter arrived to pick her up she said she passed out. She normally has never done this before she can remember. She woke up on the ground. She has a posterior scalp laceration and abrasion to her left elbow. Denies any other complaints. Said she was feeling fine today. Denies any recent illness. Denies any neck pain. Prior similar symptoms: No Recent Illness/Hospitalization: No PFSH PFS Medical History (Updated 04/05/24 @ 15:18 by Mae Guadalupe) COPD (chronic obstructive pulmonary disease) Anemia Anxiety Depression Chronic pain Osteoporosis Rheumatoid arthritis Kidney stones Former smoker Congestive heart failure (CHF) Stroke/cerebrovascular accident Leg fracture, left DVT (deep venous thrombosis) HTN (hypertension) COPD (chronic obstructive pulmonary disease) HLD (hyperlipidemia) Hypothyroidism Bipolar disorder Hypertension Home Medications ?Medication ?Instructions ?Recorded ?Last Taken ?Type amlodipine 10 mg tablet 10 mg PO DAILY BLOOD PRESSURE 10/26/13 01/25/21 History carbamazepine 200 mg tablet 200 mg PO QHS MENTAL HEALTH 10/26/13 01/24/21 History duloxetine 60 mg capsule,delayed 60 mg PO BID MENTAL HEALTH 10/26/13 01/25/21 History release rosuvastatin 10 mg tablet 10 mg PO QHS CHOLESTEROL 10/26/13 01/24/21 History albuterol sulfate 2.5 mg/3 mL 2.5 mg (3 mL) inhalation Q4H PRN 09/15/18 Unknown Rx (0.083 %) solution for nebulization SHORTNESS OF BREATH ##30 bisoprolol 2.5 1 tab PO DAILY BLOOD PRESSURE 01/25/21 Unknown History mg-hydrochlorothiazide 6.25 mg tablet carbamazepine 100 mg chewable 100 mg PO DAILY MENTAL HEALTH 01/25/21 01/25/21 History tablet lisinopril 10 mg tablet 10 mg PO DAILY BLOOD PRESSURE 09/19/23 Unknown History quetiapine 400 mg tablet 400 mg PO QHS SLEEP/MOOD 09/19/23 Unknown History Allergy/AdvReac Type Severity Reaction Status Date / Time aspirin Allergy Hives Verified 09/19/23 13:21 diphenhydramine HCl (From Allergy Anaphylaxis Verified 09/19/23 13:21 Benadryl) latex Allergy Rash Verified 09/19/23 13:21 meperidine (From Demerol) Allergy Swelling Verified 09/19/23 13:21 facial Penicillins Allergy Anaphylaxis Verified 09/19/23 13:21 Sulfa (Sulfonamide Allergy Rash Verified 09/19/23 13:21 Antibiotics) chlorpromazine AdvReac mental Verified 09/19/23 13:21 status change codeine AdvReac Vomiting Verified 09/19/23 13:21 haloperidol (From Haldol) AdvReac HALLUCINATI Verified 09/19/23 13:21 ONS meloxicam AdvReac Upset Verified 09/19/23 13:21 Stomach pentazocine AdvReac Vomiting Verified 09/19/23 13:21 promethazine HCl (From AdvReac hallucinati Verified 09/19/23 13:21 Phenergan) ons Family History Mother CAD (coronary artery disease) Kidney disease Grandmother CAD (coronary artery disease) Liver disease Father CVA (cerebral vascular accident) Surgical History (Updated 04/05/24 @ 15:18 by Mae Guadalupe) History of appendectomy History of total left hip replacement History of cholecystectomy History of hysterectomy Social History Smoking Status: Former smoker ROS ROS ED ROS Narrative Syncopal episode today. Denies any recent illness. Constitutional Constitutional ED: Denies chills or fever(s) Eyes Eyes: Denies blurry vision ENT ENT ED: Denies ear pain Cardiovascular Cardiovascular: Denies chest pain Respiratory/Chest Respiratory/Chest: Denies cough Gastrointestinal Gastrointestinal: Denies abdominal pain Genitourinary Genitourinary ED: Denies dysuria Musculoskeletal Musculoskeletal: Denies arthralgias Integumentary Denies abscess Neurologic Neurologic: Denies headache(s) Psychiatric Psychiatric: Denies anxiety Endocrine Endocrinology: Denies cold intolerance Hematologic/Lymphatic Hematologic/Lymphatic: Reports anemia Allergic/Immunologic Allergic/Immunologic ED: Denies mouth swelling, tongue swelling or urticaria EXAM Physical Exam Narrative Exam Narrative: 78-year-old female sitting upright in bed. Daughter at bedside. Vital signs are stable afebrile. Pulse ox 97% room air no hypoxia. Patient is in no distress. H EENT exam pupils round react light. No trauma to her face or mouth. She does have a posterior left-sided scalp laceration with much dried blood in her hair which will need to clean off to evaluate the laceration. Neck and C-spine nontender. Trachea midline. Lungs clear to auscultation bilaterally. Heart regular rhythm rate about 85 no murmur. Chest wall ribs nontender. Abdomen soft nontender. Pelvic girdle intact. She has normal range of motion of both shoulders elbows wrist and hands. 5/5 industrial accountant strength. She has full flexion extension supination pronation of left elbow. She has abrasion on the elbow but no bony tenderness or deformity. With normal range of motion. Both hips are nontender. She has normal flexion extension of both hips knees and ankles. Normal dorsi plantarflexion. No shortening or rotation. No deformity. Back nontender. Neurologically she is awake and alert no focal motor deficits. Answering questions following commands. Const Vital Signs: 04/05/24 12:40 04/05/24 12:53 04/05/24 13:13 Temperature 98.1 F Temperature Source Oral Pulse Rate 88 Respiratory Rate 16 Respiratory Effort Normal Non-Labored Respiratory Pattern Normal Blood Pressure 155/48 H Blood Pressure Mean 83 Pulse Ox 97 97 Oxygen Delivery Method Room Air Room Air 04/05/24 13:43 04/05/24 14:10 04/05/24 15:00 Temperature 97.4 F L Temperature Source Oral Pulse Rate 76 71 72 Respiratory Rate 17 14 20 H Respiratory Effort Respiratory Pattern Blood Pressure 150/50 H 162/61 H 182/67 H Blood Pressure Mean 83 94 105 Pulse Ox 95 97 97 Oxygen Delivery Method Room Air Room Air Room Air 04/05/24 15:10 04/05/24 16:00 Temperature 97.9 F Temperature Source Pulse Rate 72 66 Respiratory Rate 18 18 Respiratory Effort Respiratory Pattern Blood Pressure 182/67 H 169/80 H Blood Pressure Mean 105 109 Pulse Ox 98 97 Oxygen Delivery Method Room Air Positive well nourished and well developed; Negative for cachectic, contractures or unkempt General Appearance ED: well developed and NAD; Negative for unkempt, cachectic, contractures, cyanotic, diaphoretic or pallor Nutritional Appearance: Negative for cachectic HEENT Reports moist mucous membranes HEENT Narrative: Laceration left posterior scalp. Dried blood. Neck nontender. trauma Eyes PERRL and EOMs intact bilaterally General Eye ED: Negative for pale conjunctiva or scleral icterus Neck no lymphadenopathy, supple and no JVD General: Negative for tenderness Chest Wall inspection of chest normal and palpation of chest normal Resp normal respiratory effort and clear to auscultation bilaterally Effort and Inspection: Negative for retractions Auscultation: Negative for rales, rhonchi, wheezes or diminished lung sounds Cardio regular rate, regular rhythm, S1 normal heart sound, S2 normal heart sound and no murmurs Palpation: Negative for palpable S3 or palpable S4 Rate: Negative for bradycardia or tachycardic Rhythm: Negative for abnormal rhythm GI normal to inspection, nondistended, normoactive bowel sounds, non-tender, non- distended and no masses Auscultation: normoactive bowel sounds Palpation: soft; Negative for tender, guarding or rebound tenderness present Back/Spine no CVA tenderness General Back: Negative for CVA tenderness Cervical Spine: Negative for cervical spine tenderness Thoracic Spine / Upper Back: Negative for thoracic spinal tenderness or paraspinal muscle tenderness Lumbar Spine / Lower Back: Negative for lumbar spinal tenderness Extremity normal to inspection Extremity Narrative: Abrasion left elbow. Full range of motion. No tenderness. No deformity. General Extremety ED: Negative for edema or tenderness General Extremity: Negative for edema Neuro oriented x3 and CN's II-XII intact bilaterally Sensorium / Orientation: alert Motor Exam: strength 5/5 throughout Psych mental status grossly normal Appearance: Negative for unkempt Attitude: No agitated Mood & Affect: Negative for depressed, anxious or tearful Skin no rashes or lesions noted General Skin Exam: Negative for jaundice or pallor MDM MDM MDM Narrative Medical decision making narrative: 78-year-old female had a syncopal episode and then fell hit her head. She has a scalp laceration. CAT scan of her brain and syncope workup. EKG looks like a type II heart block with 2-1 AV conduction and a constant DC interval so I think is of Mobitz type II. She will need to be admitted for further evaluation of this. Repeat exam patient is doing well. There are notified of her lab results and EKG. I spoke to the principal solutions architect on-call Dr. Lepe. I have the hospitalist on page for admission. Dr. Lepe plans to evaluate the patient for a pacemaker. Repeat exam at the nurses cleaned out the back of her scalp she did have about a 1-1/2 to 2 inch L-shaped scalp laceration posteriorly on the left. Locally anesthetized lidocaine with epinephrine. Cleaned with Shur-Clens washed and irrigated with saline. Explored. Closed using 3 simple interrupted 3-0 Ethilon sutures. Proper hemostasis wound closure obtained. Patient tolerated procedure well. Daughter was present in the room. Patient has a doctor's appointment on the she can have her sutures removed then. History & Record Review Discussion w/independent historian: Patient Additional record(s) reviewed:: Prior inpatient record, Prior outpatient record, Prior ED visit and Prior labs Lab Data Attestation: I reviewed the patient's lab results. Lab results narrative: CBC shows white count 9. H&H 11.635. Platelets 251. Electrolytes show sodium 135. Gap 7. BUN of 27 creatinine 0.9. Troponin is 13. Chest x-ray chronic changes. CT of the brain shows no acute intercranial bleed. Scalp hematoma. Labs: Laboratory Results - last 24 hr 04/05/24 14:05 WBC 9.4 RBC 3.68 L Hgb 11.6 L Hct 35.3 L MCV 95.9 MCH 31.5 MCHC 32.9 RDW Std Deviation 41.8 RDW Coeff of Umair 11.9 Plt Count 251 MPV 9.4 Immature Gran % (Auto) 0.300 Neut % (Auto) 66.4 Lymph % (Auto) 24.1 Dukes % (Auto) 6.4 Eos % (Auto) 2.5 Baso % (Auto) 0.3 Absolute Neuts (auto) 6.2 Absolute Lymphs (auto) 2.26 Nucleated RBC % 0 Sodium 135 L Potassium 4.3 Chloride 105 Carbon Dioxide 23.0 Anion Gap 7 BUN 27 H Creatinine 0.93 Estim Creat Clear Calc 49.69 Est GFR (MDRD) Af Amer 75 Est GFR (MDRD) Non-Af 62 BUN/Creatinine Ratio 29.2 H Glucose 126 H Calcium 9.6 Troponin I High Sens 13 Radiography Chest X-Ray - ED: 1 View, Read by ED Physician, Heart, Lungs, Mediastinum, Bony Structures, No Acute Disease and Chronic Changes Diagnostic Testing: Clinical Impression(s) from Imaging Studies Brain CT 10/08/24 13:07 IMPRESSION: Chronic involutional changes of the brain. Pansinusitis. Scalp hematoma overlying the posterior occipital bone in the midline. Electronically Signed: Jerrell Monteiro MD at 14:30 EDT , Chest X-Ray 04/05/24 14:20 IMPRESSION: No acute abnormality is seen. Electronically Signed: Jerrell Monteiro MD at 14:46 EDT , Chest x-ray, portable, single view interpreted by myself and radiologist shows no acute abnormality. Normal cardiac silhouette. Chronic changes no acute processes. Rhythm Strip Rhythm Strip: Mobitz type II heart block. Rate: 38 Ectopy: None EKG Initial EKG: Attestation: I personally reviewed and interpreted this EKG as follows: Interpretation: Sinus Rhythm and No Acute Injury Pattern Comments: Sinus rhythm with Mobitz type II heart block with dropping of every other beat. 2-1 block. Procedures Lacerations Scalp laceration repair:: Length: 1.5 in Depth: Sub Q Shape: L-shaped Prep: Betadine Laceration repair: Lidocaine with epi and Local Number of Sutures/[place]: 3 Suture Information: Ethilon, Simple and - (3-0) Comment: Left posterior scalp laceration. L-shaped. 1.5 to 2 inches. Locally anesthetized lidocaine with epinephrine. Cleaned with iodine. Washed and irrigated with saline. Explored. Closed using 3 simple interrupted 3-0 Ethilon sutures. Proper hemostasis wound closure obtained. Patient tolerated procedure well. She and her daughter were instructed on wound care and suture removal in about 10 days. Critical Care Time Critical Care Time: Yes Critical care time (excluding procedures): 30-74 minutes, Including time spent:, Discussing w/Patient &/or Family/Regulatory Affairs Manager, Discussing w/Consultants, Arranging Admission or Transfer, Performing Direct Patient Care at Bedside and - (35 minutes) Discharge Plan Dx/Rx/DC Orders Clinical Impression: Syncope, Mobitz type 2 second degree heart block, Fall, Head injury, Laceration of scalp Disposition Disposition: Acute Care Hospital [facility]
[2024-04-05] MEDS: Lidocaine 1% /Epi 1:100 (20ml) 20 ML Vial 10 ML INFILT (13:39)
[2024-04-05] MEDS: Diphth,Pertuss(Acell),Tet Vac 0.5 ML Vial IM (13:39)
[2024-04-05 14:17] LABS: Absolute Lymphocyte Count 2.26 X10^3/uL (0.83-4.51); Absolute Neutrophil Count 6.2 X10^3/uL (2.0-7.7); Basophil# 0.03 X10^3/uL; Basophil% 0.3 % (0-1); Eosinophil# 0.23 X10^3/uL; Eosinophils% 2.5 % (0-5); Hematocrit 35.3 % (37-47); Hemoglobin 11.6 g/dL (12.0-15.0); Lymphocyte # 2.26 X10^3/ul (0.83-4.51); Lymphocyte % 24.1 % (19-41); Mean Corp Hgb Conc 32.9 g/dL (32-36); Mean Corpuscular Hgb 31.5 pg (27.0-32.0); Mean Corpuscular Volume 95.9 fL (81-99); Mean Platelet Vol. 9.4 fl (6.2-12.0); Monocyte% 6.4 % (0-10); NRBC Flagged by Analyzer 0 % (0-5); Neutrophil # 6.21 X10^3/uL (2.7-7.7); Neutrophil % 66.4 % (47-70); Platelet Count 251 K/mm3 (150-450); RBC Distribution Width CV 11.9 % (11.6-14.6); RBC Distribution Width SD 41.8 fl (35.1-43.9); Red Blood Count 3.68 M/mm3 (4.2-5.4); White Blood Count 9.4 K/mm3 (4.4-11.0)
--- NOTE | 2024-04-05 14:20 | RAD_ITS ---
STUDY: X-RAY CHEST REASON FOR EXAM: Female, 78 years old. Chest pain TECHNIQUE: Single AP portable view of the chest. COMPARISON: Comparison is made with prior study September 19, 2023. FINDINGS: EKG electrodes are seen. The lungs are clear and expanded. There is no demonstrated pleural abnormality. Normal size heart. Normal mediastinum and erwin. Normal visualized pulmonary arteries. There is atherosclerotic tortuosity of the aortic arch and descending thoracic aorta. There are diffuse degenerative changes of the visualized thoracic spine. Normal visualized ribs, clavicles, and shoulders. There is no demonstrated abnormality of the visualized soft tissue structures of the upper abdomen. RAD/Chest 1 View (Portable) IMPRESSION: No acute abnormality is seen. Electronically Signed: Jerrell Monteiro MD at 14:46 EDT ,
[2024-04-05 14:39] LABS: Anion Gap 7 (5-15); BUN 27 mg/dL (7-18); BUN/Creat Ratio 29.2 RATIO (10-20); Calcium,Total 9.6 mg/dL (8.5-10.1); Chloride 105 mmol/L (98-107); Creatinine, Serum 0.93 mg/dL (0.55-1.02); EST Glomerular Filtration Rate 62 mL/min (>60); Est Glom Filt Rate - Afr Amer 75 mL/min (>60); Estimated Creatinine Clearance 49.69 ml/min; Glucose 126 mg/dL (74-106); Potassium 4.3 mmol/L (3.5-5.1); Sodium Level 135 mmol/L (136-145); Troponin-I HS 13 pg/mL (3.0-54.0)
--- NOTE | 2024-04-05 14:52 | PCM.HP.STD ---
HPI - General General Date of Admission: 04/05/24 Date of Service: 04/05/24 Chief Complaint: Syncope HPI Narrative DEON REYNAGA, is a 78 F with a significant history of bipolar disease who while standing at the parking lot waiting for her daughter passed out. She saw blood oozing on the floor. The back of her head was soft. [facility], [facility] Medical History COPD (chronic obstructive pulmonary disease) Anemia Anxiety Depression Chronic pain Osteoporosis Rheumatoid arthritis Kidney stones Former smoker Congestive heart failure (CHF) Stroke/cerebrovascular accident Leg fracture, left DVT (deep venous thrombosis) HTN (hypertension) COPD (chronic obstructive pulmonary disease) HLD (hyperlipidemia) Hypothyroidism Bipolar disorder Hypertension Home Medications ?Medication ?Instructions ?Recorded ?Last Taken ?Type amlodipine 10 mg tablet 10 mg PO DAILY BLOOD PRESSURE 10/26/13 01/25/21 History carbamazepine 200 mg tablet 200 mg PO QHS MENTAL HEALTH 10/26/13 01/24/21 History duloxetine 60 mg capsule,delayed 60 mg PO BID MENTAL HEALTH 10/26/13 01/25/21 History release rosuvastatin 10 mg tablet 10 mg PO QHS CHOLESTEROL 10/26/13 01/24/21 History albuterol sulfate 2.5 mg/3 mL 2.5 mg (3 mL) inhalation Q4H PRN 09/15/18 Unknown Rx (0.083 %) solution for nebulization SHORTNESS OF BREATH ##30 bisoprolol 2.5 1 tab PO DAILY BLOOD PRESSURE 01/25/21 Unknown History mg-hydrochlorothiazide 6.25 mg tablet carbamazepine 100 mg chewable 100 mg PO DAILY MENTAL HEALTH 01/25/21 01/25/21 History tablet lisinopril 10 mg tablet 10 mg PO DAILY BLOOD PRESSURE 09/19/23 Unknown History quetiapine 400 mg tablet 400 mg PO QHS SLEEP/MOOD 09/19/23 Unknown History Allergy/AdvReac Type Severity Reaction Status Date / Time aspirin Allergy Hives Verified 09/19/23 13:21 diphenhydramine HCl (From Allergy Anaphylaxis Verified 09/19/23 13:21 Benadryl) latex Allergy Rash Verified 09/19/23 13:21 meperidine (From Demerol) Allergy Swelling Verified 09/19/23 13:21 facial Penicillins Allergy Anaphylaxis Verified 09/19/23 13:21 Sulfa (Sulfonamide Allergy Rash Verified 09/19/23 13:21 Antibiotics) chlorpromazine AdvReac mental Verified 09/19/23 13:21 status change codeine AdvReac Vomiting Verified 09/19/23 13:21 haloperidol (From Haldol) AdvReac HALLUCINATI Verified 09/19/23 13:21 ONS meloxicam AdvReac Upset Verified 09/19/23 13:21 Stomach pentazocine AdvReac Vomiting Verified 09/19/23 13:21 promethazine HCl (From AdvReac hallucinati Verified 09/19/23 13:21 Phenergan) ons Family History Mother CAD (coronary artery disease) Kidney disease Grandmother CAD (coronary artery disease) Liver disease Father CVA (cerebral vascular accident) Surgical History History of appendectomy History of total left hip replacement History of cholecystectomy History of hysterectomy Social History Smoking Status: Former smoker ROS ROS Narrative Pertinent positives and pertinent negatives as noted in HPI. All other systems were reviewed and are negative Vital Signs Vital Signs Vital Signs: 04/05/24 12:40 04/05/24 12:53 04/05/24 13:13 Temperature 98.1 F Temperature Source Oral Pulse Rate 88 Respiratory Rate 16 Respiratory Effort Normal Non-Labored Respiratory Pattern Normal Blood Pressure 155/48 H Blood Pressure Mean 83 Pulse Ox 97 97 Oxygen Delivery Method Room Air Room Air 04/05/24 13:43 04/05/24 14:10 Temperature 97.4 F L Temperature Source Oral Pulse Rate 76 71 Respiratory Rate 17 14 Respiratory Effort Respiratory Pattern Blood Pressure 150/50 H 162/61 H Blood Pressure Mean 83 94 Pulse Ox 95 97 Oxygen Delivery Method Room Air Room Air Weight Weight: 82.7 kg Body Mass Index (BMI) 33.3 Physical Exam Narrative Physical exam: General: Well-nourished, well-developed. Head: Normocephalic, excoriation and softness at temporoparietal occipital area Eyes: Vision is grossly intact. EOMI ENT, no trauma, moist mucous membranes, no rhinorrhea Neck: Nontender, No thyromegaly. CVS: Regular rate and rhythm. S1-S2 present. No murmur, gallop or rub. Respiratory : clear to auscultation bilaterally, chest wall nontender Abdomen: Soft, nontender, nondistended, normal bowel sounds, no masses : Deferred Back: Nontender, no CVA tenderness, no midline spinal tenderness, deformities, step-offs Extremities: Nontender full range of motion, no trauma Skin: Normal color, no trauma, abrasions Neuro: Alert, oriented, cranial nerves II through XII grossly intact. Psychiatry: Normal mood. Normal affect. Not depressed. Not anxious. Results Lab / Micro Data 04/05/24 14:05 04/05/24 14:05 Labs: Laboratory Results - last 24 hr 04/05/24 14:05: WBC 9.4, RBC 3.68 L, Hgb 11.6 L, Hct 35.3 L, MCV 95.9, MCH 31.5, MCHC 32.9, RDW Std Deviation 41.8, RDW Coeff of Umair 11.9, Plt Count 251, MPV 9.4, Immature Gran % (Auto) 0.300, Neut % (Auto) 66.4, Lymph % (Auto) 24.1, [place] % (Auto) 6.4, Eos % (Auto) 2.5, Baso % (Auto) 0.3, Absolute Neuts (auto) 6.2, Absolute Lymphs (auto) 2.26, Nucleated RBC % 0, Sodium 135 L, Potassium 4.3, Chloride 105, Carbon Dioxide 23.0, Anion Gap 7, BUN 27 H, Creatinine 0.93, Estim Creat Clear Calc 49.69, Est GFR (MDRD) Af Amer 75, Est GFR (MDRD) Non-Af 62, BUN/Creatinine Ratio 29.2 H, Glucose 126 H, Calcium 9.6, Troponin I High Sens 13 Rhythm Strip Rhythm Strip: Mobitz type II heart block. Rate: 38 Ectopy: None Imaging Radiology Impression Brain CT 04/05/24 13:07 IMPRESSION: Chronic involutional changes of the brain. Pansinusitis. Scalp hematoma overlying the posterior occipital bone in the midline. Electronically Signed: Jerrell Monteiro MD at 14:30 EDT , Chest X-Ray 04/05/24 14:20 IMPRESSION: No acute abnormality is seen. Electronically Signed: Jerrell Monteiro MD at 14:46 EDT , Assessment & Plan Assessment/Plan (1) Laceration of scalp: QUALIFIERS: Encounter type: initial encounter Qualified Code(s): S01.01XA - Laceration without foreign body of scalp, initial encounter (2) HTN (hypertension): QUALIFIERS: Hypertension type: primary hypertension Qualified Code(s): I10 - Essential (primary) hypertension (3) Mobitz type 2 second degree heart block: (4) Syncope: QUALIFIERS: Syncope type: unspecified Qualified Code(s): R55 - Syncope and collapse PLAN: Plan Brain CT independently interpreted showed scalp hematoma overlying the posterior occipital bone in the midline. Agrees with radiology interpretation EKG independently interpreted showed Mobitz 2. Cardiology consulted from the ED. Will keep patient n.p.o. after midnight for possible pacemaker placement. Home blood pressure medication continued. Trend. Received a tetanus shot at the emergency department. Discussed with ED physician was going to sutures or place hayde at back of patient's head where there is laceration. DVT prophylaxis: SCDs ordered. Advance care planning: Discussed with patient and family advanced directives as well as CODE STATUS. Explained various CODE STATUS: FULL CODE, DNR CCA, DNR CCA with no intubation, and DNR CC- and what each meant. Patient elected to be a full code with CPR and intubation if warranted. Surrogate decision maker is daughter Holly Gudino. order was placed. Time spent on discussion 16 minutes. Time spent in the patient's overall evaluation,decision-making process, review of diagnostic data, adjustment of management, discussion with other providers, nursing and ancillary staff involved in patient's care documentation, 75 minutes. Charges/Coding Visit Charges Inpatient E&M: 78588 Init Hosp L3 Procedures Hospitalists Procedures: 81031 Advncd Care Plan 30 Min Multi Select Codes Hospitalists' Procedures Procedures: 08262 Advncd Care Plan 30 Min
--- NOTE | 2024-04-05 16:49 | PCM.CONS.C ---
Assessment & Plan Assessment/Plan (1) Mobitz type 2 second degree heart block: PLAN: Patient presents with a syncopal episode and EKG demonstrating Mobitz type II second-degree heart block. At this particular time the patient appears to be stable. I did funeral pre arrangement counselor her and recommended a permanent pacemaker implantation in a.m. Agrees benefits alternatives been explained. She understands and agrees to proceed. (2) Syncope: PLAN: This is her second episode of syncope and as many months. My suspicion is that her previous episode of syncope was secondary to intermittent heart block. We will discontinue the beta-jessica for now (3) HTN (hypertension): PLAN: Her blood pressure is not very well-controlled at this time. I will however recommend that we discontinue the beta-jessica and put her on a higher dose of calcium channel jessica. An echocardiogram should be performed to assess her ventricular function. HPI Consult Data Date of Consult: 04/05/24 HPI Narrative HPI Narrative: DEON REYNAGA, is a 78 F who presents to the emergency room with a syncopal episode. She said she was getting up to walk this morning and then she passed out. She described a similar episode a few months ago but she apparently did not reported to anyone. She described mild dizziness before she passed out. She has not had any chest pain or shortness breath or paroxysmal nocturnal dyspnea pedal edema. She presented to the emergency room and was noted to be hypotensive and bradycardic. She did have a laceration over her scalp. I was called for evaluation with the EKG and went down to see her. She appeared to be quite stable. Blood work appeared to be unremarkable electrocardiogram confirmed 2-1 heart block. [facility] Medical History (Updated 04/05/24 @ 16:[address] Kee Lepe MD) COPD (chronic obstructive pulmonary disease) Anemia Anxiety Depression Chronic pain Osteoporosis Rheumatoid arthritis Kidney stones Former smoker Congestive heart failure (CHF) Stroke/cerebrovascular accident Leg fracture, left DVT (deep venous thrombosis) HTN (hypertension) COPD (chronic obstructive pulmonary disease) HLD (hyperlipidemia) Hypothyroidism Bipolar disorder Hypertension Home Medications ?Medication ?Instructions ?Recorded ?Last Taken ?Type amlodipine 10 mg tablet 10 mg PO DAILY BLOOD PRESSURE 10/26/13 01/25/21 History carbamazepine 200 mg tablet 200 mg PO QHS MENTAL HEALTH 10/26/13 01/24/21 History duloxetine 60 mg capsule,delayed 60 mg PO BID MENTAL HEALTH 10/26/13 01/25/21 History release rosuvastatin 10 mg tablet 10 mg PO QHS CHOLESTEROL 10/26/13 01/24/21 History albuterol sulfate 2.5 mg/3 mL 2.5 mg (3 mL) inhalation Q4H PRN 09/15/18 Unknown Rx (0.083 %) solution for nebulization SHORTNESS OF BREATH ##30 bisoprolol 2.5 1 tab PO DAILY BLOOD PRESSURE 01/25/21 Unknown History mg-hydrochlorothiazide 6.25 mg tablet carbamazepine 100 mg chewable 100 mg PO DAILY MENTAL HEALTH 01/25/21 01/25/21 History tablet lisinopril 10 mg tablet 10 mg PO DAILY BLOOD PRESSURE 09/19/23 Unknown History quetiapine 400 mg tablet 400 mg PO QHS SLEEP/MOOD 09/19/23 Unknown History Allergy/AdvReac Type Severity Reaction Status Date / Time aspirin Allergy Hives Verified 09/19/23 13:21 diphenhydramine HCl (From Allergy Anaphylaxis Verified 09/19/23 13:21 Benadryl) latex Allergy Rash Verified 09/19/23 13:21 meperidine (From Demerol) Allergy Swelling Verified 09/19/23 13:21 facial Penicillins Allergy Anaphylaxis Verified 09/19/23 13:21 Sulfa (Sulfonamide Allergy Rash Verified 09/19/23 13:21 Antibiotics) chlorpromazine AdvReac mental Verified 09/19/23 13:21 status change codeine AdvReac Vomiting Verified 09/19/23 13:21 haloperidol (From Haldol) AdvReac HALLUCINATI Verified 09/19/23 13:21 ONS meloxicam AdvReac Upset Verified 09/19/23 13:21 Stomach pentazocine AdvReac Vomiting Verified 09/19/23 13:21 promethazine HCl (From AdvReac hallucinati Verified 09/19/23 13:21 Phenergan) ons Family History Mother CAD (coronary artery disease) Kidney disease Grandmother CAD (coronary artery disease) Liver disease Father CVA (cerebral vascular accident) Surgical History History of appendectomy History of total left hip replacement History of cholecystectomy History of hysterectomy Social History Smoking Status: Former smoker ROS Constitutional Constitutional: Denies fever(s) or weight loss Eyes Eyes: Reports systems reviewed and no addt'l complaints, except as documented ENT HEENT: Reports systems reviewed and no addt'l complaints, except as documented Cardiovascular Cardiovascular: Reports syncope; Denies chest pain at rest, chest pain with activity, dyspnea at rest, dyspnea on exertion, edema, palpitations or paroxysmal nocturnal dyspnea Respiratory/Chest Respiratory/Chest: Denies dyspnea on exertion, productive cough, shortness of breath at rest or shortness of breath with exertion Gastrointestinal Gastrointestinal: Denies change in bowel habits, nausea, vomiting or weight changes Genitourinary Genitourinary: Denies difficulty urinating Musculoskeletal Musculoskeletal: Denies joint stiffness or muscle weakness Integumentary Integumentary: Denies lesions Neurologic Neurologic: Reports dizziness and syncope Psychiatric Psychiatric: Denies anxiety Endocrine Endocrinology: Denies excessive sweating or fatigue Hematologic/Lymphatic Hematologic/Lymphatic: Denies anemia Allergic/Immunologic Allergic/Immunologic: Denies seasonal rhinorrhea Physical Exam Const alert, oriented x3 and no apparent distress General Appearance: cooperative HEENT hearing grossly normal bilaterally Head and Scalp: atraumatic Eyes EOMs intact bilaterally Neck General: normal visual inspection Chest inspection of chest normal and palpation of chest normal Resp normal respiratory effort Auscultation: clear to auscultation bilaterally Cardio regular rate, regular rhythm, S1 normal heart sound and S2 normal heart sound Jugular Venous Distention: JVD GI normal to inspection, nondistended, normoactive bowel sounds Extremity normal capillary refill and no pedal edema Peripheral Pulses: Yes pulses 2+ throughout and femoral pulses present Skin no rashes or lesions noted Neuro oriented x3 and CN's II-XII intact bilaterally Psych Appearance: grossly normal and appropriate Risk Stratification Risk Stratification Applicable: No Objective Data Vital Signs: Vital Signs Temp Pulse Resp BP Pulse Ox O2 Del Method 97.9 F 66 18 169/80 H 97 Room Air 04/05/24 15:10 04/05/24 16:00 04/05/24 16:00 04/05/24 16:00 04/05/24 16:00 04/05/24 16:00 Oxygen Delivery Method Room Air Weight: 182 lb 5.156 oz Body Mass Index (BMI) 33.3 Lab / Micro Data 04/05/24 14:05 04/05/24 14:05 Labs: Laboratory Results - last 24 hr 04/05/24 14:05: WBC 9.4, RBC 3.68 L, Hgb 11.6 L, Hct 35.3 L, MCV 95.9, MCH 31.5, MCHC 32.9, RDW Std Deviation 41.8, RDW Coeff of Umair 11.9, Plt Count 251, MPV 9.4, Immature Gran % (Auto) 0.300, Neut % (Auto) 66.4, Lymph % (Auto) 24.1, [place] % (Auto) 6.4, Eos % (Auto) 2.5, Baso % (Auto) 0.3, Absolute Neuts (auto) 6.2, Absolute Lymphs (auto) 2.26, Nucleated RBC % 0, Sodium 135 L, Potassium 4.3, Chloride 105, Carbon Dioxide 23.0, Anion Gap 7, BUN 27 H, Creatinine 0.93, Estim Creat Clear Calc 49.69, Est GFR (MDRD) Af Amer 75, Est GFR (MDRD) Non-Af 62, BUN/Creatinine Ratio 29.2 H, Glucose 126 H, Calcium 9.6, Troponin I High Sens 13 Rhythm Strip Rhythm Strip: Mobitz type II heart block. Rate: 38 Ectopy: None Cardiology Labs/Tests 04/05/24 14:05: WBC 9.4, RBC 3.68 L, Hgb 11.6 L, Hct 35.3 L, MCV 95.9, MCH 31.5, MCHC 32.9, Plt Count 251, MPV 9.4, Immature Gran % (Auto) 0.300, Neut % (Auto) 66.4, Lymph % (Auto) 24.1, [place] % (Auto) 6.4, Eos % (Auto) 2.5, Baso % (Auto) 0.3, Absolute Neuts (auto) 6.2, Nucleated RBC % 0, Sodium 135 L, Potassium 4.3, Chloride 105, Carbon Dioxide 23.0, Anion Gap 7, BUN 27 H, Creatinine 0.93, Est GFR (MDRD) Af Amer 75, Est GFR (MDRD) Non-Af 62, BUN/Creatinine Ratio 29.2 H, Glucose 126 H, Calcium 9.6 Rhythm: EKG: ECHO: Stress Test: Cardiac Cath: PCI: CT Surgery: Holter monitor: EPS: PPM: CXR: Chest CT Scan: Radiography Diagnostic Testing: Radiology Impression Brain CT 04/05/24 13:07 IMPRESSION: Chronic involutional changes of the brain. Pansinusitis. Scalp hematoma overlying the posterior occipital bone in the midline. Electronically Signed: Jerrell Monteiro MD at 14:30 EDT , Chest X-Ray 04/05/24 14:20 IMPRESSION: No acute abnormality is seen. Electronically Signed: Jerrell Monteiro MD at 14:46 EDT ,
[2024-04-05] MEDS: carBAMazepine 200 MG Tablet PO (20:54)
[2024-04-05] MEDS: DULoxetine Hcl 60 MG Capsule PO (20:56)
[2024-04-05] MEDS: QUEtiapine 100 MG Tablet 400 MG PO (20:56)
[2024-04-05] MEDS: Atorvastatin Calcium 20 MG Tablet PO (20:57)
[2024-04-05] MEDS: Acetaminophen 325 MG Tablet 650 MG PO (21:02)
[2024-04-06] VITALS (11 sets, daily range): BP systolic 130–154; BP diastolic 48–76; PULSE 49–86; RESP 14–18; TEMP 36.1–36.7; O2SAT 94–99
--- NOTE | 2024-04-06 05:30 | EKG12_ITS ---
Test Reason : AM EKG Blood Pressure : / mmHG Vent. Rate : 042 BPM Atrial Rate : 042 BPM P-R Int : 178 ms QRS Dur : 082 ms QT Int : 490 ms P-R-T Axes : 074 017 056 degrees QTc Int : 409 ms Mobitz 2:1 AV block Abnormal ECG When compared with ECG of 05-APR-2024 13:15, MANUAL COMPARISON REQUIRED, DATA IS UNCONFIRMED Confirmed by DOMENIC FARLEY, CHRISTAL ([id number]), medical transcription editor JING CHAUHAN ([id number]) on 04/06/2024 9:43:21 AM Referred By: JULIO Confirmed By:CHRISTAL SHETH MD
[2024-04-06 05:38] LABS: Absolute Lymphocyte Count 2.43 X10^3/uL (0.83-4.51); Absolute Neutrophil Count 3.7 X10^3/uL (2.0-7.7); Basophil# 0.02 X10^3/uL; Basophil% 0.3 % (0-1); Eosinophil# 0.25 X10^3/uL; Eosinophils% 3.5 % (0-5); Hematocrit 31.3 % (37-47); Hemoglobin 10.4 g/dL (12.0-15.0); Lymphocyte # 2.43 X10^3/ul (0.83-4.51); Lymphocyte % 33.9 % (19-41); Mean Corp Hgb Conc 33.2 g/dL (32-36); Mean Corpuscular Hgb 31.4 pg (27.0-32.0); Mean Corpuscular Volume 94.6 fL (81-99); Mean Platelet Vol. 9.6 fl (6.2-12.0); Monocyte# 0.73 X10^3/uL; Monocyte% 10.2 % (0-10); NRBC Flagged by Analyzer 0 % (0-5); Neutrophil # 3.72 X10^3/uL (2.7-7.7); Neutrophil % 51.8 % (47-70); Platelet Count 213 K/mm3 (150-450); RBC Distribution Width CV 12.1 % (11.6-14.6); Red Blood Count 3.31 M/mm3 (4.2-5.4); White Blood Count 7.2 K/mm3 (4.4-11.0)
[2024-04-06 06:38] LABS: Anion Gap 5 (5-15); BUN 26 mg/dL (7-18); BUN/Creat Ratio 27.2 RATIO (10-20); Calcium,Total 9.3 mg/dL (8.5-10.1); Chloride 110 mmol/L (98-107); Creatinine, Serum 0.96 mg/dL (0.55-1.02); EST Glomerular Filtration Rate 60 mL/min (>60); Est Glom Filt Rate - Afr Amer 73 mL/min (>60); Estimated Creatinine Clearance 46.59 ml/min; Glucose 120 mg/dL (74-106); Potassium 3.8 mmol/L (3.5-5.1); Sodium Level 138 mmol/L (136-145)
--- NOTE | 2024-04-06 08:39 | CL.IE_ITS ---
Patient: DEON REYNAGA Study Date: 04/06/2024 Performing: Kee Lepe MD : 1945 Age: 78 Gender: female PROCEDURES PERFORMED LP04-(24125)INITIAL PACER INSERT+DUAL LEADS INDICATIONS Mobitz (type II) AV block PROCEDURE DETAILS The patient was brought to the Catheterization Lab in the postabsorptive nonsedated state. Informed consent was obtained prior to the procedure. Local anesthetic was given subcutaneously to the left subclavian region with Lidocaine 2%. Incision was made to the left subclavicular area. PPM ventricular lead was inserted / positioned to right ventricular septal wall. PPM ventricular lead testing performed. PPM ventricular lead testing performed. PPM atrial lead was inserted / positioned to the right atrial appendage. PPM atrial lead testing performed. The Atrial lead sutured in place with 2-0 Silk. The Ventricular PM lead sutured in place with 2-0 Silk. Device pocket was irrigated with antibiotic. PPM generator was attached to the lead(s) and inserted into the pocket. PPM generator was then interrogated by the skein drier. Subcutaneous closure was completed with 3-0 Vicryl. Skin closure was completed with 4-0 Vicryl. Steri-strips applied to left subclavicular incision. Instrument, sponge, and needle counts were noted to be normal. The patient tolerated the procedure well. Estimated Blood Loss: 15 ml's IMPLANTED / EX-PLANTED DEVICES IMPLANTED DEVICE(S): PPM Ventricular lead - Order Planner: [employer], Model # Tendril STS Ref 2088TC 52cm , Serial # [id number] PPM Atrial lead - Order Planner: [employer]Michel[employer], Model # Tendril STS Ref 2088TC 46cm , Serial # [id number] PPM Generator - Order Planner: [employer], Model # Assurity MRI pulse generator Ref [id number] , Serial # [id number] DEVICE PARAMETERS ATRIAL LEAD PARAMETERS: P wave- 0.5 (mV) threshold- 3.5 (V) impedence- 410 (OHMS) VENTRICULAR LEAD PARAMETERS: R wave- 2.0 (mV) threshold- 3.5 (V) impedence- 630 (OHMS) DEVICE PARAMETERS: Mode- DDD Lower rate- 60 Upper rate- 130 CONCLUSIONS / RECOMMENDATIONS Device Conclusions: Successful implantation of a dual chamber pacemaker Device Recommendations: Follow up with Primary Care Physician PROCEDURE MEDICATIONS Versed 1 mg IV Fentanyl 50 mcg IV Versed 1 mg IV Oxygen: 2 L/min via nasal cannula Antibiotic given in appropriate timeframe. Clindamycin 900 mg IV 04/06/2024 07:26:02 Signed By Kee Lepe MD On 04/06/2024 08:39:05 Kee Lepe MD
--- NOTE | 2024-04-06 08:41 | PN.CARD_ITS ---
Subjective Subjective Patient seen and evaluated. Underwent permanent pacemaker today. Objective Data Vital Signs: Vital Signs Temp Pulse Resp BP Pulse Ox O2 Del Method 97 F L 49 L 14 130/48 H 97 Room Air 04/06/24 05:00 04/06/24 05:00 04/06/24 05:00 04/06/24 05:00 04/06/24 05:00 04/06/24 05:00 Oxygen Delivery Method Room Air Weight: 171 lb 1.259 oz Body Mass Index (BMI) 31.3 Intake & Output: Intake and Output for Last 24 Hours 04/04/24 04/05/24 04/06/24 23:59 23:59 23:59 Intake Total 500 / 500 Balance 500 / 500 Lab / Micro Data 04/06/24 05:30 04/06/24 05:30 Labs: Laboratory Results - last 24 hr 04/05/24 14:05: WBC 9.4, RBC 3.68 L, Hgb 11.6 L, Hct 35.3 L, MCV 95.9, MCH 31.5, MCHC 32.9, RDW Std Deviation 41.8, RDW Coeff of Umair 11.9, Plt Count 251, MPV 9.4, Immature Gran % (Auto) 0.300, Neut % (Auto) 66.4, Lymph % (Auto) 24.1, [place] % (Auto) 6.4, Eos % (Auto) 2.5, Baso % (Auto) 0.3, Absolute Neuts (auto) 6.2, Absolute Lymphs (auto) 2.26, Nucleated RBC % 0, Sodium 135 L, Potassium 4.3, Chloride 105, Carbon Dioxide 23.0, Anion Gap 7, BUN 27 H, Creatinine 0.93, Estim Creat Clear Calc 49.69, Est GFR (MDRD) Af Amer 75, Est GFR (MDRD) Non-Af 62, B UN/Creatinine Ratio 29.2 H, Glucose 126 H, Calcium 9.6, Troponin I High Sens 13 04/06/24 05:30: WBC 7.2, RBC 3.31 L, Hgb 10.4 L, Hct 31.3 L, MCV 94.6, MCH 31.4, MCHC 33.2, RDW Std Deviation 42.0, RDW Coeff of Umair 12.1, Plt Count 213, MPV 9.6, Immature Gran % (Auto) 0.300, Neut % (Auto) 51.8, Lymph % (Auto) 33.9, [place] % (Auto) 10.2 H, Eos % (Auto) 3.5, Baso % (Auto) 0.3, Absolute Neuts (auto) 3.7, Absolute Lymphs (auto) 2.43, Nucleated RBC % 0, Sodium 138, Potassium 3.8, C hloride 110 H, Carbon Dioxide 22.0, Anion Gap 5, BUN 26 H, Creatinine 0.96, Estim Creat Clear Calc 46.59, Est GFR (MDRD) Af Amer 73, Est GFR (MDRD) Non-Af 60, BUN/Creatinine Ratio 27.2 H, Glucose 120 H, Calcium 9.3, TSH 2.580 Rhythm Strip Rhythm Strip: Mobitz type II heart block. Rate: 38 Ectopy: None Cardiology Labs/Tests 04/05/24 14:05: WBC 9.4, RBC 3.68 L, Hgb 11.6 L, Hct 35.3 L, MCV 95.9, MCH 31.5, MCHC 32.9, Plt Count 251, MPV 9.4, Immature Gran % (Auto) 0.300, Neut % (Auto) 66.4, Lymph % (Auto) 24.1, [place] % (Auto) 6.4, Eos % (Auto) 2.5, Baso % (Auto) 0.3, Absolute Neuts (auto) 6.2, Nucleated RBC % 0, Sodium 135 L, Potassium 4.3, Chloride 105, Carbon Dioxide 23.0, Anion Gap 7, BUN 27 H, Creatinine 0.93, Est GFR (MDRD) Af Amer 75, Est GFR (MDRD) Non-Af 62, BUN/Creatinine Ratio 29.2 H, G lucose 126 H, Calcium 9.6 04/06/24 05:30: WBC 7.2, RBC 3.31 L, Hgb 10.4 L, Hct 31.3 L, MCV 94.6, MCH 31.4, MCHC 33.2, Plt Count 213, MPV 9.6, Immature Gran % (Auto) 0.300, Neut % (Auto) 51.8, Lymph % (Auto) 33.9, [place] % (Auto) 10.2 H, Eos % (Auto) 3.5, Baso % (Auto) 0.3, Absolute Neuts (auto) 3.7, Nucleated RBC % 0, Sodium 138, Potassium 3.8, C hloride 110 H, Carbon Dioxide 22.0, Anion Gap 5, BUN 26 H, Creatinine 0.96, Est GFR (MDRD) Af Amer 73, Est GFR (MDRD) Non-Af 60, BUN/Creatinine Ratio 27.2 H, G lucose 120 H, Calcium 9.3 Rhythm: EKG: ECHO: Stress Test: Cardiac Cath: PCI: CT Surgery: Holter monitor: EPS: PPM: CXR: Chest CT Scan: Radiography Diagnostic Testing: Radiology Impression Brain CT 04/05/24 13:07 IMPRESSION: Chronic involutional changes of the brain. Pansinusitis. Scalp hematoma overlying the posterior occipital bone in the midline. Electronically Signed: Jerrell Monteiro MD at 14:30 EDT , Chest X-Ray 04/05/24 14:20 IMPRESSION: No acute abnormality is seen. Electronically Signed: Jerrell Monteiro MD at 14:46 EDT , Physical Exam Const alert, oriented x3 and no apparent distress General Appearance: cooperative HEENT hearing grossly normal bilaterally Head and Scalp: atraumatic Eyes EOMs intact bilaterally Neck General: normal visual inspection Chest inspection of chest normal and palpation of chest normal Resp normal respiratory effort Auscultation: clear to auscultation bilaterally Cardio regular rate, regular rhythm, S1 normal heart sound and S2 normal heart sound Jugular Venous Distention: JVD GI normal to inspection, nondistended, normoactive bowel sounds Extremity normal capillary refill and no pedal edema Peripheral Pulses: Yes pulses 2+ throughout and femoral pulses present Skin no rashes or lesions noted Neuro oriented x3 and CN's II-XII intact bilaterally Psych Appearance: grossly normal and appropriate Assessment & Plan Assessment/Plan (1) Mobitz type 2 second degree heart block: PLAN: Patient presents with a syncopal episode and EKG demonstrating Mobitz type II second-degree heart block. Patient underwent placement of a dual-chamber pacemaker without any apparent complications. Pacemaker will be interrogated in the a.m. and if stable patient will be discharged. She lives alone and thus precluding sending her home later today. Arrangements are being made to have her accompanied. (2) Syncope: QUALIFIERS: Syncope type: unspecified Qualified Code(s): R55 - Syncope and collapse PLAN: This is her second episode of syncope and as many months. My suspicion is that her previous episode of syncope was secondary to intermittent heart block. We will discontinue the beta-jessica for now (3) HTN (hypertension): QUALIFIERS: Hypertension type: primary hypertension Qualified Code(s): I10 - Essential (primary) hypertension PLAN: Her blood pressure is not very well-controlled at this time. An echocardiogram should be performed to assess her ventricular function.
--- NOTE | 2024-04-06 08:43 | ECHOD_ITS ---
Reason For Study: ARRHYTHMIA Procedure This was a 2D Doppler, Color Flow transthoracic echocardiogram. The study was technically difficult. Patient was scanned in supine position during reflux assessment. Patient was in left arm sling from pacer insertion day prior. Exam performed portable in patient room. Left Ventricle Normal LV size. Left ventricular systolic function is normal. The left ventricular ejection fraction is 60 %. No regional wall motion abnormalities noted. Right Ventricle Normal RV size. ICD or pacer leads identified within the right ventricle. Normal systolic function. Atria Normal left atrium. Normal right atrium. ICD or pacer leads identified within the right atrium. Mitral Valve Normal mitral valve. Tricuspid Valve Normal tricuspid valve. Mild tricuspid valve insufficiency. Aortic Valve Trisinus/trileaflet aortic valve. Pulmonic Valve Normal pulmonic valve. Great Vessels Normal aortic root. The pulmonary is not well visualized. Normal inferior vena cava. Pericardium/Pleural No pericardial effusion. MMode/2D Measurements & Calculations LVIDd: 3.9 cm IVSd: 0.98 cm LVOT diam: 1.9 cm LVIDs: 2.2 cm LVPWd: 0.94 cm LVOT area: 2.7 cm2 RVDd: 2.5 cm FS: 43.3 % asc Aorta Diam: 3.0 cm LAV(MOD-bp): 42.2 ml LVAd ap4: 21.3 cm2 LAV(MOD-bp) Indexed: 23.6 ml/m2 LVLd ap4: 6.9 cm LAV(MOD-sp2): 33.3 ml EDV(MOD-sp4): 59.3 ml LAV(MOD-sp4): 47.3 ml EDV(sp4-el): 56.3 ml LVAs ap4: 9.7 cm2 LVLs ap4: 5.1 cm ESV(MOD-sp4): 17.2 ml ESV(sp4-el): 15.7 ml EF(MOD-sp4): 71.0 % EF(sp4-el): 72.1 % SV(MOD-sp4): 42.1 ml SV(sp4-el): 40.6 ml Ao sinus diam: 2.[address] Junction: 2.2 cm LA dimension(2D): 3.3 cm LA A4 area: 17.4 cm2 RA A4 area: 8.0 cm2 TAPSE: 1.6 cm Time Measurements MV dec time: 0.08 sec Doppler Measurements & Calculations MV E max jonas: 142.2 cm/sec Lat Peak E' Jonas: 16.3 cm/sec Med Peak E' Jonas: 10.8 cm/sec MV A max jonas: 60.6 cm/sec E/E' lat: 8.7 E/E' med: 13.2 MV E/A: 2.3 Ao V2 max: 167.2 cm/sec LV V1 max: 104.5 cm/sec MV dec slope: 1824 cm/sec2 Ao max P.2 mmHg LV V1 max P.4 mmHg Ao V2 mean: 119.8 cm/sec LV V1 mean P.5 mmHg Ao mean P.3 mmHg LV V1 mean: 75.5 cm/sec Ao V2 VTI: 27.7 cm LV V1 VTI: 17.0 cm AV (velocity ratio): 0.61 ROHIT(I,D): 1.7 cm2 ROHIT(V,D): 1.7 cm2 SV(LVOT): 45.9 ml PA V2 max: 89.7 cm/sec TR max jonas: 275.6 cm/sec PA max PG (full): 1.1 mmHg TR max P.4 mmHg ECHO/Echo Complete Interpretation Summary Normal LV size. Left ventricular systolic function is normal. The left ventricular ejection fraction is 60 %. ICD or pacer leads identified within the right ventricle. Ordering Physician: Kee Lepe Referring Physician: Wilver Browning M.D. Performed By: Niharika Loera RDCS
[2024-04-06] MEDS: Acetaminophen 325 MG Tablet 650 MG PO ×2 (09:18→19:50)
[2024-04-06] MEDS: Lisinopril 10 MG Tablet PO (09:20)
[2024-04-06] MEDS: amLODIPine 10 MG Tablet PO (09:20)
[2024-04-06] MEDS: carBAMazepine 200 MG Tablet 100 MG PO (09:20)
[2024-04-06] MEDS: DULoxetine Hcl 60 MG Capsule PO ×2 (09:20→22:30)
--- NOTE | 2024-04-06 14:46 | CASEMGMT ---
Addendum entered by Gisela Hoskins 04/06/24 14:52: Pt states she has a walker, rollator, and cane @ her home, available if needed, but states she has not been needing them. Original Note: GRACE DAVIS NOTE: RN CM to room. Pt resting in bed. Pt's CM, Marlena Valdes, from [facility], @ bedside. Pt agreeable to GRACE DAVIS talking w/her while Marlena @ bedside. Pt denies having any concerns discharging home. She lives alone and has aides MWF @ home (Thu for 2 hrs, Thu 4 hrs, Thu 3 hrs) but the aide is not available to come to her home this Thursday. Pt states her daughter will take her home at discharge and then her daughter and GD will take turns staying w/her initially upon return to home to assist, as needed. She does not receive home-delivered meals and states her family can assist w/groceries & meals, as needed. Therapy evals on hold today d/t pt being on bedrest and to work w/pt tomorrow. GRACE DAVIS will follow for any recommendations. Cherelle GARCIA RN, CM
--- NOTE | 2024-04-06 19:32 | PCM.PN.HOSP ---
Reason for Visit Reason for Visit: Diagnoses Essential (primary) hypertension (04/06/24) Atrioventricular block, second degree (04/06/24) Syncope and collapse (04/06/24) Laceration without foreign body of scalp, initial encounter (04/06/24) Subjective Subjective Patient status post pacemaker, feeling fair overall and not yet feeling any pain. No chest pain or shortness of breath. No new or acute complaints Objective Data Objective Data Vital Signs: Vital Signs Temp Pulse Resp BP Pulse Ox O2 Del Method 97.0 F L 77 18 132/76 H 94 Room Air 04/06/24 15:28 04/06/24 15:28 04/06/24 15:28 04/06/24 15:28 04/06/24 15:28 04/06/24 15:28 Oxygen Delivery Method Room Air Weight: 77.6 kg Body Mass Index (BMI) 31.3 Intake & Output: Intake and Output for Last 24 Hours 04/04/24 04/05/24 04/06/24 23:59 23:59 23:59 Intake Total 900 / 900 Balance 900 / 900 Lab / Micro Data 04/06/24 05:30 04/06/24 05:30 Labs: Laboratory Results - last 24 hr 04/06/24 05:30: WBC 7.2, RBC 3.31 L, Hgb 10.4 L, Hct 31.3 L, MCV 94.6, MCH 31.4, MCHC 33.2, RDW Std Deviation 42.0, RDW Coeff of Umair 12.1, Plt Count 213, MPV 9.6, Immature Gran % (Auto) 0.300, Neut % (Auto) 51.8, Lymph % (Auto) 33.9, [place] % (Auto) 10.2 H, Eos % (Auto) 3.5, Baso % (Auto) 0.3, Absolute Neuts (auto) 3.7, Absolute Lymphs (auto) 2.43, Nucleated RBC % 0, Sodium 138, Potassium 3.8, Chloride 110 H, Carbon Dioxide 22.0, Anion Gap 5, BUN 26 H, Creatinine 0.96, Estim Creat Clear Calc 46.59, Est GFR (MDRD) Af Amer 73, Est GFR (MDRD) Non-Af 60, BUN/Creatinine Ratio 27.2 H, Glucose 120 H, Calcium 9.3, TSH 2.580 Rhythm Strip Rhythm Strip: Mobitz type II heart block. Rate: 38 Ectopy: None Physical Exam Narrative General: Alert, oriented, no apparent distress HEENT: Atraumatic, normocephalic Eyes: Anicteric, normal conjunctiva, extraocular movements grossly intact Neck: Supple Respiratory: Clear to auscultation bilaterally, normal respiratory effort Cardiovascular: Regular rate and rhythm GI: Soft, nontender, nondistended Extremities: No edema Musculoskeletal: Left arm in sling Neuro: No overt focal neurological deficits Skin: Pacer site covered Psych: Cooperative Assessment & Plan Assessment/Plan (1) Mobitz type 2 second degree heart block: (2) Syncope: QUALIFIERS: Syncope type: unspecified Qualified Code(s): R55 - Syncope and collapse PLAN: Plan # Mobitz type II heart block with syncope -Status post pacemaker implantation 04/06/2024 -Patient tolerated this well -Being monitored on telemetry -Echo ordered # Bipolar disorder -Continue Tegretol, Cymbalta, Seroquel # Hypertension -Patient's amlodipine was continued as well as lisinopril -Beta-jessica held #DVT ppx: SCDs Lima Bolton MD Charges/Coding Visit Charges Inpatient E&M: 41167 Subs Hosp L1
[2024-04-06] MEDS: Atorvastatin Calcium 20 MG Tablet PO (22:30)
[2024-04-06] MEDS: QUEtiapine 100 MG Tablet 400 MG PO (22:30)
[2024-04-06] MEDS: carBAMazepine 200 MG Tablet PO (22:30)
[2024-04-06] MEDS: 0.9% Saline Lock 10 ML Syringe IV (22:31)
[2024-04-07 04:10] VITALS: BP 157/75; PULSE 82; RESP 16; TEMP 36.8; O2SAT 98
--- NOTE | 2024-04-07 05:55 | RAD_ITS ---
EXAM: XR CHEST, 3 VIEWS CLINICAL INDICATION: Post permanant ICD/Pacemaker -- inspiration/expiration. Arms Down. Wet read to MD TECHNIQUE: Frontal inspiration and expiration views and lateral view. COMPARISON: 04/05/2024. FINDINGS: LUNGS AND PLEURAL SPACES: Unremarkable. No consolidation or edema. No pneumothorax. No effusion. HEART: Unremarkable. Cardiac silhouette not enlarged. MEDIASTINUM: Central airways and mediastinal contour are unremarkable. BONES/JOINTS: Unremarkable. No acute fracture. SOFT TISSUES: Unremarkable. TUBES, LINES AND DEVICES: Pacemaker leads in good position. RAD/Chest 3 View IMPRESSION: 1. Pacemaker leads in good position. 2. No pneumothorax. Electronically Signed: Marshal Thomas MD at 5:09 EDT ,
[2024-04-07 06:58] LABS: Hematocrit 34.6 % (37-47); Hemoglobin 11.6 g/dL (12.0-15.0); Mean Corp Hgb Conc 33.5 g/dL (32-36); Mean Corpuscular Hgb 31.8 pg (27.0-32.0); Mean Corpuscular Volume 94.8 fL (81-99); Mean Platelet Vol. 9.1 fl (6.2-12.0); Platelet Count 221 K/mm3 (150-450); RBC Distribution Width CV 11.9 % (11.6-14.6); RBC Distribution Width SD 40.9 fl (35.1-43.9); Red Blood Count 3.65 M/mm3 (4.2-5.4); White Blood Count 6.4 K/mm3 (4.4-11.0)
[2024-04-07 07:22] LABS: Anion Gap 5 (5-15); BUN 18 mg/dL (7-18); BUN/Creat Ratio 23.5 RATIO (10-20); Calcium,Total 9.7 mg/dL (8.5-10.1); Chloride 110 mmol/L (98-107); Creatinine, Serum 0.76 mg/dL (0.55-1.02); EST Glomerular Filtration Rate 78 mL/min (>60); Est Glom Filt Rate - Afr Amer 94 mL/min (>60); Glucose 124 mg/dL (74-106); Magnesium 1.8 mg/dL (1.6-2.6); Sodium Level 138 mmol/L (136-145)
[2024-04-07 07:47] VITALS: BP 148/67; PULSE 88; RESP 16; TEMP 37; O2SAT 98
[2024-04-07] MEDS: DULoxetine Hcl 60 MG Capsule PO (07:50)
[2024-04-07] MEDS: amLODIPine 10 MG Tablet PO (07:50)
[2024-04-07] MEDS: Lisinopril 10 MG Tablet PO (07:50)
[2024-04-07] MEDS: carBAMazepine 200 MG Tablet 100 MG PO (07:50)
--- NOTE | 2024-04-07 08:00 | PCM.PN.CARD ---
Subjective Subjective Patient seen and evaluated. Appears to be doing well. Objective Data Vital Signs: Vital Signs Temp Pulse Resp BP Pulse Ox O2 Del Method 98.6 F 88 16 148/67 H 98 Room Air 04/07/24 07:47 04/07/24 07:47 04/07/24 07:47 04/07/24 07:47 04/07/24 07:47 04/07/24 07:47 Oxygen Delivery Method Room Air Weight: 171 lb 1.259 oz Body Mass Index (BMI) 31.3 Intake & Output: Intake and Output for Last 24 Hours 04/05/24 04/06/24 04/07/24 23:59 23:59 23:59 Intake Total 900 / 1150 250 / 250 Output Total 100 / 100 Balance 900 / 1050 150 / 150 Lab / Micro Data 04/07/24 06:44 04/07/24 06:44 Labs: Laboratory Results - last 24 hr 04/07/24 06:44: WBC 6.4, RBC 3.65 L, Hgb 11.6 L, Hct 34.6 L, MCV 94.8, MCH 31.8, MCHC 33.5, RDW Std Deviation 40.9, RDW Coeff of Umair 11.9, Plt Count 221, MPV 9.1, Sodium 138, Potassium 4.0, Chloride 110 H, Carbon Dioxide 23.0, Anion Gap 5, BUN 18, Creatinine 0.76, Estim Creat Clear Calc 55.90, Est GFR (MDRD) Af Amer 94, Est GFR (MDRD) Non-Af 78, BUN/Creatinine Ratio 23.5 H, Glucose 124 H, Calcium 9.7, Magnesium 1.8 Rhythm Strip Rhythm Strip: Mobitz type II heart block. Rate: 38 Ectopy: None Cardiology Labs/Tests 04/07/24 06:44: WBC 6.4, RBC 3.65 L, Hgb 11.6 L, Hct 34.6 L, MCV 94.8, MCH 31.8, MCHC 33.5, Plt Count 221, MPV 9.1, Sodium 138, Potassium 4.0, Chloride 110 H, Carbon Dioxide 23.0, Anion Gap 5, BUN 18, Creatinine 0.76, Est GFR (MDRD) Af Amer 94, Est GFR (MDRD) Non-Af 78, BUN/Creatinine Ratio 23.5 H, Glucose 124 H, Calcium 9.7, Magnesium 1.8 Rhythm: EKG: ECHO: Stress Test: Cardiac Cath: PCI: CT Surgery: Holter monitor: EPS: PPM: CXR: Chest CT Scan: Radiography Diagnostic Testing: Radiology Impression Chest X-Ray 04/07/24 05:55 IMPRESSION: 1. Pacemaker leads in good position. 2. No pneumothorax. Electronically Signed: Marshal Thomas MD at 5:09 EDT , Physical Exam Const alert, oriented x3 and no apparent distress General Appearance: cooperative HEENT hearing grossly normal bilaterally Head and Scalp: atraumatic Eyes EOMs intact bilaterally Neck General: normal visual inspection Chest inspection of chest normal and palpation of chest normal Resp normal respiratory effort Auscultation: clear to auscultation bilaterally Cardio regular rate, regular rhythm, S1 normal heart sound and S2 normal heart sound Jugular Venous Distention: JVD GI normal to inspection, nondistended, normoactive bowel sounds Extremity normal capillary refill and no pedal edema Peripheral Pulses: Yes pulses 2+ throughout and femoral pulses present Skin no rashes or lesions noted Neuro oriented x3 and CN's II-XII intact bilaterally Psych Appearance: grossly normal and appropriate Assessment & Plan Assessment/Plan (1) Mobitz type 2 second degree heart block: PLAN: Patient presents with a syncopal episode and EKG demonstrating Mobitz type II second-degree heart block. Patient underwent placement of a dual-chamber pacemaker without any apparent complications. Pacemaker was interrogated and noted to be functioning well no pneumothorax. Patient will be discharged for outpatient follow-up. (2) Syncope: QUALIFIERS: Syncope type: unspecified Qualified Code(s): R55 - Syncope and collapse PLAN: This is her second episode of syncope and as many months. My suspicion is that her previous episode of syncope was secondary to intermittent heart block. (3) HTN (hypertension): QUALIFIERS: Hypertension type: primary hypertension Qualified Code(s): I10 - Essential (primary) hypertension PLAN: Her blood pressure is not very well-controlled at this time. An echocardiogram should be performed to assess her ventricular function.
--- NOTE | 2024-04-07 08:41 | DCINST_ITS ---
Discharge Instructions Diet Discharge Diet: No restrictions (as you feel able. No excessive stretching. No lifting your arm over your head (keep elbow below shoulder level) until seen for your pacemaker check. Do not lift your elbow away from your side until you are seen for your first visit. Keep the arm sling on if it helps remind you not to lift your arm.) Activity Discharge Activity: May Not Drive May shower in (days): 2 Additional Activity Instructions:: May shower or bathe on [day 3]. Do not scrub the incision or soak in the tub. Just wash with soap and let the water run over the incision. Gently pat dry with towel. Medications: Take your pain medication as directed. Refer to your discharge instruction sheet for a list of medications you are to take. Dressing / Incision Call your doctor if your incision/area has: Continuous Slow Oozing, Sudden Increased Bleeding, Increased Pain/ Swelling, Increased Redness, Foul Smelling Discharge and Swelling at the incision site Call your doctor if you observe: Fever of 101 or Higher, Shortness of breath, Dizziness, Fainting spells, Swelling in the ankles, Chest pain, Prolonged hiccupping and Increased palpitations (irregular heartbeat) Suture Line Care: Avoid Pulling/Pushing and Avoid Pinching/Bending Cleanse incision/area with: Do not get Incision Wet and Keep Dressing Clean & Dry Additional Dressing/Incision Instructions:: When dressing is removed, wash and dry incision. Keep covered with a light bandage if it is rubbing against your clothing. Do not cover the incision with an airtight bandage. Change the bandage daily. Do not remove steri strips. The strips will fall off on their own. Follow Up Care Please Follow Up With: Kee Lepe MD When: Pacer follow-up April 13 at 11 AM Test Results: Test results from this visit will be discussed in further detail at your follow- up appointment, if applicable. Discharge Plan Admission Admit Date/Time: 04/06/24 13:21 Attending Provider: Kemal East Primary Care Provider: Wilver Browning Consulting Providers: Kee Lepe; Hamlet Samano; Lima Bolton Discharge Orders/Prescriptions Prescriptions: No Action carbamazepine 200 MG tablet 200 mg PO QHS amlodipine 10 MG tablet 10 mg PO DAILY rosuvastatin 10 MG tablet 10 mg PO QHS duloxetine 60 MG capsule 60 mg PO BID albuterol sulfate 2.5 MG/3 ML solution for nebulization 2.5 mg inhalation Q4H PRN (Reason: SHORTNESS OF BREATH) Qty: 30 0RF bisoprolol-hydrochlorothiazide 2.5-6.25 mg tablet 1 tab PO DAILY carbamazepine 100 mg tablet,chewable 100 mg PO DAILY lisinopril 10 mg tablet 10 mg PO DAILY quetiapine 400 mg tablet 400 mg PO QHS Referrals / Follow Up: Wilver Browning MD [Primary Care Provider] -
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
--- NOTE | 2024-04-07 12:21 | CASEMGMT ---
Social Work Per physician, pt is ready for dc today. SW met with pt to discuss discharge plan. Pt is upset as she does not have a ride home if discharged at this time. SW and pt discussed situation and pt's dgt is able to pick pt up later in the day. SW reassured pt that this would be fine. Pt dgt to pick pt up after work. Nursing updated. DC information faxed to Marlena Alvares, Direction Superintendent [employer] [facility]
[2024-04-07 13:41] VITALS: BP 166/58; PULSE 98; RESP 18; TEMP 36.7; O2SAT 98
--- NOTE | 2024-04-07 15:36 | CHAPLAIN ---
Type of Pastoral Visit ___ Initial Visit ___ Follow-up Visit ___ On-call Visit ___ General Patient Visit ___ Spiritual Assessment ___ Family Conference ___ Bereavement ___ Rapid Response ___ Code Blue ___ Other (describe below) Pastoral Care Referral From ___ Patient ___ Family ___ Nurse ___ Physician ___ Animal Trapper ___ Chain Carrier ___ Other (describe below) Sacrament/Intervention ___ Active listening ___ Anointing ___ Religious ___ Bereavement ___ Communion ___ [employer] exploration ___ ___ Life review ___ Prayer ___ Reconciliation ___ Sacrament of Sick ___ Supportive presence ___ Wedding ___ Other (describe below) Pastoral Comments staff are working with patient at this time for her discharge
== END 2024-04-07 15:38 | disposition home or self-care (01) | DRG 244 ==
LOC: ED 14:50 → PCU 18:10
PROVIDERS: Internal Medicine; Admitting Provider Hospitalist; Emergency Provider Emergency Medicine; PCP Internal Medicine
DX: I44.1 Atrioventricular block, second degree (principal); E03.9 Hypothyroidism, unspecified; S50.312A Abrasion of left elbow, initial encounter; S01.01XA Laceration without foreign body of scalp, initial encounter; F31.9 Bipolar disorder, unspecified; J44.9 Chronic obstructive pulmonary disease, unspecified; I10 Essential (primary) hypertension; E78.5 Hyperlipidemia, unspecified; W18.30XA Fall on same level, unspecified, initial encounter; Z66 Do not resuscitate; Z86.718 Personal history of other venous thrombosis and embolism; Z82.3 Family history of stroke; Z90.710 Acquired absence of both cervix and uterus; G89.29 Other chronic pain; Z79.891 Long term (current) use of opiate analgesic; Z95.0 Presence of cardiac pacemaker; Z87.891 Personal history of nicotine dependence; R55 Syncope and collapse; Y92.481 Parking lot as the place of occurrence of the external cause; Z86.73 Personal history of transient ischemic attack (TIA), and cerebral infarction without residual deficits
CPT/HCPCS: 33208; 36415; 70450; 71045; 71047; 80048; 83735; 84443; 84484; 85025; 85027; 90715; 93005; 93306; 97162; 97166; 99152; 99153; 99285; Q9967; A4216; C1894; J3490

== ENCOUNTER 2025-01-27 16:18 | Emergency (ER) | payer MEDICARE, MEDICAID, SELFPAY ==
[2025-01-27 16:18] VITALS: BP 178/78; PULSE 86; RESP 18; TEMP 36.9; O2SAT 98; BMI 35.3
--- NOTE | 2025-01-27 16:59 | EDS_ITS ---
HPI History of Present Illness Chief Complaint: GI Bleed Narrative Narrative: Chief complaint and HPI: Bright red blood per rectum. 79-year-old female with past medical history of CVA, COPD, CHF, HTN, HLD presents for evaluation of bright red blood per rectum. Patient states that she thinks it is coming from her rectum however she is unsure if it is coming from her vagina. Patient states a couple days ago she fell and her legs split. States she has been a little sore in her thigh since. Patient states after the fall she had a little bit of bright red blood which quickly resolved. States that reoccurred today while on the toilet. Denies any constipation or diarrhea. Has a history of a total hysterectomy. She denies any fever, chills, shortness of breath, chest pain abdominal pain, nausea, vomiting, dysuria. Has a history of hemorrhoids. Review of systems: See HPI Medications: As listed on the chart Allergies: As listed on the chart PFSH: Per chart Vital signs: As listed on the chart. Reviewed. Physical exam: Gen: A&O x3, NAD Head: Normocephalic, atraumatic Eyes: No sclera icterus, conjunctiva clear ENT: Moist mucous membranes Neck: Trachea midline, No JVD CV: RRR, no murmurs, no peripheral edema Resp: Lungs CTA BL, no w/r/c GI: Abd soft, non-distended, non-tender, no r/r/g Rectal: Normal external examination. Nnthrombosed external hemorrhoids with mild bright red blood bleeding,normal tone and sensation. No masses, fluctuance, or tenderness. No pain out of proportion. Stool brown on gloved finger Pelvic: Normal external genitalia. No lesions, masses, or rashes appreciated. No active vaginal bleeding or discharge noted. No lacerations Musc: Full ROM, no deformity Skin: Warm, dry Neuro: Alert, oriented, grossly intact, sensation intact Psych: Cooperative, appropriate mood and affect [facility] Medical History (Updated 01/27/25 @ 19:[address] Sung Nova DO) History of DVT of lower extremity Closed left fibular fracture COPD (chronic obstructive pulmonary disease) Obesity (BMI 30.0-34.9) CVA (cerebral vascular accident) Subtherapeutic international normalized ratio (INR) Tobacco use disorder Mobitz type 2 second degree heart block Presence of permanent cardiac pacemaker COPD (chronic obstructive pulmonary disease) Anemia Anxiety Depression Chronic pain Osteoporosis Rheumatoid arthritis Kidney stones Former smoker Congestive heart failure (CHF) Stroke/cerebrovascular accident Leg fracture, left DVT (deep venous thrombosis) HTN (hypertension) COPD (chronic obstructive pulmonary disease) HLD (hyperlipidemia) Hypothyroidism Bipolar disorder Hypertension Home Medications ?Medication ?Instructions ?Recorded ?Last Taken ?Type amlodipine 10 mg tablet 10 mg PO DAILY BLOOD PRESSUR E 10/26/13 01/25/21 History carbamazepine 200 mg tablet 200 mg PO QHS MENTAL HEALT H 10/26/13 01/24/21 History duloxetine 60 mg capsule,delayed 60 mg PO BID MENTAL H EALTH 10/26/13 01/25/21 History release rosuvastatin 10 mg tablet 10 mg PO QHS CHOLESTEROL 01/24/21 History albuterol sulfate 2.5 mg/3 mL 2.5 mg (3 mL) inhalation Q4H PRN 09/15/18 Unknown Rx (0.083 %) solution for nebulization SHORTNESS OF BREAT H ##30 bisoprolol 2.5 1 tab PO DAILY BLOOD PRESSUR E 01/25/21 Unknown History mg-hydrochlorothiazide 6.25 mg tablet carbamazepine 100 mg chewable 100 mg PO DAILY MENTAL H EALTH 01/25/21 01/25/21 History tablet lisinopril 10 mg tablet 10 mg PO DAILY BLOOD PRESSUR E 09/19/23 Unknown History quetiapine 400 mg tablet 400 mg PO QHS SLEEP/MOOD Unknown History Allergy/AdvReac Type Severity Reaction Status Date / Time aspirin Allergy Hives Verified 01/27/25 16:23 diphenhydramine HCl (From Allergy Anaphylaxis Verified 01/27/25 16:23 Benadryl) latex Allergy Rash Verified 01/27/25 16:23 meperidine (From Demerol) Allergy Swelling Verified 01/27/25 16:23 facial Penicillins Allergy Anaphylaxis Verified 01/27/25 16:23 Sulfa (Sulfonamide Allergy Rash Verified 01/27/25 16:23 Antibiotics) chlorpromazine AdvReac mental Verified 01/27/25 16:23 status change codeine AdvReac Vomiting Verified 01/27/25 16:23 haloperidol (From Haldol) AdvReac HALLUCINATI Verified 01/27/25 16:23 ONS meloxicam AdvReac Upset Verified 01/27/25 16:23 Stomach pentazocine AdvReac Vomiting Verified 01/27/25 16:23 promethazine HCl (From AdvReac hallucinati Verified 01/27/25 16:23 Phenergan) ons Family History Mother CAD (coronary artery disease) Kidney disease Grandmother CAD (coronary artery disease) Liver disease Father CVA (cerebral vascular accident) Surgical History History of appendectomy History of total left hip replacement History of cholecystectomy History of hysterectomy Social History Smoking Status: Former smoker EXAM Physical Exam Const Vital Signs: 01/27/25 16:18 01/27/25 18:18 Temperature 98.5 F Temperature Source Oral Pulse Rate 86 73 Respiratory Rate 18 18 Blood Pressure 178/78 H 136/85 H Blood Pressure Mean 111 102 Pulse Ox 98 98 Oxygen Delivery Method Room Air MDM MDM MDM Narrative Medical decision making narrative: 79-year-old female with past medical history of CVA, COPD, CHF, HTN, HLD presents for evaluation of bright red blood per rectum. Bleeding started after a mechanical fall in which she did the splits. Has a history of hemorrhoids. Patient was unsure if bright red blood was coming from rectum versus vagina. Physical exam shows mild hemorrhoidal bright red blood bleeding. Differential diagnosis includes but is not limited to hemorrhoidal bleeding, lower GI bleed, anemia. Basic labs ordered with CTA abdomen and pelvis. Stool occult blood not ordered given that I can see the bright red blood per rectum. CBC without leukocytosis. Patient has stable anemia with hemoglobin of 10.9. BMP unremarkable.CTA abdomen and pelvis shows no evidence of active GI bleeding. Focal stenosis of the renal arteries bilaterally. Diverticulosis without diverticulitis. Right lower lobe nodule, needs follow-up outpatient. On reevaluation, patient is still having some mild hemorrhoidal bleeding. Her vitals are stable. She is asymptomatic otherwise. Did reach out to Dr. Simms who agrees with stool softeners and follow-up in the office as needed. Return precautions explained. Patient understands plan. Patient will discharge home. Impression: 1. External hemorrhoidal bleeding 2. Chronic anemia Lab Data Labs: Laboratory Results - last 24 hr 01/27/25 17:10 WBC 6.9 RBC 3.43 L Hgb 10.9 L Hct 32.6 L MCV 95.0 MCH 31.8 MCHC 33.4 RDW Std Deviation 42.5 RDW Coeff of Umair 12.3 Plt Count 247 MPV 9.4 Immature Gran % (Auto) 0.300 Neut % (Auto) 48.1 Lymph % (Auto) 35.7 [place] % (Auto) 10.7 H Eos % (Auto) 4.9 Baso % (Auto) 0.3 Absolute Neuts (auto) 3.3 Absolute Lymphs (auto) 2.46 Nucleated RBC % 0 Sodium 137 Potassium 3.8 Chloride 106 Carbon Dioxide 18.8 L Anion Gap 13 BUN 18 Creatinine 0.86 Estim Creat Clear Calc 54.51 Est GFR (MDRD) Non-Af 68 BUN/Creatinine Ratio 20.7 H Glucose 91 Calcium 9.7 Radiography Diagnostic Testing: Clinical Impression(s) from Imaging Studies Abdomen/Pelvis CTA 01/27/25 17:25 IMPRESSION: 1. No CTA evidence of active GI bleed. 2. Focal stenosis at the renal artery origins bilaterally. 3. Colonic diverticulosis without signs of diverticulitis. 4. Extrahepatic biliary ductal dilation. No obstructing lesions seen. Findings can be seen in the postcholecystectomy state however would correlate with clinical signs of cholestasis. 5. Right lower lobe nodule that is less than 6.0 mm in size. According to the 2017 Fleischner criteria, if the patient is low risk, no routine follow-up is recommended. If the patient is high risk, an optional CT at 12 months is recommended. Reading Location: [facility] Discharge Plan Triage Chief Complaint: GI Bleed ED Provider: Sung Nova Dx/Rx/DC Orders Clinical Impression: Bleeding external hemorrhoids Instructions: ED Hemorrhoids Prescriptions: No Action carbamazepine 200 MG tablet 200 mg PO QHS amlodipine 10 MG tablet 10 mg PO DAILY rosuvastatin 10 MG tablet 10 mg PO QHS duloxetine 60 MG capsule 60 mg PO BID albuterol sulfate 2.5 MG/3 ML solution for nebulization 2.5 mg inhalation Q4H PRN (Reason: SHORTNESS OF BREATH) Qty: 30 0RF bisoprolol-hydrochlorothiazide 2.5-6.25 mg tablet 1 tab PO DAILY carbamazepine 100 mg tablet,chewable 100 mg PO DAILY lisinopril 10 mg tablet 10 mg PO DAILY quetiapine 400 mg tablet 400 mg PO QHS Primary Care Provider: Wilver Browning Referrals: Wil Simms MD [Med Staff - Active Staff] - 3-5 Days Wilver Browning MD [Primary Care Provider] - 3-5 Days Activity Restrictions/Additional Instructions: Hyperglycemia recommend warm tub soaks. Pad to absorb bleeding in the underwear. Recommend daily MiraLAX to help keep bowel movements soft. Follow- up with primary care physician. Follow-up with general surgery. Return back to the ED if symptoms change or worsen. CT abdomen pelvis right lower lobe nodule, recommend follow-up with primary care physician Print Language: Tuvaluan Disposition Disposition: Home, Self Care
[2025-01-27 17:24] LABS: Hematocrit 32.6 % (37-47); Hemoglobin 10.9 g/dL (12.0-15.0); Immature Granulocytes Count 0.020 X10^3/uL (0.0-0.0); Mean Corp Hgb Conc 33.4 g/dL (32-36); Mean Corpuscular Volume 95.0 fL (81-99); Mean Platelet Vol. 9.4 fl (6.2-12.0); NRBC Flagged by Analyzer 0 % (0-5); Platelet Count 247 K/mm3 (150-450); RBC Distribution Width CV 12.3 % (11.6-14.6); RBC Distribution Width SD 42.5 fl (35.1-43.9); Red Blood Count 3.43 M/mm3 (4.2-5.4); White Blood Count 6.9 K/mm3 (4.4-11.0)
--- NOTE | 2025-01-27 17:25 | CT_ITS ---
PROCEDURE: CTA ABD/PELVIS W/WO CONTRAST 01/27/2025 REASON FOR EXAM: BRIGHT RED BLOOD PER RECTUM. Fell a few days ago, vaginal bleeding or clots in stool. History of cholecystectomy, hysterectomy and stones. TECHNIQUE: CTA ABD/PELVIS W/WO CONTRAST Multiplanar Sagittal and Coronal images were obtained. CONTRAST: Isovue 370 VOLUME: 100 mL One or more dose reduction techniques were used (e.g., Automated exposure control, adjustment of the mA and/or kV according to patient size, use of iterative reconstruction technique). RADIATION DOSE SUMMARY: CTDlvol: 35.62, 18.99 mGy DLP: 947.79 mGycm COMPARISON: None. FINDINGS: VASCULATURE: Aorta: No acute finding. No abdominal aortic aneurysm. No dissection. Scattered calcified atherosclerosis. Celiac trunk: No acute finding. No occlusion or significant stenosis. Calcified atherosclerosis at the origin with mild luminal narrowing. Superior mesenteric artery: No acute finding. No occlusion or significant stenosis. Mild scattered calcified atherosclerosis. Inferior mesenteric artery: No acute finding. No occlusion or significant stenosis. Renal arteries: No occlusion. Focal stenosis at the origins bilaterally, which appears >50%, due to calcified atherosclerosis. Iliac arteries: No acute finding. No occlusion or significant stenosis. Scattered calcified atherosclerosis. ABDOMEN/PELVIS: Lung bases: Subpleural right lower lobe nodule measuring 5.7 mm. Minimal dependent atelectasis bilaterally. Cardiac pacemaker leads in the right atrium and right ventricle. Liver: Unremarkable. No mass. Gallbladder and bile ducts: Prior cholecystectomy. Dilated extrahepatic bile duct with the CBD up to 1.0 cm in diameter. No obstructing lesion seen. Pancreas: Unremarkable. No ductal dilation. Spleen: Unremarkable. Adrenals: No mass. Kidneys: Renal cortical scarring bilaterally. The kidneys enhance symmetrically. Hypodense 3.4 mm right renal cortical focus, too small to further characterize. No hydronephrosis. No solid mass. Stomach and bowel: No intraluminal extravasation of IV contrast to indicate site of active hemorrhage. No obstruction or perforation. No bowel wall thickening. Colonic diverticulosis. No CT evidence of acute diverticulitis. Appendix: The appendix is not definitively seen. Pelvic organs: Limited evaluation due to hip hardware streak artifact. Prior hysterectomy. No adnexal lesion seen. Retro/Peritoneum: No free fluid. No free air. Lymph nodes: No lymphadenopathy. Soft tissues: Prior right ventral abdominal wall hernia surgery. Small fat- containing umbilical and bilateral inguinal hernias. Bones: No acute osseous abnormality. Bilateral hip prostheses. Degenerative changes of the spine. Mild superior compression deformity of the L1 vertebral body. CT/CTA Abd/Pelvis W/WO Contrast IMPRESSION: 1. No CTA evidence of active GI bleed. 2. Focal stenosis at the renal artery origins bilaterally. 3. Colonic diverticulosis without signs of diverticulitis. 4. Extrahepatic biliary ductal dilation. No obstructing lesions seen. Findings can be seen in the postcholecystectomy state however would correlate with clinical signs of cholestasis. 5. Right lower lobe nodule that is less than 6.0 mm in size. According to the 2017 Fleischner criteria, if the patient is low risk, no routine follow-up is recommended. If the patient is high risk, an opt ional CT at 12 months is recommended. Reading Location: [id number]
[2025-01-27] MEDS: 0.9% Normal Saline (1000mL) 1,000 ML 999 ML IV (17:31)
[2025-01-27 17:52] LABS: Anion Gap 13 (5-15); BUN 18 mg/dL (4-19); BUN/Creat Ratio 20.7 RATIO (10-20); Calcium,Total 9.7 mg/dL (7.6-11.0); Carbon Dioxide 18.8 mmol/L (21.0-32.0); Chloride 106 mmol/L (98-108); Estimated Creatinine Clearance 54.51 ml/min (50-250); Glucose 91 mg/dL (70-99); Potassium 3.8 mmol/L (3.3-5.1)
[2025-01-27 18:18] VITALS: BP 136/85; PULSE 73; RESP 18; O2SAT 98
[2025-01-27 20:00] VITALS: BP 131/88; PULSE 82; RESP 16; O2SAT 95
[2025-01-27 20:16] VITALS: BP 131/88; PULSE 82; RESP 16; TEMP 36.5; O2SAT 95
== END 2025-01-27 20:16 | disposition home or self-care (01) ==
PROVIDERS: Emergency Provider Surgery; PCP Internal Medicine; Referring Provider Surgery; Visit Provider Surgery
DX: K64.9 Unspecified hemorrhoids (principal); J44.9 Chronic obstructive pulmonary disease, unspecified; K57.30 Diverticulosis of large intestine without perforation or abscess without bleeding; D64.9 Anemia, unspecified; Z86.73 Personal history of transient ischemic attack (TIA), and cerebral infarction without residual deficits; Z90.710 Acquired absence of both cervix and uterus; I70.1 Atherosclerosis of renal artery; E78.5 Hyperlipidemia, unspecified; Z86.718 Personal history of other venous thrombosis and embolism; Z87.891 Personal history of nicotine dependence; Z90.49 Acquired absence of other specified parts of digestive tract; E03.9 Hypothyroidism, unspecified; I10 Essential (primary) hypertension
CPT/HCPCS: 74174; 80048; 85025; 96360; 99285; Q9967; A4216